=== PATIENT | male | born 1985 | race Two or more races ===

== ENCOUNTER 2021-06-12 21:56 | Emergency (ER) | payer OTHER, SELFPAY ==
[2021-06-12 22:04] VITALS: BP 118/66; PULSE 111; RESP 16; TEMP 37.1; O2SAT 96; BMI 21.9
[2021-06-12 22:40] VITALS: BP 127/80; PULSE 112; RESP 20; TEMP 37; O2SAT 94
--- NOTE | 2021-06-12 22:46 | PC.NURSE ---
pt changed over into hospital attire. pt clothing in the Pod. Will continue to monitor
--- NOTE | 2021-06-12 23:10 | ED_ITS ---
HPI - Psych General Chief Complaint: ETOH/Substance Use Stated Complaint: detox Time Seen by Provider: 06/12/21 23:07 Source: patient Mode of arrival: ambulatory Limitations: no limitations History of Present Illness HPI Narrative: Patient asking for detox been using heroin and cocaine use 2 bundles today and cocaine 3 g about patient feels restless patient has been to detox few years ago and was sober for a long time started using drugs again last 1 year. Denies any depression or suicidal ideation patient has not received any COVID vaccine Related Data Allergies Allergy/AdvReac Type Severity Reaction Status Date / Time No Known Allergies Allergy Verified 06/12/21 23:11 Review of Systems Verdana 4l Review of Systems: Yes all other systems are reviewed and Verdana 4d are negative [facility] Past Medical History Medical History (Updated 06/13/21 @ 01:12 by Aman Pop MD) Drug abuse Social History Social History Alcohol intake: current Patient Tobacco Use Status: Current everyday Tobacco user Use of substances other than those prescribed or required for medical reasons: Yes Substance Use Type: Crack/Cocaine and Heroin Physical Exam Verdana 4l Vital Signs: Verdana 4d Verdana 4d Vital Signs: Verdana 4d Verdana 4Bd Last Vital Signs Verdana 4d Operational Intelligence Officer New 4d Operational Intelligence Officer New 4d Temp 98.6 F 06/12/21 22:40 Operational Intelligence Officer New 4d Pulse 112 H 06/12/21 22:40 Operational Intelligence Officer New 4d Resp 20 06/12/21 22:40 BP 127/80 06/12/21 22:40 Pulse Ox 94 06/12/21 22:40 BMI result Body Mass Index 21.9 Appearance: Alert. Oriented X3. No acute distress. Anxious ENT: Pharynx normal. Oral Mucosa moist Neck: Normal inspection. Neck supple. CVS: Normal heart rate and rhythm. Pulses normal. Respiratory: No respiratory distress. Equal air entry bilateral, no wheezing/rales/rhonchi Abdomen: Soft and nontender. Bowel sounds are present, no mass palpable, no CVA tenderness Skin: Skin warm and dry. Normal skin color. Normal skin turgor. Extremities: No lower extremity edema. No calf tenderness IVDA track donaldson+ Neuro: Oriented X 3. MDM - Psych MDM Narrative Medical decision making narrative: Patient with opiate and cocaine abuse looking for detox with get consult for placement in the morning Lab Data Attestation: I reviewed the patient's lab results. Labs: Lab Results 06/13/21 06/13/21 Range/Units 00:21 00:21 Urine Opiates Screen POSITIVE H (Not Detect) Urine Fentanyl Screen POSITIVE H (Not Detect) Ur Barbiturates Screen Not Detected (Not Detect) Ur Phencyclidine Scrn Not Detected (Not Detect) Ur Amphetamines Screen Not Detected (Not Detect) U Benzodiazepines Scrn Not Detected (Not Detect) Urine Cocaine Screen POSITIVE H (Not Detect) U Marijuana (THC) Screen POSITIVE H (Not Detect) COVID-19 ([facility]) Negative (Negative) COVID-19 Clin Com See Note Discharge Plan Discharge Clinical Impression: Polysubstance abuse
--- NOTE | 2021-06-12 23:13 | PC.NURSE ---
provider in to assess pt. pt requesting food. [place] and Juice given. Pt tolerated well.
[2021-06-13 00:39] LABS: Amphetamine Screen Urine Not Detected (Not Detect); Barbiturates, Urine Not Detected (Not Detect); Benzodiazepines Screen Urine Not Detected (Not Detect); Cannabinoid Screen Urine POSITIVE (Not Detect); Cocaine Screen Urine POSITIVE (Not Detect); Fentanyl, urine POSITIVE (Not Detect); Opiate Screen Urine POSITIVE (Not Detect); Phencyclidine Screen Urine Not Detected (Not Detect)
[2021-06-13 00:40] LABS: COVID-19 Test Negative (Negative); IDNOW Serial# 9DD0AD1C
--- NOTE | 2021-06-13 03:05 | PC.NURSE ---
Pt is resting in bed, calm and cooperative. No sign of withdrawal at this time.
[2021-06-13 06:25] VITALS: BP 91/54; PULSE 58; RESP 16; O2SAT 95
[2021-06-13 10:00] VITALS: BP 102/66; PULSE 65; RESP 12; O2SAT 96
--- NOTE | 2021-06-13 12:18 | MHC.RECOVSUP ---
? Reason for consult:Recovery Support o Current location: BED 21 o Identified substance use concern:Heroin - Withdrawal - Seeking ATS (detox) - Support ? Intervention: o ATS bed search started/completed/in process o MAT started or to be started o Community resources provided o Harm reduction discussion ? Plan: o Referral to [facility] o Bed search in progress to o Patient to follow up with [facility] after discharge ? Additional information:Patient seeking detox. There is no bed availability. Patient to go to the [facility] tomorrow between 10-11am to get on MAT.
== END 2021-06-13 12:27 | disposition home or self-care (01) ==
PROVIDERS: Emergency Provider Internal Medicine
DX: F19.10 Other psychoactive substance abuse, uncomplicated (principal); F11.10 Opioid abuse, uncomplicated; F14.10 Cocaine abuse, uncomplicated; F17.200 Nicotine dependence, unspecified, uncomplicated; Z20.822 Contact with and (suspected) exposure to COVID-19
CPT/HCPCS: 80307; 87635; 99285

== ENCOUNTER 2021-06-14 10:14 | Outpatient (REF) | payer OTHER, SELFPAY ==
[2021-06-14 17:45] LABS: Fentanyl, urine POSITIVE (Not Detect)
== END 2021-06-14 10:15 | disposition home or self-care (01) ==
LOC: HO.LNP 10:14
PROVIDERS: Visit Provider Internal Medicine
DX: F11.90 Opioid use, unspecified, uncomplicated (principal); F17.210 Nicotine dependence, cigarettes, uncomplicated; Z51.81 Encounter for therapeutic drug level monitoring
CPT/HCPCS: 80305; 80307; 99202

== ENCOUNTER → 2021-06-18 09:58 | Outpatient (BNVA) | payer OTHER, SELFPAY | PROVIDERS: Visit Provider Internal Medicine | DX: Z51.81 Encounter for therapeutic drug level monitoring (principal); F11.20 Opioid dependence, uncomplicated | CPT/HCPCS: 80305 ==

== ENCOUNTER → 2021-06-25 10:39 | Outpatient (BNVA) | payer OTHER, SELFPAY | PROVIDERS: Visit Provider Internal Medicine | DX: F11.20 Opioid dependence, uncomplicated (principal) | CPT/HCPCS: 80305; 99211 ==

== ENCOUNTER → 2021-07-02 10:24 | Outpatient (BNVA) | payer OTHER, SELFPAY | PROVIDERS: Visit Provider Internal Medicine | DX: F11.20 Opioid dependence, uncomplicated (principal) | CPT/HCPCS: 80305; 99211 ==

== ENCOUNTER → 2021-07-12 15:13 | Outpatient (BNVA) | payer OTHER, SELFPAY | PROVIDERS: Visit Provider Internal Medicine ==

== ENCOUNTER 2021-07-18 02:10 | Emergency (ER) | payer OTHER, SELFPAY ==
[2021-07-18 02:15] VITALS: BP 135/85; PULSE 120; RESP 18; TEMP 37.2; O2SAT 98; BMI 21.9
--- NOTE | 2021-07-18 02:37 | ED.EXTPRO ---
HPI - Extremity Problem General Chief complaint: Extremity Injury, Lower Stated complaint: pain in both legs Time Seen by Provider: 07/18/21 02:36 Source: patient Mode of arrival: ambulatory Limitations: no limitations History of Present Illness HPI Narrative: Patient IV drug user does not use lower extremity for that noticed for 5 days of redness of lower extremity no fever no significant pain no history of MRSA in the past Related Data Previous Rx's Medication Instructions Recorded buprenorphine 8 mg-naloxone 2 mg 2 film SUBLINGUAL DAILY 4 Days #8 07/12/21 sublingual film (Suboxone) ea cephalexin 500 mg capsule 500 mg PO QID 10 Days #40 cap 07/18/21 doxycycline hyclate 100 mg tablet 100 mg PO BID #20 tab 07/18/21 Allergies Allergy/AdvReac Type Severity Reaction Status Date / Time No Known Allergies Allergy Verified 07/18/21 02:15 Review of Systems Review of Systems: Yes all other systems are reviewed and are negative PMFSH Past Medical History Medical History Drug abuse Opioid use disorder Social History Social History Alcohol intake: current Patient Tobacco Use Status: Current everyday Tobacco user Substance Use Type: Crack/Cocaine and Heroin Advance Directives: No Advance Directives Information Provided: Yes Physical Exam Vital Signs: Vital Signs: Last Vital Signs Temp 98.9 F 07/18/21 02:15 Pulse 120 H 07/18/21 02:15 Resp 18 07/18/21 02:15 BP 135/85 07/18/21 02:15 Pulse Ox 98 07/18/21 02:15 BMI result Body Mass Index 21.9 Appearance: Alert. Oriented X3. No acute distress. ENT: Pharynx normal. Oral Mucosa moist Neck: Normal inspection. Neck supple. CVS: Normal heart rate and rhythm. Pulses normal. Respiratory: No respiratory distress. Equal air entry bilateral, Abdomen: Soft and nontender. Bowel sounds are present, Skin: Skin warm and dry. Extremities: No lower extremity edema. No calf tenderness. Lower extremity bilateral erythema with warmth no open wound Neuro: Oriented X 3. No motor deficit. MDM - Extremity (Nontraumatic) MDM Narrative Medical decision making narrative: Patient with cellulitis bilateral lower extremity will discharge patient home on doxycycline and Keflex Discharge Plan Discharge Clinical Impression: Cellulitis Patient Disposition: Home, Self-Care Instructions: Cellulitis (ED) Additional Instructions: Take antibiotic as prescribed Report to the ER/PCP worsening of redness or swelling or pain Prescriptions: New cephalexin 500 mg capsule 500 mg PO QID 10 Days Qty: 40 0RF doxycycline hyclate 100 mg tablet 100 mg PO BID Qty: 20 0RF No Action buprenorphine-naloxone [Suboxone] 8-2 mg film 2 film sublingual DAILY 4 Days Qty: 8 0RF Rx Instructions: place 1 strip/tab under (each) side of tongue
[2021-07-18] MEDS: cephALEXin 500 MG CAPSULE PO (03:16)
== END 2021-07-18 03:17 | disposition home or self-care (01) ==
PROVIDERS: Emergency Provider Internal Medicine
DX: L03.116 Cellulitis of left lower limb (principal); L03.115 Cellulitis of right lower limb; F19.10 Other psychoactive substance abuse, uncomplicated; F11.20 Opioid dependence, uncomplicated; F17.200 Nicotine dependence, unspecified, uncomplicated
CPT/HCPCS: 99283

== ENCOUNTER 2021-07-20 22:17 | Emergency (ER) | payer OTHER, SELFPAY ==
[2021-07-20 22:24] VITALS: BP 113/59; BP 142/90; PULSE 107; PULSE 145; RESP 16; TEMP 37.1; O2SAT 95; O2SAT 98; BMI 19.5
--- NOTE | 2021-07-20 23:04 | ED.GENADULT ---
HPI - General Adult General Chief complaint: ETOH/Substance Use Stated complaint: etoh, substance use Time Seen by Provider: 07/20/21 22:57 Source: patient and EMS Mode of arrival: EMS History of Present Illness HPI narrative: 35-year-old male with known history of polysubstance use is brought in by EMS after he was found outside by police department under the influence. According to EMS and corroborated by the patient he states he has use heroin and speed tonight. He is however unsure of alcohol use. Patient states he is multiple itching areas on his back and upper torso and states that he is currently homeless and that he does not communicate with his local family. Related Data Previous Rx's Medication Instructions Recorded buprenorphine 8 mg-naloxone 2 mg 2 film SUBLINGUAL DAILY 4 Days #8 07/12/21 sublingual film (Suboxone) ea cephalexin 500 mg capsule 500 mg PO QID 10 Days #40 cap 07/18/21 doxycycline hyclate 100 mg tablet 100 mg PO BID #20 tab 07/18/21 Allergies Allergy/AdvReac Type Severity Reaction Status Date / Time No Known Allergies Allergy Verified 07/18/21 02:15 Review of Systems Review of Systems: Pertinent positives and negatives as stated in HPI 10 point review of systems is otherwise negative. PMFSH Past Medical History Source: nursing notes reviewed Medical History Drug abuse Opioid use disorder Social History Social History Alcohol intake: current Patient Tobacco Use Status: Current everyday Tobacco user Substance Use Type: Crack/Cocaine and Heroin Advance Directives: No Advance Directives Information Provided: No Physical Exam ED Vital Signs: Vital Signs - 24 hr 07/20/21 22:24 07/21/21 01:11 07/21/21 02:10 Temperature 98.7 F Pulse Rate 107 H 71 70 Respiratory Rate 16 11 L 13 Blood Pressure 113/59 L 115/61 130/85 Pulse Oximetry 98 98 99 07/21/21 04:21 07/21/21 06:08 Temperature Pulse Rate 82 Respiratory Rate 17 18 Blood Pressure 137/65 Pulse Oximetry 99 BMI result Body Mass Index 19.5 VITAL SIGNS: Reviewed. GENERAL: Well developed, well nourished, in no acute distress. HEAD: Normocephalic/atraumatic EYES: PERRLA, EOMI OROPHARYNX: no oral lesions noted, posterior pharynx clear LUNGS: Normal breath sounds. No adventitious sounds or accessory muscle use. SpO2<98> CARDIOVASCULAR: Regular rate and rhythm without noted murmurs, no JVD or lower extremity edema. ABDOMEN: Soft, non-tender, non-distended with bowel sounds. MUSCULOSKELETAL: No tenderness, deformities, or effusions noted on gross inspection. EXTREMITIES: No cyanosis, clubbing or edema; needle tracks present on bilateral upper extremities; anterior erythema and mild edema noted to bilateral shins, warm to touch, capillary refill less than 3 seconds SKIN: Inspection of the skin reveals red, raised areas along the anterior and posterior trunk with evidence scratching NEUROLOGIC: Alert and oriented x 3. Strength and sensation to light touch were grossly intact x 4. Course Course Course Narrative: 35-year-old male with history and clinical presentation consistent with being under the influence of poly substances. In addition, it appears patient may have been exposed to bedbugs and will evaluate patient with basic labs for possible lower extremity cellulitis. Review of all investigations significant for elevated CPK and polysubstance presence. CPK was noted to trend down words after patient received 2 L of IV fluids and this was followed with 1 additional. The mild leukocytosis noted is felt to be secondary to patient's recent alcohol use and likely mild rhabdo which is improving. He was noted to be pinpoint and becoming progressively drowsy and required 1 dose of Narcan. He otherwise is resting comfortably and is currently stating that he wants detox. Reevaluation(s) Reevaluation #1: Patient placed in physician observation because the patient needed more time for evaluation for detox. At the time observation was started the patient's vital signs were stable, patient is arousable and oriented, neuro: Nonfocal, CV RRR, lungs clear Time: 06:28 Medical Decision Making Lab Data Result diagrams: 07/20/21 23:20 07/20/21 23:20 Labs: Lab Results 07/20/21 07/20/21 07/20/21 Range/Units 23:20 23:20 23:20 WBC 12.5 H (4.8-10.8) X10*3/uL RBC 3.77 L (4.60-5.80) X10*6/uL Hgb 11.1 L (14.0-18.0) g/dl Hct 33.3 L (42.0-52.0) % MCV 88.3 (80.0-98.0) fL MCH 29.4 (27.0-33.0) pg MCHC 33.3 (31.0-36.0) g/dl RDW 12.8 (11.0-16.0) % Plt Count 326 (160-400) X10*3/uL MPV 8.4 L (9.4-12.4) fL Immature Gran % (Auto) 1.6 H (0.0-0.4) % Neut % (Auto) 76.6 H (45-73) % Lymph % (Auto) 9.8 L (20-40) % [place] % (Auto) 10.7 (2-11) % Eos % (Auto) 1.1 (0-4) % Baso % (Auto) 0.2 (0-2) % Lymph # (Auto) 1.2 (1.2-4.9) X10*3/uL [place] # (Auto) 1.3 H (0.1-1.2) X10*3/uL Eos # (Auto) 0.1 (0.0-0.4) X10*3/uL Baso # (Auto) 0.0 (0.0-0.2) X10*3/uL Abs Immat Gran (auto) 0.20 H (0.00-0.03) X10*3/uL Absolute Neuts (auto) 9.6 H (2.0-8.3) x10*3/uL Absolute Nucleated RBC 0.000 (0.0-0.012) X10*3/uL Nucleated RBC % (auto) 0.0 (0.0-0.2) /100WBC Sodium 139 (135-145) mmol/L Potassium 4.2 (3.3-5.1) mmol/L Chloride 105 (96-108) mmol/L Carbon Dioxide 29 (22-29) mmol/L Anion Gap 9 L (12-20) BUN 22 H (9-16) mg/dL Creatinine 1.21 (0.5-1.4) mg/dL Estim Creat Clear Calc 67.0 Estimated GFR > 60 Random Glucose 97 (60-115) mg/dL Calcium 8.8 (8.4-10.2) mg/dL Total Bilirubin 0.4 (0.0-1.0) mg/dL AST 57 H (5-37) U/L ALT 24 (0-40) U/L Alkaline Phosphatase 63 (39-117) U/L Total Creatine Kinase 1308 H (38-174) U/L Total Protein 6.9 (6.5-8.0) g/dL Albumin 3.4 L (3.5-5.0) g/dL Urine Color Urine Appearance Urine pH (5.0-8.0) Ur Specific [place] (1.005-1.025) Urine Protein (NEG-TRACE) MG/DL Urine Glucose (UA) (NEG) MG/DL Urine Ketones (NEG) MG/DL Urine Blood (NEG) Urine Nitrite (NEG) Ur Leukocyte Esterase (NEG) Urine Opiates Screen (Not Detect) Urine Fentanyl Screen (Not Detect) Ur Barbiturates Screen (Not Detect) Ur Phencyclidine Scrn (Not Detect) Ur Amphetamines Screen (Not Detect) U Benzodiazepines Scrn (Not Detect) Urine Cocaine Screen (Not Detect) U Marijuana (THC) Screen (Not Detect) Ethyl Alcohol < 10 mg/dL COVID-19 ([facility]) (Negative) COVID-19 Clin Com 07/20/21 07/21/21 07/21/21 Range/Units 23:35 03:17 03:17 WBC (4.8-10.8) X10*3/uL RBC (4.60-5.80) X10*6/uL Hgb (14.0-18.0) g/dl Hct (42.0-52.0) % MCV (80.0-98.0) fL MCH (27.0-33.0) pg MCHC (31.0-36.0) g/dl RDW (11.0-16.0) % Plt Count (160-400) X10*3/uL MPV (9.4-12.4) fL Immature Gran % (Auto) (0.0-0.4) % Neut % (Auto) (45-73) % Lymph % (Auto) (20-40) % [place] % (Auto) (2-11) % Eos % (Auto) (0-4) % Baso % (Auto) (0-2) % Lymph # (Auto) (1.2-4.9) X10*3/uL [place] # (Auto) (0.1-1.2) X10*3/uL Eos # (Auto) (0.0-0.4) X10*3/uL Baso # (Auto) (0.0-0.2) X10*3/uL Abs Immat Gran (auto) (0.00-0.03) X10*3/uL Absolute Neuts (auto) (2.0-8.3) x10*3/uL Absolute Nucleated RBC (0.0-0.012) X10*3/uL Nucleated RBC % (auto) (0.0-0.2) /100WBC Sodium (135-145) mmol/L Potassium (3.3-5.1) mmol/L Chloride (96-108) mmol/L Carbon Dioxide (22-29) mmol/L Anion Gap (12-20) BUN (9-16) mg/dL Creatinine (0.5-1.4) mg/dL Estim Creat Clear Calc Estimated GFR Random Glucose (60-115) mg/dL Calcium (8.4-10.2) mg/dL Total Bilirubin (0.0-1.0) mg/dL AST (5-37) U/L ALT (0-40) U/L Alkaline Phosphatase (39-117) U/L Total Creatine Kinase 1086 H (38-174) U/L Total Protein (6.5-8.0) g/dL Albumin (3.5-5.0) g/dL Urine Color Urine Appearance Urine pH (5.0-8.0) Ur Specific [place] (1.005-1.025) Urine Protein (NEG-TRACE) MG/DL Urine Glucose (UA) (NEG) MG/DL Urine Ketones (NEG) MG/DL Urine Blood (NEG) Urine Nitrite (NEG) Ur Leukocyte Esterase (NEG) Urine Opiates Screen POSITIVE H (Not Detect) Urine Fentanyl Screen POSITIVE H (Not Detect) Ur Barbiturates Screen Not Detected (Not Detect) Ur Phencyclidine Scrn Not Detected (Not Detect) Ur Amphetamines Screen Not Detected (Not Detect) U Benzodiazepines Scrn Not Detected (Not Detect) Urine Cocaine Screen POSITIVE H (Not Detect) U Marijuana (THC) Screen Not Detected (Not Detect) Ethyl Alcohol mg/dL COVID-19 ([facility]) Negative (Negative) COVID-19 Clin Com See Note 07/21/21 Range/Units 03:17 WBC (4.8-10.8) X10*3/uL RBC (4.60-5.80) X10*6/uL Hgb (14.0-18.0) g/dl Hct (42.0-52.0) % MCV (80.0-98.0) fL MCH (27.0-33.0) pg MCHC (31.0-36.0) g/dl RDW (11.0-16.0) % Plt Count (160-400) X10*3/uL MPV (9.4-12.4) fL Immature Gran % (Auto) (0.0-0.4) % Neut % (Auto) (45-73) % Lymph % (Auto) (20-40) % [place] % (Auto) (2-11) % Eos % (Auto) (0-4) % Baso % (Auto) (0-2) % Lymph # (Auto) (1.2-4.9) X10*3/uL [place] # (Auto) (0.1-1.2) X10*3/uL Eos # (Auto) (0.0-0.4) X10*3/uL Baso # (Auto) (0.0-0.2) X10*3/uL Abs Immat Gran (auto) (0.00-0.03) X10*3/uL Absolute Neuts (auto) (2.0-8.3) x10*3/uL Absolute Nucleated RBC (0.0-0.012) X10*3/uL Nucleated RBC % (auto) (0.0-0.2) /100WBC Sodium (135-145) mmol/L Potassium (3.3-5.1) mmol/L Chloride (96-108) mmol/L Carbon Dioxide (22-29) mmol/L Anion Gap (12-20) BUN (9-16) mg/dL Creatinine (0.5-1.4) mg/dL Estim Creat Clear Calc Estimated GFR Random Glucose (60-115) mg/dL Calcium (8.4-10.2) mg/dL Total Bilirubin (0.0-1.0) mg/dL AST (5-37) U/L ALT (0-40) U/L Alkaline Phosphatase (39-117) U/L Total Creatine Kinase (38-174) U/L Total Protein (6.5-8.0) g/dL Albumin (3.5-5.0) g/dL Urine Color YELLOW Urine Appearance CLEAR Urine pH 5.5 (5.0-8.0) Ur Specific [place] >= 1.030 H (1.005-1.025) Urine Protein NEG (NEG-TRACE) MG/DL Urine Glucose (UA) NEG (NEG) MG/DL Urine Ketones NEG (NEG) MG/DL Urine Blood NEG (NEG) Urine Nitrite NEG (NEG) Ur Leukocyte Esterase NEG (NEG) Urine Opiates Screen (Not Detect) Urine Fentanyl Screen (Not Detect) Ur Barbiturates Screen (Not Detect) Ur Phencyclidine Scrn (Not Detect) Ur Amphetamines Screen (Not Detect) U Benzodiazepines Scrn (Not Detect) Urine Cocaine Screen (Not Detect) U Marijuana (THC) Screen (Not Detect) Ethyl Alcohol mg/dL COVID-19 ([facility]) (Negative) COVID-19 Clin Com Discharge Plan Discharge Clinical Impression: Opioid use disorder Patient Disposition: Still a Patient Prescriptions: No Action cephalexin 500 mg capsule 500 mg PO QID 10 Days Qty: 40 0RF doxycycline hyclate 100 mg tablet 100 mg PO BID Qty: 20 0RF buprenorphine-naloxone [Suboxone] 8-2 mg film 2 film sublingual DAILY 4 Days Qty: 8 0RF Rx Instructions: place 1 strip/tab under (each) side of tongue
[2021-07-20] MEDS: diphenhydrAMINE HCL 25 MG TABLET 50 MG PO (23:16)
[2021-07-20 23:25] LABS: MANUAL DIFF FLAG NO
[2021-07-20 23:26] LABS: Basophils Percent Auto 0.2 % (0-2); Eosinophils Absolute Auto 0.1 X10*3/uL (0.0-0.4); Eosinophils Percent Auto 1.1 % (0-4); Hematocrit 33.3 % (42.0-52.0); Hemoglobin 11.1 g/dl (14.0-18.0); Imm Gran Pct Auto 1.6 % (0.0-0.4); Lymphocytes Absolute Auto 1.2 X10*3/uL (1.2-4.9); Lymphocytes Percent Auto 9.8 % (20-40); Mean Corpuscular HGB Conc 33.3 g/dl (31.0-36.0); Mean Corpuscular Hemoglobin 29.4 pg (27.0-33.0); Mean Corpuscular Volume 88.3 fL (80.0-98.0); Mean Platelet Volume 8.4 fL (9.4-12.4); Monocytes Absolute Auto 1.3 X10*3/uL (0.1-1.2); Monocytes Percent Auto 10.7 % (2-11); Neutrophils Absolute Auto 9.6 x10*3/uL (2.0-8.3); Neutrophils Percent Auto 76.6 % (45-73); Platelet Count 326 X10*3/uL (160-400); Red Blood Count 3.77 X10*6/uL (4.60-5.80); Red Cell Distribution Width 12.8 % (11.0-16.0); White Blood Count 12.5 X10*3/uL (4.8-10.8)
[2021-07-20 23:50] LABS: Ethanol < 10 mg/dL
[2021-07-20 23:56] LABS: COVID-19 Test Negative (Negative)
[2021-07-20 23:57] LABS: Alanine Aminotransferase 24 U/L (0-40); Albumin Level 3.4 g/dL (3.5-5.0); Alkaline Phosphatase 63 U/L (39-117); Anion Gap 9 (12-20); Aspartate Amino Transferase 57 U/L (5-37); Bilirubin Total 0.4 mg/dL (0.0-1.0); Blood Urea Nitrogen 22 mg/dL (9-16); Calcium 8.8 mg/dL (8.4-10.2); Carbon Dioxide 29 mmol/L (22-29); Chloride 105 mmol/L (96-108); Estimated Glomerular Filt Rate > 60; Glucose Random 97 mg/dL (60-115); Potassium 4.2 mmol/L (3.3-5.1); Sodium 139 mmol/L (135-145); Total Protein 6.9 g/dL (6.5-8.0)
[2021-07-21] MEDS: 0.9 % Sodium Chloride 2,000 ML 999 ML IV (00:27)
[2021-07-21] MEDS: LORazepam 1 MG TABLET PO (00:27)
[2021-07-21 01:11] VITALS: BP 115/61; PULSE 71; RESP 11; O2SAT 98
--- NOTE | 2021-07-21 01:50 | PC.NURSE ---
PT sleeping in bed with slow respirations (<12). Pupils appear to be approximately 2 mm in diameter. Nasal narcan administered with little response from the PT. PT continues to sleep in bed, pupils approximately 3 mm in diameter, respirations >10.
[2021-07-21] MEDS: Naloxone HCl Nasal 4 MG SPRAY NOSTRILALT (02:06)
[2021-07-21 02:10] VITALS: BP 130/85; PULSE 70; RESP 13; O2SAT 99
[2021-07-21 03:23] LABS: Appearance Urine CLEAR; Color Urine YELLOW; Glucose Urine UA NEG (NEG); Leukocyte Esterase Urine NEG (NEG); Nitrite Urine NEG (NEG); PH 5.5 (5.0-8.0); Specific Gravity - Urine >= 1.030 (1.005-1.025); Urine Blood NEG (NEG); Urine Ketones NEG (NEG); Urine Protein NEG (NEG-TRACE)
[2021-07-21 03:43] LABS: Amphetamine Screen Urine Not Detected (Not Detect); Barbiturates, Urine Not Detected (Not Detect); Benzodiazepines Screen Urine Not Detected (Not Detect); Cannabinoid Screen Urine Not Detected (Not Detect); Cocaine Screen Urine POSITIVE (Not Detect); Fentanyl, urine POSITIVE (Not Detect); Opiate Screen Urine POSITIVE (Not Detect); Phencyclidine Screen Urine Not Detected (Not Detect)
--- NOTE | 2021-07-21 03:56 | PC.NURSE ---
Per lab, CPK of 1086 Dr. Pruett and Brian, primary RN, made aware.
[2021-07-21 04:21] VITALS: BP 137/65; PULSE 82; RESP 17; O2SAT 99
[2021-07-21 06:08] VITALS: RESP 18
[2021-07-21] MEDS: 0.9 % Sodium Chloride 1,000 ML 999 ML IV (06:34)
--- NOTE | 2021-07-21 06:58 | PC.NURSE ---
Addendum entered by Yomaira Stafford RN 07/21/21 07:14: Lesions noted to back and torso. Pt not noted to be itching them as he is sleeping. Original Note: Pt received from overnight babysitter: Pt AOX3, received calmly sleeping. Heart sounds normal and lungs clear. Pt abd soft and non-tender. IV fluids runnings slowly but IV intact
[2021-07-21 08:10] VITALS: BP 124/81; PULSE 63; RESP 16; O2SAT 98
--- NOTE | 2021-07-21 09:04 | PC.NURSE ---
CARE team Milind at bedside for evaluation. Pt remains sleeping and does not want to talk at this time. As per Milind, will revaluate in 45mins. RN will continue to monitor.
--- NOTE | 2021-07-21 09:52 | PC.NURSE ---
CARE team Milind at bedside again for attempt for reevaluation. Pt continues to state he does not want to talk right now. ER MD Mays aware. RN will continue to monitor.
--- NOTE | 2021-07-21 09:57 | MHC.RECOVSUP ---
Recovery Support note: Patient is a 35 year old Slovak speaking male who presented to [facility] ED after relapsing on heroin. This program writer made two attempts to meet with patient to discuss relapse and recovery supports. Patient is declining consultation at this time, stating that he is tired and doesn't feel like talking. Chart review reveals patient presented to [facility] ED on 06/13/21 seeking detox. No beds were available however patient was connected with the [facility]. Patient has been going to the [facility] weekly since then. Discussed case with ED provider and RN. This program writer will revisit patient later on to see if he is open to discussing his substance use. This program writer is available as needed.
--- NOTE | 2021-07-21 11:59 | MHC.RECOVSUP ---
Recovery Support note: Patient is declining SUDE at this time. Patient reports he missed his Suboxone appointment and relapsed on heroin and has been using for about three days. Patient reports he has no Suboxone films left. Discussed walk in hours with patient and encouraged him to call tomorrow morning for an appointment or to present at 1000 to be seen as a walk in. Patient reports no questions at this time. Discussed harm reduction and relapse prevention. Discussed case with ED provider. This singer songwriter will arrange transportation for patient via [employer].
--- NOTE | 2021-07-21 12:09 | PC.NURSE ---
Pt ambulated to [facility] area to retrieve belongings, and then ride home, by CARE team
== END 2021-07-21 12:10 | disposition home or self-care (01) ==
PROVIDERS: Student in an Organized Health Care Education/Training Program; Emergency Provider Emergency Medicine
DX: F19.10 Other psychoactive substance abuse, uncomplicated (principal); F11.20 Opioid dependence, uncomplicated; F17.200 Nicotine dependence, unspecified, uncomplicated; R60.0 Localized edema; R21 Rash and other nonspecific skin eruption; Z20.822 Contact with and (suspected) exposure to COVID-19
CPT/HCPCS: 36415; 80053; 80307; 81003; 82077; 82550; 85025; 87635; 96360; 96361; 99284; Q0163

== ENCOUNTER 2022-06-13 18:37 | Emergency (ER) | payer OTHER, SELFPAY ==
[2022-06-13 18:47] VITALS: BP 116/76; BP 129/78; PULSE 112; PULSE 89; RESP 16; TEMP 36.6; O2SAT 97; O2SAT 98; BMI 22.8
[2022-06-13 18:50] VITALS: PULSE 112
== END 2022-06-13 18:54 | disposition left against medical advice (07) ==
PROVIDERS: Emergency Provider Emergency Medicine
DX: F11.10 Opioid abuse, uncomplicated (principal); F17.200 Nicotine dependence, unspecified, uncomplicated
CPT/HCPCS: 99282; 99284

== ENCOUNTER 2024-01-17 10:43 | Emergency (ER) | payer MEDICAID, SELFPAY ==
[2024-01-17 10:54] VITALS: BMI 19.4
--- NOTE | 2024-01-17 11:03 | ED_ITS ---
HPI - General Adult General Chief complaint: ETOH/Substance Use Stated complaint: IN PAIN DRUG USE Time Seen by Provider: 01/17/24 11:02 Source: patient, EMS and RN notes reviewed Mode of arrival: EMS Limitations: no limitations History of Present Illness ED Provider: yudelka CAAL narrative: Patient is a 38-year-old male with history of opioid use disorder, polysubstance use presenting to the emergency department via EMS after called 911. She reported that patient has been missing for the past 13 days and was supposed to be in a rehab facility. She is concerned that he has a PICC line to his right arm. Patient states that the line was removed. He admits to recent use of heroin, cocaine, and PCP. He denies any physical complaints. He states that he did have a fall but denies headache, vision changes, neck or back pain. He states that he is not interested in further evaluation and wishes to be discharged. MD complaint: concern for PICC line in place Associated symptoms: denies other symptoms Treatments prior to arrival: none Related Data Previous Rx's ?Medication ?Instructions ?Recorded buprenorphine 8 mg-naloxone 2 mg 2 film sublingual DAILY 4 days #8 07/12/21 sublingual film (Suboxone) ea cephalexin 500 mg capsule 500 mg PO QID 10 days #40 caps 07/18/21 doxycycline hyclate 100 mg tablet 100 mg PO BID #20 tabs 07/18/21 Allergies Allergy/AdvReac Type Severity Reaction Status Date / Time No Known Allergies Allergy Verified 01/17/24 11:01 Review of Systems 2 Review of Systems: As per HPI. Yes all other systems are reviewed and are negative PMFSH Past Medical History Medical History Drug abuse Opioid use disorder Social History Social History Alcohol intake: current Patient Tobacco Use Status: Current everyday Tobacco user Substance Use Type: Crack/Cocaine and Heroin Advance Directives: No Advance Directives Information Provided: No Physical Exam ED Vital Signs: Vital Signs - 24 hr 01/17/24 11:22 Temperature 100 F Pulse Rate 90 Respiratory Rate 16 Blood Pressure 107/51 L Pulse Oximetry 100 Oxygen Delivery Method Room Air BMI result Body Mass Index 19.4 Const General: no acute distress, alert, awake and poor hygiene Orientation/consciousness: patient oriented x3 Limitations: no limitations HENMT Head: Yes No palpable skull fracture present, Yes normocephalic, No White's sign, No raccoon eyes and No periorbital ecchymosis Head images: 2 1. contusion Ears: hearing grossly normal bilaterally and external ears normal General nose exam: Normal external nose present Mouth: Normal oral and palatal mucosa present Throat: Yes uvula midline Eyes Pupils: Equal, round and reactive pupils present Neck Neck: Yes no meningeal signs Resp Effort & Inspection: normal respiratory effort Auscultation: clear to auscultation bilaterally Cardio Rate: regular rate Rhythm: regular rhythm GI Inspection: Yes normal to inspection Palpation (GI): Soft to palpation and nontender Skin General skin exam: no rashes or lesions noted Neuro General: patient oriented x3, gait normal, tone normal, moves all extremities, Normal light touch and pain sensation, no meningeal signs, no focal motor deficits and deep tendon reflexes 2+ bilaterally Cranial nerves: Yes Equal, round and reactive pupils present Extrem General: Yes full ROM, Yes capillary refill normal and Yes normal exam except as noted Left upper extremity: hand (3 sutures to dorsal hand, wound appears fully healed) Medications Administered Discontinued Medications Generic Name Dose Route Start Last Admin Trade Name Freq PRN Reason Stop Dose Admin Bacitracin 2 appl 01/17/24 11:23 01/17/24 11:26 Bacitracin Oint 0.9 Gm Packet TOPICAL 01/17/24 11:24 2 appl ONCE ONE Administration Protocol Medical Decision Making Medical Decision Making [facility] Narrative: Patient is a 38-year-old male with history of opioid use disorder, polysubstance use presenting to the emergency department via EMS after called 911. On exam patient is awake, A+Ox3, VS WNL, afebrile, normal neurological exam without focal deficits, physical exam findings as above. Given reported symptoms and physical exam findings, initial differential includes retained PICC line, suture removal, drug intoxication. Patient examined and does not have PICC line in place at this time, no signs of infection to previous PICC line site. Patient noted to have 3 sutures to left dorsal hand with a fully healed wound. Sutures removed in the emergency department. Patient is alert, oriented x3, ambulating with steady gait and requesting discharge at this time. He was not brought to the Emergency Department on a [place] [address] police department. Feel patient has the capacity to make this decision to refuse further evaluation at this time. Advised patient he can return to the ED at any time for new or worsening symptoms. Differential Diagnosis Differential Diagnoses: The differential diagnosis associated with the presentation includes As per [facility] External Record Review External record reviewed: Inpatient record, Office record and Outpatient record Discharge Plan Discharge Clinical Impression: Encounter for removal of sutures Patient Disposition: Home, Self-Care Instructions: Stitches Removal (ED) Additional Instructions: You were brought to the emergency department today for a well being check after your called 911. You chose to leave without evaluation. You had 3 sutures removed from your left hand. Return to the emergency department with new or worsening symptoms. Prescriptions: No Action cephalexin 500 mg capsule 500 mg PO QID 10 Days Qty: 40 0RF doxycycline hyclate 100 mg tablet 100 mg PO BID Qty: 20 0RF buprenorphine-naloxone [Suboxone] 8-2 mg film 2 film sublingual DAILY 4 Days Qty: 8 0RF Rx Instructions: place 1 strip/tab under (each) side of tongue Print Language: Romansh
--- OUTSIDE RECORDS SUMMARY | 2024-01-17 11:09 | XMS_ITS | Continuity of Care Document ---
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 Name Role Phone Toño Metzger MD Primary Care Physician En[place] [facility] [id number] Date(s): 12/08/23 - 12/08/23 [facility] [address] [place] [id number] Discharge Disposition: A-D/C Home Attending Physician: Elaine Goodwin MD Admitting Physician: Elaine Goodwin MD Referring Physician: Elaine Goodwin MD Allergies, Adverse Reactions, Alerts No Known Allergies Immunizations Given and Recorded Vaccine Date Status Refusal Reason tetanus/diphtheria/pertussis, acel(Tdap) 11/29/22 Given Medications acetaminophen 325 mg oral tablet 975 mg, By Mouth, 3 times a day, Refills 0, Maintenance, 11/25/23 5:44:00 EDT, Partial fill upon patient request if the prescription is for a schedule II opioid drug. Start Date: 11/25/23 Status: Ordered folic acid 1 mg oral tablet 1 mg, By Mouth, Daily, # 90 tablet, Refills 0, Tot. Refills 0, Maintenance, 11/29/22 18:19:00 EDT, Print Requisition, Partial fill upon patient request if the prescription is for a schedule II opioiddrug. Start Date: 11/29/22 Status: Ordered lidocaine 5% topical film Topically, Daily, Right chest area., 0 Refills, Maintenance, 11/25/23 5:44:00 EDT, Patch, Partial fill upon patient request if the prescription is for a schedule II opioid drug. Start Date: 11/25/23 Status: Ordered methadone 10 mg oral tablet = 25 mg, By Mouth, 2 times a day, 0 Refills, Maintenance, 11/25/23 5:45:00 EDT, Tablet, Partial fill upon patient request if the prescription is for a schedule II opioid drug. Start Date: 11/25/23 Status: Ordered multivitamin Multiple Vitamins oral tablet 1 tablet, By Mouth, Daily, # 90 tablet, 0 Refills, Maintenance, 11/29/22 18:19:00 EDT, Tablet, Partial fill upon patient request if the prescription is for a schedule II opioid drug. Start Date: 11/29/22 Status: Ordered nalOXONE Inj 0.5 mL = 0.2 mg, IV Push, Every 5 minutes, PRN Other, Respiratory Rate less than 8 or for somnolence/excessive sedation. Repeat until Respiratory Rate is greater than 15 and patient is more alert., 0Refills, Maintenance, 11/25/23 5:45:00 EDT, Injecti... Start Date: 11/25/23 Status: Ordered Remove Patch Start Date: 11/25/23 Status: Ordered thiamine 100 mg oral tablet 100 mg, By Mouth, 2 times a day, # 90 tablet, Refills 0, Tot. Refills 0, Maintenance, 11/29/22 18:19:00 EDT, Print Requisition, Partial fill upon patient request if the prescription is for a scheduleII opioid drug. Start Date: 11/29/22 Status: Ordered traZODone 50 mg oral tablet 50 mg, By Mouth, Daily at bedtime, Refills 0, Maintenance, 11/25/23 5:45:00 EDT, Partial fill upon patient request if the prescription is for a schedule II opioid drug. Start Date: 11/25/23 Status: Ordered vancomycin 1.25 g intravenous injection = 1,250 mg, IVPB, Every 12 hours, End date 12/22 for a total of 6 weeks. infused over 60 minutes, 0 Refills, Maintenance, 11/25/23 5:45:00 EDT, Injection, Partial fill upon patient request if the prescription is for a schedule II opioid drug. Start Date: 11/25/23 Stop Date: 12/23/23 Status: Ordered Problem List Condition Confirmation Course Effective Dates Status Health atus Informant History of hepatitis C Confirmed Active Spinal epidural abscess Confirmed Active Results Radiology Reports * Exam Date Time Procedure Performing Provider Status 12/08/23 11:18 AM IR End of Case Report Mo dified IR End of Case Report * Exam Date Time Procedure Performing Provider Status 12/08/23 11:18 AM IR Drainage/Tube Change Auth (Verified) Notes: (IR Drainage/Tube Change) Reason For Exam: abscess drain check;Other: IR Drainage/Tube Change Patient: WILLIAM MTZ Study Date: 12/08/2023 Performing: Elaine Goodwin MD Referring: : 1985 Age: 38 Gender: MALE Pre-procedure diagnosis and Indication: 38-year-old male with past medical history of substance use disorder, HCV, chronic right foot osteomyelitis and homelessness who was admitted to the hospital in October 2023 due to weakness and met criteria for sepsis with multiple sources of infection. He underwent CT-guided drainage catheter placement into right iliacus muscle fluid collection on 11/11/2023. Follow-up CT abdomen pelvis from 11/21/2023 demonstrates near complete resolution of right iliopsoas intramuscular abscess. He presents to interventional radiology today for evaluation and removal of drainage catheter. He denies any fevers or chills and does not have any pain in his right pelvis or at the drainage catheter site. He has had minimal output via the catheter over the last few days. PROCEDURE: The procedure, risks, and alternatives, were discussed and all questions were answered. Written informed consent obtained. Accompanying paperwork was verified for accuracy. Directed history and physical exam performed prior to the procedure. Medication reconciliation performed by nursing personnel. Procedure was performed using a cap, sterile gown, sterile gloves, a large sterile sheet, hand hygiene and 2% chlorhexidine for cutaneous antisepsis. The patient was positioned supine on the table and prepped and draped in usual sterile fashion. A critical pause was performed with assisting personnel just prior to the procedure with the patient's identity confirmed using 2 identifiers, confirming site and side. Initial corporate director talent assessment radiograph demonstrates drain overlying the right pelvis in a similar position and orientation compared to prior exams. Contrast was gently injected through the catheter which extends along the tract of the catheter, however there is no residual abscess cavity. No evidence of fistula. Therefore, the decision was made to remove the drainage catheter. The catheter was cut. An Amplatz wire was advanced through the catheter and out the catheter endhole. The catheter and wire were removed together. The retention string was removed in its entirety. A sterile dressing was applied. Patient tolerated the procedure well without immediate post procedure complications. estimated blood loss was minimal Specimens/samples: no specimens or samples were sent for this procedure Impression: 1. Contrast injection via the right iliacus intramuscular abscess drainage catheter does not demonstrate any evidence of residual abscess or fistula. 2. Removal of drainage catheter. Fluoroscopy time and dose Total Fluoro Time: 0.5 mins Total dose 3 mGy Total DAP 54.2 - ?Gy/m2 Contrast used Contrast used: Omnipaque_300 5 ml's Signed By Elaine Goodwin MD On 12/08/2023 3:41:58 PM Elaine Goodwin MD Dictated By: Elaine Goodwin MD Dictated Date/Time: 12/08/23 11:18 a Reviewed By: Elaine Goodwin MD Signed By: Elaine Goodwin MD Signed Date/Time: 12/08/23 11:18 am Transcribed By: TORO Transcribed Date/Time: 12/08/23 11:18 am Vital Signs Most recent to oldest [Reference Range]: 1 Oxygen Saturation [94-100 %] 100 % (12/08/23 10:34 AM) Pulse Rate [55-90 bpm] 77 bpm (12/08/23 10:34 AM) Blood Pressure [90-138/55-84 mm Hg] 102/ 62mm Hg (12/08/23 10:34 AM) Respiratory Rate [16-30 br/min] 20 br/mi n (12/08/23 10:34 AM) Temperature [96.8-100.4 DegF] 97.9 DegF (12/08/23 10:34 AM) Mode of Delivery (Oxygen) Room air (12/08/23 10:34 AM) Blood pressure sites Arm, left (12/08/23 10:34 AM) Temperature Route Oral (12/08/23 10:34 AM) Social History Social History Type Response Smoking Status Smoker, current stat us unknown entered on: 11/29/22 Sex Hospital Progress note * Barbi Pacheco RN: PERFORM, SIGN, VERIFY, SIGN, MODIFY Event Display: Progress Note Hospital Authored Date: [id number] Patient: WILLIAM MTZ Age: 38 years Sex: Male : 1985 Associated Diagnoses: None Author: Barbi Pacheco RN Findings Narrative/Incidental patient arrived to unit for gabriela drain check/ removal A&Ox4, VSS. arrived via w/c from transport from facility. prepped with emla. returned fromprocedure and tube was removed- dreessing is CDI. PT 1 ride called for return to [facility]. will be ready for d/c after finishing eating something. call bland in reach and being monitored until d/c home. . * Barbi Pacheco RN: PERFORM Event Display: Progress Note Hospital Authored Date: d/c instructions reviewed with patient prior to leaving unit for d/c and patient was told to give the copy to the nurse at facility when he returns. left the unit for d/c with all belongings and in stable condition via w/c. Note * Barbi Pacheco RN: PERFORM Event Display: Discharge/Transfer Note Hospital Authored Date: [id number] Nursing Discharge Note Entered On: 12/08/2023 14:54 EDT Performed On: 12/08/2023 13:00 EDT by Barbi Pacheco RN Nursing Discharge Note 2 Discharge Time : 12/08/2023 13:00 EDT Discharge Level of Care at Discharge : Home/Fdc/Foster Care Patient Left Unit Via : Wheelchair Patient Accompanied Off Unit with : Responsible adult DC Instructions Provided & Signed by Pt : Yes Patient Understands D/C Instructions : Yes Patient Instructions Discharge Signed : Yes Did Pt have Specialty Bed or Wound Vac : No Barbi Pacheco RN - 12/08/2023 14:53 EDT Patient Care team information Care Team Personnel Name: Leslie Christy RN Position: S RN Member Role: Primary Care Nurse Name: Bri Almaraz RN Position: S RN Member Role: Primary Care Nurse Name: Mine Jaramillo RN Position: S RN Member Role: Primary Care Nurse Name: Olivier Leal RN Position: S RN Member Role: Primary Care Nurse Name: Lionel Boothe RN Position: S RN Member Role: Primary Care Nurse Name: Dion Alex RN Position: [facility] RN Member Role: Primary Care Nurse Name: Marie Rees RN Position: S RN Member Role: Primary Care Nurse Name: Toño Metzger MD Position: [facility] Medicine Member Role: PCP Address: Address: [address] [place] [id number] Name: Tiffanie Nazario RN Position: [facility] RN Member Role: Primary Care Nurse Name: Rupesh Mustafa RN Position: [facility] RN Member Role: Primary Care Nurse Care Team Related Persons Name: ELVIA VANESSA Name: MALAIKA CELESTIN Address: [place] [address] Name: OTF LANDEROS Address: [place] [address]
--- OUTSIDE RECORDS SUMMARY | 2024-01-17 11:09 | XMS_ITS | Continuity of Care Document ---
Author Organization [facility] ter Address [address] [place] [address]- Care Team Providers Care Urinalysis Technician Name Role Phone Not on Staff, PCP Primary Care Physician Unavail able [place] [facility] [place]): 11/08/23 - 11/25/[address] [id number] Discharge Disposition: A-Transfer SNF Attending Physician: Richard Milan MD Admitting Physician: Murtaza Pope MD Referring Physician: Not on Staff, Referring MD Allergies, Adverse Reactions, Alerts No Known Allergies Immunizations Given and Recorded Vaccine Date Status Refusal Reason tetanus/diphtheria/pertussis, acel(Tdap) 11/29/22 Given Medications acetaminophen 325 mg oral tablet 975 mg, By Mouth, 3 times a day, Refills 0, Maintenance, 11/25/23 5:44:00 EDT, Partial fill upon patient request if the prescription is for a schedule II opioid drug. Start Date: 11/25/23 Status: Ordered Acetaminophen Tablet 975 mg, Tablet, By Mouth, 11/25/23 9:00:00 EDT Start Date: 11/25/23 Stop Date: 11/25/23 Status: Completed folic acid 1 mg oral tablet 1 [...] opioid drug. Start Date: 11/25/23 Status: Ordered Methadone Tablet 25 mg, Tablet, By Mouth, 11/25/23 9:00:00 EDT Start Date: 11/25/23 Stop Date: 11/25/23 Status: Completed multivitamin Multiple Vitamins oral tablet 1 tablet, [...] List Condition Confirmation Course Effective Dates Status [facility] atus Informant History of hepatitis C Confirmed Active Spinal epidural abscess Confirmed Active Results Radiology Reports (Most Recent Ten) * Exam Date Time Procedure Performing Provider Status 11/21/23 5:[address] Abd/Pelvis W/ IV Contrast Only Eileen Lange; Jl (Verified) Notes: (CT Abd/Pelvis W/ IV Contrast Only) Reason For Exam: Mass RESULT: CT Abd/Pelvis W/ IV Contrast Only CT Abd/Pelvis W/ IV Contrast Only Reason: Mass; Follow-up abscess. TECHNIQUE: Spiral CT through the abdomen and pelvis with IV contrast formatted in 3 planes. 100 cc of Omnipaque 300 was administered intravenously. This study was performed without oral contrast. Weight-based protocol using automatic tube modulation was used to optimize exposure parameters. CTDIvolBody: 11.40 mGy, DLP Body: 738 mGy*cm. COMPARISON: 11/08/2023. FINDINGS: Visualized Chest: Increasing basilar atelectasis. Liver: Normal. Gallbladder: No CT evidence of gallbladder pathology. Bile ducts: No biliary ductal dilation. Spleen: Normal. Pancreas: Normal. Adrenal glands: Normal. Kidneys and ureters: No hydronephrosis, stones, or suspicious masses. Bladder: Normal. Reproductive organs: Unremarkable. Stomach, small bowel, and large bowel: No evidence of obstruction or inflammation. Probable small sliding hiatal hernia. Moderately stool-filled colon and rectosigmoid. Appendix: No evidence of appendicitis. Peritoneum and retroperitoneum: No ascites or pneumoperitoneum. No omental or mesenteric lesions. Lymph nodes: Prominent bilateral inguinal nodes are likely reactive. Blood vessels: Normal. No aneurysm. No evidence of venous thrombosis. Abdominal and pelvic wall: Near-complete resolution of the previously identified right iliopsoas fluid collection with a pigtail drain in place with a residual bilobed fluid collection medial to the catheter axial image 102 series 601 measuring 2.5 cm in AP dimension. There is a peripherally enhancing multiloculated fluid collection in the right gluteus and piriformis musculature better visualized on current examination. The largest focused of fluid measured on axial image 108 of series 601 measures 6.3 cm in transverse dimension by 1.6 cm in AP dimension by 5.5cm craniocaudal dimensions coronal image 71 (decreasing in size compared to most recent previous exam at which time the largest collection measured 7.3 x 2.5 cm on axial image 166 series 603 of the 11/08/2023 exam.). Incompletely included moderate soft tissue stranding is identified inferiorly along the included portion of the right gluteal cleft and proximal thigh without evidence of a definite fluid collection. Bones: Nondisplaced right sacral alar fracture paralleling the sacroiliac joint is again noted. IMPRESSION: 1. Near complete resolution of the previously identified right iliopsoas abscess. 2. More well-defined peripherally enhancing right gluteus abscess which appears slightly smaller. 3. Improving phlegmonous changes inferiorly along the right gluteal crease. 4. Right sacral fracture again noted. WSN: [id number] Ordering Physician: Chai Lua Dictated By: Cesar Rodriges MD Dictated Date/Time: 11/21/23 6:06 pm Reviewed By: Cesar Rodriges MD Signed By: Cesar Rodriges MD Signed Date/Time: 11/21/23 6:06 pm Transcribed By: MARCIO Transcribed Date/Time: 11/21/23 5:48 pm * Exam Date Time Procedure Performing Provider Status 11/20/23 11:07 AM US Soft Tissue Pelvis/ Buttocks Gaby Mai; Jl (Verified) Notes: (US Soft Tissue Pelvis/ Buttocks) Reason For Exam: R gluteal region, palpated around ischial tuberosity;Pain RESULT: US Soft Tissue Pelvis/ Buttocks US Soft Tissue Pelvis/ Buttocks Reason: Pain; Right gluteal region, palpated around ischial tuberosity; patient is status post CT-guided drain placement of right iliacus fluid collection. Clinical Question(s): Abscess. COMPARISON: CT scans 11/08/2023 and 11/11/2023 FINDINGS: High-resolution, linear array imaging of the superficial soft tissues of the inferior right buttockwas performed in the area marked by the ordering provider. Diffuse subcutaneous edema without sonographically apparent fluid collection. IMPRESSION: There is edema in the subcutaneous fat but no abscess. Note that the prior CT scans show a large abscess in the gluteus muscles that is not adequately assessed with this study. Consider repeat CT scan with IV contrast. The impression above was relayed to Perry Kat by Dr. Yuniel Paige via [employer] with acknowledgement received on 11/20/2023 at 1201. WSN: [id number] Ordering Physician: Perry Kat Dictated By: Yuniel Paige MD Dictated Date/Time: 11/20/23 2:00 pm Reviewed By: Yuniel Paige MD Signed By: Yuniel Paige MD Signed Date/Time: 11/20/23 2:00 pm Transcribed By: MARCIO Transcribed Date/Time: 11/20/23 11:37 am * Exam Date Time Procedure Performing Provider Status 11/12/23 11:11 AM US Doppler Ext Upper Venous Bilat NicGina torres; Auth (Verified) Notes: (US Doppler Ext Upper Venous Bilat) Reason For Exam: Pain/Tenderness Extremities RESULT: US Doppler Ext Upper Venous Bilat US Doppler Ext Upper Venous Bilat Reason: Pain Tenderness Extremities; Clinical Question(s): Thrombosis. COMPARISON: None. IMAGING TECHNIQUE: Ultrasound examination of the bilateral upper extremity deep venous systems was performed using grayscale, color, and spectral wave analysis including response to compression. FINDINGS: RIGHT UPPER EXTREMITY: Internal jugular vein: Patent. No thrombosis. Subclavian vein: Patent. No thrombosis. Axillary vein: Patent. No thrombosis. Brachial vein: Patent. No thrombosis. Basilic vein: Partially obscured by overlying bandage. Visualized portions appear patent without evidence of thrombus. Cephalic vein: Not visualized. A morphologically normal epitrochlear lymph node is visualized measuring up to 1.5 cm. LEFT UPPER EXTREMITY: Internal jugular vein: Patent. No thrombosis. Subclavian vein: Patent. No thrombosis. Axillary vein: Patent. No thrombosis. Brachial vein: Patent. No thrombosis. Basilic vein: Patent. No thrombosis. Cephalic vein: Not visualized. IMPRESSION: No evidence of venous thrombosis. Nonvisualization of the cephalic vein bilaterally. WSN: [id number] Ordering Physician: Noreen Grant Dictated By: Tian Quinones MD Dictated Date/Time: 11/12/23 12:25 p Reviewed By: Tian Quinones MD Signed By: Tian Quinones MD Signed Date/Time: 11/12/23 12:25 pm Transcribed By: MARCIO Transcribed Date/Time: 11/12/23 11:46 am * Exam Date Time Procedure Performing Provider Status 11/12/23 11:11 AM US Doppler Ext Lower Venous Left Gina Hilton; Auth (Verified) Notes: (US Doppler Ext Lower Venous Left) Reason For Exam: Pain/Tenderness Extremities RESULT: US Doppler Ext Lower Venous Left US Doppler Ext Lower Venous Left Reason: Pain Tenderness Extremities; Clinical Question(s): Thrombus. COMPARISON: None IMAGING TECHNIQUE: Ultrasound of the veins from the groin through the calf was performed using grayscale, color, and spectral Doppler ultrasound assessing for complete compressibility and normal flowcharacteristics. FINDINGS: Common femoral vein: Patent. No thrombosis. Femoral vein: Patent. No thrombosis. Popliteal vein: Patent. No thrombosis. Gastrocnemius veins: The visualized portions are patent without evidence of thrombosis. Peroneal veins: The visualized portions are patent without evidence of thrombosis. Posterior tibial veins: The visualized portions are patent without evidence of thrombosis. Contralateral common femoral vein: Patent. No thrombosis. OTHER FINDINGS: None. IMPRESSION: No evidence of deep venous thrombosis. WSN: [id number] Ordering Physician: Noreen Grant Dictated By: Tian Quinones MD Dictated Date/Time: 11/12/23 12:24 p Reviewed By: Tian Quinones MD Signed By: Tian Quinones MD Signed Date/Time: 11/12/23 12:24 pm Transcribed By: MARCIO Transcribed Date/Time: 11/12/23 11:34 am * Exam Date Time Procedure Performing Provider Status 11/11/23 4:56 PM IR End of Case Report Aut h (Verified) IR End of Case Report * Exam Date Time Procedure Performing Provider Status 11/11/23 4:[address] Rad Guide Per Drain W/ Place Tamica Quesada; Auth (Verified) Notes: (CT Rad Guide Per Drain W/ Place) Reason For Exam: right pelvic abscess CT Rad Guide Per Drain W/ Place Patient: MICHAEL MTZ Study Date: 11/11/2023 Performing: Elaine Goodwin MD Referring: : 1985 Age: 38 Gender: MALE PROCEDURE: CT guided drainage catheter placement. INDICATION: 38-year-old male with past medical history of substance use disorder, HCV, chronic right foot osteomyelitis and homelessness who presented with weakness and met criteria for sepsis with multiple sources of infection. CT chest abdomen pelvis from 11/08/2023 demonstrates heterogenous collection within the right iliacus muscle with internal gas highly suspicious for infection. Patient presents to interventional radiology for aspiration and drainage catheter placement into right iliacus muscle fluid collection. UTILITY HAND(S): Elaine Goodwin MD ANESTHESIA: 1% lidocaine was administered for local anesthesia. TECHNIQUE: The procedure, risks, and alternatives, were discussed with the patient's healthcare proxy and all questions were answered. Written informed consent obtained. Accompanying paperwork was verified for accuracy. Directed history and physical exam performed prior to the procedure. Medication reconciliation performed by nursing personnel. The patient was brought to the procedure suite and positioned supine on the table. A critical pause was performed with assisting personnel just prior to the procedure with the patient's identity confirmed using 2 identifiers and confirming procedure site and side. Preprocedure limited CT of the pelvis was performed which demonstrates heterogenous fluid collection within the right iliacus muscle, similar to prior exam. An appropriate site was selected and marked. The skin was draped and prepped in usual sterile fashion. Procedure was performed using a cap, sterile gown, sterile gloves, a large sterile sheet, handhygiene and 2% chlorhexidine for cutaneous antisepsis. 1% lidocaine was administered for local anesthesia. Under intermittent CT fluoroscopy guidance, a 19-gauge wing tip needle was advanced into the intramuscular fluid collection. A wire was advanced through the needle into the fluid collection. Next, the tract was dilated with an 8 Senegalese dilater and subsequently, a 10 Senegalese locking drainage catheter was advanced over the wire into the fluid collection. The pigtail loop was formed and secured. The catheter was secured to the skin with 0 Prolene sutures and a sterile dressing was applied. The catheter was attached to bulb suction drainage. Approximately 40 mL of sanguinous purulent fluid was aspirated and submitted to microbiology. Post-procedure limited CT images were obtained which demonstrate appropriate position of the catheter within the right iliacus intramuscular collection. The estimated blood loss was minimal. The patient tolerated the procedure well without immediate post procedure complications. PLAN: Routine post procedure monitoring. IMPRESSION: CT-guided placement of 10 Senegalese locking drainage catheter into right iliacus muscle fluid collection. Approximately 40 mL of purulent sanguinous fluid was aspirated and submitted to microbiology. Plan: ? Monitor output of drainage catheter. ? Flush catheter daily with 10 mL of saline. ? Management and removal of drainage catheter to be arranged by the clinical service. Signed By Elaine Goodwin MD On 11/11/2023 6:57:44 PM Signed By Elaine Goodwin MD On 11/11/2023 6:57:44 PM Elaine Goodwin MD Equipment : Ampulse CATHETER 10FR LOCK RESOLVE Ampulse MAHENDRA-SILVERMAN 100 W/ TUBE Dictated By: Elaine Goodwin MD Dictated Date/Time: 11/11/23 4:56 pm Reviewed By: Elaine Goodwin MD Signed By: Elaine Goodwin MD Signed Date/Time: 11/11/23 4:56 pm Transcribed By: TORO Transcribed Date/Time: 11/11/23 4:56 pm * Exam Date Time Procedure Performing Provider Status 11/10/23 9:34 AM MRI Thoracic Spine W+W/O Contrast Anna Brito (Verified) Notes: (MRI Thoracic Spine W+W/O Contrast) Reason For Exam: Epidural abscess;Other: RESULT: MRI Thoracic Spine W+W/O Contrast MRI Thoracic Spine W+W/O Contrast INDICATION: Reason: Other:; Epidural abscess; Clinical Question(s): Epidural Empyema; Order Comment: Please see Reference Text for complete list of contraindications Epidural Empyema TECHNIQUE: MRI of the thoracic spine was performed with and without intravenous contrast utilizing sagittal T1, sagittal T2, sagittal STIR, axial T1, and fat- saturated axial T2-weighted sequences, and post-contrast sagittal T1 and fat- saturated axial T1-weighted sequences. 12 mL of Clariscan was administered intravenously. COMPARISON: MRI cervical and lumbar spine 11/08/2023. FINDINGS: LOCALIZER: Localizer images including large [id number] sagittal T2 weighted sequence through theentire spine, demonstrating a normal complement of cervical, thoracic, and lumbar vertebral bodies.Findings in the cervical and lumbar spine were more fully evaluated on dedicated MRIs of 11/08/2023. ALIGNMENT, VERTEBRAE, MARROW, AND DISCS: There is focal kyphosis centered at T5. Alignment otherwise preserved. There is a severe anterior wedge compression deformity of the T5 vertebral body, with no associated edema. Mild endplate concavities of the T3, T4, T6, and T7 vertebral bodies are noted. No marrow edema or cortical irregularity is seen at these sites. Marrow signal is diffusely mildly T1 hypointense (similar to signal of the disc spaces), as described on MRI cervical/lumbar spine, suggestive of red marrow conversion. Intervertebral discs are maintained. No fluid signal or abnormal enhancement is seen within the disc spaces. No facet effusion or costovertebral joint effusion is seen. CORD: The thoracic cord is normal in signal and contour. There is no abnormal intradural or epidural enhancement. There are no epidural fluid collection. PARASPINAL TISSUES: Small bilateral pleural effusions are present. There is mild ill-defined fairlydiffuse edema in the soft tissues, including paraspinal edema in the lower thoracic spine contiguous with edema in the retroperitoneum, perirenal fat, and posterior paraspinal musculature, more fullyevaluated on dedicated to evaluation of the lumbar spine. No discrete paraspinal fluid collection or abnormal enhancement is seen. FINDINGS BY LEVEL: No significant central stenosis or neural foraminal narrowing is seen at any level in the thoracic spine. IMPRESSION: 1. No evidence of discitis/osteomyelitis, surface, epidural abscess/phlegmon, or other signs of spinal infection in the thoracic spine. 2. Small bilateral pleural effusions and diffuse edema as above, without focal fluid collection/abscess. WSN: [id number] Ordering Physician: Abhijeet Christian Dictated By: Lisa Suarez MD Dictated Date/Time: 11/10/23 2:28 pm Reviewed By: Lisa Suarez MD Signed By: Lisa Suarez MD Signed Date/Time: 11/10/23 2:28 pm Transcribed By: MARCIO Transcribed Date/Time: 11/10/23 1:26 pm * Exam Date Time Procedure Performing Provider Status 11/09/23 3:[address] Ext Upper W/ Contrast Left Renu Morgan; Jl (Verified) Notes: (CT Ext Upper W/ Contrast Left) Reason For Exam: pain, edema;Edema RESULT: CT Ext Upper W/ Contrast Left CT Ext Upper W/ Contrast Left Reason: Edema; pain, edema; Clinical Question(s): Forearm. TECHNIQUE: Helical CT of the left upper extremity performed from the elbow to the wrist was performed with contrast, with images formatted in 3 planes. 100 cc of Omnipaque 300 was administered intravenously. Weight-based protocol using automatic tube modulation was used to optimize exposure parameters. CTDIvol Body: 8.00 mGy, DLP Body: 247 mGy*cm. COMPARISONS: Left forearm and hand radiographs dated 11/08/2023. FINDINGS: Bones and joints: Healed deformity of the distal radius is seen. No acute fracture or dislocation. No focal cortical destruction or periosteal reaction. Soft Tissues: There is streak artifact related to arm positioning adjacent to the patient's body. There is confluent subcutaneous edema throughout the visualized portion of the hand and throughout the forearm. There are areas of skin thickening in the forearm. No subcutaneous gas or discrete rim-enhancing fluid collection. Muscular detail is somewhat limited by the streak artifact. IMPRESSION: Diffuse subcutaneous edema throughout the left forearm and visualized portion of the hand with no rim-enhancing fluid collection or subcutaneous gas. No CT evidence of osteomyelitis. WSN: [id number] Ordering Physician: Noreen Grant Dictated By: Gabby Romero MD Dictated Date/Time: 11/09/23 3:48 pm Reviewed By: Gabby Romero MD Signed By: Gabby Romero MD Signed Date/Time: 11/09/23 3:48 pm Transcribed By: MARCIO Transcribed Date/Time: 11/09/23 3:33 pm * Exam Date Time Procedure Performing Provider Status 11/08/23 4:48 PM MRI Lumbar Spine W+W/O Contrast Emelia Garcia; Jl (Verified) Notes: (MRI Lumbar Spine W+W/O Contrast) Reason For Exam: Epidural abscess;Other: RESULT: MRI Lumbar Spine W+W/O Contrast MRI Lumbar Spine W+W/O Contrast INDICATION: Reason: Other:; Epidural abscess; Clinical Question(s): Epidural Empyema; Special Instructions: obtain within two hours; Order Comment: Please see Reference Text for complete list of contraindications Epidural Empyema TECHNIQUE: MRI of the lumbar spine was performed with and without intravenous contrast utilizing sagittal T1, sagittal T2, sagittal STIR, axial T1, and fat- saturated axial T2-weighted sequences, and post-contrast sagittal T1 and fat- saturated axial T1-weighted sequences. 15 mL of Clariscan was administered intravenously. COMPARISON: CT abdomen pelvis 11/08/2023. FINDINGS: LOCALIZER: No additional findings on limited localizer images. NUMBERING: The study assumes 5 zuk-dvr-ezfusse lumbar type vertebral bodies. ALIGNMENT, VERTEBRAE, MARROW, AND DISCS: Alignment is normal. Vertebral body heights are preserved.Red marrow conversion. Intervertebral discs are maintained. CONUS: The conus is normal in signal and contour, with normal level of termination at inferior aspect of T12. PARASPINAL TISSUES: Multiple right iliacus intramuscular abscesses are partially visualized, betterseen on prior CT of the abdomen and pelvis. Diffuse enhancement of the right paraspinal musculature, lateral right sacrum and the right sacroiliac joint. Suspected small 0.6 cm abscess within the right paraspinal musculature (16:30). DETAILED FINDINGS BY LEVEL: L1-L2: No significant canal stenosis or neural foraminal narrowing. L2-L3: No significant canal stenosis or neural foraminal narrowing. L3-L4: No significant canal stenosis or neural foraminal narrowing. L4-L5: No significant canal stenosis or neural foraminal narrowing. L5-S1: No significant canal stenosis or neural foraminal narrowing. IMPRESSION: Right sacroiliitis and right paraspinal musculature myositis, extending throughout the field of view, with a suspected 0.6 cm right paraspinal muscle abscess. Partially visualized multiple abscesses within the right iliacus muscle, better visualized on recent CT. A similar preliminary report was provided by José Miguel. I have personally reviewed the images and I agree with this report. WSN: [id number] Ordering Physician: Abhijeet Christian Dictated By: Dixie Prado MD Dictated Date/Time: 11/09/23 10:29 a Reviewed By: Stewart Aparicio MD Signed By: Stewart Aparicio MD Signed Date/Time: 11/09/23 10:34 am Transcribed By: MARCIO Transcribed Date/Time: 11/09/23 10:17 am * Exam Date Time Procedure Performing Provider Status 11/08/23 4:48 PM MRI Cervical Spine W+W/O Contrast Emelia Acevedo i; Jl (Verified) Notes: (MRI Cervical Spine W+W/O Contrast) Reason For Exam: Epidural abscess;Other: RESULT: MRI Cervical Spine W+W/O Contrast MRI Cervical Spine W+W/O Contrast INDICATION: Epidural abscess; Clinical Question(s): Epidural Empyema; Special Instructions: obtain within two hours; Order Comment: Epidural Empyema TECHNIQUE: MRI of the cervical spine was performed with and without intravenous contrast utilizing sagittal T1, sagittal T2, sagittal STIR, axial T1, and fat- saturated axial T2-weighted sequences, and post-contrast sagittal T1 and fat- saturated axial T1-weighted sequences. 15 mL of Clariscan was administered intravenously. COMPARISON: None. FINDINGS: Suboptimal study due to motion artifact LOCALIZER: No additional findings on limited localizer images. ALIGNMENT, VERTEBRAE, MARROW, AND DISCS: Alignment is normal. Vertebral body heights are preserved.Diffuse pulmonary hypodensity likely representing marrow replacement. Intervertebral discs are maintained. POSTERIOR FOSSA AND CORD: Visualized posterior fossa is normal. Apart from mild hyperintensity posterior to C2-C4, likely representing artifact, the cervical cord is normal in signal and caliber. There is no abnormal enhancement. PARASPINAL TISSUES: Soft tissues of the neck are unremarkable. Major cervical flow voids are present. FINDINGS BY LEVEL: No significant central stenosis or neural foraminal narrowing is seen at any level in the cervical spine. IMPRESSION: No evidence of an epidural abscess within limits of a suboptimal study. Diffuse red marrow placement which may represent chronic anemia or other infiltrative bone marrow process. A similar preliminary report was provided by [facility]. I have personally reviewed the images and I agree with this report. WSN: [id number] Ordering Physician: Abhijeet Christian Dictated By: Dixie Prado MD Dictated Date/Time: 11/09/23 10:29 a Reviewed By: Stewart Aparicio MD Signed By: Stewart Aparicio MD Signed Date/Time: 11/09/23 10:34 am Transcribed By: MARCIO Transcribed Date/Time: 11/09/23 10:16 am Vital Signs Most recent to oldest [Reference Range]: 1 2 3 Height 171 cm (11/25/23 7:51 AM) 171 cm (11/25/23 5:46 AM) 171 cm (11/24/23 10:12 PM) Weight 60.6 kg (11/13/23 8:15 AM) 60.6 kg (11/10/23 1:14 PM) 60.6 kg (11/09/23 4:00 AM) Oxygen Saturation [94-100 %] 100 % (11/25/23 7:51 AM) 100 % (11/25/23 5:46 AM) 100 % (11/24/23 10:12 PM) Pulse Rate [55-90 bpm] 80 bpm (11/25/23 7:51 AM) 80 bpm (11/25/23 5:46 AM) 76 bpm (11/24/23 10:12 PM) Body Mass Index [18.5-24.99 kg/m2] 20.72 kg/m2 (11/13/23 8:15 AM) 20.72 kg/m2 (11/10/23 1:14 PM) 20.14 kg/m2 (11/08/23 5:06 PM) Blood Pressure [90-138/55-84 mm Hg] 145/92mm Hg *H* (11/25/23 7:51 AM) 109/60mm Hg (11/25/23 5:46 AM) 127/70mm Hg (11/24/23 10:12 PM) Respiratory Rate [16-30 br/min] 20 br/min (11/25/23 9:10 AM) 20 br/min (11/25/23 9:10 AM) 20 br/min (11/25/23 8:10 AM) Temperature [96.8-100.4 DegF] 98.0 DegF (11/25/23 7:51 AM) 97.8 DegF (11/25/23 5:46 AM) 98.3 DegF (11/24/23 10:12 PM) Liters per Minute 3 L/min (11/13/23 10:00 AM) 6 L/min (11/13/23 9:45 AM) 6 L/min (11/13/23 9:30 AM) Mode of Delivery (Oxygen) Room air (11/25/23 7:51 AM) Room air (11/25/23 5:46 AM) Room air (11/24/23 10:12 PM) Blood pressure sites Leg, left (11/25/23 7:51 AM) Leg, left (11/25/23 5:46 AM) Leg, left (11/24/23 10:12 PM) Temperature Route Oral (11/25/23 7:51 AM) Oral (11/25/23 5:46 AM) Oral (11/24/23 10:12 PM) Dry Weight 58.9 kg (11/08/23 5:06 PM) Weight Obtained Via Bed scale (11/09/23 4:00 AM) Bed scale (11/08/23 5:06 PM) Dry Weight Obtained Via Bed scale (11/08/23 5:06 PM) Social History Social History Type Response Smoking Status Smoker, current stat us unknown entered on: 11/29/22 Sex Note * Marie Rees RN: PERFORM Event Display: Discharge/Transfer Note Hospital Authored Date: [id number] Nursing Discharge Note Entered On: 11/25/2023 12:04 EDT Performed On: 11/25/2023 12:03 EDT by Marie Rees RN Nursing Discharge Note 2 Discharge Time : 11/25/2023 12:03 EDT Discharge Level of Care at Discharge : [facility] facility Discharge Nursing Homes/Rehab Facilities : [facility] Patient Left Unit Via : Chair Van Patient Accompanied Off Unit with : Other: w/c vaN transporter DC Instructions Provided & Signed by Pt : No Patient Understands D/C Instructions : No Patient Instructions Discharge Signed : Yes Did Pt have Specialty Bed or Wound Vac : Yes Marie Rees RN - 11/25/2023 12:03 EDT * Yovanny BLUE, Aubrie: MODIFY, PERFORM, MODIFY Event Display: Discharge/Transfer Note Hospital Authored Date: [id number] Patient: ??OTF WATSONRIOMICHAEL ? Age:??38 Years?Sex:??Male?:??1985?? 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 Methadone (methadone 10 mg oral tablet)?25?Milligram?By Mouth?2 times a day Multivitamin (multivitamin Multiple Vitamins oral tablet)?1?tab(s)?By Mouth?Daily nalOXONE (nalOXONE Inj)?0.5?Milliliter?0.2?Milligram?IV Push?Every 5 minutes?as needed?Other?Respiratory Rate less than 8 or for somnolence/excessive sedation. Repeat untilRespiratory Rate is greater than 15 and patient is more alert. Thiamine (thiamine 100 mg oral tablet)?100?Milligram?By Mouth?2 times a day Trazodone (traZODone 50 mg oral tablet)?50?Milligram?By Mouth?Daily at bedtime Vancomycin (vancomycin 1.25 g intravenous injection)?1,250?Milligram?IVPB?Every 12 hours?End date 12/22 for a total of 6 weeks. infused over 60 minutes ?? Medications Started Acetaminophen (acetaminophen 325 mg oral tablet)?975?Milligram?By Mouth?3 times a day Lidocaine Topical (lidocaine 5% topical film)?Topically?Daily?Right chest area. Methadone (methadone 10 mg oral tablet)?25?Milligram?By Mouth?2 times a day nalOXONE (nalOXONE Inj)?0.5?Milliliter?0.2?Milligram?IV Push?Every 5 minutes?as needed?Other?Respiratory Rate less than 8 or for somnolence/excessive sedation. Repeat untilRespiratory Rate is greater than 15 and patient is more alert. Trazodone (traZODone 50 mg oral tablet)?50?Milligram?By Mouth?Daily at bedtime Vancomycin (vancomycin 1.25 g intravenous injection)?1,250?Milligram?IVPB?Every 12 hours?End date 12/22 for a total of 6 weeks. infused over 60 minutes Medications Discontinued None Doses Changed None Allergies Allergies ?(Active and Proposed Allergies Only) NKA? (Severity: Unknown severity, Onset: Unknown) ?? PCP Follow-Up/Heads-Up - Will need to follow with ID, Vascular, and IR for drain management (has appointments scheduled) - Monitoring labs (test/frequency): Weekly CBC, CMP.?? - Repeat blood cultures 5 to 7 days after finishing antibiotic therapy.?? - All labs should be faxed to ID office at [phone] - Imaging needed before outpt f/u visit: Chest and abdominal pelvic CT scan with IV contrast on last week of therapy ?? Future Appointments Thursday 11:30 AM EDT ?? With: Abdi PIERCE, Lissa Garcia Where: [facility] [address] [place] [address]- Status: Pending Thursday 11:30 AM EDT ?? Where: Interventional Radiology Status: Pending Thursday 11:40 AM EDT ?? With: David BLUE, Cristofer Diaz Where: [facility] Infectious Disease [address] [place] [address]- Status: Pending Hospital Course 38 y/o with pmhx of cocaine use disorder, hepatitis C, chronic right foot osteomyelitis, and homelessness who presented with weakness admitted for management of Sepsis from MRSA and GAS bacteremia complicated by left wrist septic arthritis s/p I/D 11/09, right iliopsoas abscess s/p SIMA drain 11/10 found to have R2 osteomyelitis s/p amputation on 11/12, . Infective endocarditis ruled out on TTE. Demonstrating blood culture clearance since 11/11. Followed by ID. PAtient was managed with IV cefazolin and vancomycin through his PICC line. Repeat CT on 11/20 showing near resolution of Right iliopsoas abscess s/p pigtail drain, and improvement in Right gluteal abscess. He has been followed by ID, addiction medicine, orthopedics, general surgery, and vascular surgery. CM and SW assited with finding placement and patient will be [facility] on total 6 weeks course of IV vancomycin till 12/23/2023. ?? Objective Assessment and Plan MRSA bacteremia (R78.81), Group A strep bacteremia (B95.0) Abscess of right iliac fossa (K35.33) and right gluteus Septic arthritis of wrist, left (M00.9) s/p I&D Osteomyelitis (M86.9) of toe s/p R2 amputation presented with weakness Admitted for management of sepsis 2/2 MRSA and GAS bacteremia. 11/09 - Left wrist I&D with Ortho, +GAS. 11/10 - SIMA drain placed to Right iliopsoas abscess with IR. 11/12 - R2 toe amputation with vascular, +MRSA. Both MRSA and GAS in blood cultures. CT on 11/20 shows near resolution of iliopsoas abscess. Also a Right gluteal abscess which is decreased in size??per repeat CT. Overall clinically well - afebrile, HDS, no worsening pain. BCx clear since 11/11. ?? Antibiotic history: ceFAZolin??2 Gm, IV Push, Every 8 hours (11/08 - ) Vancomycin??1,250 mg, 166.67 mL/hr, IVPB, Every 12 hours (11/08 - ) ?? Microbiology history: Tissue culture (11/12): MSSA Blood culture (11/11) x 2: No growth.??Final Body fluid culture???abscess (11/10): MRSA Blood culture (11/09): No growth.??Final Wound culture (11/09): MSSA Wound culture???aspirate (11/09): Group A strep Blood culture x 2 (11/07): MRSA, GAS ?? Vascular access: PICC line ?? Recommendations: - Continue only vancomycin with end date: 12/23/2023 - Monitoring labs (test/frequency): Weekly CBC, CMP.?? - Repeat blood cultures 5 to 7 days after finishing antibiotic therapy.?? - All labs should be faxed to ID office at [phone] - Imaging needed before outpt f/u visit: Chest and abdominal pelvic CT scan with IV contrast on last week of therapy - FU with ID as OP in 5 to 6 weeks - Methadone 25mg twice a day for pain - Follow up??at [facility] for suture removal in 2 weeks - Follow up with [facility] Dr Mata OP (wrist) in 2 weeks - Maintain splint?? - NWB LUE - F/U with PCP ?? Opioid withdrawal (F11.93) Polysubstance use disorder (F19.90) Was started on methadone 11/09 Hx OUD, IVDU and cocaine use. Only cocaine detected on Utox (fentanyl??not checked). 11/11??increased methadone to 50mg daily, split into??25mg BID for better pain control. Addiction team consulted and following. Patient has discussed??that he would like to be on Sublocade as an outpatient. ??I discussed with addiction medicine??and??they said this is better be done??as an outpatient??as he needs to be weanedoff of methadone with a washout period before starting the Sublocade. Patient has been referred to [facility]??in the clinic he was referred to is able to provide both methadone or Suboxone. ?? Recommendations: - Continue methadone 25mg BID (fractionated for analgesia) - F/U with [facility] - Last dose letter Given to patient (In CIS) - Pt wishes to??start Sublocade outpatient, to be coordinated as outpatient at the??[facility] clinic he was referred to.?? - F/U with PCP ?? Chronic hyponatremia (E87.1), resolved Hypoosmolar (277)??hyponatremia, suspect hypovolemic 2/2 poor PO intake. Stable in low 130s now. ?? REcommendations: F/U with PCP ?? Prediabetes A1c 5.8. Recommendations: -Follow-up with PCP as an outpatient -Counseled on lifestyle??modifications ? Vital Signs?? Temperature: 97.8 DegF (11/25/23 05:46:00) Temperature Route: Oral (11/25/23 05:46:00) Pulse Rate: 80 bpm (11/25/23 05:46:00) Respiratory Rate: 17 br/min (11/25/23 05:46:00) Systolic Blood Pressure: 109 mm Hg (11/25/23 05:46:00) Diastolic Blood Pressure: 60 mm Hg (11/25/23 05:46:00) Blood pressure sites: Leg, left (11/25/23 05:46:00) Mean Arterial Pressure: 76 mm Hg (11/25/23 05:46:00) Pulse Pressure: 49 mm Hg (11/25/23 05:46:00) Oxygen Saturation: 100 % (11/25/23 05:46:00) Mode of Delivery (Oxygen): Room air (11/25/23 05:46:00) Early Warning Score: 3 (11/25/23 05:47:15) ? . Physical Exam General: Patient in no acute pain or distress?? HEENT: normocephalic, atraumatic Respiratory: bilateral equal air entry, clear to auscultation with no wheezes or crackles. CVS: regular rate and rhythm, S1 and S2 present, no murmurs. No JVD.?? Abdomen: soft, non tender, right abdominal??SIMA drain??with no surrounding skin concerns draining iminmal??serosanguineous??fluid ,??non distended, bowel sounds present. Extremities:??Right lower extremity amputation well-dressed,??left wrist??slightly swollen at the site of??I&D but appropriately dressed,??no??lower extremity edema noted bilaterally. Pulses intact. Neuro: alert and oriented x3. Moving all extremities spontaneously. Following simple commands. Surgical Procedures Incision and Drainage Abscess 11/10/2023 14:10 Amputation Toe 11/13/2023 09:18 Pending Results C Reactive Protein ordered on 11/25/2023 Sedimentation Rate ordered on 11/25/2023 Patient Education Titles [employer] Patient Education - Trazodone?? [employer] Patient Education - Discharge Instructions: Caring for Your Mahendra-Silverman Drainage Tube?? [employer] Patient Education - Discharge Instructions for Osteomyelitis?? [employer] Patient Education - Intra-Abdominal Abscess?? [employer] Patient Education - Methadone?? [employer] Patient Education - Vancomycin Injection?? Follow-Up Appointments Added Follow Up ?Time Frame ?Comments [facility] PCP Assignment Line [phone]?3-5 day: call to discuss follow up visit ??Please??call your PCP office to schedule a follow-up appointment. If you donot have a PCP please call [facility]??PCP assignment line to be established with a PCP . Patient Instructions Presented to our emergency department with??complaints of weakness You are found to have??a bacterial infection in your blood??due to several sources. During this hospitalization you are followed by??several teams including trauma??surgery??vascular surgery,, orthopedic surgery,??infectious disease??specialist team, addiction medicine and??interventional radiology. You underwent several procedures to remove and localized sources of infection??includin11/10/2023 - Left wrist incision and drainage with Orthopedic surgery 11/11/23- SIMA drain placed to Right iliopsoas abscess with interventional radiology. 11/13/23 Right second??toe amputation with vascular??surgery. You are followed by??our infectious disease team and??you are treated by IV antibiotics during thishospitalization. In order to treat your infection you will need a total of 6 weeks of antibiotics??and??a??PICC linewas placed??for outpatient administration of??the antibiotic. Your symptoms have significantly improved??and you are now stable and ready to be discharged. The following changes to your medication regimen: Medications started: -??IV vancomycin 1250 mg every 12 hours??10??December 23, 2023??to complete??a total of 6 weeks - Pain control:??Methadone 25 mg 2 times a day, Tylenol 975 mg 3 times a day, topical lidocaine patches every 12 hours - Trazodone??50 mg daily at bedtime to help with sleep - Naloxone injection 0.2 mg??every 5 minutes in this case of emergency/respiratory depression Medications discontinued: -None ?? To do: -Please call your PCP office within 3 to 5 days of your discharge to schedule follow-up appointment. ??If you do not have a PCP please call??the following numbers to establish with a PCP: * [facility] primary care line at [phone] * [facility]??located at??[address] [place] [address] or [place], [place] [phone] * [facility]??located at [address] [place] [address] - You need?? to follow-up with our infectious disease team you have an appointment scheduled on??01/06/2024 at 11:[address] Cristofer Hernandez MD.?? * Monitoring labs (test/frequency): Weekly CBC, CMP.?? * Repeat blood cultures 5 to 7 days after finishing antibiotic therapy.?? * All labs should be faxed to ID office at [phone] *?? Imaging needed before outpt f/u visit: Chest and abdominal pelvic CT scan with IV contrast on last week of therapy - You will need to follow-up with interventional radiology for??removal/management of your drain??you have an appointment scheduled on 12/08/2023 at 11:30 AM - You will need to follow-up with vascular surgery as an outpatient to follow-up after your right second toe amputation with??Lissa Patton NP??on 11/27/2023 at 11:30 AM -??You have been referred to the following programs by our addiction medicine team:?? * [facility] [address] [place] [phone]??[phone] *??Walk in intake hours are Mon-Fri from 8:000am-8:00pm. Please bring hospital discharge paperwork with you to the walk in. ?? If??you Experience severe chest pain or shortness of breath or worsening symptoms such as fevers and chills please call your PCP office or present to the nearest emergency department. ? Results Discharge Labs BACTERIOLOGY Blood Culture Results Final report ()?? 11/12/2023 13:16 Blood Culture Specimen Source BLOOD ()?? 11/12/2023 13:16 Blood Culture Isolate 1 Comment ()?? 11/12/2023 13:16 Blood Culture Isolate 2 Staphylococcus aureus (Abnormal)?? 11/08/2023 09:35 Blood Cult Antimicrobial Susceptibility Comment ()?? 11/08/2023 12:56 Gram Stain Isolate 1 Comment ()?? 11/13/2023 09:27 Gram Stain Isolate 2 No organisms seen ()?? 11/13/2023 09:27 Anaerobic Culture Source SWAB ()?? 11/10/2023 14:20 Anaerobic Cult Isolate 1 Comment ()?? 11/10/2023 14:20 Gram Stain Result Final report ()?? 11/13/2023 09:27 Aerobic Result 1 Comment (Abnormal)?? 11/10/2023 14:20 Anaerobic Result 1 Comment ()?? 11/10/2023 14:20 Gram Stain Result 1 Comment ()?? 11/10/2023 14:20 Gram Stain Result 2 No organisms seen ()?? 11/10/2023 14:[address] Results Final report ()?? 11/10/2023 14:20 Anaerobic Cult Final report ()?? 11/10/2023 14:20 Aerobic Culture Final report (Abnormal)?? 11/10/2023 14:20 Tissue/Biopsy Culture Results Final report (Abnormal)?? 11/13/2023 09:27 Anaerobic Cult, Extended Incub Preliminary report (Abnormal)?? 11/13/2023 09:27 Anaerobic Culture Results Final report ()?? 11/10/2023 14:20 Tissue Cult Specimen Source TISSUE ()?? 11/13/2023 09:27 Tissue Cult Isolate 1 Staphylococcus aureus (Abnormal)?? 11/13/2023 09:27 Reflex to Rapid ID, CHELSEA Comment ()?? 11/08/2023 09:35 Blood Cult 2 Results Final report ()?? 11/12/2023 13:16 Reflex to Rapid ID, CHELSEA, Culture 2 Comment ()?? 11/08/2023 09:55 Blood Culture 2 Specimen Source BLOOD ()?? 11/12/2023 13:16 Blood Culture 2 Isolate 1 Comment ()?? 11/12/2023 13:16 Blood Culture 2 Isolate 2 Comment (Abnormal)?? 11/08/2023 09:55 Blood Culture 2 Susceptibility Comment ()?? 11/08/2023 09:55 A calcoaceticus-baumannii comp,Culture 1 Not Detected ()?? 11/08/2023 09:35 Bacteroides fragilis, Culture 1 Not Detected ()?? 11/08/2023 09:35 Enterobacterales, Culture 1 Not Detected ()?? 11/08/2023 09:35 Enterobacter cloacae complex, Culture 1 Not Detected ()?? 11/08/2023 09:35 Escherichia coli, Culture 1 Not Detected ()?? 11/08/2023 09:35 Klebsiella aerogenes, Culture 1 Not Detected ()?? 11/08/2023 09:35 Klebsiella oxytoca, Culture 1 Not Detected ()?? 11/08/2023 09:35 Klebsiella pneumoniae group, Culture 1 Not Detected ()?? 11/08/2023 09:35 Proteus spp., Culture 1 Not Detected ()?? 11/08/2023 09:35 Salmonella spp., Culture 1 Not Detected ()?? 11/08/2023 09:35 Serratia marcescens, Culture 1 Not Detected ()?? 11/08/2023 09:35 Haemophilus influenzae, Culture 1 Not Detected ()?? 11/08/2023 09:35 Neisseria meningitidis, Culture 1 Not Detected ()?? 11/08/2023 09:35 Pseudomonas aeruginosa, Culture 1 Not Detected ()?? 11/08/2023 09:35 Stenotrophomonas maltophilia, Culture 1 Not Detected ()?? 11/08/2023 09:35 Enterococcus faecalis, Culture 1 Not Detected ()?? 11/08/2023 09:35 Enterococcus faecium, Culture 1 Not Detected ()?? 11/08/2023 09:35 Listeria monocytogenes, Culture 1 Not Detected ()?? 11/08/2023 09:35 Staphylococcus spp., Culture 1 DETECTED (Abnormal)?? 11/08/2023 09:35 Staphylococcus aureus, Culture 1 DETECTED (Abnormal)?? 11/08/2023 09:35 Staphylococcus epidermidis, Culture 1 Not Detected ()?? 11/08/2023 09:35 Staphylococcus lugdunensis, Culture 1 Not Detected ()?? 11/08/2023 09:35 Streptococcus spp., Culture 1 DETECTED (Abnormal)?? 11/08/2023 09:35 Streptococcus agalactiae, Culture 1 Not Detected ()?? 11/08/2023 09:35 Streptococcus pneumoniae, Culture 1 Not Detected ()?? 11/08/2023 09:35 Streptococcus pyogenes, Culture 1 DETECTED (Abnormal)?? 11/08/2023 09:35 Jenna albicans, Culture 1 Not Detected ()?? 11/08/2023 09:35 Jenna auris, Culture 1 Not Detected ()?? 11/08/2023 09:35 Jenna glabrata, Culture 1 Not Detected ()?? 11/08/2023 09:35 Jenna krusei, Culture 1 Not Detected ()?? 11/08/2023 09:35 Jenna parapsilosis, Culture 1 Not Detected ()?? 11/08/2023 09:35 Jenna tropicalis, Culture 1 Not Detected ()?? 11/08/2023 09:35 Cryptococcus neoformans/gattii,Culture 1 Not Detected ()?? 11/08/2023 09:35 IMP (Carbapenemases), Culture 1 Not applicable ()?? 11/08/2023 09:35 KPC (Carbapenemases), Culture 1 Not applicable ()?? 11/08/2023 09:35 OXA-48-like (Carbapenemases), Culture 1 Not applicable ()?? 11/08/2023 09:35 NDM (Carbapenemases), Culture 1 Not applicable ()?? 11/08/2023 09:35 VIM (Carbapenemases), Culture 1 Not applicable ()?? 11/08/2023 09:35 mcr-1 (Colistin Resistance), Culture 1 Not applicable ()?? 11/08/2023 09:35 CTX-M (ESBL), Culture 1 Not applicable ()?? 11/08/2023 09:35 mecA/C(Methicillin Resistance),Culture 1 Not applicable ()?? 11/08/2023 09:35 mecA/C and MREJ (MRSA), Culture 1 DETECTED (Abnormal)?? 11/08/2023 09:35 Taylor/B (Vancomycin Resistance),Culture 1 Not applicable ()?? 11/08/2023 09:35 A calcoaceticus-baumannii comp,Culture 2 Not Detected ()?? 11/08/2023 09:55 Bacteroides fragilis, Culture 2 Not Detected ()?? 11/08/2023 09:55 Enterobacterales, Culture 2 Not Detected ()?? 11/08/2023 09:55 Enterobacter cloacae complex, Culture 2 Not Detected ()?? 11/08/2023 09:55 Escherichia coli, Culture 2 Not Detected ()?? 11/08/2023 09:55 Klebsiella aerogenes, Culture 2 Not Detected ()?? 11/08/2023 09:55 Klebsiella oxytoca, Culture 2 Not Detected ()?? 11/08/2023 09:55 Klebsiella pneumoniae group, Culture 2 Not Detected ()?? 11/08/2023 09:55 Proteus spp., Culture 2 Not Detected ()?? 11/08/2023 09:55 Salmonella spp., Culture 2 Not Detected ()?? 11/08/2023 09:55 Serratia marcescens, Culture 2 Not Detected ()?? 11/08/2023 09:55 Haemophilus influenzae, Culture 2 Not Detected ()?? 11/08/2023 09:55 Neisseria meningitidis, Culture 2 Not Detected ()?? 11/08/2023 09:55 Pseudomonas aeruginosa, Culture 2 Not Detected ()?? 11/08/2023 09:55 Stenotrophomonas maltophilia, Culture 2 Not Detected ()?? 11/08/2023 09:55 Enterococcus faecalis, Culture 2 Not Detected ()?? 11/08/2023 09:55 Enterococcus faecium, Culture 2 Not Detected ()?? 11/08/2023 09:55 Listeria monocytogenes, Culture 2 Not Detected ()?? 11/08/2023 09:55 Staphylococcus spp., Culture 2 DETECTED (Abnormal)?? 11/08/2023 09:55 Staphylococcus aureus, Culture 2 DETECTED (Abnormal)?? 11/08/2023 09:55 Staphylococcus epidermidis, Culture 2 Not Detected ()?? 11/08/2023 09:55 Staphylococcus lugdunensis, Culture 2 Not Detected ()?? 11/08/2023 09:55 Streptococcus spp., Culture 2 DETECTED (Abnormal)?? 11/08/2023 09:55 Streptococcus agalactiae, Culture 2 Not Detected ()?? 11/08/2023 09:55 Streptococcus pneumoniae, Culture 2 Not Detected ()?? 11/08/2023 09:55 Streptococcus pyogenes, Culture 2 DETECTED (Abnormal)?? 11/08/2023 09:55 Jenna albicans, Culture 2 Not Detected ()?? 11/08/2023 09:55 Jenna auris, Culture 2 Not Detected ()?? 11/08/2023 09:55 Jenna glabrata, Culture 2 Not Detected ()?? 11/08/2023 09:55 Jenna krusei, Culture 2 Not Detected ()?? 11/08/2023 09:55 Jenna parapsilosis, Culture 2 Not Detected ()?? 11/08/2023 09:55 Jenna tropicalis, Culture 2 Not Detected ()?? 11/08/2023 09:55 Cryptococcus neoformans/gattii,Culture 2 Not Detected ()?? 11/08/2023 09:55 IMP (Carbapenemases), Culture 2 Not applicable ()?? 11/08/2023 09:55 KPC (Carbapenemases), Culture 2 Not applicable ()?? 11/08/2023 09:55 OXA-48-like (Carbapenemases), Culture 2 Not applicable ()?? 11/08/2023 09:55 NDM (Carbapenemases), Culture 2 Not applicable ()?? 11/08/2023 09:55 VIM (Carbapenemases), Culture 2 Not applicable ()?? 11/08/2023 09:55 mcr-1 (Colistin Resistance), Culture 2 Not applicable ()?? 11/08/2023 09:55 CTX-M (ESBL), Culture 2 Not applicable ()?? 11/08/2023 09:55 mecA/C(Methicillin Resistance),Culture 2 Not applicable ()?? 11/08/2023 09:55 mecA/C and MREJ (MRSA), Culture 2 DETECTED (Abnormal)?? 11/08/2023 09:55 Taylor/B (Vancomycin Resistance),Culture 2 Not applicable ()?? 11/08/2023 09:55 Anaerobic Culture Isolate 1 Comment ()?? 11/13/2023 09:27 Anaerobic Culture Isolate 2 Comment (Abnormal)?? 11/13/2023 09:27 Deep Culture Specimen Source SWAB ()?? 11/10/2023 14:20 Body Fluid Culture Results Final report (Abnormal)?? 11/11/2023 16:48 Body Fluid Specimen Source ABSCESS ()?? 11/11/2023 16:48 Body Fluid Culture Isolate 1 Staphylococcus aureus (Abnormal)?? 11/11/2023 16:48 Body Fluid Antimicrobial Susceptibility Comment ()?? 11/11/2023 16:48 ?? BLOOD COUNT & DIFF WBC 7.7 k/mm3 ()?? 11/24/2023 06:41 RBC 3.16 m/mm3 (Low)?? 11/24/2023 06:41 Hgb 8.6 Gm/dL (Low)?? 11/24/2023 06:41 Hct 28.0 % (Low)?? 11/24/2023 06:41 MCV 88.6 femtoliters ()?? 11/24/2023 06:41 MCH 27.2 pg ()?? 11/24/2023 06:41 MCHC 30.7 g/dL (Low)?? 11/24/2023 06:41 Platelet Count 306 k/mm3 ()?? 11/24/2023 06:41 RDW-SD 48.7 femtoliters (High)?? 11/24/2023 06:41 MPV 8.8 femtoliters (Low)?? 11/24/2023 06:41 Nucleated RBC (Automated) 0.0 #/100 WBC'S ()?? 11/24/2023 06:41 Abs. NRBC 0.0 k/mm3 ()?? 11/24/2023 06:41 Abs. Neut 4.7 k/mm3 ()?? 11/17/2023 04:20 Abs. Lymph 1.3 k/mm3 ()?? 11/17/2023 04:20 Abs. Stafford 0.7 k/mm3 ()?? 11/17/2023 04:20 Abs. Eo 0.0 k/mm3 ()?? 11/17/2023 04:20 Abs. Baso 0.1 k/mm3 ()?? 11/17/2023 04:20 Neut % 67.0 % ()?? 11/17/2023 04:20 Lymph % 15.7 % ()?? 11/17/2023 04:20 Stafford % 10.4 % ()?? 11/17/2023 04:20 Eos % 0.0 % ()?? 11/17/2023 04:20 Baso % 1.7 % ()?? 11/17/2023 04:20 Myelocytes % 0.9 % ()?? 11/17/2023 04:20 Metamyelocyte % 1.7 % ()?? 11/17/2023 04:20 Band % 5.2 % (High)?? 11/09/2023 10:11 Atypical Lymph % 2.6 % ()?? 11/17/2023 04:20 RBC Morphology FEW ()?? 11/17/2023 04:20 WBC Morphology FEW ()?? 11/17/2023 04:20 Platelet Estimate ADEQUATE ()?? 11/17/2023 04:20 ? CARDIAC High Sensitivity Troponin (HSTnT) 8 ng/L ()?? 11/08/2023 09:35 ? CHEM GENERAL Sodium 135 mmol/L ()?? 11/24/2023 06:41 Potassium 4.1 mmol/L ()?? 11/24/2023 06:41 Chloride 102 mmol/L ()?? 11/24/2023 06:41 Bicarbonate Level 27 mmol/L ()?? 11/24/2023 06:41 Anion Gap 6 ()?? 11/24/2023 06:41 Glucose Level 95 mg/dL ()?? 11/24/2023 06:41 Glucose, POC 92 mg/dL ()?? 11/24/2023 08:15 Hemoglobin A1C (Monitoring) 5.8 % (High)?? 11/22/2023 05:00 BUN 15 mg/dL ()?? 11/24/2023 06:41 Creatinine-Blood 0.54 mg/dL (Low)?? 11/24/2023 06:41 Estimated GFR Creatinine 129 ML/MIN/1.73 M2 ()?? 11/24/2023 06:41 Osmolality 277 mOs/kg (Low)?? 11/13/2023 00:46 Calcium 8.2 mg/dL (Low)?? 11/24/2023 06:41 Phosphorus 3.5 mg/dL ()?? 11/24/2023 06:41 Magnesium 1.8 mg/dL ()?? 11/24/2023 06:41 Protein, Total 7.4 Gm/dL ()?? 11/17/2023 04:20 Albumin 2.3 Gm/dL (Low)?? 11/17/2023 04:20 AG Ratio 0.5 ()?? 11/17/2023 04:20 Alkaline Phosphatase 93 units/L ()?? 11/17/2023 04:20 Lipase 16 units/L ()?? 11/08/2023 09:35 AST (SGOT) 37 units/L ()?? 11/17/2023 04:20 ALT (SGPT) 12 units/L ()?? 11/17/2023 04:20 Bilirubin, Total 0.2 mg/dL ()?? 11/17/2023 04:20 Lactate 1.2 mmol/L ()?? 11/09/2023 07:13 C-Reactive Protein 5.3 mg/dL (High)?? 11/25/2023 03:50 ? COAG INR 1.1 ()?? 11/13/2023 00:46 Protime (PT) 11.4 seconds ()?? 11/13/2023 00:46 ?? ENDOCRINE/TUMOR MARKER TSH 3.54 uIU/mL ()?? 11/08/2023 09:35 ? FLUID STUDIES Color, Fluid RED RIGHT ILIAC ABSCESS ()?? 11/11/2023 16:47 Appearance, Fluid TURBID RIGHT ILIAC ABSCESS ()?? 11/11/2023 16:47 WBC, Fluid 088149 per Cubic Millimeter ()?? 11/11/2023 16:47 RBC, Fluid 246415 per Cubic Millimeter ()?? 11/11/2023 16:47 Seg, Fluid 100 % ()?? 11/11/2023 16:47 Lymph, Fluid 0 % ()?? 11/11/2023 16:47 Crystals, Joint Fluid NONE SEEN (N)?? 11/10/2023 14:25 Synovial Fluid Color RED ()?? 11/10/2023 14:25 Synovial Fluid Appearance TURBID ()?? 11/10/2023 14:25 Synovial Fluid WBC 56613 per Cubic Millimeter (High)?? 11/10/2023 14:25 Synovial Fluid RBC 72655 per Cubic Millimeter ()?? 11/10/2023 14:25 Lymphocyte 20 % ()?? 11/10/2023 14:25 Segmented neutrophil 78 % (High)?? 11/10/2023 14:25 Monocyte 2 % ()?? 11/10/2023 14:25 ?? HEME OTHER Sed Rate 36 mm/hr (High)?? 11/25/2023 03:50 Hold Lavender Top SPECIMEN DISCARDED AFTER 24 HOURS. ()?? 11/15/2023 01:02 ?? MISC. CHEMISTRY Hold Gel Top SPECIMEN DISCARDED AFTER 1 WEEK ()?? 11/15/2023 01:02 ? SEROLOGY INF DISEASE Anti Hepatitis A IgM NON REACTIVE ()?? 11/11/2023 02:53 Hepatitis B Surface Antigen NON REACTIVE ()?? 11/11/2023 02:53 Hepatitis B Core Ab, Total NON REACTIVE ()?? 11/11/2023 02:53 HIV 4th Generation Ab-Ag Result Non Reactive ()?? 11/11/2023 02:53 Anti-HBS Quant 1749.00 mIU/mL ()?? 11/11/2023 02:53 Anti-HAV IgG NEGATIVE ()?? 11/15/2023 01:02 ?? TOXICOLOGY/TDM Ethanol, Serum or Plasma NONE DETECTED mg/dL ()?? 11/08/2023 09:35 Vancomycin Level, Peak 18.8 mg/L (Low)?? 11/11/2023 18:00 Vancomycin Level, Trough 12.1 mg/L ()?? 11/24/2023 08:20 Barbiturate Screen, Urine NONE DETECTED ()?? 11/08/2023 13:05 Cannabinoid Screen, Urine NONE DETECTED ()?? 11/08/2023 13:05 Cocaine Metabolite Screen, Urine POSITIVE (Abnormal)?? 11/08/2023 13:05 Benzodiazepine Screen, Urine NONE DETECTED ()?? 11/08/2023 13:05 Amphetamine Screen, Urine NONE DETECTED ()?? 11/08/2023 13:05 Opiate Screen, Urine NONE DETECTED ()?? 11/08/2023 13:05 ? UA/URINALYSIS Hold Urine Culture Testing available 48 hours from time of collection. ()?? 11/14/2023 02:13 Hold Urine Testing Available 24 hours from Time of Collection ()?? 11/14/2023 02:13 ?? URINE OTHER Sodium, Urine Random 111 mmol/L ()?? 11/14/2023 02:13 Osmolality, Urine Random 442 mOsm/kg ()?? 11/14/2023 02:13 Est Creatinine Clearance 151.49 mL/min ()?? 11/23/2023 04:38 ? VIROLOGY Hepatitis C Quantitation HCV Not Detected ()?? 11/11/2023 02:53 Test Information Comment ()?? 11/11/2023 02:53 COVID-19 by RT-PCR NEGATIVE ()?? 11/08/2023 10:08 ? Microbiology ?? Blood Culture?? Completed?? Source: Blood Body Site: ?? Collected Dt/Tm: 11/12/2023 13:16 Last Updated Dt/Tm: 11/13/2023 13:10 ?? Blood Culture #2?? Completed?? Source: Blood Body Site: ?? Collected Dt/Tm: 11/12/2023 13:16 Last Updated Dt/Tm: 11/13/2023 13:10 ?? Blood Culture 2 Results?? Completed?? Source: Blood Body Site: ?? Collected Dt/Tm: 11/12/2023 13:16 Last Updated Dt/Tm: 11/13/2023 13:10 ?? Blood Culture Result?? Completed?? Source: Blood Body Site: ?? Collected Dt/Tm: 11/12/2023 13:16 Last Updated Dt/Tm: 11/13/2023 13:10 ?? Body Fluid Cult Aer/Gram St/Extend Anaer?? Completed?? Source: OTHER Body Site: ?? Collected Dt/Tm: 11/11/2023 16:57 Last Updated Dt/Tm: 11/16/2023 14:08 ?? Blood Culture #2?? Completed?? Source: Blood Body Site: ?? Collected Dt/Tm: 11/10/2023 06:30 Last Updated Dt/Tm: 11/11/2023 09:07 ?? Blood Culture 2 Results?? Completed?? Source: Blood Body Site: ?? Collected Dt/Tm: 11/10/2023 06:30 Last Updated Dt/Tm: 11/11/2023 09:08 ? This case has been??reviewed and discussed with Dr.??Kayli Hairston MD Internal Medicine PGY-3 Pager: [phone] ?? Parts of this note were accomplished using [email or web address] software. Despite efforts at performing a carefuland accurate dictation, this program is prone to speech recognition errors which may result in inaccurate documentation. If clinical questions should arise, please do not hesitate to contact me. ? 65_ minutes spent on discharge * Event Display: Discharge/Transfer Note Hospital Authored Date: * Negrita WU, Marie: PERFORM, MODIFY, MODIFY Event Display: Patient Education/Instruction Authored Date: Inpatient Adult Discharge Instructions. [address] [address] Name: MICHAEL OTF HAN : 1985?? Visit: 11/08/2023 11:51?? Current Date: 11/25/2023 07:18 ?? Account: [id number]?? Inpatient Adult Discharge Instructions We would like to thank you for allowing us to assist you with your healthcare needs. The following includes patient education materials and information regarding your injury/illness. Our entire staffstrives to provide an excellent experience for our patients and their families. PLEASE ENSURE YOU FOLLOW-UP PER THE INSTRUCTIONS BELOW! ?? YOUR OPINION IS IMPORTANT TO US! Please complete the survey you may receive by mail or email. Your feedback will be used to make improvements to the healthcare experiences of our patients and their families. Surveys are administered by [employer] ?? If further treatment with your primary care physician or another doctor is recommended, it is important for you to keep the appointment. Call your primary care physician or return to the Emergency Department immediately if your condition worsens, fails to improve, or new symptoms develop. If you need to find a doctor, you can call [facility] [employer] for a referral at [phone] or toll free at [phone] or log in to [email or web address].. ?? [facility], in keeping with [facility] guidance, no longer requires face masks for staff, patientsor visitors in most situations. Similiar to time spent indoors at other locations, there is the chance that you were exposed to repiratory viruses during your time with us (such as flu or COVID-19). If you develop symptoms concerning for a viral respiratory infection, please seek testing (and treatment if indicated) from your medical provider or home test kit. ?? You can view and manage your care through the patient portal or by using a health care catrachita of your choosing. [employer] is a website that allows you to securely view your medical information including your hospital discharge summary, office visit summaries, medications and follow-up visits. You can also request appointments, renew medications, and request access to your medical information using a health care catrachita of your choosing, or just ask a question. You can enroll at [email or web address] or register during your next office visit. You have been discharged from [facility], Patient Care Unit: S2??. If you have any questions regarding these instructions, including results of studies pending, afteryou leave, please call us and we will be happy to assist you 08/12. [facility] Your Care Team Attending Physician Richard Milan MD?? Consulting Providers Richard Milan MD?? Reason for Your Visit homeless, 5 days of bilateral forarm/hand ankle and foot swelling. generalized body aches. friend called EMS for him as pt unable to care for self. lungs CTA. denies CP/SOB. 3 bags heroin and 1 bag cocain IVDA into his neck 0300 today.?? 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 You may have had other tests and procedures not included in this list. Please discuss all test results with your provider. 64520 Alcohol Level Amphetamine Urine Screen Anaerobic Culture Anaerobic Culture Result Anaerobic Result Barbiturate Urine Screen Basic Metabolic Panel Benzodiazepine Urine Screen Blood Culture Blood Culture #2 Blood Culture 2 Rapid ID, CHELSEA Blood Culture 2 Results Blood Culture Rapid ID, CHELSEA Blood Culture Result Body Fluid Cult Aer/Gram St/Extend Anaer Body Fluid Culture Reflex BUN Cannabinoid Urine Screen CBC CBC w/ Differential Cell Count and Differential Fluid Cocaine Urine Screen Comprehensive Metabolic Panel COVID-19 (Novel Coronavirus), Rapid PCR Creatinine CRP Deep Wound Culture w/ Gram Smear Electrolytes ESR GLUCOSE POC Gram Stain Result HEMOGLOBIN A1C Hepatitis A Ab IgM Hepatitis A IgG Hepatitis B Core Ab Hepatitis B Surface Antibody, Quant Hepatitis B Surface Antigen Hepatitis C RNA PCR Quant High??Sensitivity??Troponin T HIV Ab-Ag 4th Generation HOLD GEL TUBE HOLD LAVENDER TUBE HOLD URINE HOLD URINE CULTURE INR JOINT FLUID CELL COUNT AND DIFF JOINT FLUID CRYSTALS Lactate Level Lipase Magnesium Level Opiate Screen Urine OSMOLALITY, SERUM Phosphorus Level PT (INR) Sodium Urine Tissue Cult, Aerobic Results Tissue Cult, Anaerobic Results Tissue Cult, Gram Stain Results Tissue Culture Aer/Anaer/Gram Stain Tissue Culture Result TSH with T4 Reflex (Adults Only) Urine Osmolality VANC-PEAK Vancomycin Trough CT Abd/Pelvis W/ IV Contrast Only CT Chest W/ IV Contrast CT Ext Upper W/ Contrast Left CT Head/Brain W/O Contrast CT Rad Guide Per Drain W/ Place CXR W/ Frontal and Lat MRI Cervical Spine W+W/O Contrast MRI Lumbar Spine W+W/O Contrast MRI Thoracic Spine W+W/O Contrast US Doppler Ext Lower Venous Left US Doppler Ext Upper Venous Bilat US Soft Tissue Pelvis/ Buttocks XR Femur 2 Views Right XR Foot Min 3 Views Left XR Foot Min 3 Views Right XR Forearm 2 Views Left XR Hand Min 3 Views Left XR Hand Min 3 Views Right Add On Lab Order?? C Reactive Protein (CRP)?? Sedimentation Rate (ESR)?? Primary Care Provider Not on Staff, PCP?? Advance Directive Health Care Proxy on File Yes - Health Care Proxy Discharge Vitals Temperature: 97.8 DegF Height: 171 cm Pulse Rate: 80 bpm Weight: 60.6 kg Respiratory Rate: 17 br/min Body Mass Index: 20.72 kg/m2 Systolic Blood Pressure: 109 mm Hg Body surface area: 1.7 Diastolic Blood Pressure: 60 mm Hg ?? Oxygen Saturation: 100 % ?? Studies Pending All studies ordered during this hospital stay have been completed unless listed below. Please discuss all pending results with your provider listed above in these instructions. ?? Add On Lab Order?? C Reactive Protein (CRP)?? Sedimentation Rate (ESR)?? What to do next Instructions From Your Doctor Presented to our emergency department with??complaints of weakness You are found to have??a bacterial infection in your blood??due to several sources. During this hospitalization you are followed by??several teams including trauma??surgery??vascular surgery,, orthopedic surgery,??infectious disease??specialist team, addiction medicine and??interventional radiology. You underwent several procedures to remove and localized sources of infection??includin11/10/2023 - Left wrist incision and drainage with Orthopedic surgery 11/11/23- SIMA drain placed to Right iliopsoas abscess with interventional radiology. 11/13/23 Right second??toe amputation with vascular??surgery. You are followed by??our infectious disease team and??you are treated by IV antibiotics during thishospitalization. In order to treat your infection you will need a total of 6 weeks of antibiotics??and??a??PICC linewas placed??for outpatient administration of??the antibiotic. Your symptoms have significantly improved??and you are now stable and ready to be discharged. The following changes to your medication regimen: Medications started: -??IV vancomycin 1250 mg every 12 hours??10??December 23, 2023??to complete??a total of 6 weeks - Pain control:??Methadone 25 mg 2 times a day, Tylenol 975 mg 3 times a day, topical lidocaine patches every 12 hours - Trazodone??50 mg daily at bedtime to help with sleep - Naloxone injection 0.2 mg??every 5 minutes in this case of emergency/respiratory depression Medications discontinued: -None ?? To do: -Please call your PCP office within 3 to 5 days of your discharge to schedule follow-up appointment. ??If you do not have a PCP please call??the following numbers to establish with a PCP: * [facility] primary care line at [phone] * [facility]??located at??[address] [place] [address] or [place], [place] [phone] * [facility]??located at [address] [place] [address] - You need?? to follow-up with our infectious disease team you have an appointment scheduled on??01/06/2024 at 11:[address] Cristofer Hernandez MD.?? * Monitoring labs (test/frequency): Weekly CBC, CMP.?? * Repeat blood cultures 5 to 7 days after finishing antibiotic therapy.?? * All labs should be faxed to ID office at [phone] *?? Imaging needed before outpt f/u visit: Chest and abdominal pelvic CT scan with IV contrast on last week of therapy - You will need to follow-up with interventional radiology for??removal/management of your drain??you have an appointment scheduled on 12/08/2023 at 11:30 AM - You will need to follow-up with vascular surgery as an outpatient to follow-up after your right second toe amputation with??Lissa Patton NP??on 11/27/2023 at 11:30 AM -??You have been referred to the following programs by our addiction medicine team:?? * [facility] [address] [place] [address]??[phone] *??Walk in intake hours are Mon-Fri from 8:000am-8:00pm. Please bring hospital discharge paperwork with you to the walk in. ?? If??you Experience severe chest pain or shortness of breath or worsening symptoms such as fevers and chills please call your PCP office or present to the nearest emergency department. ? Orders?? Instructions from your Care Team Recommendations: - FU with ID as OP in 5 to 6 weeks - Methadone 25mg twice a day for pain - Follow up??at [facility] for suture removal in 2 weeks - Follow up with [facility] Dr Mata OP (wrist) in 2 weeks - Maintain splint?? - DANN ROMERO Scheduled Follow-Up Appointments Thursday 11:30 AM EDT ?? With: Abdi PIERCE, Lissa Garcia Where: [address] [place] [address]- Status: Pending Thursday 11:30 AM EDT ?? Where: Interventional Radiology Status: Pending Thursday 11:40 AM EDT ?? With: David BLUE, Cristofer Diaz Where: [facility] Infectious Disease [facility] [place] [address]- Status: Pending You Need to Schedule the Following Appointments Follow Up with??[facility] PCP Assignment Line [phone] When:??Within 3-5 day: call to discuss follow up visit Why: Please??call your PCP office to schedule a follow-up appointment. If you do not have a PCP please call [facility]??PCP assignment line to be established with a PCP . Discharge Medications MICHAEL MTZ :1985 Visit Date:11/08/2023 Medications: Please continue your medications until treatment is completed or stopped by your provider. Medications not listed below should be discontinued. Discuss any questions related to medications with your provider. What How Much When Instructions Next Dose New Acetaminophen (acetaminophen 325 mg oral tablet) 975 Milligram Oral 3 times a day TODAY 11/24 3PM New Lidocaine Topical (lidocaine 5% topical film) Topically Daily Right chest area. ?? TOMORROW 11/25 9AM New Methadone (methadone 10 mg oral tablet) 25 Milligram Oral Twice a day TONIGHT 11/24 9PM New nalOXONE (nalOXONE Inj) 0.2 Milligram Intravenous Push Every 5 minutes as needed for Other Respiratory Rate less than 8 or for somnolence/ excessive sedation. Repeat until Respiratory Rate is greater than 15 and patient is more alert. ?? NEEDED New Remove Patch Daily at bedtime. Lidocaine patch can stay on for 12 hours at a time with 12 hour patch free interval ?? TONIGHT 11/24 9PM New Trazodone (traZODone 50 mg oral tablet) 50 Milligram Oral Daily at Bedtime TONIGHT 11/24 9PM New Vancomycin (vancomycin 1.25 g intravenous injection) 1,250 Milligram IV Piggyback Every 12 hours End date 12/22 for a total of 6 weeks. infused over 60 minutes ?? TONIGHT 11/24 9PM Unchanged Folic Acid (folic acid 1 mg oral tablet) 1 Milligram Oral Daily TOMORROW 11/25 9AM Unchanged Multivitamin (multivitamin Multiple Vitamins oral tablet) 1 tab(s) Oral Daily TOMORROW 7/11 9AM Unchanged Thiamine (thiamine 100 mg oral tablet) 100 Milligram Oral Twice a day TONIGHT 11/24 9PM ?? What How Much When Comments Stop Taking Amoxicillin-Clavulanate (Augmentin 875 Tablet) 1 tab(s) Oral Twice a day Duration: 6 week(s) Stop Taking Buprenorphine-Naloxone (buprenorphine-naloxone 4 mg-1 mg sublingual film) Sublingual Twice a day Prescription Given During Visit No new medications prescribed at time of discharge.?? Laboratory Results Below is a partial list of the most recent Laboratory test results done prior to this discharge. You may have had other tests and procedures not included in this list. Please discuss all test resultswith your provider. Est Creatinine Clearance - 151.49 mL/min (11/23/2023) [address] (11/13/2023) ? ?Surgical Pathology - Patient Name: MICHAEL MTZ
Lab
Patient : 1985 (Age: 38)
Collection Date: 11/13/2023
Accession Date: 11/13/2023
Sign Out Date: 11/18/2023

Tissue Source:
1:RIGHT SECOND TOE

Final Diagnosis:
Right 2nd toe, amputation:
- Skin and subcutaneous tissue with inflammation and granulation tissue.
- Underlying bone shows acute osteomyelitis.

Primary Pathologist:RC RIVERA M.D.
electronically signed out by: RC RIVERA M.D. / [facility]

Gross Description:
Labeled "right second toe . Received in formalin is a 4.6 x 3.0 x 2.2 cm distal digit with up to 1.7 cm of exposed bone with a smooth, concave bony margin of disarticulation. The epidermal surface displays a 2.2 x 1.9 cm pink ulcerated area that is 0.9 cm from the skin and soft tissue margin. The remaining epidermal surface is saucedo-white, wrinkled. A nail is present.
Sectioning reveals saucedo-pink, slightly softened tissue subjacent to the ulcerated area. The subjacent bone is yellow, trabecular. A physician relations representative section is submitted including the lesion and subjacent bone following decalcification.
1-1 piece. (KM)*

As of 2023, the specimen processing and staining is performed at [facility], [address] [place] [address] (CLIA#[id number]). Its performance characteristics determined by [facility]. Alicia Rivera M.D. [employer] [facility], Duarte Sanders M.D. [employer] Cytopathology

Phone #: [phone], On-Call Pathologist: [id number] Alcohol Level (11/08/2023) ???Ethanol, Serum or Plasma - NONE DETECTED Amphetamine Urine Screen (11/08/2023) ???Amphetamine Screen, Urine - NONE DETECTED Anaerobic Culture (11/10/2023) ???Anaerobic Culture Source - SWAB???Anaerobic Culture Results - Final report Anaerobic Culture Result (11/10/2023) ???Anaerobic Cult Isolate 1 - Comment Anaerobic Result (11/13/2023) ???Anaerobic Culture Isolate 1 - Comment???Anaerobic Culture Isolate 2 - Comment Barbiturate Urine Screen (11/08/2023) ???Barbiturate Screen, Urine - NONE DETECTED Basic Metabolic Panel (11/24/2023) ???Sodium - 135 mmol/L???Potassium - 4.1 mmol/L???Chloride - 102 mmol/L???Bicarbonate Level - 27 mmol/L???Anion Gap - 6???Glucose Level - 95 mg/dL???BUN - 15 mg/dL???Creatinine-Blood - 0.54 mg/dL???Estimated GFR Creatinine - 129 ML/MIN/1.73 M2???Calcium - 8.2 mg/dL Benzodiazepine Urine Screen (11/08/2023) ???Benzodiazepine Screen, Urine - NONE DETECTED Blood Culture (11/12/2023) ???Blood Culture Results - Final report???Blood Culture Specimen Source - BLOOD Blood Culture #2 (11/12/2023) ???Blood Cult 2 Results - Final report???Blood Culture 2 Specimen Source - BLOOD Blood Culture 2 Rapid ID, CHELSEA (11/08/2023) ???A calcoaceticus-baumannii comp,Culture 2 - Not Detected???Bacteroides fragilis, Culture 2 - Not Detected???Enterobacterales, Culture 2 - Not Detected???Enterobacter cloacae complex, Culture 2 - Not Detected???Escherichia coli, Culture 2 - Not Detected???Klebsiella aerogenes, Culture 2 - Not Detec ly???Klebsiella oxytoca, Culture 2 - Not Detected???Klebsiella pneumoniae group, Culture 2 - Not Detected???Proteus spp., Culture 2 - Not Detected???Salmonella spp., Culture 2 - Not Detected???Serratia marcescens, Culture 2 - Not Detected???Haemophilus influenzae, Culture 2 - Not Detected???Neisseria meningitidis, Culture 2 - Not Detected???Pseudomonas aeruginosa, Culture 2 - Not Detected???Stenotrophomonas maltophilia, Culture 2 - Not Detected???Enterococcus faecalis, Culture 2 - Not Detected???Enterococcus faecium, Culture 2 - Not Detected???Listeria monocytogenes, Culture 2 - Not Detected???Staphylococcus spp., Culture 2 - DETECTED???Staphylococcus aureus, Culture 2 - DETECTED???Staphylococcus epidermidis, Culture 2 - Not Detected???Staphylococcus lugdunensis, Culture 2 - Not Detected???Streptococcus spp., Culture 2 - DETECTED???Streptococcus agalactiae, Culture 2 - Not Detected???Streptococcus pneumoniae, Culture 2 - Not Detected???Streptococcus pyogenes, Culture 2 - DETECTED???Jenna albicans, Culture 2 - Not Detected???Jenna auris, Culture 2 - Not Detected???Jenna glabrata, Culture 2 - Not Detected???Jenna krusei, Culture 2 - Not Detected???Jenna parapsilosis, Culture 2 - Not Detected???Jenna tropicalis, Culture 2 - Not Detected???Cryptococcus neoformans/gattii,Culture 2 - Not Detected???IMP (Carbapenemases), Culture 2 - Not applicable???KPC (Carbapenemases),Culture 2 - Not applicable???OXA-48-like (Carbapenemases), Culture 2 - Not applicable???NDM (Carbapenemases), Culture 2 - Not applicable???VIM (Carbapenemases), Culture 2 - Not applicable???mcr-1 (Colistin Resistance), Culture 2 - Not applicable???CTX-M (ESBL), Culture 2 - Not applicable???mecA/C(Methicillin Resistance),Culture 2 - Not applicable???mecA/C and MREJ (MRSA), Culture 2 - DETECTED???Taylor/B (Vancomycin Resistance),Culture 2 - Not applicable Blood Culture 2 Results (11/12/2023) ???Blood Culture 2 Isolate 1 - Comment Blood Culture Rapid ID, CHELSEA (11/08/2023) ???A calcoaceticus-baumannii comp,Culture 1 - Not Detected???Bacteroides fragilis, Culture 1 - Not Detected???Enterobacterales, Culture 1 - Not Detected???Enterobacter cloacae complex, Culture 1 - Not Detected???Escherichia coli, Culture 1 - Not Detected???Klebsiella aerogenes, Culture 1 - Not Detec ly???Klebsiella oxytoca, Culture 1 - Not Detected???Klebsiella pneumoniae group, Culture 1 - Not Detected???Proteus spp., Culture 1 - Not Detected???Salmonella spp., Culture 1 - Not Detected???Serratia marcescens, Culture 1 - Not Detected???Haemophilus influenzae, Culture 1 - Not Detected???Neisseria meningitidis, Culture 1 - Not Detected???Pseudomonas aeruginosa, Culture 1 - Not Detected???Stenotrophomonas maltophilia, Culture 1 - Not Detected???Enterococcus faecalis, Culture 1 - Not Detected???Enterococcus faecium, Culture 1 - Not Detected???Listeria monocytogenes, Culture 1 - Not Detected???Staphylococcus spp., Culture 1 - DETECTED???Staphylococcus aureus, Culture 1 - DETECTED???Staphylococcus epidermidis, Culture 1 - Not Detected???Staphylococcus lugdunensis, Culture 1 - Not Detected???Streptococcus spp., Culture 1 - DETECTED???Streptococcus agalactiae, Culture 1 - Not Detected???Streptococcus pneumoniae, Culture 1 - Not Detected???Streptococcus pyogenes, Culture 1 - DETECTED???Jenna albicans, Culture 1 - Not Detected???Jenna auris, Culture 1 - Not Detected???Jenna glabrata, Culture 1 - Not Detected???Jenna krusei, Culture 1 - Not Detected???Jenna parapsilosis, Culture 1 - Not Detected???Jenna tropicalis, Culture 1 - Not Detected???Cryptococcus neoformans/gattii,Culture 1 - Not Detected???IMP (Carbapenemases), Culture 1 - Not applicable???KPC (Carbapenemases),Culture 1 - Not applicable???OXA-48-like (Carbapenemases), Culture 1 - Not applicable???NDM (Carbapenemases), Culture 1 - Not applicable???VIM (Carbapenemases), Culture 1 - Not applicable???mcr-1 (Colistin Resistance), Culture 1 - Not applicable???CTX-M (ESBL), Culture 1 - Not applicable???mecA/C(Methicillin Resistance),Culture 1 - Not applicable???mecA/C and MREJ (MRSA), Culture 1 - DETECTED???Taylor/B (Vancomycin Resistance),Culture 1 - Not applicable Blood Culture Result (11/12/2023) ???Blood Culture Isolate 1 - Comment Body Fluid Cult Aer/Gram St/Extend Anaer (11/11/2023) ???Gram Stain Result - Final report???Anaerobic Cult, Extended Incub - Preliminary report???Body Fluid Culture Results - Final report???Body Fluid Specimen Source - ABSCESS Body Fluid Culture Reflex (11/11/2023) ???Body Fluid Culture Isolate 1 - Staphylococcus aureus???Body Fluid Antimicrobial Susceptibility -Comment BUN (11/21/2023) ???BUN - 17 mg/dL Cannabinoid Urine Screen (11/08/2023) ???Cannabinoid Screen, Urine - NONE DETECTED CBC (11/24/2023) ???WBC - 7.7 k/mm3???RBC - 3.16 m/mm3???Hgb - 8.6 Gm/dL???Hct - 28.0 %???MCV - 88.6 femtoliters???MCH - 27.2 pg???MCHC - 30.7 g/dL???Platelet Count - 306 k/mm3???RDW-SD - 48.7 femtoliters???MPV - 8.8femtoliters???Nucleated RBC (Automated) - 0.0 #/100 WBC'S???Abs. NRBC - 0.0 k/mm3 CBC w/ Differential (11/17/2023) ???WBC - 7.1 k/mm3???RBC - 3.31 m/mm3???Hgb - 9.2 Gm/dL???Hct - 29.6 %???MCV - 89.4 femtoliters???MCH - 27.8 pg???MCHC - 31.1 g/dL???Platelet Count - 451 k/mm3???RDW-SD - 50.8 femtoliters???MPV - 8.3femtoliters???Nucleated RBC (Automated) - 0.0 #/100 WBC'S???Abs. NRBC - 0.0 k/mm3???Abs. Neut - 4.7 k/mm3???Abs. Lymph - 1.3 k/mm3???Abs. Stafford - 0.7 k/mm3???Abs. Eo - 0.0 k/mm3???Abs. Baso - 0.1 k/mm3???Neut % - 67.0 %???Lymph % - 15.7 %???Stafford % - 10.4 %???Eos % - 0.0 %???Baso % - 1.7 %???Myelocytes % - 0.9 %???Metamyelocyte % - 1.7 %???Atypical Lymph % - 2.6 %???RBC Morphology - FEW???WBC Morphology - FEW???Platelet Estimate - ADEQUATE Cell Count and Differential Fluid (11/11/2023) ???Color, Fluid - RED RIGHT ILIAC ABSCESS???Appearance, Fluid - TURBID RIGHT ILIAC ABSCESS???WBC, Fluid - 553021 per Cubic Millimeter???RBC, Fluid - 976466 per Cubic Millimeter???Seg, Fluid - 100 %???Lymph, Fluid - 0 % Cocaine Urine Screen (11/08/2023) ???Cocaine Metabolite Screen, Urine - POSITIVE Comprehensive Metabolic Panel (11/17/2023) ???Sodium - 135 mmol/L???Potassium - 4.7 mmol/L???Chloride - 100 mmol/L???Bicarbonate Level - 29 mmol/L???Anion Gap - 6???Glucose Level - 113 mg/dL???BUN - 17 mg/dL???Creatinine-Blood - 0.67 mg/dL???Estimated GFR Creatinine - 121 ML/MIN/1.73 M2???Calcium - 8.1 mg/dL???Protein, Total - 7.4 Gm/dL???Albumin - 2.3 Gm/dL???AG Ratio - 0.5???Alkaline Phosphatase - 93 units/L???AST (SGOT) - 37 units/L???ALT (SGPT) - 12 units/L???Bilirubin, Total - 0.2 mg/dL COVID-19 (Novel Coronavirus), Rapid PCR (11/08/2023) ???COVID-19 by RT-PCR - NEGATIVE Creatinine (11/19/2023) ???Creatinine-Blood - 0.58 mg/dL???Estimated GFR Creatinine - 126 ML/MIN/1.73 M2 CRP (11/25/2023) ???C-Reactive Protein - 5.3 mg/dL Deep Wound Culture w/ Gram Smear (11/10/2023) ???Gram St Results - Final report???Anaerobic Cult - Final report???Aerobic Culture - Final report???Deep Culture Specimen Source - SWAB Electrolytes (11/21/2023) ???Sodium - 134 mmol/L???Potassium - 4.3 mmol/L???Chloride - 99 mmol/L???Bicarbonate Level - 29 mmol/L???Anion Gap - 6 ESR (11/25/2023) ???Sed Rate - 36 mm/hr GLUCOSE POC (11/24/2023) ???Glucose, POC - 92 mg/dL Gram Stain Result (11/13/2023) ???Gram Stain Isolate 1 - Comment???Gram Stain Isolate 2 - No organisms seen HEMOGLOBIN A1C (11/22/2023) ???Hemoglobin A1C (Monitoring) - 5.8 % Hepatitis A Ab IgM (11/11/2023) ???Anti Hepatitis A IgM - NON REACTIVE Hepatitis A IgG (11/15/2023) ???Anti-HAV IgG - NEGATIVE Hepatitis B Core Ab (11/11/2023) ???Hepatitis B Core Ab, Total - NON REACTIVE Hepatitis B Surface Antibody, Quant (11/11/2023) ???Anti-HBS Quant - 1749.00 mIU/mL Hepatitis B Surface Antigen (11/11/2023) ???Hepatitis B Surface Antigen - NON REACTIVE Hepatitis C RNA PCR Quant (11/11/2023) ???Hepatitis C Quantitation - HCV Not Detected???Test Information - Comment High??Sensitivity??Troponin T (11/08/2023) ???High Sensitivity Troponin (HSTnT) - 8 ng/L HIV Ab-Ag 4th Generation (11/11/2023) ???HIV 4th Generation Ab-Ag Result - Non Reactive HOLD GEL TUBE (11/15/2023) ???Hold Gel Top - SPECIMEN DISCARDED AFTER 1 WEEK HOLD LAVENDER TUBE (11/15/2023) ???Hold Lavender Top - SPECIMEN DISCARDED AFTER 24 HOURS. HOLD URINE (11/14/2023) ???Hold Urine - Testing Available 24 hours from Time of Collection HOLD URINE CULTURE (11/14/2023) ???Hold Urine Culture - Testing available 48 hours from time of collection. INR (11/11/2023) ???INR - 1.1???Protime (PT) - 11.9 seconds JOINT FLUID CELL COUNT AND DIFF (11/10/2023) ???Synovial Fluid Color - RED???Synovial Fluid Appearance - TURBID???Synovial Fluid WBC - 41528 perCubic Millimeter???Synovial Fluid RBC - 68632 per Cubic Millimeter???Lymphocyte - 20 %???Segmented neutrophil - 78 %???Monocyte - 2 % JOINT FLUID CRYSTALS (11/10/2023) ???Crystals, Joint Fluid - NONE SEEN Lactate Level (11/09/2023) ???Lactate - 1.2 mmol/L Lipase (11/08/2023) ???Lipase - 16 units/L Magnesium Level (11/24/2023) ???Magnesium - 1.8 mg/dL Opiate Screen Urine (11/08/2023) ???Opiate Screen, Urine - NONE DETECTED OSMOLALITY, SERUM (11/13/2023) ???Osmolality - 277 mOs/kg Phosphorus Level (11/24/2023) ???Phosphorus - 3.5 mg/dL PT (INR) (11/13/2023) ???INR - 1.1???Protime (PT) - 11.4 seconds Sodium Urine (11/14/2023) ???Sodium, Urine Random - 111 mmol/L Tissue Cult, Aerobic Results (11/10/2023) ???Aerobic Result 1 - Comment Tissue Cult, Anaerobic Results (11/10/2023) ???Anaerobic Result 1 - Comment Tissue Cult, Gram Stain Results (11/10/2023) ???Gram Stain Result 1 - Comment???Gram Stain Result 2 - No organisms seen Tissue Culture Aer/Anaer/Gram Stain (11/13/2023) ???Gram Stain Result - Final report???Tissue/Biopsy Culture Results - Final report???Anaerobic Cult, Extended Incub - Preliminary report???Tissue Cult Specimen Source - TISSUE Tissue Culture Result (11/13/2023) ???Tissue Cult Isolate 1 - Staphylococcus aureus TSH with T4 Reflex (Adults Only) (11/08/2023) ???TSH - 3.54 uIU/mL Urine Osmolality (11/14/2023) ???Osmolality, Urine Random - 442 mOsm/kg VANC-PEAK (11/11/2023) ???Vancomycin Level, Peak - 18.8 mg/L Vancomycin Trough (11/24/2023) ???Vancomycin Level, Trough - 12.1 mg/L Allergies (NKA means No Known Allergies) NKA Problems Active Problems??(2) History of hepatitis C?? Spinal epidural abscess?? Education Materials Below is the list of Educational Leaflet Providered with your Discharge Instructions. WebMD Ignite Patient Education - Trazodone?? WebMD Ignite Patient Education - Discharge Instructions: Caring for Your Mahendra-Silverman Drainage Tube?? WebMD Ignite Patient Education - Discharge Instructions for Osteomyelitis?? WebMD Ignite Patient Education - Intra-Abdominal Abscess?? WebMD Ignite Patient Education - Methadone?? WebMD Ignite Patient Education - Vancomycin Injection?? Valuables and Belongings I fully understand and agree that [facility] accepts no responsibility for all my personal property including clothing, toilet articles, radios, jewelry, dentures, hearing aids, rings, money, or any other property that is in my possession or is brought to me after admission. I understand certain valuables may be placed in a hospital safe for a short period of time. I understand that the hospital is not liable for loss or damage due to accident, fire, or other natural occurrence while said property is in the safe. I accept full responsibility for any personal property that I keep with me, and will not hold the hospital responsible in case of loss or disappearance. I acknowledge that i have been encouraged to send valuables and belongings home. ?? No Valuables/Belongings: No valuables/belongings present Possessions released to: no belongings Date for Pt to Sign Valuables/Belongings: 11/13/23 08:32:00 ?? Valuables & Belongings ?? Clothes Electronic devices Jewelry Monetary Items Personal devices Miscellaneous Medications (Valuables) Valuables at Bedside Pants, Shirt, Shoes ? Valuables Sent Home ? Valuables Sent to Security ? Other Discharge Information ? Case Management Discharge Plan?? Discharge Plan?? Discharge Agency Information?? Discharge Level of Care at Discharge: [facility] facility Agency [facility] [employer]: admissions Discharge Transportation Arranged: [facility] [phone] Service Categories #1: Occupational Therapy, Physical Therapy, Shelter Mode of Transportation Arranged: Chair Van ?? Discharge Arranged Transport Date/Time: 11/25/23 11:00:00 ?? Discharge Nursing Homes/Rehab Facilities: [facility] ? Pulmonary Rehab Status?? Pulmonary Rehab Discharge Status?? Respiratory Rate: 17 br/min ? Common Emergency Awareness Tips IS IT A STROKE? Act FAST and Check for these signs: FACE Does the face look uneven? ARM Does one arm drift down? SPEECH Does their speech sound strange? TIME Call at any sign of stroke ?? Heart Attack Signs Chest discomfort: Most heart attacks involve discomfort in the center of the chest and lasts more than a few minutes, or goes away and comes back. It can feel like uncomfortable pressure, squeezing, fullness or pain. Discomfort in upper body: Symptoms can include pain or discomfort in one or both arms, back, neck, jaw or stomach. Shortness of breath: With or without discomfort. Other signs: Breaking out in a cold sweat, nausea, or lightheaded. Remember, MINUTES DO MATTER. If you experience any of these heart attack warning signs, call to get immediate medical attention! ?? Smoking can increase your chances of developing chronic health problems and can cause harmful effects to other family members in your house. If you smoke, you are strongly encouraged to quit. Please call [facility] [employer] [facility] at [phone] or [phone] Software ([phone]) or log in to [email or web address] for referrals to smoking cessation programs. ?? 986 Suicide & Crisis Lifeline is available 08/12 if you or someone you know needs to find a reason to keep living. By calling 003 you'll be connected to a skilled, trained counselor at a crisis center in your area. INPATIENT DISCHARGE INSTRUCTIONS SIGNATURE PAGE VANESSA SABI MICHAEL Location:[facility] Registration Date and Time:11/08/2023 11:51 EDT Primary Care Physician: Not on Staff, PCP Attending Physician: Richard Milan MD, I MICHAEL MTZ, have received the above patient education materials/instructions and have verbalized understanding. If ambulance or transport services are being used I further acknowledge being given a choice of service. ?? If you need to contact me, please call me at this number: . Patient/Resident Caregiver Name: Patient/Resident Caregiver Signature: Relationship to Patient: Witness Name/Signature: Date: * Aubrie Hairston MD: PERFORM Event Display: Patient Education Leaflets Authored Date: [id number] Trazodone ?? [id number] Trazodone Brand Name(s): Desyrel??, Oleptro??, Trialodine??; also available generically IMPORTANT WARNING: A small number of children, teenagers, and young adults (up to 24 years of age) who took antidepressants ('mood elevators') such as trazodone during clinical studies became suicidal (thinking about harming or killing oneself or planning or trying to do so). Children, teenagers, and young adults whotake antidepressants to treat depression or other mental illnesses may be more likely to become suicidal than children, teenagers, and young adults who do not take antidepressants to treat these conditions. However, experts are not sure about how great this risk is and how much it should be considered in deciding whether a child or teenager should take an antidepressant. Children younger than 18 y ears of age should not normally take trazodone, but in some cases, a doctor may decide that trazodone is the best medication to treat a child's condition. You should know that your mental health may change in unexpected ways when you take trazodone or other antidepressants even if you are an adult over age 24. You may become suicidal, especially at thebeginning of your treatment and any time that your dose is increased or decreased. You, your family, or your caregiver should call your doctor right away if you experience any of the following symptoms: new or worsening depression; thinking about harming or killing yourself, or planning or trying to do so; extreme worry; agitation; panic attacks; difficulty falling asleep or staying asleep; aggressive behavior; irritability; acting without thinking; severe restlessness; and frenzied abnormal excitement. Be sure that your family or caregiver knows which symptoms may be serious so they can callthe doctor when you are unable to seek treatment on your own. Your healthcare provider will want to see you often while you are taking trazodone, especially at the beginning of your treatment. Be sure to keep all appointments for office visits with your doctor. The doctor or pharmacist will give you the 911 emergency dispatcher's patient information sheet (Medication Guide) when you begin treatment with trazodone. Read the information carefully and ask your doctor or pharmacist if you have any questions. You also can obtain the Medication Guide from the FDA website: h ttp://www.fda.gov/Drugs/DrugSafety/sua740896.htm. No matter your age, before you take an antidepressant, you, your parent, or your caregiver should talk to your doctor about the risks and benefits of treating your condition with an antidepressant orwith other treatments. You should also talk about the risks and benefits of not treating your condition. You should know that having depression or another mental illness greatly increases the risk that you will become suicidal. This risk is higher if you or anyone in your family has or has ever hadbipolar disorder (mood that changes from depressed to abnormally excited) or rhys (frenzied, abnormally excited mood) or has thought about or attempted suicide. Talk to your doctor about your condition, symptoms, and personal and family medical history. You and your doctor will decide what type oftreatment is right for you. WHY is this medicine prescribed? Trazodone is used to treat depression. Trazodone is in a class of medications called serotonin modulators. It works by increasing the amount of serotonin, a natural substance in the brain that helps maintain mental balance. HOW should this medicine be used? Trazodone comes as a tablet to take by mouth. The tablet is usually taken with a meal or light snack two or more times a day. To help you remember to take trazodone, take it around the same time(s) every day. Follow the directions on your prescription label carefully, and ask your doctor or pharmacist to explain any part you do not understand. Take trazodone exactly as directed. Do not take more or less of it, take it more often, or take it for a longer time than prescribed by your doctor. Swallow the tablets whole or broken in half on the score andra. Your doctor may start you on a low dose of trazodone and gradually increase your dose, not more than once every 3 to 4 days. Your doctor may decrease your dose once your condition is controlled. Trazodone controls depression, but does not cure it. It may take 2 weeks or longer before you feel the full benefit of trazodone. Continue to take trazodone even if you feel well. Do not stop taking trazodone without talking to your doctor. If you suddenly stop taking trazodone,you may experience withdrawal symptoms such as dizziness; nausea; headache; confusion; anxiety; agitation; difficulty falling asleep or staying asleep; extreme tiredness; seizures; pain, burning, or tingling in the hands or feet; frenzied or abnormally excited mood; ringing in the ears; or sweating. Your doctor will probably decrease your dose gradually. Are there OTHER USES for this medicine? Trazodone is also sometimes used to treat insomnia and schizophrenia (a mental illness that causes disturbed or unusual thinking, loss of interest in life, and strong or inappropriate emotions); anxiety (excessive worry). Trazodone is also sometimes used to control abnormal, uncontrollable movements that may be experienced as side effects of other medications and for the management of alcohol dependence. Talk to your doctor about the possible risks of using this medication for your condition. This medication may be prescribed for other uses. Ask your doctor or pharmacist for more information. What SPECIAL PRECAUTIONS should I follow? Before taking trazodone, ??? tell your doctor and pharmacist if you are allergic to trazodone or any other medications. ??? tell your doctor if you are taking a monoamine oxidase (MAO) inhibitor, such as isocarboxazid (Marplan), linezolid, methylene blue, phenelzine (Nardil), selegiline (Eldepryl, Emsam, Zelapar), and tranylcypromine (Parnate), or if you have stopped taking one of these medications within the past 14 days. Your doctor will probably tell you that you should not take trazodone. If you stop taking trazodone, your doctor will tell you that you should wait at least 14 days before you start to take an MAO inhibitor. ??? tell your doctor and pharmacist what other prescription and nonprescription medications, vitamins, and nutritional supplements you are taking or plan to take. Be sure to mention any of the following: amiodarone (Nexterone, Pacerone); anticoagulants ('blood thinners') such as warfarin (Coumadin, Jantoven); antifungals such as itraconazole (Sporanox, Tolsura), ketoconazole, or voricona zole (Vfend); aspirin and other NSAIDs such as ibuprofen (Advil, Motrin) and naproxen (Aleve, Naprosyn); buspirone; carbamazepine (Carbatrol, Equetro, Tegretol, others); chlorpromazine; clarithromycin (Biaxin); clopidogrel (Plavix); dabigatran (Pradaxa); digoxin (Lanoxin); disopyramide (Norpace); di uretics ('water pills'); fentanyl (Actiq, Duragesic, Fentora, Subsys); indinavir (Crixivan); lithium (Lithobid); medications for anxiety, irregular heartbeat, mental illness or pain; medications for migraine headaches such as almotriptan, eletriptan (Relpax), frovatriptan (Frova), naratriptan, rizatriptan (Maxalt), and sumatriptan (Imitrex); phenobarbital; phenytoin (Dilantin, Phenytek); procainamide; quinidine (in Nuedexta); rifampin (Rifadin, Rimactane); rivaroxaban (Xarelto);sedatives; selective serotonin reuptake inhibitors (SSRIs) such as citalopram (Celexa), escitalopram (Lexapro), fluoxetine (Prozac), fluvoxamine (Luvox), paroxetine (Paxil, Pexeva), and sertraline (Zoloft); tranquilizers; sotalol (Betapace, Sorine, Sotylize); thioridazine; tramadol (Conzip, Qdola, Ultram, in Ultracet); tricyclic antidepressants such as amitriptyline, amoxapine (Asendin), clomipramine (Anafranil),desipramine (Norpramin), doxepin (Sinequan), imipramine (Tofranil), nortriptyline (Pamelor), protriptyline, and trimipramine; or ziprasidone (Geodon). Your doctor may need to change the doses of yourmedications or monitor you carefully for side effects. Many other medications may also interact with trazodone, so be sure to tell your doctor about all the medications you are taking, even those that do not appear on this list. ??? tell your doctor what herbal products and nutritional supplements you are taking, especially [place]'s wort and tryptophan. ??? tell your doctor if you or anyone in your family has or has ever had long QT syndrome (a rare heart problem that may cause irregular heartbeat, fainting, or sudden ), if you have ever had a heart attack, or if you have a low level of sodium in your blood. Also tell your doctor if you drink or have ever drunk large amounts of alcohol, or if you have or have ever had high blood pressure; bleeding problems; sickle cell anemia (a disease of the red blood cells); multiple myeloma (cancer of the plasma cells); leukemia (cancer of the white blood cells); cavernosal fibrosis or Peyronie's disease (conditions that affects the shape of the penis such as angulation); or heart, liver, or kidney disease. ??? tell your doctor if you are, plan to become , or are breast-feeding. If you become while taking trazodone, call your doctor. ??? if you are having surgery, including dental surgery, tell the doctor or dentist that you are taking trazodone. ??? you should know that trazodone may make you drowsy and affect your judgment, thinking, and movements. Do not drive a car or operate machinery until you know how this medication affects you. ??? ask your doctor about the safe use of alcoholic beverages whileyou are taking trazodone. Alcohol can make the side effects from trazodone worse. ??? you should know that trazodone may cause dizziness, lightheadedness, and fainting when you get up too quickly from a lying position. To avoid this problem, get out of bed slowly, resting your feet on the floor fora few minutes before standing up. ??? you should know that trazodone may cause angle-closure glaucoma (a condition where the fluid is suddenly blocked and unable to flow out of the eye causing a quick, severe increase in eye pressure which may lead to a loss of vision). Talk to your doctor about having an eye examination before you start taking this medication. If you have nausea, eye pain, changes in vision, such as seeing colored rings around lights, and swelling or redness in or around the ey e, call your doctor or get emergency medical treatment right away. What SPECIAL DIETARY instructions should I follow? Talk to your doctor about eating grapefruit and drinking grapefruit juice while taking this medicine. What should I do IF I FORGET to take a dose? Take the missed dose as soon as you remember it. However, if it is almost time for the next dose, skip the missed dose and continue your regular dosing schedule. Do not take a double dose to make up for a missed one. What SIDE EFFECTS can this medicine cause? Trazodone may cause side effects. Tell your doctor if any of these symptoms are severe or do not goaway: ??? nausea ??? vomiting ??? diarrhea ??? constipation ??? changes in appetite or weight ??? weakness or tiredness ??? nervousness ??? dizziness or lightheadedness ??? nightmares ??? muscle pain ??? dry mouth ??? rash ??? sexual problems in males; decreased sex drive, inability to get or keep an erection, or delayed or absent ejaculation ??? sexual problems in females; decreased sex drive, or delayed orgasm or unable to have an orgasm ??? uncontrollable shaking of a part of the body ??? stuffy nose ??? tired, red, or itchy eyes ??? o chest pain o fast, pounding, or irregular heartbeat o loss of consciousness (coma) o fever, sweating, confusion, fast or irregular heartbeat, and severe muscle s tiffness or twitching, agitation, hallucinations, loss of coordination, nausea, vomiting, or diarrhea o fainting o seizures o shortness of breath o unusual bruising or bleeding o nosebleeds o small red or purple dots on the skin o erection lasting more than 6 hours o headache o problems with thinking, concentration, or memory o weakness o problems with coordination Trazodone can cause painful, long lasting erections in males. In some cases emergency and/or surgical treatment has been required and, in some of these cases, permanent damage has occurred. Talk to your doctor about the risk of taking trazodone. Trazodone may cause other side effects. Call your doctor if you have any unusual problems while taking this medication. If you experience a serious side effect, you or your doctor may send a report to the Food and Drug Administration's (FDA) MedWatch Adverse Event Reporting program online (http://www.fda.gov/Safety/MedWatch) or by phone ( ). What should I know about STORAGE and DISPOSAL of this medication? Keep this medication in the container it came in, tightly closed, and out of reach of children. Store it at room temperature and away from light, excess heat, and moisture (not in the bathroom). Unneeded medications should be disposed of in special ways to ensure that pets, children, and otherpeople cannot consume them. However, you should not flush this medication down the toilet. Instead,the best way to dispose of your medication is through a medicine take-back program. Talk to your pharmacist or contact your local garbage/recycling department to learn about take-back programs in your community. See the FDA's Safe Disposal of Medicines website (http://goo.gl/c4Rm4p) for more information if you do not have access to a take- back program. It is important to keep all medication out of sight and reach of children as many containers (such as weekly pill minders and those for eye drops, creams, patches, and inhalers) are not child-resistant and young children can open them easily. To protect young children from poisoning, always lock safety caps and immediately place the medication in a safe location ??? one that is up and away and out of their sight and reach. http://www.upandaway.org What should I do in case of OVERDOSE? In case of overdose, call the poison control helpline at . Information is also available online at https://www.poisonhelp.org/help. If the victim has collapsed, had a seizure, has trouble breathing, or can't be awakened, immediately call emergency services at 431. Symptoms of overdose may include: ??? vomiting ??? drowsiness ??? changes in heartbeat ??? seizures ??? difficulty breathing ??? painful erection that does not go away What OTHER INFORMATION should I know? Keep all appointments with your doctor. Do not let anyone else take your medication. Ask your pharmacist any questions you have about refilling your prescription. It is important for you to keep a written list of all of the prescription and nonprescription (aply-cud-sovhrmc) medicines you are taking, as well as any products such as vitamins, minerals, or otherdietary supplements. You should bring this list with you each time you visit a doctor or if you areadmitted to a hospital. It is also important information to carry with you in case of emergencies. This report on medications is for your information only, and is not considered individual patient advice. Because of the changing nature of drug information, please consult your physician or pharmacist about specific clinical use. The [employer] represents that the information provided hereunder was formulated with a reasonable standard of care, and in conformity with professional standards in the field. The [employer] makes no representations or warranties, express or implied, including, but not limited to, any implied warranty of merchantability and/or fitness for a particular purpose, with respect to such information and specifically disclaims all such warranties. Users are advised that decisions regarding drug therapy are complex medical decisions requiring the independent, informed decision of an appropriate health primary care provider, and the information is provided for informational purposes only. The entire monograph for a drug should be reviewed for a thorough understanding of the drug's actions, uses and side effects. The [employer] does not endorse or recommend the use of any drug.The information is not a substitute for medical care. AHFS?? Patient Medication Information???. ?? Copyright, 2023. The [employer]??, [address], [address], [place], [place]. All Rights Reserved. Duplication for commercial use must be authorized by [facility]. Selected Revisions: June 01, 2021. AHFS?? Patient Medication Information???. ?? Copyright, 2023 ?? * Aubrie Hairston MD: PERFORM Event Display: Patient Education Leaflets Authored Date: [id number] Discharge Instructions: Caring for Your Mahendra-Silverman Drainage Tube ?? 40082 Discharge Instructions: Caring for Your Mahednra-Silverman Drainage Tube Your healthcare provider discharged you with??a Mahendra-Silverman drainage tube. They commonly leave this drain within the abdomen and other cavities after surgery. It??helps drain and collect blood and body fluid after surgery. This can prevent swelling and reduces the risk for infection. The tube is held in place by a few stitches. It's covered with a bandage. Your healthcare provider will remove the drain when they determine you no longer need it. Home care ??? Don???t sleep on the same side as the tube. ??? Secure the tube and bag inside your clothing with a safety pin. This helps keep the tube from being pulled out. ??? Empty your drain at least twice a day. Empty it more often if the drain is full. Wash and dry your hands before emptying the drain. o Lift the opening on the drain. o Drain the fluid into a measuring cup. o Record the amount of fluid each time you empty the drain. Include the date and time it was emptied. Share this information with your healthcare provider on your next visit. o Squeeze the bulb with your hands until you hear air coming out of the bulb if your healthcare provider has instructed you to do so (sometimes the bulb is used as a reservoir without suction). Check with your healthcare provider about specific drain instructions. o Close the opening. ??? If you are to change the dressing around the tube, follow the directions your provider has given you. Some dressings may not need to be changed, but your provider will let you know. Here are some general steps to follow: o Wash your hands. o Remove the old bandage. o Wash your hands again. o Clean the skin around the incision and tube site as instructed. o Put a new bandage on the incision and tube site. Make the bandage large enough to cover the whole incision area. o Tape the bandage in place. ??? Talk with your healthcare provider about showering with the drain. You may need to keep the??bandage and tube site dry when you shower. Ask your [facility] team about the best way to do this. ?Stripping?? the tube helps keep blood clots from blocking the tube. Ask your healthcare team how often you should strip the tube. Stripping may not be needed, depending on where and why your healthcare provider placed the tube. It may even be dangerous in??some cases. o Hold the tubing where it leaves the skin, with one hand. This keeps it frompulling on the skin. o Pinch the tubing with the thumb and first finger of your other hand. o Slowly and firmly pull your thumb and first finger down the tubing. You may find it helpful to hold an alcohol swab between your fingers and the tube to lubricate the tubing. o If the pulling hurts or feels like the tube is coming out of the skin, stop. Begin again more gently. ?? Follow-up care Make a follow-up appointment as directed by our staff. ?? When to call your healthcare provider Call your healthcare provider right away if you have any of the following: ??? New or increased pain around the tube ??? Redness, swelling, or warmth around the incision or tube ??? Drainage that is foul-smelling ??? Vomiting ??? Fever of 100.4??F ( 38??C) or higher, or as directed by your provider??? Chills ??? Fluid leaking around the tube ??? Incision doesn't seem to be healing ??? Stitches become loose or the drain starts to come out ??? Tube falls out or breaks ??? Drainage that changes from light pink to dark red ??? Blood clots in the drainage bulb ??? A sudden increase or decrease in the amount of drainage (over 30 mL) ?? Last Reviewed Date: 2021 ?? 0048-0380 [employer]. All rights reserved. This information is not intended as a substitute for professional medical care. Always follow your healthcare professional's instructions. ?? * Aubrie Hairston MD: PERFORM Event Display: Patient Education Leaflets Authored Date: Discharge Instructions for Osteomyelitis ?? 86978 Discharge Instructions for Osteomyelitis You have a condition called osteomyelitis. This is a bone infection caused by bacteria or fungi. Itmay have spread through the blood from one area of your body to the bone. Osteomyelitis is called acute when the infection is new. It's called chronic when you've had it for a longer time. Home care ??? Take your medicine exactly as directed. If you were given antibiotics or antifungal medicine, make sure you finish the prescription???even if you feel better. If you don???t finish the medicine, the infection may return and may make future infections harder??to treat. ??? Be careful not to injure the area where you have the infection. ??? Carefully follow all instructions for takingcare of any wounds. ??? Use a splint, sling, or brace as directed by your healthcare provider. ?? Follow-up care Make a follow-up appointment, or as directed. ?? When to get medical care Call your healthcare provider??if you have any of the following: ??? Increasing pain, redness, swelling, or drainage in the infected area ??? Fever of 100.4?? F??( 38??C) or higher, or as advised by your provider ??? Chills ??? Increasing fatigue or feeling tired ?? Last Reviewed Date: 2021 ?? [id number] [employer]. All rights reserved. This information is not intended as a substitute for professional medical care. Always follow your healthcare professional's instructions. ?? * Lindsay Pratt RN: PERFORM, SIGN, VERIFY Event Display: Case Management Discharge Plan Authored Date: [id number] Patient: MICHAEL MTZ Age: 38 years Sex: Male : 1985 Associated Diagnoses: None Author: Lindsay Pratt RN Discharge Plan Case Management Discharge Plan : Case Management Discharge Plan Data 11/24/2023 14:12 EDT Discharge Level of Care at Discharge [facility] facility Discharge Nursing Homes/Rehab Facilities [facility] Discharge Transportation Arranged [facility] [address] [id number] Discharge Arranged Transport Date/Time 11/25/2023 11:00 Mode of Transportation Arranged Chair [employer] As[employer] #1 admissions Service Categories #1 Occupational Therapy, Physical Therapy, Shelter * Lindsay Pratt RN: VERIFY, PERFORM, SIGN Event Display: Case Management Discharge Plan Authored Date: [id number] Patient: MICHAEL MTZ Age: 38 years Sex: Male : 1985 Associated Diagnoses: None Author: Lindsay Pratt RN Discharge Plan Case Management Discharge Plan : Case Management Discharge Plan Data 11/24/2023 14:12 EDT Discharge Level of Care at Discharge [facility] facility Discharge Nursing Homes/Rehab Facilities [facility] Discharge Transportation Arranged [facility] [address] [facility] [id number] [phone] Discharge Arranged Transport Date/Time 11/25/2023 11:00 Mode of Transportation Arranged Chair [facility] [employer] As[employer] #1 admissions Service Categories #1 Occupational Therapy, Physical Therapy, Shelter * Yolanda Miller RN: PERFORM Event Display: Procedures Invasive Line Authored Date: [id number] Vascular Access Insertion Entered On: 11/15/2023 10:02 EDT Performed On: 11/15/2023 9:55 EDT by Yolanda Miller RN Vascular Access Insertion Time Out Performed : Yes Time Out Data : Patient identified, Site verified, Procedure verified, Consent signed, RN attendance Vascular Access Catheter Securement : Statlock Follow-up CXR : Not applicable CXR Comment : distal SVC confirmed with Sherlock 3CG technology Complications during Insertion : None Tolerated CLIP procedure well : Yes Insertion Attempts : 1 Yolanda Miller RN - 11/15/2023 10:37 EDT Date of Vascular Access Insertion : 11/15/2023 EDT Procedure Location Vascular Access : IV Room W4 Person recording insertion : Firer Portable Boiler Firer Portable Boiler of Vascular Access : Yolanda Miller RN Occupation of Vascular Access Firer Portable Boiler : Registered nurse Was linoleum mechanic a member of PICC/IV Team : Yes Yolanda Miller RN - 11/15/2023 9:55 EDT Yolanda Miller RN 11/15/2023 9:55 EDT Procedural Comments Anticoagulation Therapy : No Antiplatelet Therapy : No Yolanda Miller RN - 11/15/2023 9:55 EDT Risk Factors and Labs Reviewed : Yes Yolanda Miller RN - 11/15/2023 10:37 EDT Was vascular access order placed : Yes Vascular Access Type : Central line Reason for Vascular Access Insertion : Medication requires use of vascular access Suspected Vascular Access Infection : No, the access was not exchanged over a guide wire Vascular Access Procedure Check : Consent obtained Hand Hygiene prior to insertion : Yes Maximal sterile barriers used : Mask, Sterile gown, Large sterile full body drape, Sterile gloves, Ultrasound sterile cover, Cap Sterile Field Maintained : Yes Skin Preparation : Chlorhexidine (CHG) Skin Prep dry at first skin puncture : Yes Antimicrobial coated catheter used : No Successful central line placement : Yes Vascular Access Catheter Type : PICC line Vascular Access Insertion Site : Other: RUE basilic vein Vascular Access Insertion Side : Right Vascular Access Catheter Size : 4fr Vascular Access Catheter Length : 38cm Vessel Identified By : Ultrasound Vascular Access Insertion Circumstance : Non-emergent Vascular Access Dressing : Occlusive Yolanda Miller RN - 11/15/2023 9:55 EDT DCP GENERIC CODE Suture needles : 0 [place] : 3 Scalpels : 1 Clamps : 0 Guide Wires : 1 Yolanda Miller RN - 11/15/2023 9:55 EDT Vascular Access Device QA : BARD CTPICC SL 4fr @ 38cm Vascular Access Device Lot Number : [id number] Vascular Access Device Code : [id number] Vascular Access Device Expiration Date : 01/15/2025 EDT Vascular Access Insertion Comments : mid arm circumference 10cm above AC Fossa-25cm Yolanda Miller RN 11/15/2023 9:55 EDT Consult note * Katherin Otto: VERIFY, PERFORM, SIGN Event Display: Consultation Note Authored Date: Patient: MICHAEL MTZ Age: 38 years Sex: Male : 1985 Associated Diagnoses: None Author: Katherin Otto Patient has been referred to [facility] for methadone and TAT program. Upon discharge patient will need a last dose letter to begin dosing. Brenda, the case technician from [facility] will meet with patient this morning to enroll patient into the program. No additional recovery resources were needed at this time. Addiction Consultation Team [address] [place] [address] Patient: Michael Han (: 1985) Date: 11/17/2023 You have been referred to the following programs: [facility] Therapy [address] [address] Walk in intake hours are Mon-Fri from 8:000am-8:00pm. Please bring hospital discharge paperwork with you to the walk in. * Roldan [facility], Shanae: MODIFY, MODIFY, PERFORM, MODIFY, MODIFY, MODIFY, MODIFY, MODIFY, MODIFY Event Display: Consult Authored Date: [id number] Patient: ??MICHAEL MTZ ? Age:??38 Years?Sex:??Male?:??1985?? Chief Complaint Reason for consult: Management of IR drain for abscess Consulting provider: Dr. Sheriff Consulted provider: Dr. Talamantes History of Present Illness Michael Han is a 38yo male with history of hepatitic C, polysubstance abuse, IV drug use, and homelessness who presented to the ED on 11/07 due to generalized body aches. He was initially found to be hemodynamically stable and afebrile. WBC count was elevated to 32.6, lactate of 2.1. He wasfound to have multiple ailments including concern for??left septic wrist joint, osteomyelitis of the R2 toe, and a right iliac muscle abscess that extended through to the psoas and gluteus muscle measuring approximately 4x4cm in the iliac and 5x1cm in the gluteus. He was admitted to the medicine service and started on IV antibiotics with recommendations from Infectious Disease. He is currently on Ancef and Vancomycin. IR placed a drain in his right iliac muscle abscess on 11/10. EGS was consulted for management of this drain. On exam tonight, the patient reports pain in his right leg with movement. He is tolerating a diet and denies other concerns. Review of Systems Constitutional:??No weight loss, fever, chills, weakness or fatigue. Allergy/Immune: Denies any??Eczema or hives Eyes:??No visual loss, blurred vision, double vision or yellow sclera ENT:??No hearing loss, sneezing, congestion, runny nose or sore throat. Respiratory:??No shortness of breath, cough or sputum production. Cardiovascular:??No chest pain, chest pressure or chest discomfort. No palpitations or pedal edema. Gastrointestinal:??No anorexia, nausea, vomiting or diarrhea. No abdominal pain or blood in stool. Genitourinary:??No burning micturition. No urinary frequency or incontinence. Neurologic:??No headache, dizziness, syncope, unilateral weakness, ataxia, numbness or tingling in the extremities. Musculoskeletal:??+Pain with movement of the right leg. Hematologic/Lymphatics:??No bleeding or bruising. No painful lymph nodes. Skin:??No rash or itching. Endocrine:??No reports of sweating. No cold or heat intolerance. No polyuria or polydipsia. Psychiatric:??No depression or anxiety. Physical Exam Vitals & Measurements T:??98.5?F?? HR:??86??(Peripheral)?? RR:??18?? BP:??104/54?? SpO2:??98%?? HT:??171??cm?? WT:??60.6??kg?? BMI:??20.72?? General: Awake, alert, resting comfortably. HEENT:??Normocephalic, atraumatic. Cardio: Regular rate. Lungs: Non-labored breathing on room air. Abdomen: Soft,??nt/nd. Right-sided SIMA drain with seropurulent fluid (approximately 30cc). Extremities: Full ROM, moving all limbs spontaneously.??Left wrist with surgical splint is c/d/i. R2 toe appears dusky. Psych:??Appropriate mood and affect. Assessment/Plan 38yo male who presented to [facility] on 11/07 with generalized body aches. He was found to have multiple ailments including a left septic wrist (s/p I&D with Hand Surgery), osteomyelitis of the R2 toe (planned for OR with Vascular Surgery this week), and a right iliac and??gluteal muscle abscess. He was admitted to the Medicine service and started on IV Ancef and Vancomycin. Infectious Disease has been??following. IR placed a 10F drain in his right iliac/gluteal abscess today with 40cc of seropurulent fluid out that was sent for microbiology.??EGS was consulted for drain management. On exam, there is approximately 30cc of??seropurulent fluid that??is in the SIMA drain. The??patient's abdomen is soft and non-tender. He reports pain with movement of the right leg which is consistent with the location of his abscess in his??iliac, psoas, and gluteal??muscles.??Recommend monitoring output of drain and following up cultures??send from the drain today. Will continue to monitor. ?? Recommendations: -??Monitor and record SIMA drain output - F/u drain fluid cultures - IV??antibiotics per ID recommendations - Rest of care per primary team ? Discussed with Dr. Talamantes. EGS [id number]?? Problem List/Past Medical History Ongoing Spinal epidural abscess Procedure/Surgical History No qualifying data available. Home Medications Amoxicillin-Clavulanate: 1 tablet, By Mouth, 2 times a day Buprenorphine-Naloxone: Sublingual, 2 times a day Folic Acid: 1 mg, By Mouth, Daily Multivitamin: 1 tablet, By Mouth, Daily Thiamine: 100 mg, By Mouth, 2 times a day Allergies NKA Social History Alcohol Use: Past. Substance Abuse Use: Current. Type: Cocaine, Heroin. Tobacco Use: Smoker, current status unknown. Family History No family history recorded. Radiology RESULT: CT Abd/Pelvis W/ IV Contrast Only CT Chest W/ Contrast, CT Abd/Pelvis W/ IV Contrast Only? INDICATION: Hx of Present Illness: comes in with complaints of swelling to upper and lower extremities. pt admits to using IV cocaine and heroin. last used last night. appears uncomfortable; Reason: Other:; Pulmonary Lesion; Clinical Question(s): Interstitial Alveolar Infiltration ?? TECHNIQUE: Helical CT scan of the chest, abdomen, and pelvis with IV contrast, formatted in 3 planes. 100 cc of Omnipaque 300 was administered intravenously. This study was performed without oral contrast. Weight-based protocol was performed using automatic exposure control. ?? COMPARISON: No relevant ?? FINDINGS:? The heart is normal in size. There is no pericardial effusion. Prominent biaxillary lymph nodes areseen. There is no mediastinal adenopathy by size criteria. ?? No endobronchial lesions are seen. There are scattered pulmonary nodules, for example a fissural nodule within the minor fissure measuring 0.3 cm (image 59) and a left lower lobe nodule measuring 0.2cm (image 75). A pleural-based mass along the right middle lobe is seen secondary to a collection within the right anterior abdominal wall measuring 3.2 x 1.7 cm (image 74). ?? The liver is enlarged. No masses are seen. ?? The gallbladder, spleen, pancreas, and adrenal glands are unremarkable. ?? Symmetric renal contrast enhancement is demonstrated bilaterally. There are no cysts or masses. There is no hydronephrosis. The bladder is distended and unremarkable. ?? The stomach and small bowel are unremarkable. The appendix is not definitively identified, however,there are no secondary signs of appendicitis. A large stool burden is seen throughout the colon without evidence of obstruction. ?? There are multiple collections within the right hemipelvis with a air and fluid containing collection within the right iliacus easuring up to 4.8 x 4.3 cm (image 139). This continues into the right psoas muscle into the groin measuring up to 2.9 cm. There are are phlegmons within the right piriformis and gluteal muscles, for example within the right gluteus muscle measuring 5.7 x 1.6 cm (image 155). ?? There is a fracture through the right sacrum without displacement. Deformity of the inferior right scapula is consistent with prior trauma. A fracture of the right fifth anterior rib adjacent to the collection is noted. There is a right anterior sixth rib fracture also adjacent to the collection. ?? IMPRESSION: ?? Multiple collections within the right chest wall and right hemipelvis consistent with abscesses andphlegmon. ?? Right rib and right sacral fractures. Septic arthritis within the right SI joint cannot be excluded. Lab Results Labs Last 24 Hours BLOOD COUNT & DIFF ? Event Name?? Event Result?? Date/Time?? WBC 18.8 k/mm3??High 11/11/23 02:53:00 RBC 3.73 m/mm3??Low 11/11/23 02:53:00 Hgb 10.2 Gm/dL??Low 11/11/23 02:53:00 Hct 31.9 %??Low 11/11/23 02:53:00 MCV 85.5 femtoliters 11/11/23 02:53:00 MCH 27.3 pg 11/11/23 02:53:00 MCHC 32 g/dL??Low 11/11/23 02:53:00 Platelet Count 398 k/mm3 11/11/23 02:53:00 MPV 9.2 femtoliters??Low 11/11/23 02:53:00 Nucleated RBC (Automated) 0 #/100 WBC'S 11/11/23 02:53:00 ? COAG ? Event Name?? Event Result?? Date/Time?? INR 1.1 11/11/23 02:53:00 Protime (PT) 11.9 seconds??High 11/11/23 02:53:00 ? CHEM GENERAL ? Event Name?? Event Result?? Date/Time?? Sodium 133 mmol/L 11/11/23 02:53:00 Chloride 102 mmol/L 11/11/23 02:53:00 Bicarbonate Level 24 mmol/L 11/11/23 02:53:00 Anion Gap 7 11/11/23 02:53:00 Glucose Level 119 mg/dL??High 11/11/23 02:53:00 BUN 16 mg/dL 11/11/23 02:53:00 Creatinine-Blood 0.61 mg/dL??Low 11/11/23 02:53:00 Alkaline Phosphatase 63 units/L 11/11/23 02:53:00 AST (SGOT) 17 units/L 11/11/23 02:53:00 ALT (SGPT) 7 units/L 11/11/23 02:53:00 Bilirubin, Total 0.2 mg/dL 11/11/23 02:53:00 ? * Jose Enrique IPERCE, Gertrudis Merlos: PERFORM Event Display: Consult Authored Date: [id number] EGS signing off, defer drain management to orthopedic and/or IR. * Event Display: Consultation Note Authored Date: [id number] CONSULTATION DATE: 11/10/2023 INPATIENT ADDICTION CONSULTATION REASON FOR CONSULTATION: Advice regarding multiple substance use disorders. We were asked to see this patient by Dr. Noreen Grant's service for advice regarding the above. The patient's chart was reviewed in detail and the patient was seen and interviewed in his room on M5 today by me at 11:30 a.m. Present at all times and the interview was completely conducted through the use of an official hospital pierogi maker. CHIEF COMPLAINT: Forearm, hands, ankles, feet swelling and body aches. All swellings are bilateral. HISTORY OF PRESENT ILLNESS: The patient is a 38-year-old gentleman with multiple substance use disorders presenting with the above complaints that occurred over about a 5 day. He was admitted to the hospital 2 days ago and has been diagnosed with a number of active acute infectious issues. The addiction consultation service was asked to see him for advice regarding multiple substance usedisorders. PAST MEDICAL HISTORY: As follows: 1. Opioid use disorder, see below. 2. Cocaine use disorder, see below. 3. Hepatitis C partially treated. 4. History of right foot osteomyelitis, second toe 2022, treated completely and apparently may be resolved. 5. Possible old spinal epidural abscess. Details not available at the moment. During this admission thus far, he has already been diagnosed with the followin. Spinal epidural abscess at S1 with transverse nerve root involvement on the right side. 2. Right iliac fossa abscess. 3. Septic emboli. 4. Endocarditis? 5. Mitral valve vegetation? 6. Cellulitis. 7. Septic right SI joint. 8. Multiple collections in the right chest and right hemipelvis consistent with possible abscesses. 9. Chronic osteomyelitis. PAST SURGICAL HISTORY: See above. MEDICATIONS: The patient is currently taking in the hospital at this time include the followin. Melatonin 3 mg 1 p.o. at bedtime p.r.n. for sleep. 2. Tylenol p.r.n. for pain. 3. Bowel regimen p.r.n. 4. Vancomycin 1250 mg IV every 12 hours. 5. Cefazolin 2 g IV every 8 hours. 6. Oxycodone 5 mg every 6 hours p.r.n. for pain. 7. Hydromorphone 1 mg IV q.4 hours for pain. ALLERGIES TO MEDICATIONS: None. FAMILY HISTORY: Noncontributory at this time. SOCIAL HISTORY: The patient is homeless and not currently employed. Smoking history: The patient does smoke about a pack of cigarettes daily. He is not sure if he really wants to stop, but would probably welcome nicotine replacement while heis here. Opioid use disorder. I will point out that the patient was very sleepy for about two-thirds of the interview. He only woke up near the end and was then quite articulate and interactive. He is miserable though today with a lot of ongoing pain all over his body, especially in the areas,where he has these multiple infections. He did not want to get into a lot of detail of past treatments for opioid use disorder. However, suffice it to say that he has been in and out of programs overmany years, has been at some point on methadone and at some other point on Suboxone. He thinks thatmaybe he did better on Suboxone at one point, but he understands that he really cannot start that now because of his current and recent opioid use exposure to methadone and severe ongoing pain. He therefore would be very greatly like to get back on methadone. He notes that the dose of methadone that sort of work for him in the past was around 60 mg daily. He would love to get started on that ALYSE. Cocaine use. The patient definitely uses cocaine on a regular basis. He mixes it with the opioids and injects it. It is a regular occurrence for him. He, however, does think that if he can get the opioids under better control, the cocaine use will pretty much stop. It is not something that he tends to do separately. The patient notes that he does not drink alcohol and that has never been an issue. He does not use cannabinoids and has never been an issue. He uses no other drugs at all. REVIEW OF SYSTEMS: At this point, positive for severe pain and some active withdrawal symptoms as well. He feels crampy in his body and bones ache and he is feeling shaky and little cold. PHYSICAL EXAMINATION: GENERAL: The patient appeared significantly acute and chronically ill. Initially, was very hard to keep him awake but eventually he woke up and was more interactive. VITAL SIGNS: Today show temperature of 98.5, heart rate 79, respiratory 16, blood pressure 116/70, O2 sat 100% on room air. HEENT: He appeared to have a dry oral mucosa. NECK: Supple. He was able to be awake and alert at times. SKIN: No obvious diaphoresis. No obvious gooseflesh. No obvious tremor. NEUROLOGIC: Moving all 4 extremities. MUSCULOSKELETAL: Appears to be maybe somewhat malnourished. Low muscle bulk perhaps. PSYCHIATRIC: Flat affect. Mood was normal at first and a little agitated. DATA REVIEW: He has many imaging procedures, which I will not review here. These are being evaluated by neurology, neurosurgery, the primary hospitalist service and infectious disease already. LABORATORY STUDIES: Reviewed: White count today remains elevated at 25,500, H and H 10 and 33, which are acceptable, platelet count good. Sodium up a bit to 131 from 129. Renal numbers are good. Albumin quite low at 1.9. LFTs are normal. Toxicology was positive for cocaine. Toxicology was negative for alcohol, barbiturates, cannabinoids, benzodiazepines, amphetamines and opiates. It is likely he does have exposure to fentanyl, but that was not tested for. Blood cultures are already positive as mentioned. ASSESSMENT AND PLAN: This is a 38-year-old gentleman admitted to the hospital because of arm, hand,leg and feet swelling and found to have a number of infections likely related to ongoing intravenous injection of at least opioids and cocaine. The addiction consultation service was asked to see him for advice regarding his substance use disorders: 1. Opioid use disorder, it sounds like this is the main issue right now. It is intravenous use on aregular basis. He says about 10 bags per day. It is probably all fentanyl. He probably has a fairlysignificant high tolerance to opioids at this time. He certainly not a candidate for Suboxone at this point as it would quite likely put him into precipitated withdrawal and will not be adequate to the task of controlling what seems to be very significant pain from multiple sources and sites. Therefore, since he has done fairly well in the past with methadone and since he is very interestedin doing that we will start him on that at this time. The recommendation would be to check an EKG to make sure QTc is still okay. When last checked last November, it was okay. Assuming the QTc is less than 500, I would give him 30 mg of methadone ALYSE. If that seems adequate for the day, he may not need an increase in the dose and we can just give him the dose tomorrow. If, however, later in the day at least 8-10 hours later or more, he still feelsthe need for additional methadone because of craving or withdrawal symptoms and also may be even tohelp with pain, it would be quite reasonable to give an extra 10 mg later in the day. I would not exceed 40 mg total daily dose for today. Whatever dose he does receive in total today, he can be given all at once tomorrow morning. Tomorrow and beyond, we will continue to discuss dosing, possible further titration of the dosing, and possible split dosing to help with better analgesia. As far as setting up followup when he leaves the hospital, it is premature for us to do anything about that just yet. It is not really clear how long he will need to be in the hospital, what setting he will be going to when he leaves here, etc. It is possible he would need IV antibiotics for an extended period of time and need to go to a specific rehab center, which may have dealings with only one particular methadone clinic, etc. We will therefore defer a setting up any outpatient services at this time. 2. Cocaine use disorder, it sounds like this is a very regular and active issue as well. It is often mixed in with the opioids that he uses. That having been said, there is a good chance that when and if he can get the opioid use disorder under control, the cocaine will be something he can stay away from. At least that is the hope. Sadly, there is no good medication that is FDA approved to treat cocaine use disorder per se. Specialized counseling techniques including contingency management plans, cognitive behavioral therapy ormotivational interviewing may be of some benefit at some point in future. 3. Smoking of cigarettes. The patient does smoke cigarettes a pack per day. He knows he needs to stop. Nicotine replacement for now. He will have to take up other modalities later. The summary therefore is to check an EKG, start the methadone as mentioned above. No further outpatient services just yet. Nicotine replacement as needed as well. Thank you very much for this consultation. If you have any further questions, please do not hesitate to ask them. The addiction consultation service will continue to follow this patient with you. I did communicate my thoughts and recommendations today to Dr. Grant. Dictated by: Yuniel Jerry M.D. Signing Clinician: Yuniel Jerry M.D. Dictated: 11/10/2023 01:40:04 Transcribed: 09:06:35 AM Transcribed by: BLAZE DocID: [id number] PRELIMINARY REPORT UNLESS MANUALLY/ELECTRONICALLY SIGNED cc: Noreen Grant M.D. [address], [address] * Kolby PIRECE, Clarisa Farah: PERFORM, MODIFY Event Display: Consultation Note Authored Date: Patient: ??MICHAEL MTZ ? Age:??38 Years?Sex:??Male?:??1985?? Chief Complaint Atraumatic left wrist/hand pain/swelling Reason for Consultation Consult from: Mary Grant MD Consult to: Alicia Galloway MD Consult for: R2 osteomyelitis History of Present Illness Michael Han is a 38-year-old male with PMH of partially treated hep C, polysubstance use [opiates, cocaine], IVDA, history of right foot osteomyelitis, homelessness was brought to the ED dueto generalized body aches/pains, BUE, BLE swelling. Initially in the ED patient was afebrile, HR 90, RR 10, BP 113/53, saturation 100% on room air. Significant leukocytosis 32.6, lactate 2.1, troponin 8, ethanol negative, found to be cocaine positive. He was admitted to medicine for endocarditis workup.??Hand??following for LUE swelling. Vascular consulted for R2 osteomyelitis. It appears that November 2022, xray was notable for R2 osteomyelitis, orthopedics consulted at that time, treated with antibiotics. Xray this admission??(11/07) confirms chronic osteomyelitis. Patient has never seen outpatient vascular surgery for any issues. Did not follow up for osteomyelitis after discharge. States pain and swelling to R2 has been for a couple days. Denies injecting any IV drugs to feet. Is homeless so ambulates frequently. Review of Systems General: No fevers or chills, no weight loss HEENT: No vision changes, headache or sore throat Resp: No dyspnea, cough Cardiac: no chest discomfort or palpitations Abdomen: no nausea, vomiting or diarrhea; no pain, bloating or soreness : no dysuria, changes to urination, flank or back pain Skin: R2 swelling MSK: LUE, BLE edema Neuro: no new weakness, numbness Physical Exam Vitals & Measurements T:??98.8?F?? TMIN:??97.7?F?? TMAX:??98.8?F?? HR:??80??(Monitored)?? RR:??18?? BP:??121/67?? SpO2:??100%?? General appearance: No apparent distress, appears stated age, well developed. Head: Normocephalic, atraumatic. Cardiac: RRR, no murmurs Respiratory: Clear to auscultation bilaterally. Abdomen: Soft, nontender, nondistended. No guarding or rebound. No palpable mass. Extremities: Able to move all extremities without difficulty. Warm. Sensorimotor intact. Neurologic status: Alert and oriented x 3. No focal deficits. Psych: Mood and affect flat. Vascular:??R2: edematous, erythematous at base. No drainage.??Tender. Plantar aspects of R1-5 calloused. R2/3 kissing ulcer. Right: Palpable AT/DP/PT Assessment/Plan Michael Han is a 38-year-old male with PMH of partially treated hep C, polysubstance use [opiates, cocaine], IVDA, history of right foot osteomyelitis, homelessness was brought to the ED dueto generalized body aches/pains, BUE, BLE swelling.??Xray shows chronic osteomyelitis of R2 (11/08/23). Patient agreeable if amputation needed to toe. Will plan for R2 amp Thursday. ?? Recommendations: - OR Thursday - Continue Cefazolin, Vanco - Pain control - Remainder of care per primary team ? Please page Vascular Surgery [place] [phone]. ?? Resident/PA/MEDIATOR Attestation Case discussed with attending physician:??Dr. Galloway ?? Problem List/Past Medical History Ongoing Spinal epidural abscess Medications Inpatient Acetaminophen Tablet, 650 mg, By Mouth, Every 4 hours, PRN ceFAZolin Inj, 2 Gm, IV Push, Every 8 hours Dilaudid Inj, 1 mg= 1 mL, IV Push Slowly, Every 4 hours, PRN Docusate Sodium Capsule, 100 mg= 1 capsule, By Mouth, 2 times a day, PRN Melatonin Tablet, 3 mg, By Mouth, Daily at bedtime, PRN MiraLax Powder, 17 Gm= 1 pack/packet, By Mouth, Daily, PRN NaCL 0.9% Flush, 3 mL, IV Push, Every 8 hours NaCL 0.9% Flush, 3 mL, IV Push, Every 8 hours, PRN oxyCODONE 5 mg oral tablet, 5 mg, By Mouth, Every 6 hours, PRN Robitussin DM Liquid, 10 mL, By Mouth, Every 4 hours, PRN Senna Tablet, 8.6 mg= 1 tablet, By Mouth, 2 times a day, PRN Simethicone Tablet, 80 mg, Chew, 3 times a day, PRN Vancomycin IVPB, 1250 mg, IVPB, Every 12 hours Home Augmentin 875 Tablet, 1 tablet, By Mouth, 2 times a day buprenorphine-naloxone 4 mg-1 mg sublingual film, Sublingual, 2 times a day folic acid 1 mg oral tablet, 1 mg, By Mouth, Daily multivitamin Multiple Vitamins oral tablet, 1 tablet, By Mouth, Daily thiamine 100 mg oral tablet, 100 mg, By Mouth, 2 times a day Allergies NKA Social History Alcohol Use: Past. Substance Abuse Use: Current. Type: Cocaine, Heroin. Tobacco Use: Smoker, current status unknown. Family History Mother: History is unknown Father: History is unknown Immunizations Vaccine Date Status tetanus/diphtheria/pertussis, acel(Tdap) 11/29/2022 Given Diagnostic Results 11/08/2023 11:09 EDT Foot Min 3 Views Right IMPRESSION:? Chronic osteomyelitis second digit proximal interphalangeal joint, with abnormal bony changes whichappear much more well-defined when compared to 11/28/2022 at which time there was bony destruction and periosteal reaction.?? WSN: [id number] ? Ordering Physician: Abhijeet Christian ?? Signature Line Dictated By: ?TriDeepa borges MD Dictated Date/Time: ?11/08/23 11:22 a Reviewed By: ?Deepa Henson MD Signed By: ? Deepa Henson MD Signed Date/Time: ? 11/08/23 11:22 am Transcribed By: ? CSB Transcribed Date/Time: ?11/08/23 11:16 am ? Foot Min 3 Views Right This document has an image * Laverne BLUE, Cedric Hathaway: PERFORM Event Display: Consultation Note Authored Date: [id number] I personally saw and evaluated the patient. ??I personally reviewed and interpreted the relevant laboratory work and imaging. ??I reviewed the resident/PA/MEDIATOR's note and findings and discussed it withthem. ??I agree with the documented plan of care. ?? 38 yo M with R2 osteomyelitis.?? Perfusion seems reasonable.?? Will proceed with R2 amputation. * Cristofer Hernandez MD: PERFORM Cristofer Hernandez MD: PERFORM, MODIFY Cristofer Hernandez MD: MODIFY, MODIFY, MODIFY, MODIFY, MODIFY, MODIFY, MODIFY, MODIFY, MODIFY, MODIFY, MODIFY [place] , Daina: MODIFY, MODIFY [place] , Daina: MODIFY, MODIFY [place] , Daina: MODIFY, MODIFY [place] , Daina: MODIFY, MODIFY [place] , Daina: MODIFY, MODIFY [place] , Daina: MODIFY, MODIFY [place] , Daina: MODIFY, MODIFY [place] , Daina: MODIFY, MODIFY [place] , Daina: MODIFY, MODIFY [place] , Daina: MODIFY Event Display: Consult Authored Date: [id number] Patient: ??MICHAEL MTZ ? Age:??38 Years?Sex:??Male?:??1985?? Reason for Consultation infective endocarditis with septic emboli, gram positive cocci bacteremia Requested by Dr. Noreen Grant Source of Information [facility], Patient, with assistance of in-person pierogi maker History of Present Illness Michael Han is a 38-year-old male with PMH of IVDU (cocaine and opiates), partially treated hep C,??history of right foot osteomyelitis,??and housing instability who was brought to the ED bya friend due??to one week of body pain, malaise, and swelling up his upper extremities. As stated in admission note, in the ED he was afebrile and had??a leukocytosis 32.6. Drug testing was??positivefor cocaine. Imaging included a chest x-ray with no acute findings, and??CT head with no acute findings.??Xrays of extremities showed:??left foot with soft tissue swelling, right foot chronic osteomyelitis, left and right hand diffuse soft tissue swelling, left forearm with diffuse soft tissue swelling. CT chest/abd/pelvis??showed?? multiple collections within the right chest wall and right hemipelvis consistent with abscess and phlegmon, right rib and right sacral fractures and??possible??septic arthritis??of S1 joint.?? MRI of the lumbar spine showed: S1 spinal epidural abscess with right S1 transverse nerve root involvement as well as Right sacroiliitis and right paraspinal musculature myositis, extending throughout the field of view, with a suspected 0.6 cm right paraspinal muscleabscess, partially visualized multiple abscesses within the right iliacus muscle, better visualizedon recent CT. Neurosurgery was consulted with no acute neurosurgical intervention planned; they??recommended IR consult for??possible abscess drainage.??Blood cultures??were drawn, patient was admitted and??started on??IV vancomycin/ Zosyn.? He says that he has no previous history of heart or heart valve infections, endocarditis, or heart conditions.He has a PMH of Acute R 2nd toe osteomyelitis- DC'ed 11/29/22, was dc'ed on 6??weeks ofPO Augmentin and doxycycline. He has no??other micro history. ?? He says he has been living on the streets (mostly sidewalks and pavement, not grass) for about 3 weeks, since he relapsed and was removed from his home. He says the needles he uses are sometimes dirty, he sometimes cleans them with water and alcohol, does not share needles, and does lick them. He injects mainly into his R arm and hand, sometimes into his L arm and hand. He says he does not injectdrugs elsewhere. He initiated treatment for Hep C but has not completed treatment. He says he was last tested for HIV in 2022 and was negative. ?? Michael says that he has felt terrible for about a week with pain and swelling in his arms and legsover this time period. He has weakness and tingling in his legs for about a week.He says he has hadfevers, chills, achiness, chest pain, SOB, cough, abd pain, but no nausea, diarrhea, or dysuria. ?? later during the day today he was evaluated by hand surgery who requested CT scan and NPO pending possible surgery. Review of Systems As per HPI Physical Exam Vitals & Measurements Vital Signs?? Temperature: 98.6 DegF (11/09/23 04:00:00) Temperature Route: Oral (11/09/23 04:00:00) Pulse Rate:??96 bpm??High (11/09/23 00:00:00) Heart Rate Monitored: 84 bpm (11/09/23 06:00:00) Respiratory Rate: 18 br/min (11/09/23 08:00:00) Systolic Blood Pressure: 116 mm Hg (11/09/23 06:00:00) Diastolic Blood Pressure: 62 mm Hg (11/09/23 06:00:00) Blood pressure sites: Arm, left (11/09/23 06:00:00) Mean Arterial Pressure: 81 mm Hg (11/08/23 17:06:00) Pulse Pressure: 54 mm Hg (11/09/23 06:00:00) Oxygen Saturation: 100 % (11/09/23 06:00:00) Mode of Delivery (Oxygen): Room air (11/09/23 06:00:00) Early Warning Score: 5 (11/09/23 08:02:56) Constitutional: Alert, uncomfortable and in severe pain, thin Mental Status: Grossly oriented to person, place and time. Head: Normocephalic. with temoral wasting Eyes: Pupils are equal, round and reactive to light. Extraocular muscles intact. Ear, Nose and Throat: Oropharynx clear, mucous membranes moist. Ears and nose without masses, lesions or deformities. Trachea midline. Neck: Supple Respiratory: Clear to auscultation in anterior lung naylor. Unable to assess posterior lung naylor due to pain with movement. Cardiovascular: S1 S2 regular. Systolic murmur heard in tricuspid and??pulmonic areas Gastrointestinal: Abdomen soft, mildly tender to palpation in lower quadrants. Neurologic: Cranial nerves II-XII intact.??4/5 strength in R arm. Unable to assess L arm due to pain.??Moves all extremities spontaneously. Sensation intact bilaterally across extremities Skin: Multiple ulcers and wounds present across upper extremities due to needle insertion sites. Musculoskeletal: L arm diffusely swollen, erythematous, and tender to palpation. Unable to move L wrist or fingers. R arm also swollen, erythematous, and tender to palpation but ROM partially preserved Heme/Lymphatics/Immun: Palpation of neck reveals no swelling or tenderness of neck nodes. Psychiatric: In pain, hungry Assessment/Plan Michael Han is a 38-year-old male with PMH of IVDU (cocaine and opiates), partially treated hep C,??history of right foot osteomyelitis,??and housing instability who was brought to the ED due??to one week of body pain, malaise, and swelling up his upper extremities. Imaging revealed left foot with soft tissue swelling, right foot chronic osteomyelitis, left and right hand diffuse soft tissue swelling, left forearm with diffuse soft tissue swelling, CT chest abdomen pelvis with multiplecollections within the right chest wall and right hemipelvis consistent with abscess and phlegmon, possible septic arthritis with right S1 joint. MRI of the L-spine with S1 spinal epidural abscess with right S1 transverse nerve root involvement, multiloculated abscesses in the right iliac muscle and??right sacroiliitis. His blood cultures have grown MRSA and Strep pyogenes. His presentation is concerning for??MRSA bacteremia, Group A strep bacteremia and Group A strep cellulitis of the L arm, spinal epidural abscess, pelvic and chest abscesses, and??possible??infective??endocarditis. His bacteremia is likely secondary to hematogenous spread due to IVDU. He was started on vanco and zosyn on 11/07. ?? MRSA bacteremia Group A Strep bacteremia, Group A Strep cellulitis of the L arm Spinal epidural abscess, Pelvic and chest abscesses Concern for possible??infective??endocarditis. injection drug use HCV ?? Recommendations: -continue vanc, follow levels and renal function -Change Zosyn to Cefazolin 2gQ8 -f/u echo results -Addiction medicine consult -Ortho consult for L wrist/arm, where there is concern for group A strep infection. -f/u repeat BCS -U/S of R and L UE and L ankle -IR guided abscess fluid aspiration -HCV RNA PCR -Hep A IgG HBV surface antigen, core antibody and HBV total quant -HIV 4th gen ab testing ?? Note prepared by Daina Butcher, MS4, [facility] ?? Attending Attestation Attending attestation: This documentation was completed with the assistance of a medical student. Isaw the patient and performed all necessary elements of the visit including review of the clinical history, physical exam and medical decision making.I reviewed and updated the note as needed Problem List/Past Medical History Ongoing Spinal epidural abscess Medications Inpatient Acetaminophen Tablet, 650 mg, By Mouth, Every 4 hours, PRN Dilaudid Inj, 1 mg= 1 mL, IV Push Slowly, Every 4 hours, PRN Docusate Sodium Capsule, 100 mg= 1 capsule, By Mouth, 2 times a day, PRN Melatonin Tablet, 3 mg, By Mouth, Daily at bedtime, PRN MiraLax Powder, 17 Gm= 1 pack/packet, By Mouth, Daily, PRN NaCL 0.9% Flush, 3 mL, IV Push, Every 8 hours NaCL 0.9% Flush, 3 mL, IV Push, Every 8 hours, PRN oxyCODONE 5 mg oral tablet, 5 mg, By Mouth, Every 6 hours, PRN Robitussin DM Liquid, 10 mL, By Mouth, Every 4 hours, PRN Senna Tablet, 8.6 mg= 1 tablet, By Mouth, 2 times a day, PRN Simethicone Tablet, 80 mg, Chew, 3 times a day, PRN Vancomycin IVPB, 750 mg= 150 mL, 15 mg/kg, IVPB, Every 12 hours Zosyn Extended IVPB, 3.375 Gm, IVPB, Every 8 hours Home Augmentin 875 Tablet, 1 tablet, By Mouth, 2 times a day buprenorphine-naloxone 4 mg-1 mg sublingual film, Sublingual, 2 times a day folic acid 1 mg oral tablet, 1 mg, By Mouth, Daily multivitamin Multiple Vitamins oral tablet, 1 tablet, By Mouth, Daily thiamine 100 mg oral tablet, 100 mg, By Mouth, 2 times a day Antibiotic History Active Antibiotics Calendar Day Last Administered First Administered Piperacillin-Tazobactam??3.375 Gm, 25 mL/hr, IVPB, Every 8 hours ?2 11/09/2023 04:11 11/08/2023 20:35 Vancomycin??750 mg, 150 mL, 150 mL/hr, IVPB, Every 12 hours ?1 11/09/2023 00:28 11/09/2023 00:28 ? Stopped Antibiotics Stop Date/Time Last Administered First Administered Vancomycin??1 Gm, 200 mL, 200 mL/hr, IVPB, Once 11/08/2023 11:38 11/08/2023 11:38 11/08/2023 11:38 Piperacillin-Tazobactam??3.375 Gm, 25 mL/hr, IVPB, Once 11/08/2023 10:40 11/08/2023 10:25 11/08/2023 10:25 Allergies NKA Social History Alcohol Use: Past. Substance Abuse Use: Current. Type: Cocaine, Heroin. Tobacco Use: Smoker, current status unknown. Family History Mother: History is unknown Father: History is unknown Immunizations Vaccine Date Status tetanus/diphtheria/pertussis, acel(Tdap) 11/29/2022 Given Lab Results Test Name Test Result Date/Time WBC 28.3 k/mm3 11/09/2023 10:11 EDT Hgb 10.0 Gm/dL 11/09/2023 10:11 EDT Platelet Count 256 k/mm3 11/09/2023 10:11 EDT BUN 13 mg/dL 11/09/2023 07:13 EDT Creatinine-Blood 0.62 mg/dL 11/09/2023 07:13 EDT Cocaine Metabolite Screen, Urine POSITIVE 11/08/2023 13:05 EDT Diagnostic Results ?? (11/08/2023 11:[address] Chest W/ Contrast) ?? IMPRESSION: ?? Multiple collections within the right chest wall and right hemipelvis consistent with abscesses andphlegmon. ?? Right rib and right sacral fractures. Septic arthritis within the right SI joint cannot be excluded. ?? [1] (11/08/2023 11:[address] Chest W/ Contrast) ?? IMPRESSION: ?? Multiple collections within the right chest wall and right hemipelvis consistent with abscesses andphlegmon. ?? Right rib and right sacral fractures. Septic arthritis within the right SI joint cannot be excluded. ?? [2] ?? (11/08/2023 16:48 EDT MRI Lumbar Spine W+W/O Contrast) IMPRESSION: Right sacroiliitis and right paraspinal musculature myositis, extending throughout the field of view, with a suspected 0.6 cm right paraspinal muscle abscess. ?? Partially visualized multiple abscesses within the right iliacus muscle, better visualized on recent CT. ?? [3] (11/08/2023 16:48 EDT MRI Lumbar Spine W+W/O Contrast) IMPRESSION: Right sacroiliitis and right paraspinal musculature myositis, extending throughout the field of view, with a suspected 0.6 cm right paraspinal muscle abscess. ?? Partially visualized multiple abscesses within the right iliacus muscle, better visualized on recent CT. ?? [4] [1]??CT Chest W/ Contrast; Judy Valero MD 11/08/2023 11:17 EDT [2]??CT Chest W/ Contrast; Judy Valero MD 11/08/2023 11:17 EDT [3]??MRI Lumbar Spine W+W/O Contrast; Stewart Aparicio MD 11/08/2023 16:48 EDT [4]??MRI Lumbar Spine W+W/O Contrast; Stewart Aparicio MD 11/08/2023 16:48 EDT Surgical pathology study * Cedric Galloway MD: REVIEW Event Display: Surgical Pathology Authored Date: [id number] Patient Name: MICHAEL MTZ Lab Patient : 1985 (Age: 38) Collection Date: 11/13/2023 Accession Date: 11/13/2023 Sign Out Date: 11/18/2023 Tissue Source: 1:RIGHT SECOND TOE Final Diagnosis: Right 2nd toe, amputation: - Skin and subcutaneous tissue with inflammation and granulation tissue. - Underlying bone shows acute osteomyelitis. Primary Pathologist:RC RIVERA M.D. electronically signed out by: RC RIVERA M.D. / [facility] [place] Description: Labeled right second toe . Received in formalin is a 4.6 x 3.0 x 2.2 cm distal digit with up to 1.7 cm of exposed bone with a smooth, concave bony margin of disarticulation. The epidermal surface displays a 2.2 x 1.9 cm pink ulcerated area that is 0.9 cm from the skin and soft tissue margin. The remaining epidermal surface is saucedo-white, wrinkled. A nail is present. Sectioning reveals saucedo-pink, slightly softened tissue subjacent to the ulcerated area. The subjacent bone is yellow, trabecular. A physician relations representative section is submitted including the lesion and subjacent bone following decalcification. 1-1 piece. (KM)* As of 2023, the specimen processing and staining is performed at [facility], [address] [place] [address] (CLIA#[id number]). Its performance characteristics determined by [facility]. Alicia Rivera M.D. [employer] Surgical Pathology, Duarte Sanders M.D. [employer] Cytopathology Phone #: [phone], On-Call Pathologist: [id number] History and physical note * Event Display: History and Physical Hospital Authored Date: Admission evaluation note * Ki BLUE, Jennifer Fisher: PERFORM, MODIFY, MODIFY, MODIFY Event Display: Admission Note Authored Date: Patient: ??MICHAEL MTZ ? Age:??38 Years?Sex:??Male?:??1985?? Chief Complaint/Reason for Consultation homeless, 5 days of bilateral forarm/hand ankle and foot swelling. generalized body aches. friend called EMS for him as pt unable to care for self. lungs CTA. denies CP/SOB. 3 bags heroin and 1 bag cocain IVDA into his neck 0300 today. History of Present Illness 38-year-old male with PMH of partially treated hep C, polysubstance use [opiates, cocaine], historyof right foot osteomyelitis, homelessness was brought to the ED due to generalized body aches/pains. ?? Patient's medical chart reviewed, seen and examined at bedside.?? Patient poor historian.?? Historymostly obtained from patient, chart review and collaterals.?? Patient has been having bilateral mayur leg swelling/body aches going on for 5 days.?? Patient's friend called EMS as he is not able totake care of himself.?? He does endorses using 2-3 bags of heroin and 1 bag of cocaine into his neck yesterday.?? Not taking any medications and has not seen a doctor for a long time.?? Currently complains of diffuse bodyaches, chest pain with deep breathing.?? Significant pain and worsening swelling of the left forearm and hand.?? Denies any nausea, vomiting, fever, chills, cough, sore throat, ru nny nose, abdominal pain, constipation, diarrhea, dysuria. ?? Initially in the ED patient was afebrile, HR 90, RR 10, BP 113/53, saturation 100% on room air.?? Significant leukocytosis 32.6, Hgb 10.6, PLT 257, sodium 127, K4.2, bicarb 27, BUN/creatinine 44/0.8, blood glucose 99, INR 1.1, alk phos 96, AST/ALT 48/98, lactate 2.1, troponin 8, ethanol negative, found to be cocaine positive, C-19 negative, chest x-ray with no acute findings, left foot with soft tissue swelling, right foot chronic osteomyelitis, left and right hand diffuse soft tissue swelling, left forearm with diffuse soft tissue swelling x- ray femur right no fractures or dislocations, CT head with no acute findings, CT chest abdomen pelvis with multiple collections within the right chest wall and right hemipelvis consistent with abscess and phlegmon, right rib and right sacral fractures, septic arthritis with right S1 joint cannot be excluded.?? Neurology was consulted given history of infective endocarditis with septic emboli recommended MRI of the spine to evaluate for spinal epidural abscess.?? MRI of the L-spine with S1 spinal epidural abscess with right S1 transverse nerve root involvement.?? Multiloculated abscesses in the right iliac muscle, right sacroiliitis.?? Given MRI findings neurosurgery was consulted no acute neurosurgical intervention needed and recommendedIR consult for any possible drainage of the abscess.?? Blood cultures are drawn, patient was given IV vancomycin and Zosyn.?? Patient will be admitted to [facility] medicine service for further management Review of Systems All systems reviewed and are negative except as mentioned in HPI Objective Measurements?? Height: 171 cm (11/08/23) Weight: 60.6 kg (11/09/23) Dry Weight: 58.9 kg (11/08/23) Body Mass Index: 20.14 kg/m2 (11/08/23) ? Vital Signs?? Temperature: 98.6 DegF (11/09/23 04:00:00) Temperature Route: Oral (11/09/23 04:00:00) Pulse Rate:??96 bpm??High (11/09/23 00:00:00) Heart Rate Monitored: 86 bpm (11/09/23 04:00:00) Respiratory Rate: 19 br/min (11/09/23 04:00:00) Systolic Blood Pressure: 119 mm Hg (11/09/23 04:00:00) Diastolic Blood Pressure: 63 mm Hg (11/09/23 04:00:00) Blood pressure sites: Arm, left (11/09/23 04:00:00) Mean Arterial Pressure: 81 mm Hg (11/08/23 17:06:00) Pulse Pressure: 56 mm Hg (11/09/23 04:00:00) Oxygen Saturation: 100 % (11/09/23 04:00:00) Mode of Delivery (Oxygen): Room air (11/09/23 04:00:00) Early Warning Score: 5 (11/09/23 04:24:00) ? Pain Scores 1 - 10 Pain Scale Score: 10 (17:42) Pain relief acceptable: No (01:49) ?? Intake/Output? 11/07 11:51 11/08 07:00 11/07 07:00 11/06 07:00 06/21 07:00 ?? 11/09 03:44 11/08 04:44 11/08 06:59 11/07 06:59 11/06 06:59 Intake ?800 ?0 ?800 ?0 ?0 Output ?0 ?0 ?0 ?0 ?0 Net Total ?800 ?0 ?800 ?0 ?0 ? Precautions No Precautions documented.? Physical Exam Gen-cachectic male, multiple bruises??on the arms and legs HEENT- Normocephalic, atraumatic Neck-supple, no JVD Heart-S1S2(+),??regular, significant systolic??murmur??at aortic area lungs-clear, poor bilateral air entry Abdomen-soft, nontender,nondistended,??bowel sounds present, No guarding. Extremities-pulses palpable.?? Left upper extremity??swollen Neurological- AAO??3.?Motor??4/5??RUE and RLE,??LUE significantly swollen??and erythematous, sensation intact Psychiatric-patient???s mood is stable. ?? (11/08/2023 11:09 EDT Chest 2 Views Frontal and Lat) MPRESSION: No evidence of active cardiopulmonary process ?? Mild age-indeterminate deformities of the right posterior fifth and sixth ribs ? (11/08/2023 11:09 EDT Foot Min 3 Views Left) IMPRESSION:? Soft tissue swelling without evidence of acute bony or articular abnormality. ?? (11/08/2023 11:09 EDT Foot Min 3 Views Right) MPRESSION:? Chronic osteomyelitis second digit proximal interphalangeal joint, with abnormal bony changes whichappear much more well-defined when compared to 11/28/2022 at which time there was bony destruction and periosteal reaction ?? (11/08/2023 11:09 EDT Hand Min 3 Views Left) MPRESSION:? Suboptimal evaluation due to patient positioning ?? Diffuse soft tissue swelling without evidence of radiodense soft tissue foreign body ?? Chronic deformity of the distal radius and widening of the scapholunate interval suggesting underlying ligamentous injury. ? (11/08/2023 11:09 EDT Hand Min 3 Views Right) IMPRESSION:? Suboptimal evaluation due to patient positioning? Dorsal soft tissue swelling without evidence of radiodense soft tissue foreign body? (11/08/2023 11:09 EDT XR Femur 2 Views Right) INDINGS: ?? No fracture, dislocation or bone lesion. ?? Visualized portions of the joints are normal.? Normal soft tissues. ? (11/08/2023 11:09 EDT Forearm 2 Views Left) IMPRESSION:? Diffuse soft tissue swelling without evidence of radiodense soft tissue foreign body. No evidence of acute fracture or cortical erosion ? (11/08/2023 12:[address] Head/Brain W/O Contrast) Impression: ?? There is no acute intracranial abnormality. ?? (11/08/2023 11:[address] Chest, abdomen pelvis W/ Contrast) MPRESSION: ?? Multiple collections within the right chest wall and right hemipelvis consistent with abscesses andphlegmon. ?? Right rib and right sacral fractures. Septic arthritis within the right SI joint cannot be excluded. ?? Assessment/Plan 38-year-old male with PMH of partially treated hep C, polysubstance use [opiates, cocaine], historyof right foot osteomyelitis, homelessness was brought to the ED due to generalized body aches/pains. Initially in the ED patient was afebrile, HR 90, RR 10, BP 113/53, saturation 100% on room air.?? Significant leukocytosis 32.6, Hgb 10.6, PLT 257, sodium 127, K4.2, bicarb 27, BUN/creatinine 44/0.8,blood glucose 99, INR 1.1, alk phos 96, AST/ALT 48/98, lactate 2.1, troponin 8, ethanol negative, found to be cocaine positive, C-19 negative, chest x-ray with no acute findings, left foot with soft tissue swelling, right foot chronic osteomyelitis, left and right hand diffuse soft tissue swelling,left forearm with diffuse soft tissue swelling x- ray femur right no fractures or dislocations, CT head with no acute findings, CT chest abdomen pelvis with multiple collections within the right chestwall and right hemipelvis consistent with abscess and phlegmon, right rib and right sacral fractures, septic arthritis with right S1 joint cannot be excluded.?? Neurology was consulted given history of infective endocarditis with septic emboli recommended MRI of the spine to evaluate for spinal epidural abscess.?? MRI of the L-spine with S1 spinal epidural abscess with right S1 transverse nerve root involvement.?? Multiloculated abscesses in the right iliac muscle, right sacroiliitis.?? Given MRI findings neurosurgery was consulted no acute neurosurgical intervention needed and recommended IRconsult for any possible drainage of the abscess.?? Blood cultures are drawn, patient was given IV v ancomycin and Zosyn.?? [facility] for further management ? 1. ??Spinal epidural abscess ??(G06.1) 2. ??Abscess of right iliac fossa ??(K35.33) 3. ??Septic embolism ??(I76) 4. ??Endocarditis ??(I38) 5. 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 ??Cellulitis ??(L03.90)??left hand and left foot 7. ??Chronic osteomyelitis ??(M86.9) 8. ??Polysubstance use disorder ??(F19.90) Vitals as per unit standards Telemetry monitoring Echo??to evaluate for wall vegetations Neurosurgery on board, appreciate recommendations Regular diet, n.p.o. after midnight Pain control as needed IV fluids On vancomycin and Zosyn Follow with blood cultures and adjust antibiotics Daily trend fever and WBC curve Urology on board, appreciate recommendations IR consult order placed if possible for drainage of??epidural abscess/multiloculated??abscess in the right iliac muscle As needed bowel regimen ? VTE Prophylaxis:??none for now, vte guidelines done ?? Discharge Planning:??Spinal epidural abscess, on IV antibiotics ?? Code Status:??Full, confirmed with patient at bedside ?Order Code Status:??Code Status Ordered Diet???regular diet, n.p.o. after midnight ?? Patient seen and examined on 11/08/2023 ?? Histories Allergies Allergies ?(Active and Proposed Allergies Only) NKA? (Severity: Unknown severity, Onset: Unknown) ? Past Medical History/Problem List Active Problems(1) Spinal epidural abscess ? Past Surgical History No surgery history documented. ? Social History Alcohol Details:??Use: Past. Substance Abuse Details:??Use: Current. ??Type: Cocaine, Heroin. Tobacco Details:??Use: Smoker, current status unknown. ? Family History No Positive Family History documented. ? Medications Home Medications Amoxicillin-Clavulanate (Augmentin 875 Tablet)?1?tablet?By Mouth?2 times a day?for 6?week(s) Buprenorphine-Naloxone (buprenorphine-naloxone 4 mg-1 mg sublingual film)?Sublingual?2 times a day Folic Acid (folic acid 1 mg oral tablet)?1?Milligram?By Mouth?Daily Multivitamin (multivitamin Multiple Vitamins oral tablet)?1?tab(s)?By Mouth?Daily Thiamine (thiamine 100 mg oral tablet)?100?Milligram?By Mouth?2 times a day ? Inpatient Medications Medications (14) Active SCHEDULED: (3) NaCl 0.9% Flush 3ml (NaCL 0.9% Flush) ??3 mL, IV Push, Every 8 hours Piperacillin/Tazobactam 3.375 Gm Inj (Zosyn Extended IVPB) ??3.375 Gm, IVPB, Every 8 hours Vancomycin 750 mg/D5W 150 mL (Vancomycin IVPB) ??750 mg 150 mL, IVPB, Every 12 hours CONTINUOUS: (0) PRN: (11) Acetaminophen 325 mg Tablet (Acetaminophen Tablet) ??650 mg, By Mouth, Every 4 hours Dextromethorphan-Guaifenesin 20 mg-200 mg/10 mL Liqu UD (Robitussin DM Liquid) ??10 mL, By Mouth, Every 4 hours Docusate Sodium 100 mg Capsule (Docusate Sodium Capsule) ??100 mg 1 capsule, By Mouth, 2 times a day HYDROmorphone 1 mg/mL Inj Syringe (Dilaudid Inj) ??1 mg 1 mL, IV Push Slowly, Every 4 hours HYDROmorphone 1 mg/mL Inj Syringe (Dilaudid Inj) ??1 mg 1 mL, IV Push Slowly, Once Melatonin 3 mg Tablet (Melatonin Tablet) ??3 mg, By Mouth, Daily at bedtime NaCl 0.9% Flush 3ml (NaCL 0.9% Flush) ??3 mL, IV Push, Every 8 hours OxyCODONE 5 mg IR Tablet (oxyCODONE 5 mg oral tablet) ??5 mg, By Mouth, Every 6 hours Polyethylene Glycol 17 Gm Powder (MiraLax Powder) ??17 Gm 1 pack/packet, By Mouth, Daily Senna Tablet ??8.6 mg 1 tablet, By Mouth, 2 times a day Simethicone 80 mg Chewable Tablet (Simethicone Tablet) ??80 mg, Chew, 3 times a day ? Results Recent Labs BACTERIOLOGY Blood Culture Results Preliminary report (Abnormal)?? 11/08/2023 09:35 Blood Culture Isolate 1 Gram positive cocci (Abnormal)?? 11/08/2023 09:35 Reflex to Rapid ID, CHELSEA Comment ()?? 11/08/2023 09:35 ?? BLOOD COUNT & DIFF WBC 32.6 k/mm3 (High)?? 11/08/2023 09:35 RBC 3.83 m/mm3 (Low)?? 11/08/2023 09:35 Hgb 10.6 Gm/dL (Low)?? 11/08/2023 09:35 Hct 31.5 % (Low)?? 11/08/2023 09:35 MCV 82.2 femtoliters ()?? 11/08/2023 09:35 MCH 27.7 pg ()?? 11/08/2023 09:35 MCHC 33.7 g/dL ()?? 11/08/2023 09:35 Platelet Count 257 k/mm3 ()?? 11/08/2023 09:35 RDW-SD 43.8 femtoliters ()?? 11/08/2023 09:35 MPV 9.8 femtoliters ()?? 11/08/2023 09:35 Nucleated RBC (Automated) 0.0 #/100 WBC'S ()?? 11/08/2023 09:35 Abs. NRBC 0.0 k/mm3 ()?? 11/08/2023 09:35 Abs. Neut 28.1 k/mm3 (High)?? 11/08/2023 09:35 Abs. Lymph 0.6 k/mm3 (Low)?? 11/08/2023 09:35 Abs. Stafford 1.4 k/mm3 (High)?? 11/08/2023 09:35 Abs. Eo 0.0 k/mm3 ()?? 11/08/2023 09:35 Abs. Baso 0.0 k/mm3 ()?? 11/08/2023 09:35 Neut % 81.9 % (High)?? 11/08/2023 09:35 Lymph % 1.7 % (Low)?? 11/08/2023 09:35 Stafford % 4.3 % (Low)?? 11/08/2023 09:35 Eos % 0.0 % ()?? 11/08/2023 09:35 Baso % 0.0 % ()?? 11/08/2023 09:35 Myelocytes % 2.6 % ()?? 11/08/2023 09:35 Metamyelocyte % 5.2 % (High)?? 11/08/2023 09:35 Band % 4.3 % ()?? 11/08/2023 09:35 Platelet Estimate ADEQUATE ()?? 11/08/2023 09:35 ?? CARDIAC High Sensitivity Troponin (HSTnT) 8 ng/L ()?? 11/08/2023 09:35 ?? CHEM GENERAL Sodium 127 mmol/L (Low)?? 11/08/2023 09:35 Potassium 4.2 mmol/L ()?? 11/08/2023 09:35 Chloride 90 mmol/L (Low)?? 11/08/2023 09:35 Bicarbonate Level 27 mmol/L ()?? 11/08/2023 09:35 Anion Gap 10 ()?? 11/08/2023 09:35 Glucose Level 99 mg/dL ()?? 11/08/2023 09:35 BUN 24 mg/dL (High)?? 11/08/2023 09:35 Creatinine-Blood 0.80 mg/dL ()?? 11/08/2023 09:35 Estimated GFR Creatinine 115 ML/MIN/1.73 M2 ()?? 11/08/2023 09:35 Calcium 7.8 mg/dL (Low)?? 11/08/2023 09:35 Protein, Total 8.0 Gm/dL ()?? 11/08/2023 09:35 Albumin 2.3 Gm/dL (Low)?? 11/08/2023 09:35 AG Ratio 0.4 ()?? 11/08/2023 09:35 Alkaline Phosphatase 96 units/L ()?? 11/08/2023 09:35 Lipase 16 units/L ()?? 11/08/2023 09:35 AST (SGOT) 48 units/L (High)?? 11/08/2023 09:35 ALT (SGPT) 19 units/L ()?? 11/08/2023 09:35 Bilirubin, Total 0.7 mg/dL ()?? 11/08/2023 09:35 Lactate 2.1 mmol/L ()?? 11/08/2023 09:35 ?? COAG INR 1.1 ()?? 11/08/2023 09:35 Protime (PT) 11.9 seconds (High)?? 11/08/2023 09:35 ?? ENDOCRINE/TUMOR MARKER TSH 3.54 uIU/mL ()?? 11/08/2023 09:35 ?? TOXICOLOGY/TDM Ethanol, Serum or Plasma NONE DETECTED mg/dL ()?? 11/08/2023 09:35 Barbiturate Screen, Urine NONE DETECTED ()?? 11/08/2023 13:05 Cannabinoid Screen, Urine NONE DETECTED ()?? 11/08/2023 13:05 Cocaine Metabolite Screen, Urine POSITIVE (Abnormal)?? 11/08/2023 13:05 Benzodiazepine Screen, Urine NONE DETECTED ()?? 11/08/2023 13:05 Amphetamine Screen, Urine NONE DETECTED ()?? 11/08/2023 13:05 Opiate Screen, Urine NONE DETECTED ()?? 11/08/2023 13:05 ?? URINE OTHER Est Creatinine Clearance 102.26 mL/min ()?? 11/08/2023 17:12 ?? VIROLOGY COVID-19 by RT-PCR NEGATIVE ()?? 11/08/2023 10:08 ? Urinalysis Est Creatinine Clearance: 102.26 mL/min (17:12) ?? Microbiology ?? Blood Culture Result?? Completed?? Source: Blood Body Site: ?? Collected Dt/Tm: 11/08/2023 09:35 Last Updated Dt/Tm: 11/09/2023 01:06 ?? Blood Culture?? Completed?? Source: Blood Body Site: ?? Collected Dt/Tm: 11/08/2023 09:16 Last Updated Dt/Tm: 11/09/2023 01:05 ?? COVID-19 (Novel Coronavirus), Rapid PCR?? Completed?? Source: Nasal Body Site: Nose Collected Dt/Tm: 11/08/2023 09:16 Last Updated Dt/Tm: 11/08/2023 10:59 ? Cardiology Labs High Sensitivity Troponin (HSTnT): 8 ng/L (11/08/23 09:35:00) ? EKG study * Event Display: ECG 12-Lead Authored Date: Please click on pdf link to open report * Event Display: ECG 12-Lead Authored Date: Ventricular Rate: 71 BPM Atrial Rate: 71 BPM P-R Interval: 138 ms QRS Duration: 86 ms Q-T Interval: 370 ms QTC Calculation(Bazett): 402 ms P [place]: 11 degrees R [place]: 28 degrees T [place]: 16 degrees Normal sinus rhythm Normal ECG When compared with ECG of 29-NOV-2022 03:17, Nonspecific T wave abnormality now evident in Inferior leads Confirmed by JENNIFER DOUGLASS MD ([id number]) on 11/11/2023 4:53:47 PM [place]: JENNIFER DOUGLASS MD US Heart * Event Display: Echocardiogram - Complete Authored Date: Transthoracic Echocardiography Report (TTE) Patient Demographics Patient Name OTF HAN, Date of Study 11/09/2023 MICHAELTERRENCE [place] Gender Male Facility Race Ethnicity or Date of 1985 Height: 67.32 inches Age 38 year(s) Weight: 132.29 pounds Accession Number [id number] BSA: 1.7 m2 Room Number M510 BMI: 20.52 kg/m2 Referring Physician Ki Fisher MD Physician Experimental Assembler Jayce DEJESUS Daniela Indications Endocarditis. Clinical History IVDU Tobacco use. Study Data Type of Study TTE procedure:Echo Complete-Doppler, Colorflow, M-Mode. Study Date11/09/2023 Start Time: 06:37 AM Study Location: [facility] [place] Study Status: Bedside Patient Status: Routine Technical Quality: Fair due to rib artifact. Blood Pressure:116/62 mmHg EKG: Sinus with ectopy HR: 87 bpm 2D Measurements LV Diastolic Dimension: 4.3 cm LV Systolic Dimension: 3 cm LV Septum Diastolic: 0.8 cm LV PW Diastolic: 0.8 cm AO Root Dimension: 2.7 cm LA Dimension: 3.3 cm LA ESV (BP):56.5 ml LVOT Stroke Volume: 71.66 ml LA ESV Index: 33 ml/m2 Stroke Volume Index42.15 ml/m2 LVOT: 2.1 cm Cardiac Index:3.66 l/min/m2 Ascending Aorta:2.5 cm Doppler Measurements AV Peak Velocity: 171 cm/s MV Peak E-Wave: 95.7 cm/s AV Peak Gradient: 11.7 mmHg MV Peak A-Wave: 70.2 cm/s MV E/A Ratio: 1.36 LVOT Peak Velocity: 123 cm/s MV P1/2t: 50 msec LVOT VTI20.7 cm MV Deceleration Time: 171 msec MV Area (PHT): 4.4 cm2 E' Septal Velocity: 11.9 cm/s PV Peak Velocity: 127 cm/s E' Lateral Velocity: 17.2 cm/s PV Peak Gradient: 6.45 mmHg E/Med E':[id number] E/Lat E':[id number] Cardiac Anatomy Left Ventricle/Interventricular Septum The left ventricle is normal in size. Systolic function is preserved. Ejection fraction is 60-65%. No definite regional wall motion abnormalities detected. Normal diastolic function. Left Atrium/Interatrial Septum The left atrium is normal in size. Aortic Valve No significant regurgitation or stenosis. Mitral Valve No significant regurgitation or stenosis. Aorta The ascending aorta and aortic root are normal in size when indexed. Right Ventricle The right ventricle is upper limit of normal in size. Function is preserved overall. Right Atrium The right atrium is dilated. Pulmonic Valve No significant regurgitation. Tricuspid Valve Trace regurgitation. Pumonary Artery An accurate pulmonary artery pressure could not be obtained. Venous Structures IVC is normal in size. Inspiratory collapse was difficult to accurately evaluate. Pericardium/Extracardiac No definite pericardial effusion detected. Summary The left ventricle is normal in size. Systolic function is preserved. Ejection fraction is 60-65%. No definite regional wall motion abnormalities detected. Normal diastolic function. The left atrium is normal in size. The right ventricle is upper limit of normal in size. Function is preserved overall. The right atrium is dilated. No obvious evidence of endocarditis, however, sensitivity of this study is inherently limited due to transthoracic technique. If clinical suspicion remains for endocarditis, consider LEEROY. Comparison No prior study available for comparison. Signature * Event Display: Echocardiogram - Complete Authored Date: Cardiology * Event Display: Cardiac Rhythm Strips Authored Date: * Event Display: Cardiac Rhythm Strips Authored Date: * Event Display: Cardiac Rhythm Strips Authored Date: * Event Display: Cardiac Rhythm Strips Authored Date: Hospital Progress note * Richard Milan MD: PERFORM Event Display: Progress Note Hospital Authored Date: Patient: ??OTF WATSONRIOMICHAEL ? Age:??38 Years?Sex:??Male?:??1985?? Subjective Overnight events: No significant events overnight. Review of Systems General:??Feels well and slept overnight. Cardiovascular:??Denies any chest pain or palpitations. Pulmonary:??Denies any shortness of breath or cough. GI:??Denies any abdominal pain, nausea, vomiting, diarrhea or constipation. :??Denies any urinary retention. Objective Intake/Output? 11/07 11:51 11/23 07:00 11/22 07:00 11/21 07:00 11/20 07:00 ?? 11/23 19:08 11/23 19:08 11/23 06:59 11/22 06:59 11/21 06:59 Intake ?61744 ?708 ?720 ?604 ? 1438 Output ?75501 ?150 ? 1230 ? 1735 ? 3100 Net Total ? -04036 ?558 ? -510 ?-1131 ?-1662 ? Urine Count ?2 ?0 ?0 ?0 ?1 ? Physical Exam Vital Signs (24 hrs) Last Charted?? Minimum?? Maximum?? Resp Rate?? 16?? 11/24/2023 15:42?? L??15?? 11/24/2023 10:56 ?? 18?? 11/23/2023 22:16?? SBP?? H??145?? 11/24/2023 15:42?? 101?? 11/23/2023 22:16 ?? H??145?? 11/24/2023 15:42?? DBP?? H??93?? 11/24/2023 15:42?? L??53?? 11/23/2023 22:16 ?? H??93?? 11/24/2023 15:42? *Interviewed with in-person pierogi maker* General Appearance: The patient is?? in NAD. Cardiovascular: RRR S1 and S2 heard with no M/R/G. Respiratory: ??Breath sounds clear to auscultation bilaterally. No wheezing. Good air movement throughout both lungs. GI: Soft. Nontender and nondistended. Normal bowel sounds present throughout abdomen.?? MS: ??No edema or erythema in the lower extremities.??Left??arm??bandaged c/d/i.?Right foot??bandaged??with??R2 removed??bandages??c/d/i.?? Neuro: ??No slurred speech. ??Patient seen moving their upper and lower extremities independently. Psych:?? Appropriate and pleasant.?? Lines: Peripheral IV in place.?? Results Test Name Test Result Date/Time Hgb 8.6 Gm/dL 11/24/2023 06:41 EDT Creatinine-Blood 0.54 mg/dL 11/24/2023 06:41 EDT Calcium 8.2 mg/dL 11/24/2023 06:41 EDT ?? Remainder of CBC, electrolytes unremarkable. Assessment/Plan Assessment:??38-year-old man with polysubstance use including severe opioid use disorder with IV drug use, hepatitis C who presented with weakness found have sepsis due to MRSA bacteremia with left wrist septic arthritis, R2 osteomyelitis, pelvic abscess, right iliac muscle abscess??s/p R2 amputation.? Acute Issues (active management): MRSA bacteremia (R78.81) ?Associated with??Bacterial infection due to streptococcus, group A (B95.0) ?? Antibiotic history: ceFAZolin??2 Gm, IV Push, Every 8 hours (11/08 - ) Vancomycin??1,250 mg, 166.67 mL/hr, IVPB, Every 12 hours (11/08 - ) ?? Microbiology history: Tissue culture (11/12): MSSA Blood culture (11/11) x 2: No growth.??Final Body fluid culture???abscess (11/10): MRSA Blood culture (11/09): No growth.??Final Wound culture (11/09): MSSA Wound culture???aspirate (11/09): Group A strep Blood culture x 2 (11/07): MRSA, GAS ?? Vascular access: PICC line ?? Recommendations: ??- ESR/CRP prior to DC 11/24 - Continue only vancomycin with end date: 12/23/2023 - Monitoring labs (test/frequency): Weekly CBC, CMP.?? - Repeat blood cultures 5 to 7 days after finishing antibiotic therapy.?? - All labs should be faxed to ID office at [phone] - Imaging needed before outpt f/u visit: Chest and abdominal pelvic CT scan with IV contrast on last week of therapy - FU with ID as OP in 5 to 6 weeks ?? Stable Issues (stable former acute issues): SIADH (syndrome of inappropriate ADH production) (E22.2):??Sodium normal without fluid restriction.??Repeat BMP as outpatient Septic arthritis of wrist, left (M00.9):??s/p I/D (11/10/23) -??NWB LUE. Maintain splint. Follow up with Dr Mata OP ??Normocytic anemia (D64.9):??Baseline 13 to 15 g/dL.??Stable around 8 to 9 g/dL???transfuse less than 7 g/dL Acute insomnia (G47.00):??Trazodone 50 mg nightly ?? Pelvic abscess in male (K65.1):?? Right iliacus muscle abscess: s/p SIMA drain (11/11/23) ?? Recommendations: ??? Flush drainage catheter daily with 10 mL of saline. ??? Dressing changes as needed. ??? On discharge, VNA should be set up to ensure drain is flushed regularly to prevent clogging. ??- Patient has been scheduled for 12/08/23 10 am arrival for 11:30 am procedure with IR ?? Opioid use disorder, severe, dependence (F11.20) ?Associated with??IV drug abuse (F19.10),??Cocaine use disorder (F14.10) ? Tylenol 3 times daily, methadone 25 mg twice daily, oxycodone 10 mg every 4 hours as needed. OP FU for cocaine use.? 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 s/p amputation (11/13/23) - OP Vascular follow-up? Chronic Issues: Prediabetes (R73.03):??Hemoglobin A1c 5.8% (11/22/23). - PCP to FU ?? DVT Prophylaxis:??Enoxaparin 40mg?? Diet:??Regular Diet Code Status:??Full Resuscitation?? PT ordered?:??PT Re-evaluation (every 10 days) - Every 10 days, 11/26/23 8:00:00 EDT PT Treatment - Every Thursday, Thursday and , 11/16/23 8:09:00 EDT??_.??Recommendation:??Rehab Dispo:??Rehab?? * Yovanny BLUE, Aubrie: PERFORM, MODIFY, MODIFY, MODIFY Event Display: Progress Note Hospital Authored Date: Patient: ??MICHAEL MTZ ? Age:??38 Years?Sex:??Male?:??1985?? Subjective Overnight: No acute events This AM:??Patient ANO x 3??reports??2-3 bowel movements??after??taking p.o.??bowel regimen??a couple days ago. ??He denies any abdominal pain??or other complaints.?? He reports right lower extremity pain at the site of the amputation??only when??touched??or when he moves but??in general he describes his pain is well-controlled. ??He denies any complaint such as chest pain or shortness of breath. Review of Systems Full ROS has been performed and is otherwise negative asides form what has been mentioned in HPI Objective Vital Signs?? Temperature: 98.5 DegF (11/23/23 16:00:00) Temperature Route: Oral (11/23/23 16:00:00) Pulse Rate: 82 bpm (11/23/23 16:00:00) Respiratory Rate: 18 br/min (11/23/23 16:00:00) Systolic Blood Pressure: 119 mm Hg (11/23/23 16:00:00) Diastolic Blood Pressure: 60 mm Hg (11/23/23 16:00:00) Blood pressure sites: Leg, left (11/23/23 16:00:00) Mean Arterial Pressure: 89 mm Hg (11/23/23 04:58:00) Pulse Pressure: 69 mm Hg (11/23/23 04:58:00) Oxygen Saturation: 99 % (11/23/23 16:00:00) Mode of Delivery (Oxygen): Room air (11/23/23 16:00:00) Early Warning Score: 0 (11/23/23 16:04:17) ? Intake/Output? 11/07 11:51 11/22 07:00 11/21 07:00 11/20 07:00 07/05 07:00 ?? 11/22 18:01 11/22 18:01 11/22 06:59 11/21 06:59 11/20 06:59 Intake ?79881 ?240 ?604 ? 1438 ? 1096 Output ?45581 ?530 ? 1735 ? 3100 ? 2921 Net Total ? -61065 ? -290 ?-1131 ?-1662 ?-1825 ? Urine Count ?2 ?0 ?0 ?0 ?1 ? Physical Exam General: Patient in no acute pain or distress?? HEENT: normocephalic, atraumatic Respiratory: bilateral equal air entry, clear to auscultation with no wheezes or crackles. CVS: regular rate and rhythm, S1 and S2 present, no murmurs. No JVD.?? Abdomen: soft, non tender, right abdominal??SIMA drain??with no surrounding skin concerns draining serosanguineous??fluid around 50 cc,??non distended, bowel sounds present. Extremities:??Right lower extremity amputation well-dressed,??left wrist??slightly swollen at the site of??I&D but appropriately dressed,??no??lower extremity edema noted bilaterally. Pulses intact. Neuro: alert and oriented x3. Moving all extremities spontaneously. Following simple commands. Assessment/Plan 38 y/o with pmhx of cocaine use disorder, hepatitis C, chronic right foot osteomyelitis, and??homelessness who presented with weakness found to be in septic from MRSA and GAS bacteremia complicated by left wrist septic arthritis s/p I/D , found to have??R2 osteomyelitis s/p amputation??on 11/12, righ t??iliopsoas abscess s/p?? SIMA drain??11/10. Infective endocarditis ruled out on TTE. Demonstrating blood culture clearance since 11/11. Followed by ID. Pt remains on antibiotics (IV cefazolin and vancomycin) through his PICC. Repeat CT on 11/20 showing near resolution of Right iliopsoas abscess s/p pigtail drain, and improvement in Right gluteal abscess. He has been followed by ID, addiction medicine, orthopedics, general surgery, and vascular surgery. Pending transfer to [facility] for completion of IV antibiotics given difficulty with rehab placement on total 6 weeks course of IV vancomycin. ?? MRSA bacteremia (R78.81), Group A strep bacteremia (B95.0) Abscess of right iliac fossa (K35.33) and right gluteus Septic arthritis of wrist, left (M00.9) s/p I&D Osteomyelitis (M86.9) of toe s/p R2 amputation presented with weakness Admitted for management of sepsis 2/2 MRSA and GAS bacteremia. 11/09 - Left wrist I&D with Ortho, +GAS. 11/10 - SIMA drain placed to Right iliopsoas abscess with IR. 11/12 - R2 toe amputation with vascular, +MRSA. Both MRSA and GAS in blood cultures. CT on 11/20 shows near resolution of iliopsoas abscess. Also a Right gluteal abscess which is decreased in size??per repeat CT. Overall clinically well - afebrile, HDS, no worsening pain. BCx clear since 11/11. ?? Plan: -Continue IV vancomycin and cefazolin while inpatient, IV vancomycin on discharge for 6 weeks total -PICC line in place -Appreciate EGS managing??iliopsoas drain, monitor and record output Q4. -Appreciate ID recommendations and OPAT -PT Rec rehab -Methadone 25mg twice a day for pain -Oxycodone 5 mg every??4 as needed for severe pain -Follow up??at [facility] for suture removal in 2 weeks -Follow up with [facility] Dr Mata OP (wrist) in 2 weeks - Maintain splint?? - NWB LUE ?? Opioid withdrawal (F11.93) Polysubstance use disorder (F19.90) Was started on methadone 11/09 Hx OUD, IVDU and cocaine use. Only cocaine detected on Utox (fentanyl??not checked). 11/11??increased methadone to 50mg daily, split into??25mg BID for better pain control. Addiction team consulted and following. Patient has discussed??that he would like to be on Sublocade as an outpatient. ??I discussed with addiction medicine today??and??they said this is better be done??as an outpatient??as he needs to be weaned off of methadone with a washout period before starting the Sublocade. Patient has been referred to [facility]??in the clinic he was referred to is able to provide both methadone or Suboxone. ?? Plan: - Continue methadone 25mg BID (fractionated for analgesia) - Discharge on methadone BID per addiction medicine recs - Will need last dose letter - Pt wishes to??start Sublocade outpatient, to be coordinated as outpatient at the??[facility] clinci he was referred to.? Chronic hyponatremia (E87.1), resolved Hypoosmolar (277)??hyponatremia, suspect hypovolemic 2/2 poor PO intake. Stable in low 130s now. ?? Plan: -Monitor daily?? -Encourage??PO intake ?? Prediabetes A1c 5.8. Plan: -Follow-up with PCP as an outpatient -Counseled on lifestyle??modifications ?? Quality Measures Code:??Full DVT prophylaxis: Lovenox Diet: Regular ?? This case has been??reviewed and discussed with Dr.??Kayli Hairston MD Internal Medicine PGY-3 Pager: [phone] ?? Parts of this note were accomplished using [email or web address]. Despite efforts at performing a carefuland accurate dictation, this program is prone to speech recognition errors which may result in inaccurate documentation. If clinical questions should arise, please do not hesitate to contact me. ? * Richard Milan MD: PERFORM Event Display: Progress Note Hospital Authored Date: [id number] Attending Attestation (Richard Milan M.D.) 38-year-old man with polysubstance use including severe opioid use disorder with IV drug use, hepatitis C who presented with weakness found have sepsis due to MRSA bacteremia with left wrist septic arthritis, R2 osteomyelitis, pelvic abscess, right iliac??muscle abscess s/p R2 amputation.? Diagnoses: Opiate use disorder, severe?IV drug use?Chronic hepatitis C?MRSA bacteremia?Acquired absence of R2 toe?Osteomyelitis of right second toe?Right wrist septic arthritis?SIADH? Vitals reviewed and??unremarkable. Labwork reviewed and significant for Normocytic anemia with CBC and BMP otherwise unremarkable. ?? Plan: ??- Continue IV ABX till 12/23/23 ??- Methadone for pain ?- FU Surgery reccs re gluteal abscess ?? Ongoing Medical Necessity:?? IV antibiotics ?? Quality Measures: CODE STATUS: FULL CODE DVT Prophylaxis: Enoxaparin 40mg QD Disposition: Rehab ?? I evaluated the patient on date of service 11/23/2023. I saw and evaluated this patient with ??Yovanny and agree with the resident???s findings and plan of care as documented by the resident or edited by me. I spent 40 minutes on the following: preparing to see the patient (eg, review of??tests), obtainingand/or reviewing separately obtained history, performing a medically appropriate examination and/orevaluation and counseling and educating the patient/family/caregiver ?? * Lissa Mccallum RN: VERIFY, PERFORM, SIGN Event Display: Progress Note Hospital Authored Date: [id number] Patient: MICHAEL MTZ Age: 38 years Sex: Male : 1985 Associated Diagnoses: None Author: Lissa Mccallum RN Findings Problem Related to Alteration in Tissue Perfusion : Alteration in Tissue Perfusion 11/21/2023 3:00 EDT Alteration Tissue Perfusion related to Infection, Other: septic emboli Goals & Outcomes: Tissue perfusion Pt will maintain optimal perfusion to vital organs, Pt will resume/maintain adequate peripheral circulation, Pt will experience improved tissue perfusion, Pt will achieve progressive healing of injured area, Pt will be hemodynamically stable, Pt will be discharged without infection, Pt/ S.O. will state understanding of plan of care Interventions: Tissue Perfusion Assess for s/s of infection of lines, drains, incisions, Assess/Monitor vital signs per unit standard & prn, Monitor Intake & Output, Monitor labs & reportvariances to provider Goals/Interventions, Tissue Perfusion Yes Tissue Perfusion, Problem Start 11/21/2023 3:27 Reviewed Plan with, Tissue Perfusion Patient Patient Progression, Tissue Perfusion Pt progressing according to plan . Evaluation A&Ox4, generalized weakness.Up to commode this evening. Non-tele, VSS. On RA, LSC. SIMA to right sided abscess. IV abx per JUL. Continent, last BM overnight. Voiding to urinal without issue. Amp site to right foot with dsg CDI. Cast to left arm. Pending placement. All needs met at this time. Radiology * Event Display: PICC Line IV Insertion Image Authored Date: [id number] * Event Display: PICC Line IV Insertion Image Authored Date: [id number] Patient Care team information Care Team Personnel Name: Leslie Christy RN Position: S RN Member Role: Primary Care Nurse Name: Bri Almaraz RN Position: S RN Member Role: Primary Care Nurse Name: Mine Jaramillo RN Position: S RN Member Role: Primary Care Nurse Name: Olivier Leal RN Position: [facility] RN Member Role: Primary Care Nurse Name: Lionel Boothe RN Position: [facility] RN Member Role: Primary Care Nurse Name: Dion Alex RN Position: [facility] RN Member Role: Primary Care Nurse Name: Marie Rees RN Position: [facility] RN Member Role: Primary Care Nurse Name: Not on Staff, PCP Position: [facility] Physician (General Medicine) Member Role: PCP Name: Tiffanie Nazario RN Position: [facility] RN Member Role: Primary Care Nurse Name: Rupesh Mustafa RN Position: [facility] RN Member Role: Primary Care Nurse
--- OUTSIDE RECORDS SUMMARY | 2024-01-17 11:09 | XMS_ITS | Continuity of Care Document ---
Author Organization [facility] Address [address] [place] [address]- Care Team Providers Care Food And Beverage Intern Name Role Phone Yassine BLUE, Toño Umana Primary Care Physician Encounter [facility] [place] Date(s): 11/16/23 - 12/16/23 [facility] [address] [place] [id number]- Allergies, Adverse Reactions, Alerts No Known Allergies Immunizations Given and Recorded Vaccine Date Status Refusal Reason Hepatitis A Adult Vaccine 12/16/23 Given tetanus/diphtheria/pertussis, acel(Tdap) 11/29/22 Given SARS-CoV-2 (COVID-19) mRNA-1273 vaccine 10/07/21 R ecorded SARS-CoV-2 (COVID-19) mRNA-1273 vaccine 09/05/20 R ecorded SARS-CoV-2 (COVID-19) mRNA-1273 vaccine 08/07/20 R ecorded Medications acetaminophen 325 mg oral tablet 975 [...] Condition Confirmation Course Effective Dates Status Health [facility] Informant History of hepatitis C Confirmed Active Spinal epidural abscess Confirmed Active Social History Social History Type Response Smoking Status Smoker, current stat us unknown entered on: 11/29/22 Sex Patient Care team information Care Team Personnel Name: Jaelyn RN, Leslie Marmolejo Position: [facility] RN Member Role: Primary Care Nurse Name: Bri Almaraz RN Position: S RN Member Role: Primary Care Nurse Name: Mine Jaramillo RN Position: S RN Member Role: Primary Care Nurse Name: Olivier Leal RN Position: [facility] RN Member Role: Primary Care Nurse Name: Lionel Boothe RN Position: [facility] RN Member Role: Primary Care Nurse Name: Dion Alex RN Position: [facility] RN Member Role: Primary Care Nurse Name: Marie Rees RN Position: [facility] RN Member Role: Primary Care Nurse Name: Toño Metzger MD Position: [facility] Medicine Member Role: PCP Address: Address: [address] [place] [id number]- Name: Tiffanie Nazario RN Position: [facility] RN Member Role: Primary Care Nurse Name: Rupesh Mustafa RN Position: [facility] RN Member Role: Primary Care Nurse Care Team Related Persons Name: ELVIA VANESSA Name: MALAIKA CELESTIN Address: [place] [address] Name: OTF LANDEROS Address: [place] [address]
--- OUTSIDE RECORDS SUMMARY | 2024-01-17 11:09 | XMS_ITS | Continuity of Care Document ---
Author Organization [facility] ter Address [address] [place] [id number]- Care Team Providers Care Apprentice Painter Neckties Name Role Phone Not on Staff, PCP Primary Care Physician Unavail able [place] [facility] [place]/30/21 - 07/30/[address] [address]- Encounter Diagnosis Substance abuse(Final) - 07/30/21 Discharge Disposition: A-D/C Home Attending Physician: Lissa Weeks MD Admitting Physician: Lissa Weeks MD Referring Physician: Not on Staff, Referring MD Allergies, Adverse Reactions, Alerts No Known Allergies Medications methadone 10 mg oral tablet 30 mg, Tablet, By Mouth, Once, STAT, 07/30/21 10:12:00 EDT, Stop date 07/30/21 10:12:00 EDT Start Date: 07/30/21 Stop Date: 07/30/21 Status: Completed Suboxone 4 mg-1 mg sublingual film Sublingual, Daily, 0 Refills, Maintenance, 12/18/18 19:08:52 EDT Start Date: 12/18/18 Status: Ordered Vital Signs Most recent to oldest [Reference Range]: 1 2 3 Oxygen Saturation [94-100 %] 97 % (07/30/21 8:28 AM) 97 % (07/30/21 6:38 AM) Pulse Rate [55-90 bpm] 88 bpm (07/30/21 9:36 AM) 99 bpm *H* (07/30/21 8:28 AM) 117 bpm *H* (07/30/21 6:38 AM) Blood Pressure [90-138/55-84 mm Hg] 124/77mm Hg (07/30/21 8:28 AM) 148/91mm Hg *H* (07/30/21 6:38 AM) Respiratory Rate [16-30 br/min] 19 br/min (07/30/21 10:23 AM) 18 br/min (07/30/21 9:00 AM) 20 br/min (07/30/21 8:28 AM) Temperature [96.8-100.4 DegF] 98.7 DegF (07/30/21 8:28 AM) 98.9 DegF (07/30/21 6:38 AM) Mode of Delivery (Oxygen) Room air (07/30/21 8:28 AM) Room air (07/30/21 6:38 AM) Blood pressure sites Arm, right (07/30/21 8:28 AM) Arm, right (07/30/21 6:38 AM) Temperature Route Oral (07/30/21 8:28 AM) Oral (07/30/21 6:38 AM)
--- OUTSIDE RECORDS SUMMARY | 2024-01-17 11:09 | XMS_ITS | Continuity of Care Document ---
Author Organization [facility] Address [address] [place] [id number]- Care Team Providers Care Tar Chaser Name Role Phone Toño Metzger MD Primary Care Phys[id number] Date(s): 12/04/23 - 12/11/23 [facility] [address] [place] [address]- Encounter Diagnosis Osteomyelitis of foot(Discharge Diagnosis) - 11/25/23 Amputated toe of right foot(Discharge Diagnosis) - 11/25/23 Attending Physician: Abdi PIERCE, Lissa Garcia Admitting Physician: Abdi PIERCE, Lissa Garcia Referring Physician: Not on Staff, Referring MD [...] Confirmed Active Spinal epidural abscess Confirmed Active Diagnosis Diagnosis Type Effective Dates Health Status Clinical Service Informant Amputated toe of right foot Discharge Diagnosis 11/25/23 Osteomyelitis of foot Discharge Diagnosis 11/25/23 Vital Signs Most recent to oldest [Reference Range]: 1 Height 171 cm (12/04/23 2:32 PM) Weight 59.9 kg (12/04/23 2:32 PM) Oxygen Saturation [94-100 %] 97 % (12/04/23 2:32 PM) Pulse Rate [55-90 bpm] 84 bpm (12/04/23 2:32 PM) Body Mass Index [18.5-24.99 kg/m2] 20.48 kg/m2 (12/04/23 2:32 PM) Mode of Delivery (Oxygen) Room air (12/04/23 2:32 PM) Social History Social History Type Response Smoking Status Smoker, current stat us unknown entered on: 11/29/22 Sex Note * Cristofer Gonsalves: PERFORM Event Display: Patient Education/Instruction Authored Date: [id number] Ambulatory Adult Visit Summary [facility] [address] [facility] [address] [place] [id number] Name: WILLIAM VANESSA SABI : 1985?? Visit: 12/04/2023 14:17?? Ambulatory Visit Instructions ?? Your Care Team Primary Care Provider Toño Metzger MD?? This Visit Provider Lissa Patton NP Your Diagnosis Amputated toe of right foot Osteomyelitis of foot Vitals Signs Pulse Rate: 84 bpm Height: 171 cm Oxygen Saturation: 97 % Weight: 59.9 kg ?? Body Mass Index: 20.48 kg/m2 ?? Body surface area: 1.69 What to do next Scheduled Follow-Up Appointments Thursday 11:30 AM EDT ?? Where: Interventional Radiology Status: Pending Thursday 11:30 AM EDT ?? Where: [facility] [address] [place] [address]- Status: Pending Thursday 10:40 AM EDT ?? With: Cristofer Hernandez MD Where: [facility] [address] [place] [address]- Status: Pending Thursday 2:30 PM EDT ?? With: Abdi PIERCE, Lissa Garcia Where: [facility] [address] [address]- Status: Pending Medications The list below reflects the information in our records and provided by you today along with any changes made during this visit. Please continue your medications until treatment is completed or stopped by your provider. If this is different from the information you have or there are other questions,please contact the prescribing provider. What How Much When Instructions Unchanged Acetaminophen (acetaminophen 325 mg oral tablet) 975 Milligram Oral 3 times a day Unchanged Folic Acid (folic acid 1 mg oral tablet) 1 Milligram Oral Daily Unchanged Lidocaine Topical (lidocaine 5% topical film) Topically Daily Right chest area. ?? Unchanged Methadone (methadone 10 mg oral tablet) 25 Milligram Oral Twice a day Unchanged Multivitamin (multivitamin Multiple Vitamins oral tablet) 1 tab(s) Oral Daily Unchanged nalOXONE (nalOXONE Inj) 0.2 Milligram Intravenous Push Every 5 minutes as needed for Other Respiratory Rate less than 8 or for somnolence/ excessive sedation. Repeat until Respiratory Rate is greater than 15 and patient is more alert. ?? Unchanged Remove Patch Unchanged Thiamine (thiamine 100 mg oral tablet) 100 Milligram Oral Twice a day Unchanged Trazodone (traZODone 50 mg oral tablet) 50 Milligram Oral Daily at Bedtime Unchanged Vancomycin (vancomycin 1.25 g intravenous injection) 1,250 Milligram IV Piggyback Every 12 hours End date 12/22 for a total of 6 weeks. infused over 60 minutes ?? Medications and Immunizations Administered Medications Given During Visit No medications given during this visit.?? Allergies (NKA means No Known Allergies) NKA Common Emergency Awareness Tips IS IT A [...] of these heart attack warning signs, call 9-1-1 to get immediate medical attention! ?? Smoking can increase your chances of developing chronic health problems and can cause harmful effects to other family members in your house. If you smoke, you are strongly encouraged to quit. Please call [employer] at [phone] or [phone] ([phone]) or log in to [email or web address] for referrals to smoking cessation programs. ?? The National Suicide Prevention Hotline is available 08/12 if you or someone you know needs to find a reason to keep living. By calling 2-552-335-[employer] (8929) you'll be connected to a skilled, trained counselor at a crisis center in your area. [employer] Portal You can view and manage your care through the patient portal or by using a health care catrachita of your choosing. [employer] is a website that allows you to securely view your medical information including your hospital discharge summary, office visit summaries, medications and follow-up visits. You can also request appointments, renew medications, and request access to your medical information using a health care catrachita of your choosing, or just ask a question. You can enroll at [email or web address] or register during your next office visit. [facility], in keeping with [facility] guidance, no longer requires face masks for [...] medical provider or home test kit. ?? Disclaimer: The information provided is of a general nature and is intended to be used in conjunction with the recommendations and advice of your health care practitioner. Every effort has been made to ensure that the information provided is accurate and complete at the time it is provided to you however, as your needs change, or, as new information becomes available, different or additional instructions may be required. ?? If you have questions, please consult with your primary care provider or pharmacist, as appropriate. This information is not intended to serve as substitution for assessment and evaluation by a qualified health care provider. If you do not have a primary care provider, you may find a [employer] provider by calling [employer] at [phone]. Patient Care team information Care Team Personnel Name: Jaelyn RNLeslie Position: [facility] RN Member Role: Primary Care Nurse Name: Bri Almaraz RN Position: [facility] RN Member Role: Primary Care Nurse Name: Mine Jaramillo RN Position: S RN Member Role: Primary Care Nurse Name: Olivier Leal RN Position: [facility] RN Member Role: Primary Care Nurse Name: Lionel Boothe RN Position: [facility] RN Member Role: Primary Care Nurse Name: Dion Alex RN Position: [facility] RN Member Role: Primary Care Nurse Name: Marie Rees RN Position: [facility] RN Member Role: Primary Care Nurse Name: Toño Metzger MD Position: [facility] Medicine Member Role: PCP Address: Address: [address] [place] [id number] Name: Tiffanie Nazario RN Position: [facility] RN Member Role: Primary Care Nurse Name: Rupesh Mustafa RN Position: [facility] RN Member Role: Primary Care Nurse Care Team Related Persons Name: ELVIA VANESSA Name: MALAIKA CELESTIN Address: [place] [address] Name: OTF LANDEROS Address: [place] [address]
--- OUTSIDE RECORDS SUMMARY | 2024-01-17 11:09 | XMS_ITS | Continuity of Care Document ---
Author Organization [facility] Address [address] [place] [id number]- Care Team Providers Care Director Stars Name Role Phone Not on Staff, PCP Primary Care Physician Unavail able Encounter [facility] Date(s): 11/28/22 - 11/29/[address] [address]- Encounter Diagnosis Osteomyelitis(Final) - 11/28/22 Toe pain(Final) - 11/28/22 Discharge Disposition: A-D/C Mcc, Half-Way, or [facility] Fac Attending Physician: Alexei Bernal MD Admitting Physician: Diogo Andrews MD Referring Physician: Not on Staff, Referring MD Allergies, Adverse Reactions, Alerts No Known Allergies Immunizations Given and Recorded Vaccine Date Status Refusal Reason tetanus/diphtheria/pertussis, acel(Tdap) 11/29/22 Given Medications amoxicillin-clavulanate 875 mg-125 mg oral tablet = 875 mg, By Mouth, 2 times a day, # 84 tablet, 0 Refills, Acute 01/09/23 21:00:00 EDT, 11/29/22 18:17:00 EDT, Tablet, Partial fill upon patient request if the prescription is for a schedule II opioid drug. Start Date: 11/29/22 Stop Date: 01/09/23 Status: Ordered Augmentin 875 Tablet 1, tablet, By Mouth, 2 times a day, Maintenance, 11/29/22 15:55:00 EDT Start Date: 11/29/22 Stop Date: 01/10/23 Status: Ordered buprenorphine-naloxone 4 mg-1 mg sublingual film Sublingual, 2 times a day, 0 Refills, Maintenance, 11/29/22 15:55:00 EDT, Film, Partial fill upon patient request if the prescription is for a schedule II opioid drug. Start Date: 11/29/22 Status: Ordered doxycycline monohydrate 100 mg oral tablet = 100 mg, By Mouth, Every 12 hours, may take with food to minimize abdominal discomfort, apply sunscreen to minimize skin irritation, # 84 tablet, 0 Refills, Acute 01/09/23 21:00:00 EDT, 11/29/22 18:18:00 EDT, Tablet, Partial fill upon patient request... Start Date: 11/29/22 Stop Date: 01/09/23 Status: Ordered folic acid 1 mg oral tablet 1 mg, By Mouth, Daily, # 90 tablet, Refills 0, Tot. Refills 0, Maintenance, 11/29/22 18:19:00 EDT, Print Requisition, Partial fill upon patient request if the prescription is for a schedule II opioiddrug. Start Date: 11/29/22 Status: Ordered multivitamin Multiple Vitamins oral tablet 1 tablet, By Mouth, Daily, # 90 tablet, 0 Refills, Maintenance, 11/29/22 18:19:00 EDT, Tablet, Partial fill upon patient request if the prescription is for a schedule II opioid drug. Start Date: 11/29/22 Status: Ordered thiamine 100 mg oral tablet 100 mg, By Mouth, 2 times a day, # 90 tablet, Refills 0, Tot. Refills 0, Maintenance, 11/29/22 18:19:00 EDT, Print Requisition, Partial fill upon patient request if the prescription is for a scheduleII opioid drug. Start Date: 11/29/22 Status: Ordered Vital Signs Most recent to oldest [Reference Range]: 1 2 3 Height 170 cm (11/29/22 12:54 PM) 170 cm (11/29/22 9:56 AM) 170 cm (11/28/22 9:13 PM) Weight 55 kg (11/29/22 12:54 PM) 55 kg (11/29/22 9:56 AM) 55 kg (11/28/22 9:13 PM) Oxygen Saturation [94-100 %] 100 % (11/29/22 6:05 PM) 98 % (11/29/22 3:14 PM) 100 % (11/29/22 12:54 PM) Pulse Rate [55-90 bpm] 78 bpm (11/29/22 6:05 PM) 96 bpm *H* (11/29/22 3:14 PM) 87 bpm (11/29/22 12:54 PM) Body Mass Index [18.5-24.99 kg/m2] 19.03 kg/m2 (11/29/22 12:54 PM) 19.03 kg/m2 (11/29/22 9:56 AM) 19.03 kg/m2 (11/28/22 6:28 PM) Blood Pressure [90-138/55-84 mm Hg] 106/67mm Hg (11/29/22 6:05 PM) 112/79mm Hg (11/29/22 3:14 PM) 108/78mm Hg (11/29/22 12:54 PM) Respiratory Rate [16-30 br/min] 20 br/min (11/29/22 6:05 PM) 23 br/min (11/29/22 3:14 PM) 20 br/min (11/29/22 12:54 PM) Temperature [96.8-100.4 DegF] 97.7 DegF (11/29/22 12:06 PM) 98 DegF (11/29/22 6:30 AM) 98 DegF (11/29/22 6:30 AM) Mode of Delivery (Oxygen) Room air (11/29/22 6:05 PM) Room air (11/29/22 3:14 PM) Room air (11/29/22 12:54 PM) Blood pressure sites Arm, left (11/29/22 6:05 PM) Arm, left (11/29/22 3:14 PM) Arm, left (11/29/22 12:54 PM) Temperature Route Oral (11/29/22 12:06 PM) Oral (11/29/22 6:30 AM) Oral (11/29/22 6:30 AM) Dry Weight 55 kg (11/29/22 12:54 PM) 55 kg (11/29/22 9:56 AM) 55 kg (11/28/22 9:13 PM) Weight Obtained Via Patient/family state d (11/28/22 5:19 PM) Dry Weight Obtained Via Patient/family s tated (11/28/22 5:19 PM) Social History Social History Type Response Smoking Status Smoker, current stat us unknown entered on: 11/29/22 Sex Admission evaluation note * Kamryn BLUE, Murtaza H: PERFORM Event Display: Admission Note Authored Date: [id number] Patient: ??VANESSAWILLIAM LOPEZ ? Age:??37 Years?Sex:??Male?:??1985?? History of Present Illness 37-year-old??recently incarcerated gentleman??5 days ago??with a past medical history of positive hepatitis C,??prior substance use disorder??last used??heroin and cocaine??5 days ago??and homelessness??presenting for evaluation of a toe ulcer.?? He was found to have??radiographical??findings of possible??osteomyelitis??versus septic joint. ?? Patient first noticed onset??2 weeks ago. ??He reports walking??shoe less??as he is homeless. ??He also reports??picking at the wound.?? Denies injecting into his??lower extremities.?? He also said he has been having??fevers, chills, rigors??but cannot differentiate whether those are??from an active infection or from his withdrawal symptoms.?? Additionally,??he tells me he last used??cocaine and heroin??on Thursday.?? 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 He was incarcerated??5 days ago and was started on Subutex??therapy??with??4 mg??on and 2 mg on the . ?? Course in the emergency department Patient was initially tachycardic with a heart rate of 93 that later trended down.?? Blood pressurewas 120/77.?? No episodes of hypotension.?? Afebrile at 98.5.?? Saturating 100% on room air.?? EKG was not obtained.?? Laboratory work- up revealed H&H of 14 and 43.?? White count of 9.9 with no bandemia.?? Platelet count was 330.?? H&H revealed a sodium of 135 with a hemolyzed potassium.?? C reatinine 0.7.?? AST hemolyzed but ALT 13.?? Lactate 2.7 with an ESR of 54.?? CRP less than 0.3.?? Foot x-ray revealed destructive changes in the second PIP joint suggestive of osteomyelitis of perhaps septic joint.?? Blood cultures were ordered and are in process.?? The patient received ceftriaxone and vancomycin, Tylenol, ibuprofen and 1500 cc of LR as a bolus. Review of Systems CONSTITUTIONAL:??Endorses fevers, chills, fatigue EYES:??Denies any changes to vision, or diplopia. HEENT: Endorses headache CV:??Denies any CP, orthopnea, PND, edema, palpitations. PULM: Denies any SOB, wheezing, cough or production of phlegm. GI: Endorses abdominal pain, nausea??and heartburn : Denies any changes to frequency and denies dysuria, hematuria. ?? MSK: Endorses foot pain and difficulty ambulation NEURO: Denies any weakness, numbness, changes to speech confusion. SKIN: Toe??ulcer. ??Multiple??needle track donaldson Objective Vital Signs?? Temperature: 97.9 DegF (11/29/22 02:45:00) Temperature Route: Oral (11/29/22 02:45:00) Pulse Rate: 84 bpm (11/29/22 02:45:00) Respiratory Rate: 16 br/min (11/29/22 02:45:00) Systolic Blood Pressure: 114 mm Hg (11/29/22 02:45:00) Diastolic Blood Pressure: 69 mm Hg (11/29/22 02:45:00) Blood pressure sites: Arm, right (11/29/22 02:45:00) Mean Arterial Pressure: 94 mm Hg (11/28/22 18:28:00) Pulse Pressure: 45 mm Hg (11/29/22 02:45:00) Oxygen Saturation: 98 % (11/29/22 02:45:00) Mode of Delivery (Oxygen): Room air (11/29/22 02:45:00) Early Warning Score: 3 (11/29/22 02:46:38) ? Intake/Output? 11/28 23:52 11/29 07:00 11/28 07:00 11/27 07:00 11/26 07:00 ?? 11/29 03:20 11/29 03:20 11/29 06:59 11/28 06:59 11/27 06:59 Intake ?200 ?0 ?200 ?0 ?0 Output ?0 ?0 ?0 ?0 ?0 Net Total ?200 ?0 ?200 ?0 ?0 ? Physical Exam General: Patient appears uncomfortable.?? Appears diaphoretic??and restless. HEENT: normocephalic, atraumatic, PERRLA, EOMI, moist mucous membranes with no oral lesions. No lymphadenopathy or thyromegaly appreciated.?? Respiratory: bilateral equal air entry, clear to auscultation with no wheezes or crackles. Adequaterespiratory rate and effort on room air.?? CVS: regular rate and rhythm, S1 and S2 present, no murmurs, rubs or gallops. No JVD.?? Abdomen: soft, non tender, non distended, bowel sounds present, no organomegaly.?? Extremities: no cyanosis, pulses present and equal bilaterally. No edema noted bilaterally. Neuro: alert and oriented x3. Cranial nerves II-XII grossly intact. Moving all extremities spontaneously. Normal tones, following simple commands.?? Derm:?? 0.5 inch circular??wound??at the lateral aspect of the??third toe.?? No bony structures visible. Assessment/Plan 37-year-old??recently incarcerated gentleman??5 days ago??with a past medical history of positive hepatitis C,??prior substance use disorder??last used??heroin and cocaine??5 days ago??and homelessness??presenting for evaluation of a toe ulcer.?? He was found to have??radiographical??findings of possible??osteomyelitis??versus septic joint. ?? Concern for osteomyelitis Concern for septic joint Presented with??toe wound??for??2 weeks. Concern for??osteomyelitis versus septic joint given??tissue destruction on x-ray. Continues to be afebrile??and hemodynamically stable.?No leukocytosis??but elevated ESR,??blood cultures pending. Will cover broadly with ceftriaxone 2 gm??and vancomycin pending??MRI??and culture results and willde-escalate??as??necessary. Not a diabetic, less likely to have pseudomonas. Will not obtain echocardiogram??awaiting??culture??results. ?? Plan Continue ceftriaxone 2 gm Continue vancomycin Obtain MRI with and without contrast Follow ESR Follow Cultures Infectious disease consult, appreciate recommendations ?? Substance use disorder Last used??heroin and??cocaine??5 days ago. Appears to be in active withdrawal, appears diaphoretic??restless??and in pain. Was started on Subutex??as at his correctional facility.?? He is actively withdrawing now, thus it is safe to restart Suboxone. His paper chart also??mentioned??alcohol use disorder. ?? Plan [facility] protocol for alcohol withdrawal Suboxone??4 mg now, consider increasing dose Supportive therapy with??clonidine, hydroxyzine,??loperamide. ?? Quality Metrics: Diet: Regular DVT/VTE Prophylaxis: Lovenox CODE STATUS: Full ?? Patient's case and plan discussed with attending physician ??Madie Harry MD Internal Medicine PGY-2 ?? Histories Allergies Allergies ?(Active and Proposed Allergies Only) NKA? (Severity: Unknown severity, Onset: Unknown) ? Social History Alcohol Details:??Use: Past. Substance Abuse Details:??Use: Current. ??Type: Cocaine, Heroin. Tobacco Details:??Use: Smoker, current status unknown. ? Family History No family history recorded. ? Medications Home Medications No medications documented.? Inpatient Medications Medications (10) Active SCHEDULED: (2) Ceftriaxone 1 Gm Inj (Ceftriaxone Inj) ??1 Gm, IVPB, Every 24 hours NaCl 0.9% Flush 3ml (NaCL 0.9% Flush) ??3 mL, IV Push, Every 8 hours CONTINUOUS: (0) PRN: (8) Acetaminophen 325 mg Tablet (Acetaminophen Tablet) ??650 mg, By Mouth, Every 4 hours Dextromethorphan-Guaifenesin 20 mg-200 mg/10 mL Liqu UD (Robitussin DM Liquid) ??10 mL, By Mouth, Every 4 hours Ibuprofen 600 mg Tablet (Ibuprofen Tablet) ??600 mg, By Mouth, 3 times a day Melatonin 3 mg Tablet (Melatonin Tablet) ??3 mg, By Mouth, Daily at bedtime NaCl 0.9% Flush 3ml (NaCL 0.9% Flush) ??3 mL, IV Push, Every 8 hours Polyethylene Glycol 17 Gm Powder (MiraLax Powder) ??17 Gm 1 pack/packet, By Mouth, Daily Senna 8.6 mg / Docusate 50 mg tablet (Docusate/Senna Tablet) ??1 tablet, By Mouth, 2 times a day Simethicone 80 mg Chewable Tablet (Simethicone Tablet) ??80 mg, Chew, 3 times a day ? Results Recent Labs BLOOD COUNT & DIFF WBC 9.9 k/mm3 ()?? 11/28/2022 22:19 RBC 5.26 m/mm3 ()?? 11/28/2022 22:19 Hgb 14.4 Gm/dL ()?? 11/28/2022 22:19 Hct 43.0 % ()?? 11/28/2022 22:19 MCV 81.7 femtoliters ()?? 11/28/2022 22:19 MCH 27.4 pg ()?? 11/28/2022 22:19 MCHC 33.5 g/dL ()?? 11/28/2022 22:19 Platelet Count 337 k/mm3 ()?? 11/28/2022 22:19 RDW-SD 39.7 femtoliters ()?? 11/28/2022 22:19 MPV 9.2 femtoliters (Low)?? 11/28/2022 22:19 Nucleated RBC (Automated) 0.0 #/100 WBC'S ()?? 11/28/2022 22:19 Abs. NRBC 0.0 k/mm3 ()?? 11/28/2022 22:19 Abs. Neut 6.8 k/mm3 ()?? 11/28/2022 22:19 Abs. Lymph 2.0 k/mm3 ()?? 11/28/2022 22:19 Abs. [place] 1.1 k/mm3 ()?? 11/28/2022 22:19 Abs. Eo 0.0 k/mm3 ()?? 11/28/2022 22:19 Abs. Baso 0.0 k/mm3 ()?? 11/28/2022 22:19 Neut % 68.0 % ()?? 11/28/2022 22:19 Lymph % 19.9 % ()?? 11/28/2022 22:19 [place] % 10.9 % (High)?? 11/28/2022 22:19 Eos % 0.1 % ()?? 11/28/2022 22:19 Baso % 0.4 % ()?? 11/28/2022 22:19 Imm Gran 0.7 % ()?? 11/28/2022 22:19 Abs. Imm Gran 0.1 k/mm3 ()?? 11/28/2022 22:19 ?? CHEM GENERAL Sodium 135 mmol/L ()?? 11/28/2022 22:19 Potassium HEMOLYZED mmol/L ()?? 11/29/2022 00:44 Chloride 99 mmol/L ()?? 11/28/2022 22:19 Bicarbonate Level 23 mmol/L ()?? 11/28/2022 22:19 Anion Gap 13 ()?? 11/28/2022 22:19 Glucose Level 112 mg/dL (High)?? 11/28/2022 22:19 BUN 12 mg/dL ()?? 11/28/2022 22:19 Creatinine-Blood 0.7 mg/dL ()?? 11/28/2022 22:19 Estimated GFR Creatinine 120 ML/MIN/1.73 M2 ()?? 11/28/2022 22:19 Calcium 9.2 mg/dL ()?? 11/28/2022 22:19 Protein, Total 7.7 Gm/dL ()?? 11/28/2022 22:19 Albumin 3.7 Gm/dL ()?? 11/28/2022 22:19 AG Ratio 0.9 ()?? 11/28/2022 22:19 Alkaline Phosphatase 77 units/L ()?? 11/28/2022 22:19 AST (SGOT) HEMOLYZED units/L ()?? 11/28/2022 22:19 ALT (SGPT) 13 units/L ()?? 11/28/2022 22:19 Bilirubin, Total 0.3 mg/dL ()?? 11/28/2022 22:19 Lactate 2.1 mmol/L ()?? 11/29/2022 00:44 C-Reactive Protein <0.3 mg/dL ()?? 11/28/2022 22:19 ?? HEME OTHER Sed Rate 54 mm/hr (High)?? 11/28/2022 22:19 Hold Blue Top SPECIMEN DISCARDED AFTER 4 HOURS. ()?? 11/28/2022 22:19 ?? MISC. CHEMISTRY Hold Green Top SPECIMEN DISCARDED AFTER 1 WEEK ()?? 11/28/2022 22:19 ?? URINE OTHER Est Creatinine Clearance 110.22 mL/min ()?? 11/28/2022 23:28 ?? VIROLOGY COVID-19 by RT-PCR NEGATIVE ()?? 11/29/2022 00:47 ? * Rick Ramachandran DO: PERFORM Event Display: Admission Note Authored Date: CC foot pain Attending Attestation:??Patient seen and examined with the medical team. Confirmed physical exam findings. I have discussed the case and its management with the medical team. Agree with assessment and plan as outlined. EKG study * Event Display: ECG 12-Lead Authored Date: Please click on pdf link to open report * Event Display: ECG 12-Lead Authored Date: Ventricular Rate: 85 BPM Atrial Rate: 85 BPM P-R Interval: 128 ms QRS Duration: 90 ms Q-T Interval: 354 ms QTC Calculation(Bazett): 421 ms P [place]: 31 degrees R [place]: 80 degrees T [place]: 71 degrees Normal sinus rhythm Normal ECG When compared with ECG of 30-JUL-2021 10:03, No significant change was found Confirmed by JENNIFER DOUGLASS MD ([id number]) on 11/29/2022 7:51:38 AM [place]: JENNIFER DOUGLASS MD Consult note * Shyann Junior MD: PERFORM Event Display: Consultation Note Authored Date: [id number] Patient: ??WILLIAM MTZ ? Age:??37 Years?Sex:??Male?:??1985?? Provider Clinical Summary Infectious disease consult was requested by Kamryn for assistance??in the management of acute right second toe osteomyelitis History of Present Illness The patient is a 37-year-old male with a past medical history of partially treated hepatitis C and polysubstance drug abuse who is currently incarcerated and presents to [facility] with a wound to the medial aspect of the right second toe for the last few weeks.?? He claims hehas been homeless and developed a blister on the inner aspect of his right second toe which popped and started to drain some purulent fluid.?? He had subjective fevers and tells me that he has been using metal objects to try to get the infection out of the toe.?? X-ray of the foot revealed destructive changes about the second PIP joint suggestive of septic joint/osteomyelitis.?? ESR was 54 and CRP was less than 0.3 and he was seen by orthopedics and an MRI is ordered for further evaluation of the foot.?? He is currently on ceftriaxone and vancomycin and an infectious disease consult was requested for antimicrobial management.?? In terms of his hepatitis C did begin treatment with mavyret on11/12??but says he has been??using??drugs still??and treatment was aborted. ? Active Antibiotics Calendar Day Last Administered First Administered Vancomycin??750 mg, 150 mL, 150 mL/hr, IVPB, Every 12 hours ?1 11/29/2022 11:48 11/29/2022 11:48 Ceftriaxone??2 Gm, 100 mL/hr, IVPB, Every 24 hours ?1 11/29/2022 04:47 11/29/2022 04:47 ? Stopped Antibiotics Stop Date/Time Last Administered First Administered Vancomycin??1 Gm, 200 mL, 200 mL/hr, IVPB, Once 11/28/2022 23:39 11/28/2022 23:38 11/28/2022 23:38 Ceftriaxone??1 Gm, 100 mL/hr, IVPB, Every 24 hours 11/29/2022 04:06 11/28/2022 23:38 11/28/2022 23:38 ?? Review of Systems All other review of systems fully reviewed and negative aside from what is listed above in the HPI.No fatigue, weight loss, blurred vision, hallucinations, chest pain, nausea, vomiting, diarrhea, headache, blurred vision. Physical Exam Vitals & Measurements T:??97.7?F?? TMIN:??97.7?F?? TMAX:??98.5?F?? HR:??87??(Peripheral)?? RR:??20?? BP:??108/78?? SpO2:??100%?? WT:??55??kg?? GENERAL: In no acute distress HEENT: Anicteric, no subconjunctival petechiae, moist oral mucosa without lesions or thrush NECK: Neck supple, without cervical lymphadenopathy CARDIOVASCULAR: Regular rate and rhythm. ??Not able to appreciate any murmurs, rubs, or gallops. ??No peripheral edema.?? RESPIRATORY: Lungs clear to auscultation GASTROINTESTINAL: Non-distended, normoactive bowel sounds, non-tender GENITOURINARY: No CVAT MUSCULOSKELETAL: There is a??dime sized wound on the medial aspect of the??second toe??with??swelling and??deformity of the toe. ??No??obvious drainage at this time SKIN: ??No diffuse rash present, no stigmata of infective endocarditis PSYCHIATRIC: No signs of hallucinations or delusions NEUROLOGICAL: A&Ox3, grossly intact LINES: Peripheral IV line Assessment/Plan Assessment:??Impression: This is a??37-year-old gentleman with a history of opioid use disorder andchronic untreated hepatitis C??who??was admitted from long-term with acute osteomyelitis of the right second toe as confirmed on??x- ray??for which an infectious disease consult was requested. ?? Recommendations: 1.?Stop vancomycin and ceftriaxone 2.?Start on Augmentin 875/125 1 tablet twice per day??and doxycycline 100 mg twice per day??to cover for??polymicrobial??organisms??including MRSA and strep.??Would??treat for 6 weeks for??acute osteomyelitis 3.?Would cancel MRI as it would not change??management.??This would also facilitate patient discharge 4.?Given that the patient says he has been using metal objects to??explore his wound, would alsogive a tetanus booster? Infectious diseases signing off.??Recommendations conveyed to the hospitalist ?? Problem List/Past Medical History Ongoing No qualifying data Medications Inpatient Acetaminophen Tablet, 650 mg, By Mouth, Every 4 hours, PRN Ativan Inj, 1 mg, IV Push Slowly, Every 2 hours, PRN Ativan Inj, 2 mg, IV Push Slowly, Every 2 hours, PRN Ativan Inj, 2 mg, IV Push Slowly, Every hour, PRN Ceftriaxone Inj, 2 Gm, IVPB, Every 24 hours cloNIDine 0.1 mg oral tablet, 0.1 mg, By Mouth, 4 times a day Docusate/Senna Tablet, 1 tablet, By Mouth, 2 times a day, PRN Enoxaparin Inj, 40 mg= 0.4 mL, Subcutaneous Injection, Daily Folic Acid Tablet, 1 mg, By Mouth, Daily HydrOXYzine HCL Tablet, 10 mg, By Mouth, 4 times a day, PRN Ibuprofen Tablet, 600 mg, By Mouth, 3 times a day, PRN loperamide 2 mg oral capsule, 2 mg, By Mouth, Every 3 hours, PRN Melatonin Tablet, 3 mg, By Mouth, Daily at bedtime, PRN MiraLax Powder, 17 Gm= 1 pack/packet, By Mouth, Daily, PRN Multivitamin Tablet, 1 tablet, By Mouth, Daily NaCL 0.9% Flush, 3 mL, IV Push, Every 8 hours NaCL 0.9% Flush, 3 mL, IV Push, Every 8 hours, PRN Pyridoxine Tablet, 50 mg, By Mouth, Daily Robitussin DM Liquid, 10 mL, By Mouth, Every 4 hours, PRN Simethicone Tablet, 80 mg, Chew, 3 times a day, PRN Suboxone 4 mg-1 mg Sublingual Film, 1 film, Sublingual, 2 times a day Thiamine Tablet, 100 mg, By Mouth, 2 times a day Vancomycin IVPB, 750 mg= 150 mL, 15 mg/kg, IVPB, Every 12 hours Home No active home medications Allergies NKA Social History Alcohol Use: Past. Substance Abuse Use: Current. Type: Cocaine, Heroin. Tobacco Use: Smoker, current status unknown. Family History Mother: History is unknown Father: History is unknown Lab Results Test Name Test Result Date/Time WBC 9.0 k/mm3 11/29/2022 06:35 EDT Hgb 14.1 Gm/dL 11/29/2022 06:35 EDT Platelet Count 328 k/mm3 11/29/2022 06:35 EDT Sodium 134 mmol/L 11/29/2022 06:35 EDT Potassium 4.1 mmol/L 11/29/2022 06:35 EDT Glucose Level 100 mg/dL 11/29/2022 06:35 EDT BUN 9 mg/dL 11/29/2022 06:35 EDT Creatinine-Blood 0.8 mg/dL 11/29/2022 06:35 EDT Estimated GFR Creatinine 118 ML/MIN/1.73 M2 11/29/2022 06:35 EDT Alkaline Phosphatase 72 units/L 11/29/2022 06:35 EDT AST (SGOT) 15 units/L 11/29/2022 06:35 EDT ALT (SGPT) 11 units/L 11/29/2022 06:35 EDT * Getachew Levi: PERFORM, MODIFY Event Display: Consultation Note Authored Date: [id number] Patient: ??WILLIAM MTZ ? Age:??37 Years?Sex:??Male?:??1985?? Chief Complaint Toe pain Reason for Consultation X-rays concerning for osteomyelitis History of Present Illness William is a 37-year-old??recently incarcerated gentleman??5 days ago??with a past medical history of positive hepatitis C,??prior substance use disorder??last used??heroin and cocaine??5 days ago??and homelessness??presenting to the ED from long-term for evaluation of a toe ulcer.?? He was found to have??r adiographical??findings of possible??osteomyelitis??versus septic joint for which orthopedics was consulted. ?? Patient first noticed onset??2 weeks ago. ??He reports walking??shoe less??as he is homeless. ??He also reports??picking at the wound.?? Denies injecting into his??lower extremities.?? He also said he has been having??fevers, chills, rigors??but cannot differentiate whether those are??from an active infection or from his withdrawal symptoms.?? Additionally,??he tells me he last used??cocaine and heroin??on Thursday.?? 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 He was incarcerated??5 days ago and was started on Subutex??therapy??with??4 mg??on and 2 mg on the . Review of Systems As stated in the HPI. ??Otherwise negative. Physical Exam Vitals & Measurements T:??97.9?F?? TMIN:??97.9?F?? TMAX:??98.5?F?? HR:??84??(Peripheral)?? RR:??16?? BP:??114/69?? SpO2:??98%?? WT:??55??kg?? Patient is well-developed and in no acute distress. ??Alert and cooperative with examination. ??Mood and affect appropriate. ??Examined on a stretcher in the emergency department.? HEENT: Within normal limits Cardiac: Per ED provider Pulmonary: Per ED provider Abdomen: Soft, nontender, nondistended. ?? Right upper extremity:??Full, supple, nonpainful range of motion of shoulder, elbow, wrist and digits. ??No tenderness to palpation. ??Grossly neurovascularly intact radial, median, ulnar nerve distributions. ?? Left upper extremity:??Full, supple, nonpainful range of motion of shoulder, elbow, wrist and digits. ??No tenderness to palpation. Grossly neurovascularly intact radial, median, ulnar nerve distributions. ?? Right lower extremity:??Grade 2 ulceration of the second??toe noted along the??medial aspect. ??Mild amount of edema about the digit as compared to the??other toes is noted. ??Patient is nontender topalpation surrounding the toe and there is??only a scant amount of erythema around the border of the ulceration itself. ??No signs of any streaking lymphangitis. ??No signs of any active drainage. ??The digit itself is mildly warm to the touch as compared to??all the toes in the ipsilateral foot and contralateral foot. ??Patient is otherwise able to??perform??full, supple, non-painful range of motion of the hip, knee, foot and ankle. ??No tenderness to palpation??of the remainder the extremity.Calf supple and nontender. ??Active dorsiflexion and plantar flexion strength. ??Grossly neurovascularly intact. ?? Left lower extremity:??Full, supple, non-painful range of motion of the hip, knee, foot and ankle. ??No tenderness to palpation. ??Calf supple and nontender. Active dorsiflexion and plantar flexion strength. ??Grossly neurovascularly intact. Assessment/Plan 1. Toe Ulceration (Grade 2) ?? Plan: William is a 37-year-old male??who presents to [facility]??from long-term??for evaluation of a toe ulcer??and concerns for potential osteomyelitis??versus septic joint found on??diagnostic imaging.?? Currently the patient is afebrile and has no signs of??leukocytosis. ??The patient??has no signs of left shift. ??CRP is normal at??less than 0.3.?? Patient does have a mildly elevated ESR of 54.?? No active purulent drainage noted.?? Diagnostic imaging does reveal some destruction ofthe??PIPJ of the??second toe on his right foot. ??This could be secondary to??rheumatological disease states,??chronic osteomyelitis,??or even in severe cases of metabolic syndrome such as gout.?? Patient does not show any active signs of infection at this time.?? However,??MRI will be ordered??by the medical team to??further evaluate and delineate??the pathology identified on x-ray.?? The orthopedics team will continue to monitor the patient peripherally. ??No??plans for any surgical intervention at this time. ??The patient is currently being??treated with antibiotics??IV.?? We will continueto monitor the patient??and adjust recommendations as necessary.?? Questions were asked and answered. Problem List/Past Medical History Ongoing No qualifying data Polysubstance Use Hepatitis C Medications Inpatient Acetaminophen Tablet, 650 mg, By Mouth, Every 4 hours, PRN Ativan Inj, 1 mg, IV Push Slowly, Every 2 hours, PRN Ativan Inj, 2 mg, IV Push Slowly, Every 2 hours, PRN Ativan Inj, 2 mg, IV Push Slowly, Every hour, PRN Ceftriaxone Inj, 2 Gm, IVPB, Every 24 hours cloNIDine 0.1 mg oral tablet, 0.1 mg, By Mouth, 4 times a day Docusate/Senna Tablet, 1 tablet, By Mouth, 2 times a day, PRN Enoxaparin Inj, 40 mg= 0.4 mL, Subcutaneous Injection, Daily Folic Acid Tablet, 1 mg, By Mouth, Daily HydrOXYzine HCL Tablet, 10 mg, By Mouth, 4 times a day, PRN Ibuprofen Tablet, 600 mg, By Mouth, 3 times a day, PRN loperamide 2 mg oral capsule, 2 mg, By Mouth, Every 3 hours, PRN Melatonin Tablet, 3 mg, By Mouth, Daily at bedtime, PRN MiraLax Powder, 17 Gm= 1 pack/packet, By Mouth, Daily, PRN Multivitamin Tablet, 1 tablet, By Mouth, Daily NaCL 0.9% Flush, 3 mL, IV Push, Every 8 hours NaCL 0.9% Flush, 3 mL, IV Push, Every 8 hours, PRN Pyridoxine Tablet, 50 mg, By Mouth, Daily Robitussin DM Liquid, 10 mL, By Mouth, Every 4 hours, PRN Simethicone Tablet, 80 mg, Chew, 3 times a day, PRN Suboxone 4 mg-1 mg Sublingual Film, 1 film, Sublingual, Daily Thiamine Tablet, 100 mg, By Mouth, 2 times a day Vancomycin IVPB, 750 mg= 150 mL, 15 mg/kg, IVPB, Every 12 hours Home No active home medications Allergies NKA Social History Alcohol Use: Past. Substance Abuse Use: Current. Type: Cocaine, Heroin. Tobacco Use: Smoker, current status unknown. Family History Mother: History is unknown Father: History is unknown Lab Results Test Name Test Result Date/Time WBC 9.9 k/mm3 11/28/2022 22:19 EDT Hgb 14.4 Gm/dL 11/28/2022 22:19 EDT Hct 43.0 % 11/28/2022 22:19 EDT Platelet Count 337 k/mm3 11/28/2022 22:19 EDT Abs. Neut 6.8 k/mm3 11/28/2022 22:19 EDT Neut % 68.0 % 11/28/2022 22:19 EDT Sed Rate 54 mm/hr 11/28/2022 22:19 EDT Sodium 135 mmol/L 11/28/2022 22:19 EDT Potassium HEMOLYZED 11/28/2022 22:19 EDT Glucose Level 112 mg/dL 11/28/2022 22:19 EDT BUN 12 mg/dL 11/28/2022 22:19 EDT Creatinine-Blood 0.7 mg/dL 11/28/2022 22:19 EDT Lactate 2.7 mmol/L 11/28/2022 22:19 EDT C-Reactive Protein <0.3 mg/dL 11/28/2022 22:19 EDT Diagnostic Results 3 views of the right foot were reviewed??and findings show some destructive??and degenerative changes about the second PIPJ??with lucencies involving??the periarticular aspect of the proximal phalanxmiddle phalanx.?? Periosteal reactions are noted??along the shaft??of the proximal phalanx. ??Erosions are noted as well.?? There is some mild soft tissue swelling.?? The remaining bones of the foot??including the other toes appear to be normal. ? Note * Alexei Bernal MD: PERFORM Event Display: Discharge/Transfer Note Hospital Authored Date: [id number] Patient: ??WILLIAM MTZ ? Age:??37 Years?Sex:??Male?:??1985?? Patient Information Discharge Location: [facility] Primary Care Physician: Not on Staff, PCP Admit Date/Time: 11/28/22 23:52 Discharge Disposition Discharge Disposition: back to??correctional facility Discharge Diagnosis Toe pain (M79.676) Alcohol use disorder, mild, abuse (F10.10) Cocaine use disorder Opioid use disorder (F11.90) Osteomyelitis (M86.9) ?? _ Discharge Medications Amoxicillin-Clavulanate (Augmentin 875 Tablet)?1?tablet?By Mouth?2 times a day?for 6?week(s) Buprenorphine-Naloxone (buprenorphine-naloxone 4 mg-1 mg sublingual film)?Sublingual?2 times a day Doxycycline (Doxycycline Tablet)?100?Milligram?By Mouth?Every 12 hours?for 6 Folic Acid (folic acid 1 mg oral tablet)?1?Milligram?By Mouth?Daily Multivitamin (Multivitamin Tablet)?1?tab(s)?By Mouth?Daily Thiamine (thiamine 100 mg oral tablet)?100?Milligram?By Mouth?Daily ? Quality Measures Tobacco Use Treatment:? Vaccinations and Immunoprophylaxis tetanus/diphtheria/pertussis, acel(Tdap): 0.5 mL (11/29/22 14:53:00) ? Durable Medical Equipment Ambulatory devices needed: None (11/28/22) ? Medications Started Augmentin 875-125 mg bid for 6 weeks (from 11/29/2022) Doxycycline 100 mg bid for 6 weeks (from 11/29/2022) Thiamine Folic acid MW Medications Discontinued N/A Doses Changed Suboxone to 4mg bid Allergies Allergies ?(Active and Proposed Allergies Only) NKA? (Severity: Unknown severity, Onset: Unknown) ? PCP Follow-Up/Heads-Up Wound care Hospital Course Patient was brought in from correctional facility for 2 weeks of R 2nd toe wound, DX showed bone changes consistent with osteomyelitis, he is afebrile, hemodynamically stable without evidence of sepsis, blood culture negative to date, original plan was to obtain MRI, following evaluation by ID given clinically apparent osteo will treat with 6 weeks of PO abx, Tdap was updated. He was in custody for 5 days and started on Suboxone in long-term still with moderate opioid withdrawal symptoms will increase from 4mg daily to bid as he has better response in ER. Patient will be discharged back to long-term today. Objective Assessment and Plan ?? Acute R 2nd toe osteomyelitis -DX showed bone erosions and reactive changes, clinically not septic and inflammation marker marginally elevated (ESR elevated at 41 and CRP negative), blood culture negative to date -ID and ortho consult appreciated transition to 6 weeks of PO Augmentin and doxycycline (EOT 01/09/2023), patient may establish care with primary care provider following discharge or be re-evaluated by provider at correctional facility to ensure proper response to abx -Tdap updated ?? Opioid use disorder, severe with mild withdrawal Cocaine use disorder -mild withdrawal symptoms from opioid with COWS around 10, already started on Suboxone 4 mg daily increased to 4 mg bid for symptoms optimization ?? Alcohol use disorder, not in withdrawal -continue thiamine/folic acid/MW ?? Discussed with CM/ID. Measurements?? Height: 170 cm (11/29/22) Weight: 55 kg (11/29/22) Dry Weight: 55 kg (11/29/22) Body Mass Index: 19.03 kg/m2 (11/29/22) ? Vital Signs?? Temperature: 97.7 DegF (11/29/22 12:06:00) Temperature Route: Oral (11/29/22 12:06:00) Pulse Rate:??96 bpm??High (11/29/22 15:14:00) Respiratory Rate: 23 br/min (11/29/22 15:14:00) Systolic Blood Pressure: 112 mm Hg (11/29/22 15:14:00) Diastolic Blood Pressure: 79 mm Hg (11/29/22 15:14:00) Blood pressure sites: Arm, left (11/29/22 15:14:00) Mean Arterial Pressure: 88 mm Hg (11/29/22 12:54:00) Pulse Pressure: 33 mm Hg (11/29/22 15:14:00) Oxygen Saturation: 98 % (11/29/22 15:14:00) Mode of Delivery (Oxygen): Room air (11/29/22 15:14:00) Early Warning Score: 5 (11/29/22 15:14:40) ? Perfusion Assessment Capillary Refill: < 3 seconds (11/28/22 22:15:00) Cardiac Rhythm: Normal sinus rhythm (11/29/22 06:30:00) Cardiovascular: WNL (11/29/22 09:56:00) Cardiovascular Assessment Status: Unchanged from recorder's assessment (11/29/22 15:14:00) Cardiovascular Comment: pt denies chest pain (11/28/22 22:15:00) Cardiovascular Symptoms: None (11/29/22 09:56:00) Nail Bed Color, Fingers: [place] (11/28/22 22:15:00) Skin Temperature Lower Extremities: Warm (11/28/22 22:15:00) Skin Temperature Upper Extremities: Warm (11/28/22 22:15:00) ? Pain Scores 1 - 10 Pain Scale Score: 0 (21:13) ? Ventilator Settings?? No qualifying data available. ? Intake/Output? 11/28 23:52 11/29 07:00 11/28 07:00 11/27 07:00 11/26 07:00 ?? 11/29 16:59 11/29 16:59 11/29 06:59 11/28 06:59 11/27 06:59 Intake ?350 ?150 ?200 ?0 ?0 Output ?0 ?0 ?0 ?0 ?0 Net Total ?350 ?150 ?200 ?0 ?0 ? Precautions Seizure Precautions ? Francy Coma Scale Francy Coma Score: 15 (11/28/22 21:13:00) Motor Response-Adult: Obeys commands (11/28/22 21:13:00) Response Eye Opening: Spontaneously (11/28/22 21:13:00) Verbal Response-Adult: Oriented and converses (11/28/22 21:13:00) ?? Basic ADLs Ambulatory devices needed: None (11/28/22) ? Mobility & Ambulation Level Mobility & Ambulation Level Ambulatory devices needed: None (11/28/22) ?? Therapeutic Activity Therapeutic Activities/Mobility/Balance?? No qualifying data available. ?? . Physical Exam Constitutional: Alert, in no acute distress. Head EENT: Extraocular muscle movement intact.??Moist mucous membranes.?? Respiratory: Clear to auscultation. No wheezing or crackles. No use of accessory muscles. Cardiovascular: S1S2 regular. No murmurs, rubs or gallops. Gastrointestinal: Abdomen soft, non-tender, non-distended. Normal bowel sounds. Extremities: No lower extremity pitting??edema. No cyanosis or clubbing. R2nd toe medial wound without purulent discharge, minimal surrounding erythema. DP/PT palpable bilaterally Neurologic: AAOx3, Speech normal. No focal neurological deficits. Skin: No rash. Psychiatric: Normal mood and affect [facility] Pending Results Blood Culture ordered on 11/28/2022 Blood Culture #2 ordered on 11/28/2022 C Reactive Protein ordered on 11/28/2022 Urinalysis w/hold for Urine Culture ordered on 11/28/2022 Patient Education Titles Opiate Use Disorder?? Discharge Instructions for Osteomyelitis?? Doxycycline Oral Tablet?? Amoxicillin/Clavulanate Oral Tablet?? Patient Instructions You are admitted for right 2nd toe bone infection, you will be prescribed with 6 weeks of oral antibiotics; ?? Consider increase Suboxone to 4 mg 2 times a day from daily to better help with opioid withdrawal symptoms; ?? Return to emergency room or call 911 if you experience fever T>100.4F, chill, worsening redness,pain, or purulent discharge from the wound, extreme fatigue or dizziness, or other severe and/or persistent symptoms. Post Discharge Care Diet: Regular Diet Activity: Ambulate with assistance ??3 times a day ??unless otherwise specified Code Status: ?? Full Resuscitation Condition: Stable Prognosis: Fair Results Discharge Labs BLOOD COUNT & DIFF WBC 9.0 k/mm3 ()?? 11/29/2022 06:35 RBC 5.20 m/mm3 ()?? 11/29/2022 06:35 Hgb 14.1 Gm/dL ()?? 11/29/2022 06:35 Hct 42.8 % ()?? 11/29/2022 06:35 MCV 82.3 femtoliters ()?? 11/29/2022 06:35 MCH 27.1 pg ()?? 11/29/2022 06:35 MCHC 32.9 g/dL (Low)?? 11/29/2022 06:35 Platelet Count 328 k/mm3 ()?? 11/29/2022 06:35 RDW-SD 40.4 femtoliters ()?? 11/29/2022 06:35 MPV 9.4 femtoliters ()?? 11/29/2022 06:35 Nucleated RBC (Automated) 0.0 #/100 WBC'S ()?? 11/29/2022 06:35 Abs. NRBC 0.0 k/mm3 ()?? 11/29/2022 06:35 Abs. Neut 5.9 k/mm3 ()?? 11/29/2022 06:35 Abs. Lymph 1.9 k/mm3 ()?? 11/29/2022 06:35 Abs. [place] 1.0 k/mm3 ()?? 11/29/2022 06:35 Abs. Eo 0.0 k/mm3 ()?? 11/29/2022 06:35 Abs. Baso 0.0 k/mm3 ()?? 11/29/2022 06:35 Neut % 66.3 % ()?? 11/29/2022 06:35 Lymph % 21.1 % ()?? 11/29/2022 06:35 [place] % 11.3 % (High)?? 11/29/2022 06:35 Eos % 0.2 % ()?? 11/29/2022 06:35 Baso % 0.3 % ()?? 11/29/2022 06:35 Imm Gran 0.8 % ()?? 11/29/2022 06:35 Abs. Imm Gran 0.1 k/mm3 ()?? 11/29/2022 06:35 ?? CHEM GENERAL Sodium 134 mmol/L ()?? 11/29/2022 06:35 Potassium 4.1 mmol/L ()?? 11/29/2022 06:35 Chloride 102 mmol/L ()?? 11/29/2022 06:35 Bicarbonate Level 22 mmol/L ()?? 11/29/2022 06:35 Anion Gap 10 ()?? 11/29/2022 06:35 Glucose Level 100 mg/dL (High)?? 11/29/2022 06:35 BUN 9 mg/dL ()?? 11/29/2022 06:35 Creatinine-Blood 0.8 mg/dL ()?? 11/29/2022 06:35 Estimated GFR Creatinine 118 ML/MIN/1.73 M2 ()?? 11/29/2022 06:35 Calcium 9.0 mg/dL ()?? 11/29/2022 06:35 Protein, Total 7.0 Gm/dL ()?? 11/29/2022 06:35 Albumin 3.7 Gm/dL ()?? 11/29/2022 06:35 AG Ratio 1.1 ()?? 11/29/2022 06:35 Alkaline Phosphatase 72 units/L ()?? 11/29/2022 06:35 AST (SGOT) 15 units/L ()?? 11/29/2022 06:35 ALT (SGPT) 11 units/L ()?? 11/29/2022 06:35 Bilirubin, Total 0.2 mg/dL ()?? 11/29/2022 06:35 Lactate 2.1 mmol/L ()?? 11/29/2022 00:44 C-Reactive Protein <0.3 mg/dL ()?? 11/29/2022 06:35 ? HEME OTHER Sed Rate 41 mm/hr (High)?? 11/29/2022 06:35 Hold Blue Top SPECIMEN DISCARDED AFTER 4 HOURS. ()?? 11/28/2022 22:19 ?? MISC. CHEMISTRY Hold Green Top SPECIMEN DISCARDED AFTER 1 WEEK ()?? 11/28/2022 22:19 ? URINE OTHER Est Creatinine Clearance 96.44 mL/min ()?? 11/29/2022 08:43 ? VIROLOGY COVID-19 by RT-PCR NEGATIVE ()?? 11/29/2022 00:47 ? 35??minutes spent on discharge * Alexei Bernal MD: PERFORM Event Display: Patient Education Leaflets Authored Date: [id number] Opiate Use Disorder ?? [id number] Opiate Use Disorder Use or abuse of heroin or prescription pain medicines may lead to addition or dependence. Examples of pain medicines are oxycodone, codeine, hydrocodone, morphine, methadone, and fentanyl. Once this occurs, you are at greater risk for any of these: ??? Craving for the drug. Being unable to stop using the drug even though you think you want to stop. This is psychological addiction. ??? Drug withdrawal symptoms if you stop taking the drug (physical dependence) ??? Loss of your job or your family ??? Arrest, conviction, and long-term sentence for possession of an illegal substance. Or for driving under the influence of such a substance. ??? Accidental injuries to yourself or others while you are under the influence of the drug in a car or at home??? or serious injury from overdose Xylazine is a sedative and pain reliever approved only for animals. It's not approved or safe for people. It's known by the street name tranq. Xylazine has been found in street drugs, especially heroin and fentanyl. It has been linked to overdoses and . Severe side effects from xylazine include slow heart beat and breathing, low blood pressure, skin sores, and coma. Health problems The list of potential health problems is a long one. It can be different with different medicines. They can cause problems even if you have no history of health problems. It's also affected by other medicines you may be taking. And it's affected by chronic illnesses you may have. Besides the problems listed above,??abuse also has other effects. Some are tied directly to the drugs. Others are fromor related to addiction or dependency. ??? Anxiety ??? Seizures ??? Constipation ??? Liver infection (hepatitis) ??? Liver failure ??? Blood pressure problems ??? Depression ??? Suicidal thoughts or attempts ??? Insomnia ??? Nausea, vomiting, and stomach problems ??? Drowsiness ??? Slurred speech ??? Trouble breathing ??? Dizziness ??? Skin infections ??? Muscle pain and spasms ??? Stroke ??? Heart attack ??? Kidney failure ??? HIV infection ??? Skin infections ??? Other sexually transmitted infections ??? Severe and fatal infection of the heart valves ??? Coma and ?? Home care ??? Admit you have a drug problem. Ask for help from your family, close friends. and yourhealthcare provider. ??? Seek professional help. This could be one-on-one psychotherapy, counseling, or a drug treatment program. The drug treatment program could be outpatient or residential. ??? Join a self-help group for people who abuse drugs. ??? Stay away from friends, family, and acquaintances who abuse drugs themselves or tempt you to continue your habit. ??? Eat a balanced diet. Begin a regular exercise program. ?? Follow-up care Follow up with your healthcare provider, or??as advised. Contact one of the resources below for help: ??? National [place] on Alcoholism and Drug Dependence at ncaddms.org/ ??? Substance Abuse and Mental Health Services Administration at www.samhsa.gov/find-treatment or 870-684-ZEBI (972-864-6588) ?? Call 911 Call 911 if any of these occur:? Seizure ??? Trouble breathing or slow, irregular breathing ??? Chest pain ??? Sudden weakness on one side of your body or sudden trouble speaking ??? Very drowsyor trouble awakening ??? Fainting or loss of consciousness ??? Rapid heart rate ??? Very slow heartrate ?? When to seek medical advice Call your healthcare provider right away if any of these occur: ??? Symptoms of withdrawal. These include agitation, anxiety, trembling, sweats, diarrhea, unable to sleep. ??? Fever of 100.4??F (38.0??C) or higher, or as directed by your healthcare provider ??? Too much drowsiness or you can't be awakened ??? Redness, swelling, or tenderness at an injection site ?? Last Reviewed Date: 2021 ?? [employer]. All rights reserved. This information is not intended as a substitute for professional medical care. Always follow your healthcare professional's instructions. ?? * Alexei Bernal MD: PERFORM Event Display: Patient Education Leaflets Authored Date: [id number] Discharge Instructions for Osteomyelitis ?? 83408 Discharge Instructions for Osteomyelitis You have a [...] tired ?? Last Reviewed Date: 2021 ?? [employer]. All rights reserved. This information is not intended as a substitute for professional medical care. Always follow your healthcare professional's instructions. ?? * Alexei Bernal MD: PERFORM Event Display: Patient Education Leaflets Authored Date: [id number] Doxycycline Oral Tablet ?? [address] Doxycycline Oral Tablet Brands: Acticlate, Adoxa, Avidoxy, Targadox Uses For treating bacterial infection. ?? Instructions Take the medicine with 250 mL (1 cup) of water. Take on empty stomach - 1 hour before or 2 hours after eating. Sit or stand upright for 30 minutes after taking the medicine. Do not lie down. Keep the medicine at room temperature. Avoid heat and direct light. Do not take any antacid or vitamins with magnesium, calcium, aluminum, or iron for 2 hours before and 2 hours after taking this medicine. This medicine can make you sensitive to the sun. Use sunscreen or protective clothing when in sun. If you forget to take a dose on time, take it as soon as you remember. If it is almost time for thenext dose, do not take the missed dose. Return to your normal schedule. Do not take 2 doses at one time. Drug interactions can change how medicines work or increase risk for side effects. Tell your healthcare providers about all medicines taken. Include prescription and [id number] medicines, vitamins, and herbal medicines. Speak with your doctor or pharmacist before starting or stopping any medicine. Keep using this medicine for the full number of days that it is prescribed. Do not stop the medicine even if you start to feel better. This medicine can cause permanent change in teeth color in children. ?? Cautions Tell your doctor and pharmacist if you ever had an allergic reaction to a medicine. Do not use the medication any more than instructed. Contact your doctor if you notice a change in the amount or darkening of your urine. Please tell your doctor if you have moderate to severe diarrhea while on this medicine. Do not treat the diarrhea with [id number] diarrhea medicine. This medicine passes into breast milk. Ask your doctor before . This medicine can hurt a new baby in the womb. If you become while on this medicine, tell your doctor immediately. Your doctor may switch you to a different medicine. Do not share this medicine with anyone who has not been prescribed this medicine. ?? Side Effects The following is a list of some common side effects from this medicine. Please speak with your doctor about what you should do if you experience these or other side effects. ??? diarrhea ??? nausea and vomiting ??? stomach upset or abdominal pain ??? yeast infection of mouth ??? vaginal itching or yeast infection Call your doctor or get medical help right away if you notice any of these more serious side effects: ??? swelling in the neck or throat ??? difficulty swallowing ??? blurring or changes of vision A few people may have an allergic reaction to this medicine. Symptoms can include difficulty breathing, skin rash, itching, swelling, or severe dizziness. If you notice any of these symptoms, seek medical help quickly. ?? Extra Please speak with your doctor, nurse, or pharmacist if you have any questions about this medicine. ?? [email or web address] IMPORTANT NOTE: This document tells you briefly how to take your medicine, but it does not tell youall there is to know about it. Your doctor or pharmacist may give you other documents about your medicine. Please talk to them if you have any questions. Always follow their advice. There is a more complete description of this medicine available in [place]ian. Scan this code on your smartphone or tablet or use the web address below. You can also ask your pharmacist for a printout. If you have any questions, please ask your pharmacist. The display and use of this drug information is subject to Terms of Use. Copyright(c) 2022 [employer]. ?? The [employer]. All rights reserved. This information is not intended as a substitute for professional medical care. Always follow your healthcare professional's instructions. ?? Patient Care team information Care Team Personnel Name: Not on Staff, PCP Position: [facility] Physician (General Medicine) Member Role: PCP Name: *Giles SAMPSON Attending Position: [facility] ED Medicine Name: Shirley Foster RN Position: [facility] ED RN W/OE and Tasks Member Role: Patient Care Provider Name: Marlee Villalba Position: [facility]
[2024-01-17 11:22] VITALS: BP 107/51; PULSE 90; RESP 16; TEMP 37.7; O2SAT 100
[2024-01-17] MEDS: Bacitracin Oint 0.9 GM PACKET 2 APPL TOPICAL (11:26)
--- NOTE | 2024-01-17 11:28 | PC.NURSE ---
patient refusing treatment from this RN and provider, no picc line in place at this time, patient noted to have 3 sutures to left hand, and +deformity, patient states its old and he was seen at [facility] for it and never made appointment to fix it. patient agreeable to allowing this RN to take out sutures and clean and bandage other hand which has deep cuts note to ring finger and middle finger. patient allows this RN to obtain VS however refusing any other treatment. patient is alert and oriented x4 able to tell us where he is and what happened today, pt has bump on forehead and states he fell a week ago but is refusing CT scans or exams at this time. provider spoke with patient OK for discharge at this time.
[2024-01-17 11:32] VITALS: BP 107/51; PULSE 90; RESP 16; TEMP 37.7; O2SAT 100
== END 2024-01-17 11:39 | disposition home or self-care (01) ==
PROVIDERS: Emergency Provider Emergency Medicine
DX: F11.10 Opioid abuse, uncomplicated (principal); F14.10 Cocaine abuse, uncomplicated; F17.210 Nicotine dependence, cigarettes, uncomplicated; Z48.02 Encounter for removal of sutures
CPT/HCPCS: 99282

== ENCOUNTER 2024-01-18 06:58 | Inpatient (IN) | payer MEDICAID, SELFPAY ==
[2024-01-18] VITALS (8 sets, daily range): BP systolic 99–118; BP diastolic 56–76; PULSE 61–88; RESP 13–18; TEMP 36.3–36.9; O2SAT 90–100; BMI 22.6
--- NOTE | ~2024-01-18 | US_ITS ---
EXAMINATION: US RIGHT GROIN, LIMITED/FOLLOW UP CLINICAL INFORMATION: Abscess evaluation. COMPARISON: CT abdomen/pelvis 01/18/2024. TECHNIQUE: Targeted sonographic evaluation of the area of clinical concern in the right groin. FINDINGS: Complex 6.6 x 2.8 x 3.7 cm heterogeneous collection with thickened benavidez and internal septations. Vascularity on color Doppler is noted along the benavidez and septations of this otherwise avascular collection. Surrounding fat stranding and soft tissue hyperemia is seen. US/US pelvic limited IMPRESSION: Complex 6.6 cm collection suggestive of an abscess in the appropriate clinical context. Recommend continued follow-up to ensure complete resolution. Electronically signed by: Colleen Nicole MD 01/28/2024 04:36 PM EDT
--- NOTE | ~2024-01-18 | XR_ITS ---
EXAMINATION: XR CHEST CLINICAL INFORMATION: Chest pain. Low O2 sat COMPARISON: Similar chest 01/22/2021 TECHNIQUE: Frontal view of the chest was obtained. FINDINGS: Lungs are well-expanded and clear. The heart size and pulmonary vascularity is normal. There is deformity of the right posterior fifth, sixth ribs from old healed fractures. XR/XR chest 1V IMPRESSION: 1. No acute cardiopulmonary process seen. 2. Old healed right posterior fifth and sixth rib fractures. Electronically signed by: Mike Lora MD 01/18/2024 08:18 AM EDT
--- NOTE | ~2024-01-18 | CT_ITS ---
EXAMINATION: CT ABDOMEN AND PELVIS WITH CONTRAST CLINICAL INFORMATION: right groin pain can not ambulate, BACK PAIN R/O EPIDURAL ABSCESS COMPARISON: 01/19/2021 TECHNIQUE: Multidetector volumetric imaging was performed from the superior aspect of the liver through the pubic symphysis following administration of 85 mL Omnipaque 300 intravenous contrast. Sagittal and coronal reformatted images were obtained on the technologist workstation.. This CT examination was performed using dose optimization techniques as appropriate, variously including the following: *Automated exposure control *Adjustment of mA and/or kV according to patient size (this includes techniques or standardized protocols for targeted exams where dose is matched to indication/reason for exam; i.e. extremities or head) *Use of iterative reconstruction technique DLP: 717 mGy-cm FINDINGS: Unfortunately the patient was moving on the table with resulting motion artifacts LUNG BASES: Dependent airspace changes more likely due to atelectasis. LIVER, GALLBLADDER, AND BILIARY TREE: The liver is normal in size, shape, and attenuation. No focal hepatic lesion or biliary ductal dilatation is present. The gallbladder is unremarkable with no evidence of radiopaque gallstones, gallbladder wall thickening, or obvious pericholecystic inflammatory changes. PANCREAS: Unremarkable. SPLEEN: Unremarkable. ADRENAL GLANDS: Unremarkable. KIDNEYS AND URETERS: The kidneys are normal in size, shape, and attenuation. No hydronephrosis, hydroureter, or perinephric stranding. No calculi. BLADDER: Mild right lateral bladder wall thickening with mass effect on the bladder from the right pelvic sidewall collection GASTROINTESTINAL TRACT: Stool seen throughout the colon to the rectum. I do not appreciate any obvious obstructive change to the small bowel. ABDOMINAL WALL: Diffuse anasarca. LYMPHOVASCULAR STRUCTURES: Symmetrically prominent bilateral inguinal lymph nodes PELVIC VISCERA: Unremarkable. OSSEOUS STRUCTURES: Bony destructive lesion within the right pubic symphysis extending to the medial aspect of both the right superior and right inferior pubic rami. Air bubbles are seen within a low-attenuation collection extending from the anterior aspect of this bony destructive lesion into the right hip adductor muscles concerning for associated myositis. Additional abnormal collections within the right obturator muscle and extending through the right sacroiliac joint space into the posterior right hip musculature. Additional bony destructive changes are seen within the right sacroiliac joint. There is associated abnormal fluid standing from the region of the right sacroiliac joint along the right iliacus muscle. The constellation of findings is consistent with septic arthritis and associated bony destructive osteomyelitis with likely pathologic fracture through the right pubic symphysis and surrounding multiple soft tissue abscesses around the right pelvis and hip. CT/CT abdomen pelvis w IV con IMPRESSION: The constellation of findings is consistent with septic arthritis and associated bony destructive osteomyelitis with likely pathologic fracture through the right pubic symphysis and multiple surrounding soft tissue abscesses as described above. Unfortunately due to the irregular shape of the abscesses within the adjacent muscles is difficult to measure. The right iliac is abscess measures approximately 3.8 cm in size, the right obturator abscess measures approximately 6.3 cm in size, the right hip adductor intramuscular abscess measures at least 4.3 cm in size with ill-defined collection to the posterior right gluteal muscles. Electronically signed by: Archie Rodriguez MD 01/18/2024 07:57 PM EDT
--- NOTE | ~2024-01-18 | CT_ITS ---
EXAMINATION: CT HEAD WITHOUT CONTRAST CLINICAL INFORMATION: Altered mental status. COMPARISON: None available. TECHNIQUE: Contiguous axial imaging was performed from the skull base to vertex without intravenous administration of contrast. This CT examination was performed using dose optimization techniques as appropriate, variously including the following: *Automated exposure control *Adjustment of mA and/or kV according to patient size (this includes techniques or standardized protocols for targeted exams where dose is matched to indication/reason for exam; i.e. extremities or head) *Use of iterative reconstruction technique DLP: 700 mGy-cm FINDINGS: No intracranial hemorrhage, large infarction, or mass lesion is seen. No extra-axial collection is appreciated. The ventricles are normal in size and configuration without evidence of hydrocephalus. Approximately 1 cm left maxillary sinus retention cyst versus mucosal polyp. The mastoid air cells are clear. Deviation of the nasal septum toward the left. CT/CT head/brain wo IV con IMPRESSION: No acute intracranial finding. Electronically signed by: Donn Stafford MD 01/18/2024 07:23 PM EDT
--- NOTE | ~2024-01-18 | XR_ITS ---
Examination: XR pre mri screening Indication: PRE-MRI SKULL R/O FOREIGN BODY, POOR HISTORIAN Comparison: No pertinent prior studies are currently available for comparison. Technique: 2 views of the skull and a single view the abdomen obtained. Findings: I do not appreciate any radiopaque foreign bodies. No acute bony abnormality. Unremarkable bowel gas pattern. XR/XR pre mri screening Impression: I do not appreciate any radiopaque foreign bodies. Electronically signed by: Archie Rodriguez MD 01/18/2024 05:33 PM EDT
--- NOTE | ~2024-01-18 | CT_ITS ---
CLINICAL HISTORY: Staph bacteremia. Multiple pelvic and right lower extremity abscesses due to intravenous substance abuse. PROCEDURES: 1. Limited preprocedure CT of the pelvis. Permanent images saved in PACS. 2. CT-guided drainage of right obturator muscle abscess. 3. CT-guided aspiration of right superficial groin abscess. 4. CT guided aspiration of right deep thigh abscess. 5. Limited post procedure CT of the pelvis. Permanent images saved in PACS. CLINICIANS: Tian Parra PA-C Preprocedural imaging reviewed with Dr. Calvillo MEDICATIONS: -lidocaine 1% 20 mL SQ -Antibiotics: None -For additional details, please see nursing and anesthesia flowsheet. COMPLICATIONS: None ESTIMATED BLOOD LOSS: < 5 ml CONTRAST: None SPECIMENS: Specimens were sent for culture. PROCEDURE NOTE: The procedure, risks, benefits, and alternatives were carefully explained to the patient and written informed consent was obtained. The patient was placed supine on the CT table. A timeout was performed. A limited CT of the pelvis was performed to localize the multiple pelvic and right lower extremity fluid collection and choose appropriate needle entry and trajectory. Once the patient was under the care of anesthesia, the patient was prepped and draped in usual sterile fashion. The skin and subcutaneous tissues were anesthetized with lidocaine. Under CT guidance, a trocar was advanced anteriorly to the right obturator muscle abscess. Purulent fluid was immediately aspirated. A 0.0035 J wire was inserted through the the trocar needle and coiled in the fluid collection. The trocar needle was then removed over the wire. The tract was then serially dilated. Over the wire, a 10 fr all-purpose drainage catheter was advanced and coiled into the abscess under CT guidance. The wire was then removed. A total of 20 ml of purulent fluid was removed and sent for culture. The catheter was secured to the skin with a 2-0 nylon suture. A SIMA bulb was then attached to the drainage catheter. Next, a trocar was advanced into the right groin fluid collection that communicated with the right pubic symphysis bone. 10 mL of purulent fluid was aspirated. Subsequent imaging demonstrated near resolution of the right groin fluid collection, therefore, a drain was not placed. Next, a 20-gauge needle was advanced medially into the deep right thigh fluid collection. 10 mL of purulent fluid was aspirated. The needle was removed, and a dry dressing was applied. The patient was stable after the procedure and was transferred to the post anesthesia care unit. The procedure was done under anesthesia. CT/CT guided aspiration Impression: 1. CT-guided drainage of right obturator muscle abscess, yielding purulent fluid. 2. CT-guided aspiration of right groin abscess that communicates with right pubic symphysis. 3. CT guided aspiration of right deep thigh abscess, yielding purulent fluid. This procedure was performed by Tian Parra PA-C and supervised by Dr. Calvillo. Electronically signed by: Archie Calvillo MD 02/02/2024 02:48 PM EDT
--- NOTE | 2024-01-18 07:39 | ED_ITS ---
HPI - General Adult General Chief complaint: General Medical Stated complaint: BODY ACHE/UNABLE TO WALK/FOUND IN ALLEY Time Seen by Provider: 01/18/24 07:12 Source: patient, EMS and plumber assistant Mode of arrival: EMS Limitations: no limitations History of Present Illness ED Provider: DR. Francisco HPI narrative: 38-year-old male history of IV drug abuse who is currently homeless living street for the past 2 weeks came in by ambulance for evaluation of generalized body ache patient admit that he just use IV heroin cocaine, complain of generalized body ache no flu-like symptoms, patient overall is a poor historian keep saying my record at [facility], stated that he can not walk if asked to raise his right leg point is right groin for severe pain in the groin. difficult IV access patient is refusing to place IV by MD using ultrasound machine and refusing labs, initial vital sign patient was hypoxic with poor pulse oximetry wave, continuous monitoring his pulse oximetry was 100%, chest x-ray revealed no acute pathology smokes cigarettes 1 pack a day no difficulty breathing. Patient admit that he is tired has not had a good sleep for few days. Related Data Previous Rx's ?Medication ?Instructions ?Recorded buprenorphine 8 mg-naloxone 2 mg 2 film sublingual DAILY 4 days #8 07/12/21 sublingual film (Suboxone) ea cephalexin 500 mg capsule 500 mg PO QID 10 days #40 caps 07/18/21 doxycycline hyclate 100 mg tablet 100 mg PO BID #20 tabs 07/18/21 Allergies Allergy/AdvReac Type Severity Reaction Status Date / Time No Known Allergies Allergy Verified 01/18/24 07:16 Review of Systems 2 Review of Systems: all other systems are reviewed and are negative Constitutional: Reports as per HPI and Reports no additional constitutional complaints Eyes: Reports as per HPI and Reports no additional eye complaints Reports system reviewed and no additional complaints, except as documented Cardiovascular: Reports as per HPI and Reports no additional cardiovascular complaints Respiratory: Reports as per HPI and Reports no additional respiratory complaints Gastrointestinal: Reports as per HPI and Reports no additional gastrointestinal complaints Genitourinary: Reports no additional female genitourinary complaints Musculoskeletal: Reports no additional musculoskeletal complaints Skin/Breast: Reports system reviewed and no additional complaints, except as docu Psychiatric: Reports no additional psychiatric complaints Endocrine: Reports no additional endocrine complaints Hematologic/Lymphatic: Reports no additional hematologic/lymphatic complaints Allergic/Immunologic: Reports no additional allergic/immunologic complaints Reports system reviewed and no additional complaints, except as documented and Reports Abnormal speech present [facility] Past Medical History Medical History Opioid use disorder Drug abuse Social History Social History Alcohol intake: current Patient Tobacco Use Status: Current everyday Tobacco user Smoked in Last 30 Days: No Use of substances other than those prescribed or required for medical reasons: Yes Substance Use Type: Crack/Cocaine and Heroin Advance Directives: No Do you have a plan to hurt others: No Plan Physical Exam ED Vital Signs: Vital Signs - 24 hr 01/18/24 07:10 01/18/24 08:02 01/18/24 09:49 Temperature 97.7 F 97.9 F Pulse Rate 64 61 Respiratory Rate 16 14 Blood Pressure 113/76 113/70 Pulse Oximetry 90 L 100 Oxygen Delivery Method Room Air Room Air 01/18/24 12:55 01/18/24 14:36 Temperature 97.4 F Pulse Rate 69 71 Respiratory Rate 16 18 Blood Pressure 107/62 109/67 Pulse Oximetry 100 100 Oxygen Delivery Method Room Air Room Air BMI result Body Mass Index 22.6 Vital signs have been reviewed and appear to be correct. Blood pressure elevated. Heart rate normal. Respiratory rate normal. Temperature normal. Oxygen saturation normal. Appearance: sleepy, easily arousable, asking for food, disheveled,Oriented X3. No acute distress. Head: Normal external exam. Normocephalic. Atraumatic. No White signs noted. No raccoon eyes noted Eyes: PERRLA. EOMI. Conjunctiva and sclera normal. Eyelids normal. ENT: TM's Normal. Pharynx normal. Uvula midline. Moist mucous membranes. No trismus noted. No drooling noted. No muffled voice noted. Neck: Normal inspection. Neck supple. FROM. No adenopathy. Thyroid Normal. No meningeal signs. No neck mass noted. CVS: Normal heart rate and rhythm. Heart sound normal. No murmurs noted. Pulses normal throughout. Respiratory: No respiratory distress. Painless inspiration. Breath sounds normal. No wheezes/rales/rhonchi noted. Chest nontender. No accessory muscle usage noted or decreased air movement noted. Abdomen: Soft and nontender. Bowel sounds normal in all 4 quadrants. No distention noted. No organomegaly noted. No visible injury noted. Back: No CVA tenderness. Full range of motion noted. Skin: Skin warm and dry. Normal skin color. Normal skin turgor. No rashes/lesions/lacerations noted. Extremities: No lower extremity edema. Extremities exhibit normal range of motion. Extremities nontender. Neuro: Cranial nerve exam: II-XII are grossly intact No motor deficit. No sensory deficit. Reflexes normal. Course Reevaluation(s) Reevaluation #1: [facility] record was obtained seen patient presented with bizarre behavior and remained under observation in [facility] ER on 12/31 and was discharged on 01/01 with a diagnosis of agitation and polysubstance abuse, patient is more coherent now keep complaining of unable to ambulate when he tries to move his right leg point to his right groin for severe pain, right groin exam shows no mass, no bulging, mild tenderness, no deformity, no step-off given patient is a poor historian will consider CT abdomen and pelvis and MRI of the lumbar spine rule out epidural abscess. patient now agreed for me to place an IV And send blood for more testing. Signed out to Dr. Tsang for further evaluation. Hypokalemia will replete potassium. Time: 15:46 Medications Administered Discontinued Medications Generic Name Dose Route Start Last Admin Trade Name Freq PRN Reason Stop Dose Admin Sodium Chloride 1,000 mls @ 999 mls/hr 01/18/24 14:24 01/18/24 14:45 Ns IV 01/18/24 15:24 999 mls/hr .Q1H1M ONE Administration Medical Decision Making Differential Diagnosis Differential Diagnoses: The differential diagnosis associated with the presentation includes ( Epidural abscess, incarcerated right inguinal hernia, pulled muscle, electrolyte derangement, right inguinal abscess , severe anemia.) Admission/Observation Consideration of admission/observation: Escalation of care including admission/observation considered Lab Data MDM Lab Attestation statement: I reviewed the patient's lab results. 01/18/24 15:12 01/18/24 15:12 Labs: Lab Results 01/18/24 01/18/24 01/18/24 Range/Units 08:18 15:11 15:12 WBC 21.7 H (4.8-10.8) X10*3/uL RBC 4.05 L (4.60-5.80) X10*6/uL Hgb 10.0 L (14.0-18.0) g/dl Hct 31.2 L (42.0-52.0) % MCV 77.0 L (80.0-98.0) fL MCH 24.7 L (27.0-33.0) pg MCHC 32.1 (31.0-36.0) g/dl RDW 16.2 H (11.0-16.0) % Plt Count 585 H D (160-400) X10*3/uL MPV 8.7 L (9.4-12.4) fL Immature Gran % (Auto) 1.5 H (0.0-0.4) % Neut % (Auto) 88.4 H (45-73) % Lymph % (Auto) 6.3 L (20-40) % [place] % (Auto) 3.5 (2-11) % Eos % (Auto) 0.1 (0-4) % Baso % (Auto) 0.2 (0-2) % Lymph # (Auto) 1.4 (1.2-4.9) X10*3/uL [place] # (Auto) 0.8 (0.1-1.2) X10*3/uL Eos # (Auto) 0.0 (0.0-0.4) X10*3/uL Baso # (Auto) 0.0 (0.0-0.2) X10*3/uL Abs Immat Gran (auto) 0.33 H (0.00-0.03) X10*3/uL Absolute Neuts (auto) 19.2 H (2.0-8.3) x10*3/uL Absolute Nucleated RBC 0.000 (0.0-0.012) X10*3/uL Nucleated RBC % (auto) 0.0 (0.0-0.2) /100WBC Sodium 137 (135-145) mmol/L Potassium 3.1 L (3.3-5.1) mmol/L Chloride 99 (96-108) mmol/L Carbon Dioxide 31 H (22-29) mmol/L Anion Gap 10 L (12-20) BUN 9 (9-16) mg/dL Creatinine 0.55 (0.5-1.4) mg/dL Estim Creat Clear Calc 160.3 Estimated GFR > 60 POC Glucose 80 (60-115) mg/dL Random Glucose 113 (60-115) mg/dL Lactic Acid 1.0 (0.5-2.0) mmol/L Calcium 8.3 L (8.4-10.2) mg/dL Total Bilirubin 0.2 (0.0-1.0) mg/dL Direct Bilirubin 0.2 (0.0-0.5) mg/dL AST 41 H (5-37) U/L ALT 17 (0-40) U/L Alkaline Phosphatase 85 (39-117) U/L Troponin I High Sens < 2.7 (<3.5-35.0) ng/L Total Protein 7.4 (6.5-8.0) g/dL Albumin 2.0 L (3.5-5.0) g/dL Lipase 11 (8-78) U/L Chronic Conditions Patient?s care impacted by: Other ( Homeless/IV drug abuse.) Discharge Plan Discharge Clinical Impression: Homeless, Substance abuse, Acute hypokalemia Patient Disposition: Still a Patient Prescriptions: No Action cephalexin 500 mg capsule 500 mg PO QID 10 Days Qty: 40 0RF doxycycline hyclate 100 mg tablet 100 mg PO BID Qty: 20 0RF buprenorphine-naloxone [Suboxone] 8-2 mg film 2 film sublingual DAILY 4 Days Qty: 8 0RF Rx Instructions: place 1 strip/tab under (each) side of tongue Print Language: Bol[place]ian
--- NOTE | 2024-01-18 08:11 | PC.NURSE ---
pt is a difficult stick and refusing repeated attempts for IV access. skin pwd. pupils 3mm. was not responding to sticks initially then became frustrated and refused all future attempts
--- NOTE | 2024-01-18 08:25 | PC.NURSE ---
Pt arrived at the ED with liquid methadone on his person. Medication was taken from pt, secured in envelope and transferred to the pharmacy. Signed paperwork in chart. Belongs secured in decon by Security personnel. IV access attempted X 2 in right AC without success. Pt is refusing additional attempts.
--- NOTE | 2024-01-18 08:46 | PC.NURSE ---
Pt falls asleep when no interventions are in place. wakes to loud verbal stimuli. still refusing iv access and labs. Dr Francisco stated that CXR was read as no pneumonia and sepsis protocol is cancelled.
[2024-01-18 14:26] LABS: Glucose, Whole Blood 80 mg/dL (60-115)
--- NOTE | 2024-01-18 14:37 | PC.NURSE ---
moved back to treatment area. more coherent but remains sleepy mostly. states he has BLE pain but not sure for how long. has been eating snacks. NSR On monitor. is agreeable to attemptin IV again.
[2024-01-18] MEDS: 0.9 % Sodium Chloride 1,000 ML 999 ML IV (14:45)
--- NOTE | 2024-01-18 14:58 | PC.NURSE ---
doc elmogy in to attempt EJ.
[2024-01-18 15:19] LABS: MANUAL DIFF FLAG NO
[2024-01-18 15:28] LABS: Basophils Percent Auto 0.2 % (0-2); Eosinophils Percent Auto 0.1 % (0-4); Hematocrit 31.2 % (42.0-52.0); Imm Gran Abs Auto 0.33 X10*3/uL (0.00-0.03); Imm Gran Pct Auto 1.5 % (0.0-0.4); Lymphocytes Absolute Auto 1.4 X10*3/uL (1.2-4.9); Lymphocytes Percent Auto 6.3 % (20-40); Mean Corpuscular HGB Conc 32.1 g/dl (31.0-36.0); Mean Corpuscular Hemoglobin 24.7 pg (27.0-33.0); Mean Platelet Volume 8.7 fL (9.4-12.4); Monocytes Absolute Auto 0.8 X10*3/uL (0.1-1.2); Monocytes Percent Auto 3.5 % (2-11); Neutrophils Absolute Auto 19.2 x10*3/uL (2.0-8.3); Neutrophils Percent Auto 88.4 % (45-73); Platelet Count 585 X10*3/uL (160-400); Red Blood Count 4.05 X10*6/uL (4.60-5.80); Red Cell Distribution Width 16.2 % (11.0-16.0); White Blood Count 21.7 X10*3/uL (4.8-10.8)
[2024-01-18 15:42] LABS: Alanine Aminotransferase 17 U/L (0-40); Alkaline Phosphatase 85 U/L (39-117); Anion Gap 10 (12-20); Aspartate Amino Transferase 41 U/L (5-37); Bilirubin Direct 0.2 mg/dL (0.0-0.5); Bilirubin Total 0.2 mg/dL (0.0-1.0); Blood Urea Nitrogen 9 mg/dL (9-16); Calcium 8.3 mg/dL (8.4-10.2); Carbon Dioxide 31 mmol/L (22-29); Chloride 99 mmol/L (96-108); Creatinine Clr Calc Pharmacy 160.3; Estimated Glomerular Filt Rate > 60; Glucose Random 113 mg/dL (60-115); Lipase 11 U/L (8-78); Potassium 3.1 mmol/L (3.3-5.1); Sodium 137 mmol/L (135-145); Total Protein 7.4 g/dL (6.5-8.0)
[2024-01-18 15:51] LABS: Troponin-I High Sensitivity < 2.7 ng/L (<3.5-35.0)
[2024-01-18] MEDS: Potassium Chloride Packet 20 MEQ PACKET 40 MEQ PO (16:58)
[2024-01-18] MEDS: Potassium Chloride/H20 10 MEQ/100 ML PIGGYBACK 100 MEQ IV (17:00)
--- NOTE | 2024-01-18 17:27 | PC.NURSE ---
Asked by cardiac technician to pause IV infusion before patient goes to MRI, patient refused MRI, Dr. Tsang made aware by cardiac technician, primary RN Tess made aware.
[2024-01-18 18:05] LABS: Appearance Urine Clear; Color Urine Dark Yellow; Glucose Urine UA Negative (Negative); Leukocyte Esterase Urine Negative (Negative); Nitrite Urine Negative (Negative); Specific Gravity - Urine 1.025 (1.005-1.025); UMIC TRIGGER UACC YES; Urine Blood Negative (Negative); Urine Ketones Negative (Negative); Urine Protein 30 (1+) mg/dL (Neg-Trace)
[2024-01-18 18:51] LABS: Bacteria Urine None Seen (None Seen); Hyaline Casts Urine 0-2 /LPF (0-2); RBC Urine 0-2 /HPF (0-2); Squamous Epithelial Cell Urine 0-2 /HPF (0-2); WBC Urine 0-5 /HPF (0-5)
[2024-01-18] MEDS: iohexoL 350 MG/ML 100 ML INFUS..BTL IV (18:52)
--- NOTE | 2024-01-18 19:00 | PC.NURSE ---
received report from Caremncita WU, assume care of pt at this time
--- NOTE | 2024-01-18 20:17 | P.HPHOSP_ITS ---
History of Present Illness Date of Service: 01/18/24 Chief Complaint: Chills and weakness This is a 38-year-old male with pertinent history of IV drug use disorder, history of MRSA who presents to the emergency department for evaluation of weakness and not feeling well. Patient states his symptoms have been ongoing for the last 3-4 days. Does endorse using IV drugs and history of MRSA skin infection in the past. States he has gotten weak and had difficulty walking on the day of presentation. Also has been having chills. No documented temperature. Does endorse low back pain. No chest discomfort, palpitations, shortness of breath, abdominal pain, changes in urinary or bowel habits. In the emergency department, patient was found to be septic and imaging concerning for septic arthritis/osteomyelitis of right pubic symphysis with multiple soft tissue abscesses. Review of Systems 2 Constitutional: Constitutional: Reports chills and Reports fatigue Cardiovascular: Cardiovascular: Reports no additional cardiovascular complaints Respiratory: Respiratory: Reports no additional respiratory complaints Gastrointestinal: Gastrointestinal: Reports no additional gastrointestinal complaints Genitourinary: Genitourinary: Reports no additional male genitourinary complaints Endocrine: Endocrine: Reports fatigue [facility] Medical History Opioid use disorder Drug abuse Pertinent family history: No family history of early CAD Social History Alcohol intake: current Patient Tobacco Use Status: Current everyday Tobacco user Smoked in Last 30 Days: No Use of substances other than those prescribed or required for medical reasons: Yes Substance Use Type: Crack/Cocaine and Heroin Advance Directives: No Do you have a plan to hurt others: No Plan Meds Allergies Allergy/AdvReac Type Severity Reaction Status Date / Time No Known Allergies Allergy Verified 01/18/24 07:16 Active Medications: Current Medications Acetaminophen (Acetaminophen 325 Mg Tablet) 650 mg PO Q6H PRN PRN Reason: Pain, Mild (Pain Scale 1-3), fever or headache Calcium Carbonate (Calcium Carbonate 750 Mg Tab.Chew) 750 mg PO Q4H PRN PRN Reason: Heartburn Vancomycin HCl 1,500 mg/ (Sodium Chloride) 500 mls @ 333.333 mls/hr IV ONCE ONE Stop: 01/18/24 21:40 Melatonin (Melatonin 3 Mg Tablet) 6 mg PO BEDTIME PRN PRN Reason: Insomnia Sodium Chloride (0.9 % Sodium Chloride Flush 3 Ml Syringe) 3 ml IVFLUSH QSHIFT EILEEN Physical Exam 2 Vital Signs and Narrative: Vital Signs: Last Vital Signs Temp 98.5 F 01/18/24 17:03 Pulse 76 01/18/24 17:54 Resp 13 01/18/24 17:54 BP 101/60 01/18/24 17:54 Pulse Ox 99 01/18/24 17:54 O2 Del Method Room Air 01/18/24 17:54 BMI result Body Mass Index 22.6 Middle-aged male lying in bed in no distress Neck supple, no JVD Regular rate and rhythm, S1-S2 heard Regular breath sounds bilaterally, no wheezing or crackles appreciated Abdomen soft nontender, no guarding, no rigidity Patient is awake, alert and oriented to self, place, time and person ; no upper extremity weakness, does not move lower extremities Psych: Normal mood Multiple track donaldson seen Results Labs 01/18/24 15:12 01/18/24 15:12 Labs: Laboratory Results - last 24 hr 01/18/24 01/18/24 01/18/24 08:18 15:11 15:12 MCV 77.0 L MCH 24.7 L MCHC 32.1 RDW 16.2 H Plt Count 585 H D MPV 8.7 L Immature Gran % (Auto) 1.5 H Neut % (Auto) 88.4 H Lymph % (Auto) 6.3 L [place] % (Auto) 3.5 Eos % (Auto) 0.1 Baso % (Auto) 0.2 Lymph # (Auto) 1.4 [place] # (Auto) 0.8 Eos # (Auto) 0.0 Baso # (Auto) 0.0 Abs Immat Gran (auto) 0.33 H Absolute Neuts (auto) 19.2 H Absolute Nucleated RBC 0.000 Nucleated RBC % (auto) 0.0 Anion Gap 10 L Estim Creat Clear Calc 160.3 Estimated GFR > 60 POC Glucose 80 Random Glucose 113 Lactic Acid 1.0 Calcium 8.3 L Total Bilirubin 0.2 Direct Bilirubin 0.2 AST 41 H ALT 17 Alkaline Phosphatase 85 Total Creatine Kinase 25 L Troponin I High Sens < 2.7 Total Protein 7.4 Albumin 2.0 L Lipase 11 Urine Color Urine Appearance Urine pH Ur Specific [place] Urine Protein Urine Glucose (UA) Urine Ketones Urine Blood Urine Nitrite Ur Leukocyte Esterase Urine RBC Urine WBC Ur Squamous Epith Cells Urine Bacteria Hyaline Casts 01/18/24 17:53 MCV MCH MCHC RDW Plt Count MPV Immature Gran % (Auto) Neut % (Auto) Lymph % (Auto) [place] % (Auto) Eos % (Auto) Baso % (Auto) Lymph # (Auto) [place] # (Auto) Eos # (Auto) Baso # (Auto) Abs Immat Gran (auto) Absolute Neuts (auto) Absolute Nucleated RBC Nucleated RBC % (auto) Anion Gap Estim Creat Clear Calc Estimated GFR POC Glucose Random Glucose Lactic Acid Calcium Total Bilirubin Direct Bilirubin AST ALT Alkaline Phosphatase Total Creatine Kinase Troponin I High Sens Total Protein Albumin Lipase Urine Color Dark Yellow Urine Appearance Clear Urine pH 6.0 Ur Specific [place] 1.025 Urine Protein 30 (1+) H Urine Glucose (UA) Negative Urine Ketones Negative Urine Blood Negative Urine Nitrite Negative Ur Leukocyte Esterase Negative Urine RBC 0-2 Urine WBC 0-5 Ur Squamous Epith Cells 0-2 Urine Bacteria None Seen Hyaline Casts 0-2 Imaging Radiologist's Impressions: Impressions Chest X-Ray 01/18/24 07:40 IMPRESSION: 1. No acute cardiopulmonary process seen. 2. Old healed right posterior fifth and sixth rib fractures. Electronically signed by: Mike Lora MD 01/18/2024 08:18 AM EDT RP Orbit X-Ray 01/18/24 16:50 Impression: I do not appreciate any radiopaque foreign bodies. Electronically signed by: Archie Rodriguez MD 01/18/2024 05:33 PM EDT RP Head CT 01/18/24 18:34 IMPRESSION: No acute intracranial finding. 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 Unfortunately due to the irregular shape of the abscesses within the adjacent muscles is difficult to measure. The right iliac is abscess measures approximately 3.8 cm in size, the right obturator abscess measures approximately 6.3 cm in size, the right hip adductor intramuscular abscess measures at least 4.3 cm in size with ill-defined collection to the posterior right gluteal muscles. Electronically signed by: Archie Rodriguez MD 01/18/2024 07:57 PM EDT Assessment and Plan (1) Osteomyelitis: Status: Acute (2) Soft tissue abscess: Status: Acute (3) Septic arthritis: Status: Acute (4) Substance abuse: Status: Acute (5) Homeless: Status: Acute Plan This is a 38-year-old male with pertinent history of IV drug use disorder, history of MRSA who presents to the emergency department for evaluation of weakness and not feeling well. #. Sepsis due to septic arthritis/osteomyelitis of right pubic symphysis with multiple soft tissue abscesses: Resuscitated with IV crystalloids. Lactic acid and blood culture obtained. Initiating vancomycin and Zosyn. Consulted General surgery and Infectious Disease, appreciate assistance. #. Generalized weakness in the setting of above: Patient also has low back pain and difficulty walking. Will benefit from MRI of the lower spine which he refused on admission. States if he feels better he is willing to try MRI during hospital course. #. Polysubstance use disorder: Monitor for withdrawal. Consulted Addiction Team #. Microcytic anemia: Obtaining iron panel #. Hypokalemia: Repleted DVT prophylaxis mechanical Full code Admit as inpatient and will require two night minimum hospital stay for IV antibiotics (as above), which is not possible in a lesser acute setting. Specialist consult pending Quality Stroke Does the patient have a stroke diagnosis?: No VTE Prior VTE?: No VTE Risk Level:: Medical - moderate - high VTE Device Contraindication: N/A - Device Ordered VTE Drug Contraindication: Treatment Not Indicated
[2024-01-18 20:22] LABS: Influenza A PCR NEGATIVE (Negative); Influenza B PCR NEGATIVE (Negative); Resp Syncy Virus RNA Qual PCR NEGATIVE (Negative); SARS COV2 PCR INHOUSE NEGATIVE (Negative)
[2024-01-18] MEDS: vancomycin HCL 1,500 MG in 0.9 % Sodium Chloride 500 ML 333.33 MG IV (20:26)
--- NOTE | 2024-01-18 21:32 | PHA.PROG ---
Admission Date/Time: January 18, 2024 20:13 Indication: Sepsis Weight in k.503 kg Adjusted body weight in Kg: [place] body weight in Kg: Obesity Dosing Indication % IBW: BMI22.6 Serum Creatinine - Last 168 Hours 01/18/24 15:12 Creatinine 0.55 Estimated CrCl and GFR - Last 168 Hours 01/18/24 15:12 Estim Creat Clear Calc 160.3 Estimated GFR > 60 Vancomycin Loading Dose: 1500 mg X1 Current Vancomycin Dosing Regimen: 1000mg Q8H Vancomycin Monitoring using AUC goal of 400 - 600 range with trough as surrogate marker: 555 Date and Time for next Vancomycin Level to be drawn: 01/18 @1900 Pharmacist Comments on Vancomycin Plan: Treating aggressively per indication. Pt's renal function is not horrible, trying to get him into therapeutic range sooner rather than later, predicted trough 16.8. Vancomycin dosing will take advantage of [employer] as a clinical decision support tool that uses Bayesian modeling to calculate individual patient's pharmacokinetic parameters and forecast the patient's drug concentration time course with the target goal AUC 24 range of 400 - 600 mg/L/hr.
[2024-01-18] MEDS: Piperacillin Sodium/Tazobactam 4.5 GM in 0.9 % Sodium Chloride 100 ML IV (21:35)
[2024-01-18 21:53] LABS: Amphetamine Screen Urine Not Detected (Not Detect); Barbiturates, Urine Not Detected (Not Detect); Benzodiazepines Screen Urine Not Detected (Not Detect); Buprenorphine Scr Positive (Not Detect); Cannabinoid Screen Urine Not Detected (Not Detect); Cocaine Screen Urine POSITIVE (Not Detect); Fentanyl, urine POSITIVE (Not Detect); Methadone Screen, Urine Positive (Not Detect); Opiate Screen Urine POSITIVE (Not Detect); Oxycodone Screen Urine Not Detected (Not Detect); Phencyclidine Screen Urine Not Detected (Not Detect)
[2024-01-19] MEDS: Piperacillin Sodium/Tazobactam 4.5 GM in 0.9 % Sodium Chloride 100 ML IV ×4 (02:31→20:57)
[2024-01-19] MEDS: 0.9 % Sodium Chloride Flush 3 ML SYRINGE IVFLUSH ×4 (02:31→22:49)
[2024-01-19 02:36] VITALS: BP 117/65; PULSE 90; RESP 20; TEMP 36.7; O2SAT 99
[2024-01-19 03:41] VITALS: BP 113/63; PULSE 92; RESP 18; TEMP 36.1; O2SAT 96
[2024-01-19] MEDS: vancomycin HCL 1,000 MG in 0.9 % Sodium Chloride 250 ML 270 MG IV ×3 (05:27→21:36)
[2024-01-19 07:51] VITALS: BP 131/70; PULSE 90; RESP 14; TEMP 36.1; O2SAT 95
--- NOTE | 2024-01-19 07:55 | P.CONGS_ITS ---
History of Present Illness Consult details Consult date: 01/19/24 Narrative: 38-year-old male patient with history of IVDA, homelessness, presenting with generalized weakness and body pain. He reports being evaluated at [facility] and was having difficulty walking. He was evaluated in the emergency department on 01/17/2024. Current evaluation with CT abdomen and pelvis reveals a pelvic fluid collection and around the right pubic rami which was thought to be suggestive of septic arthritis with pathologic fracture. Patient has no recall of fall but unfortunately is a poor historian. Review of Systems 2 Review of Systems: Yes Unobtainable due to mental condition Neurologic: Reports confusion Psychiatric: Psychiatric: Reports confusion [facility] Past Medical History Medical History Opioid use disorder Drug abuse Social History Social History Household Members: None Housing: Homeless Do you presently have visiting nurse or other home services: No Alcohol intake: current Patient Tobacco Use Status: Current someday Tobacco user e-Cigarette/Vaping Use: Never Used Second Hand Smoke Exposure: No Substance Use Type: Crack/Cocaine and Heroin Meds Allergies Allergy/AdvReac Type Severity Reaction Status Date / Time No Known Allergies Allergy Verified 01/18/24 07:16 Active Medications: Current Medications Acetaminophen (Acetaminophen 325 Mg Tablet) 650 mg PO Q6H PRN PRN Reason: Pain, Mild (Pain Scale 1-3), fever or headache Calcium Carbonate (Calcium Carbonate 750 Mg Tab.Chew) 750 mg PO Q4H PRN PRN Reason: Heartburn Piperacillin Sod/Tazobactam (Sod 4.5 gm/ Sodium Chloride) 100 mls @ 200 mls/hr IV Q6H [facility] Last Infusion: 01/19/24 03:03 Dose: Infused Vancomycin HCl 1,000 mg/ (Sodium Chloride) 270 mls @ 270 mls/hr IV Q8H [facility] Last Infusion: 01/19/24 06:27 Dose: Infused Magnesium Hydroxide (Milk Of Magnesia 30 Ml Oral.Susp) 30 ml PO DAILY PRN PRN Reason: Constipation Melatonin (Melatonin 3 Mg Tablet) 6 mg PO BEDTIME PRN PRN Reason: Insomnia Ondansetron HCl (Ondansetron Hcl 4 Mg/2 Ml Vial) 4 mg IVPUSH Q8H PRN PRN Reason: Nausea and Vomiting Pharmacy Consult (Consult Rx Vancomycin Dosing) 1 each MISCELLANE DAILY PRN PRN Reason: Consult order Sodium Chloride (0.9 % Sodium Chloride Flush 3 Ml Syringe) 3 ml IVFLUSH QSHIFT [facility] Last Admin: 01/19/24 02:31 Dose: 3 ml Physical Exam 2 Vital Signs: Vital Signs: Last Vital Signs Temp 97.0 F 01/19/24 07:51 Pulse 90 01/19/24 07:51 Resp 14 01/19/24 07:51 BP 131/70 01/19/24 07:51 Pulse Ox 95 01/19/24 07:51 O2 Del Method Room Air 01/19/24 07:51 BMI result Body Mass Index 22.6 Const: General: no acute distress and confusion Nutritional Appearance: t hin Orientation/consciousness: confusion Limitations: altered mental status HEENT: Head: Yes normocephalic Ears: hearing grossly normal bilaterally General nose exam: Normal external nose present Resp: Effort & Inspection: normal respiratory effort, no audible wheezes, no cough and no respiratory distress GI: Other: Tender over the pubic symphysis with no apparent erythema to indicate underlying abscess. No evidence of ecchymosis as well. Inspection: Yes normal to inspection Palpation (GI): Soft to palpation, Tenderness to palpation present (GI) suprapubicly, no guarding and not rigid Skin: Other: Warm and dry Neuro: General: confusion Extrem: Other: No erythema Results Labs 01/18/24 15:12 01/18/24 15:12 Labs: Abnormal lab results 01/18/24 01/18/24 Range/Units 15:12 17:53 WBC 21.7 H (4.8-10.8) X10*3/uL RBC 4.05 L (4.60-5.80) X10*6/uL Hgb 10.0 L (14.0-18.0) g/dl Hct 31.2 L (42.0-52.0) % MCV 77.0 L (80.0-98.0) fL MCH 24.7 L (27.0-33.0) pg RDW 16.2 H (11.0-16.0) % Plt Count 585 H D (160-400) X10*3/uL MPV 8.7 L (9.4-12.4) fL Immature Gran % (Auto) 1.5 H (0.0-0.4) % Neut % (Auto) 88.4 H (45-73) % Lymph % (Auto) 6.3 L (20-40) % Abs Immat Gran (auto) 0.33 H (0.00-0.03) X10*3/uL Absolute Neuts (auto) 19.2 H (2.0-8.3) x10*3/uL Potassium 3.1 L (3.3-5.1) mmol/L Carbon Dioxide 31 H (22-29) mmol/L Anion Gap 10 L (12-20) Calcium 8.3 L (8.4-10.2) mg/dL AST 41 H (5-37) U/L Total Creatine Kinase 25 L (38-174) U/L Albumin 2.0 L (3.5-5.0) g/dL Urine Protein 30 (1+) H (Neg-Trace) mg/dL Urine Opiates Screen POSITIVE H (Not Detect) Ur Buprenorphine Scrn Positive H (Not Detect) ng/mL Urine Methadone Screen Positive H (Not Detect) ng/mL Urine Fentanyl Screen POSITIVE H (Not Detect) Urine Cocaine Screen POSITIVE H (Not Detect) Short CBC 01/18/24 Range/Units 15:12 WBC 21.7 H (4.8-10.8) X10*3/uL Hgb 10.0 L (14.0-18.0) g/dl Hct 31.2 L (42.0-52.0) % Plt Count 585 H D (160-400) X10*3/uL BMP 01/18/24 15:12 Sodium 137 Potassium 3.1 L Chloride 99 Carbon Dioxide 31 H BUN 9 Creatinine 0.55 Calcium 8.3 L Cardiac Enzymes 01/18/24 Range/Units 15:12 Total Creatine Kinase 25 L (38-174) U/L Liver Function 01/18/24 Range/Units 15:12 Total Bilirubin 0.2 (0.0-1.0) mg/dL Direct Bilirubin 0.2 (0.0-0.5) mg/dL AST 41 H (5-37) U/L ALT 17 (0-40) U/L Alkaline Phosphatase 85 (39-117) U/L Albumin 2.0 L (3.5-5.0) g/dL Urine 01/18/24 Range/Units 17:53 Urine Color Dark Yellow Urine Appearance Clear Urine pH 6.0 (5.0-9.0) Ur Specific [place] 1.025 (1.005-1.025) Urine Protein 30 (1+) H (Neg-Trace) mg/dL Urine Glucose (UA) Negative (Negative) mg/dL All other labs normal. Assessment and Plan (1) Osteomyelitis: Status: Acute (2) Soft tissue abscess: Status: Acute (3) Septic arthritis: Status: Acute (4) Substance abuse: Status: Acute (5) Homeless: Status: Acute Plan 38-year-old male patient with history of IVDA, homelessness with a pelvic fracture with surrounding fluid collection suggestive of a abscess. Examination does reveal exquisite tenderness in the pubic symphysis consistent with a pelvic fracture however no evidence of ecchymosis or erythema to indicate underlying abscess or hematoma. Findings may be suggestive of a prior fall with pelvic fracture either secondarily infected or with a resulting organized hematoma. We will review images with orthopedics for another opinion. There is no outward evidence of abscess however at this time. Procedures Date of Service Date of Service: 01/19/24
--- NOTE | 2024-01-19 07:59 | HO.PM.IMPN ---
Subjective Subjective Date of Service: 01/19/24 Review of Systems Follow up pelvic pain and difficulty ambulating Physical Exam Vital Signs: Vital Signs: Last Vital Signs Temp 97.0 F 01/19/24 07:51 Pulse 90 01/19/24 07:51 Resp 14 01/19/24 07:51 BP 131/70 01/19/24 07:51 Pulse Ox 95 01/19/24 07:51 O2 Del Method Room Air 01/19/24 07:51 BMI result Body Mass Index 22.6 Objective Data Active Medications Acetaminophen (Acetaminophen 325 Mg Tablet) 650 mg PO Q6H PRN PRN Reason: Pain, Mild (Pain Scale 1-3), fever or headache Calcium Carbonate (Calcium Carbonate 750 Mg Tab.Chew) 750 mg PO Q4H PRN PRN Reason: Heartburn Piperacillin Sod/Tazobactam (Sod 4.5 gm/ Sodium Chloride) 100 mls @ 200 mls/hr IV Q6H [facility] Last Infusion: 01/19/24 03:03 Dose: Infused Documented By: JOSÉ MIGUEL Vancomycin HCl 1,000 mg/ (Sodium Chloride) 270 mls @ 270 mls/hr IV Q8H [facility] Last Infusion: 01/19/24 06:27 Dose: Infused Documented By: EDGAR Magnesium Hydroxide (Milk Of Magnesia 30 Ml Oral.Susp) 30 ml PO DAILY PRN PRN Reason: Constipation Melatonin (Melatonin 3 Mg Tablet) 6 mg PO BEDTIME PRN PRN Reason: Insomnia Ondansetron HCl (Ondansetron Hcl 4 Mg/2 Ml Vial) 4 mg IVPUSH Q8H PRN PRN Reason: Nausea and Vomiting Pharmacy Consult (Consult Rx Vancomycin Dosing) 1 each MISCELLANE DAILY PRN PRN Reason: Consult order Sodium Chloride (0.9 % Sodium Chloride Flush 3 Ml Syringe) 3 ml IVFLUSH QSHIFT [facility] Last Admin: 01/19/24 02:31 Dose: 3 ml Documented By: JOSÉ MIGUEL Labs 01/18/24 15:12 01/18/24 15:12 Labs: Laboratory Results - last 24 hr 01/18/24 01/18/24 01/18/24 08:18 15:11 15:12 MCV 77.0 L MCH 24.7 L MCHC 32.1 RDW 16.2 H Plt Count 585 H D MPV 8.7 L Immature Gran % (Auto) 1.5 H Neut % (Auto) 88.4 H Lymph % (Auto) 6.3 L [place] % (Auto) 3.5 Eos % (Auto) 0.1 Baso % (Auto) 0.2 Lymph # (Auto) 1.4 [place] # (Auto) 0.8 Eos # (Auto) 0.0 Baso # (Auto) 0.0 Abs Immat Gran (auto) 0.33 H Absolute Neuts (auto) 19.2 H Absolute Nucleated RBC 0.000 Nucleated RBC % (auto) 0.0 Anion Gap 10 L Estim Creat Clear Calc 160.3 Estimated GFR > 60 POC Glucose 80 Random Glucose 113 Lactic Acid 1.0 Calcium 8.3 L Total Bilirubin 0.2 Direct Bilirubin 0.2 AST 41 H ALT 17 Alkaline Phosphatase 85 Total Creatine Kinase 25 L Troponin I High Sens < 2.7 Total Protein 7.4 Albumin 2.0 L Lipase 11 Urine Color Urine Appearance Urine pH Ur Specific [place] Urine Protein Urine Glucose (UA) Urine Ketones Urine Blood Urine Nitrite Ur Leukocyte Esterase Urine RBC Urine WBC Ur Squamous Epith Cells Urine Bacteria Hyaline Casts Urine Opiates Screen Ur Buprenorphine Scrn Ur Oxycodone Screen Urine Methadone Screen Urine Fentanyl Screen Ur Barbiturates Screen Ur Phencyclidine Scrn Ur Amphetamines Screen U Benzodiazepines Scrn Urine Cocaine Screen U Marijuana (THC) Screen Influenza Type A (PCR) Influenza Type B (PCR) RSV RNA Qual (PCR) SARS-CoV-2 RNA (RT-PCR) 01/18/24 01/18/24 17:53 19:24 MCV MCH MCHC RDW Plt Count MPV Immature Gran % (Auto) Neut % (Auto) Lymph % (Auto) [place] % (Auto) Eos % (Auto) Baso % (Auto) Lymph # (Auto) [place] # (Auto) Eos # (Auto) Baso # (Auto) Abs Immat Gran (auto) Absolute Neuts (auto) Absolute Nucleated RBC Nucleated RBC % (auto) Anion Gap Estim Creat Clear Calc Estimated GFR POC Glucose Random Glucose Lactic Acid Calcium Total Bilirubin Direct Bilirubin AST ALT Alkaline Phosphatase Total Creatine Kinase Troponin I High Sens Total Protein Albumin Lipase Urine Color Dark Yellow Urine Appearance Clear Urine pH 6.0 Ur Specific [place] 1.025 Urine Protein 30 (1+) H Urine Glucose (UA) Negative Urine Ketones Negative Urine Blood Negative Urine Nitrite Negative Ur Leukocyte Esterase Negative Urine RBC 0-2 Urine WBC 0-5 Ur Squamous Epith Cells 0-2 Urine Bacteria None Seen Hyaline Casts 0-2 Urine Opiates Screen POSITIVE H Ur Buprenorphine Scrn Positive H Ur Oxycodone Screen Not Detected Urine Methadone Screen Positive H Urine Fentanyl Screen POSITIVE H Ur Barbiturates Screen Not Detected Ur Phencyclidine Scrn Not Detected Ur Amphetamines Screen Not Detected U Benzodiazepines Scrn Not Detected Urine Cocaine Screen POSITIVE H U Marijuana (THC) Screen Not Detected Influenza Type A (PCR) NEGATIVE Influenza Type B (PCR) NEGATIVE RSV RNA Qual (PCR) NEGATIVE SARS-CoV-2 RNA (RT-PCR) NEGATIVE Assessment and Plan (1) Soft tissue abscess: Status: Acute Plan This is a 38-year-old male with pertinent history of IV drug use disorder, history of MRSA who presents to the emergency department for evaluation of weakness and not feeling well. GPC bacteremia continue vancomycin follow final cx Sepsis due to ?septic arthritis/osteomyelitis of right pubic symphysis with multiple soft tissue abscesses vs fracture Resuscitated with IV crystalloids. vancomycin and Zosyn. Consulted General surgery> believes that area in the symphysis may be fx rather than infection Infectious Disease consult pending Generalized weakness in the setting of above Patient also has low back pain and difficulty walking. refused MRI of the lower spine Polysubstance use disorder Monitor for withdrawal. Consulted Addiction Team Methadone 50 mg daily Microcytic anemia Obtaining iron panel Hypokalemia Repleted with oral potassium DVT prophylaxis mechanical Attending Dr. Nation Full code Quality Stroke Does the patient have a stroke diagnosis?: No VTE Prior VTE?: No VTE Risk Level:: Medical - moderate - high VTE Device Contraindication: N/A - Device Ordered VTE Drug Contraindication: Treatment Not Indicated
[2024-01-19] MEDS: methADONE HCl 20 MG/2 ML ORAL.CONC 30 MG PO (09:05)
--- NOTE | 2024-01-19 09:05 | MHC.CM.PN ---
Addendum entered by Sharron Abdi RN 01/19/24 09:11: THRIVE ASSESSMENT +, PT PROVIDED W/[employer] GUIDE. 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 CM DISCUSSED DISPO W/PT AND PT IS AGREEABLE TO STR IN [facility] IS NOT CURRENTLY ACCEPTING PT'S D/T RENOVATIONS. PT DENIES HAVING A PCP AND PT REPORTS HIS HCP IS S.O. OBED LANDEROS [phone], COPY REQUESTED.
--- NOTE | 2024-01-19 11:14 | PHA.MEDREC ---
Pharmacy Consult ? Medication Reconciliation Pharmacy has completed the medication reconciliation. Spoke to patient at bedside, he stated that he doesn't take any medications outpatient, this is consistent with claim history. RPh Verified.
--- NOTE | 2024-01-19 11:36 | HO.ADDICTPRO ---
Subjective Subjective Date of Service: 01/19/24 Reason For Visit: Chills, weakness Interim History: Patient medically admitted with soft tissue abcess. History of OUD, requesting methadone during evaluation with attending this morning. Methadone 30mg X1 administered prior to t/w evaluation. Patient seen in room 351, sitting up in bed, eyes closed, wakes to voice, but drowsy. Reports methadone dose earlier in AM was helpful. Reports he was previously engaged in treatment for OUD via [facility]--acknowledges that it has been several months since he has been there and his dose was at 55mg. Reports using 3-4 bundles of heroin/fentanyl daily Denies alcohol use Reporting mild withdrawal sx, chills and body aches No other sx noted and patient very drowsy during interview. Review of Systems Constitutional: Reports as per HPI Mental Status Exam Mental Status Exam Patient Appearance: Unkempt Level of Consciousness: Drowsy Patient Behavior: Appropriate Mood Description: Calm Diagnostics Vital Signs (24Hr): Vital Signs - 24 hr 01/18/24 12:55 01/18/24 14:36 01/18/24 17:03 Temperature 97.4 F 98.5 F Pulse Rate 69 71 80 Respiratory Rate 16 18 18 Blood Pressure 107/62 109/67 99/66 Pulse Oximetry 100 100 96 Oxygen Delivery Method Room Air Room Air Room Air 01/18/24 17:54 01/18/24 22:46 01/19/24 02:36 Temperature 98.3 F 98.0 F Pulse Rate 76 88 90 Respiratory Rate 13 18 20 Blood Pressure 101/60 115/56 L 117/65 Pulse Oximetry 99 99 99 Oxygen Delivery Method Room Air Room Air Room Air 01/19/24 03:41 01/19/24 07:51 Temperature 97.0 F 97.0 F Pulse Rate 92 90 Respiratory Rate 18 14 Blood Pressure 113/63 131/70 Pulse Oximetry 96 95 Oxygen Delivery Method Room Air Room Air BMI result Body Mass Index 22.6 Labs 01/18/24 15:12 01/18/24 15:12 Labs: Laboratory Results - last 48 hr 01/18/24 01/18/24 01/18/24 08:18 15:11 15:12 WBC 21.7 H RBC 4.05 L Hgb 10.0 L Hct 31.2 L MCV 77.0 L MCH 24.7 L MCHC 32.1 RDW 16.2 H Plt Count 585 H D MPV 8.7 L Immature Gran % (Auto) 1.5 H Neut % (Auto) 88.4 H Lymph % (Auto) 6.3 L [place] % (Auto) 3.5 Eos % (Auto) 0.1 Baso % (Auto) 0.2 Lymph # (Auto) 1.4 [place] # (Auto) 0.8 Eos # (Auto) 0.0 Baso # (Auto) 0.0 Abs Immat Gran (auto) 0.33 H Absolute Neuts (auto) 19.2 H Absolute Nucleated RBC 0.000 Nucleated RBC % (auto) 0.0 Sodium 137 Potassium 3.1 L Chloride 99 Carbon Dioxide 31 H Anion Gap 10 L BUN 9 Creatinine 0.55 Estim Creat Clear Calc 160.3 Estimated GFR > 60 POC Glucose 80 Random Glucose 113 Lactic Acid 1.0 Calcium 8.3 L Total Bilirubin 0.2 Direct Bilirubin 0.2 AST 41 H ALT 17 Alkaline Phosphatase 85 Total Creatine Kinase 25 L Troponin I High Sens < 2.7 Total Protein 7.4 Albumin 2.0 L Lipase 11 Urine Color Urine Appearance Urine pH Ur Specific [place] Urine Protein Urine Glucose (UA) Urine Ketones Urine Blood Urine Nitrite Ur Leukocyte Esterase Urine RBC Urine WBC Ur Squamous Epith Cells Urine Bacteria Hyaline Casts Urine Opiates Screen Ur Buprenorphine Scrn Ur Oxycodone Screen Urine Methadone Screen Urine Fentanyl Screen Ur Barbiturates Screen Ur Phencyclidine Scrn Ur Amphetamines Screen U Benzodiazepines Scrn Urine Cocaine Screen U Marijuana (THC) Screen Influenza Type A (PCR) Influenza Type B (PCR) RSV RNA Qual (PCR) SARS-CoV-2 RNA (RT-PCR) 01/18/24 01/18/24 17:53 19:24 WBC RBC Hgb Hct MCV MCH MCHC RDW Plt Count MPV Immature Gran % (Auto) Neut % (Auto) Lymph % (Auto) [place] % (Auto) Eos % (Auto) Baso % (Auto) Lymph # (Auto) [place] # (Auto) Eos # (Auto) Baso # (Auto) Abs Immat Gran (auto) Absolute Neuts (auto) Absolute Nucleated RBC Nucleated RBC % (auto) Sodium Potassium Chloride Carbon Dioxide Anion Gap BUN Creatinine Estim Creat Clear Calc Estimated GFR POC Glucose Random Glucose Lactic Acid Calcium Total Bilirubin Direct Bilirubin AST ALT Alkaline Phosphatase Total Creatine Kinase Troponin I High Sens Total Protein Albumin Lipase Urine Color Dark Yellow Urine Appearance Clear Urine pH 6.0 Ur Specific [place] 1.025 Urine Protein 30 (1+) H Urine Glucose (UA) Negative Urine Ketones Negative Urine Blood Negative Urine Nitrite Negative Ur Leukocyte Esterase Negative Urine RBC 0-2 Urine WBC 0-5 Ur Squamous Epith Cells 0-2 Urine Bacteria None Seen Hyaline Casts 0-2 Urine Opiates Screen POSITIVE H Ur Buprenorphine Scrn Positive H Ur Oxycodone Screen Not Detected Urine Methadone Screen Positive H Urine Fentanyl Screen POSITIVE H Ur Barbiturates Screen Not Detected Ur Phencyclidine Scrn Not Detected Ur Amphetamines Screen Not Detected U Benzodiazepines Scrn Not Detected Urine Cocaine Screen POSITIVE H U Marijuana (THC) Screen Not Detected Influenza Type A (PCR) NEGATIVE Influenza Type B (PCR) NEGATIVE RSV RNA Qual (PCR) NEGATIVE SARS-CoV-2 RNA (RT-PCR) NEGATIVE Imaging Radiology Impressions: ITS Impressions Chest X-Ray 01/18/24 07:40 IMPRESSION: 1. No acute cardiopulmonary process seen. 2. Old healed right posterior fifth and sixth rib fractures. Electronically signed by: Mike Lora MD 01/18/2024 08:18 AM EDT RP Orbit X-Ray 01/18/24 16:50 Impression: I do not appreciate any radiopaque foreign bodies. Electronically signed by: Archie Rodriguez MD 01/18/2024 05:33 PM EDT RP Head CT 01/18/24 18:34 IMPRESSION: No acute intracranial finding. 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 Unfortunately due to the irregular shape of the abscesses within the adjacent muscles is difficult to measure. The right iliac is abscess measures approximately 3.8 cm in size, the right obturator abscess measures approximately 6.3 cm in size, the right hip adductor intramuscular abscess measures at least 4.3 cm in size with ill-defined collection to the posterior right gluteal muscles. Electronically signed by: Archie Rodriguez MD 01/18/2024 07:57 PM EDT Medications Medications Current Medications Acetaminophen (Acetaminophen 325 Mg Tablet) 650 mg PO Q6H PRN PRN Reason: Pain, Mild (Pain Scale 1-3), fever or headache Calcium Carbonate (Calcium Carbonate 750 Mg Tab.Chew) 750 mg PO Q4H PRN PRN Reason: Heartburn Piperacillin Sod/Tazobactam (Sod 4.5 gm/ Sodium Chloride) 100 mls @ 200 mls/hr IV Q6H [facility] Last Infusion: 01/19/24 08:36 Dose: Infused Vancomycin HCl 1,000 mg/ (Sodium Chloride) 270 mls @ 270 mls/hr IV Q8H [facility] Last Infusion: 01/19/24 06:27 Dose: Infused Magnesium Hydroxide (Milk Of Magnesia 30 Ml Oral.Susp) 30 ml PO DAILY PRN PRN Reason: Constipation Melatonin (Melatonin 3 Mg Tablet) 6 mg PO BEDTIME PRN PRN Reason: Insomnia Ondansetron HCl (Ondansetron Hcl 4 Mg/2 Ml Vial) 4 mg IVPUSH Q8H PRN PRN Reason: Nausea and Vomiting Pharmacy Consult (Consult Rx Vancomycin Dosing) 1 each MISCELLANE DAILY PRN PRN Reason: Consult order Sodium Chloride (0.9 % Sodium Chloride Flush 3 Ml Syringe) [facility] Admin: 01/19/24 08:07 Dose: 3 ml Allergies Allergies Allergy/AdvReac Type Severity Reaction Status Date / Time No Known Allergies Allergy Verified 01/18/24 07:16 Assessment & Plan Assessment & Plan (1) Opioid use disorder: Status: Acute Code(s): F11.90 - Opioid use, unspecified, uncomplicated Assessment and Plan: methadone 10mg PRN QD AM dose 50mg continue to titrate dose as appropriate will need to be referred to [facility] prior to discharge Total time managing care of this patient today _30___ minutes.
[2024-01-19] MEDS: methADONE HCl 20 MG/2 ML ORAL.CONC 10 MG PO (14:50)
[2024-01-19] MEDS: Heparin Sodium,Porcine 5,000 UNIT/ML VIAL 5000 UNIT SUBCUT (14:51)
[2024-01-19 15:28] VITALS: BP 119/70; PULSE 82; RESP 18; TEMP 37.4; O2SAT 96
[2024-01-19] MEDS: cloNIDine HCL 0.1 MG TABLET PO ×2 (16:44→21:38)
[2024-01-19 19:13] VITALS: BP 114/68; PULSE 86; RESP 18; TEMP 37.4; O2SAT 96
[2024-01-19 19:26] LABS: MANUAL DIFF FLAG NO
[2024-01-19 19:29] LABS: Basophils Absolute Auto 0.1 X10*3/uL (0.0-0.2); Basophils Percent Auto 0.3 % (0-2); Eosinophils Absolute Auto 0.1 X10*3/uL (0.0-0.4); Eosinophils Percent Auto 0.4 % (0-4); Hematocrit 30.9 % (42.0-52.0); Hemoglobin 9.7 g/dl (14.0-18.0); Imm Gran Abs Auto 0.79 X10*3/uL (0.00-0.03); Imm Gran Pct Auto 4.2 % (0.0-0.4); Lymphocytes Absolute Auto 1.8 X10*3/uL (1.2-4.9); Lymphocytes Percent Auto 9.6 % (20-40); Mean Corpuscular HGB Conc 31.4 g/dl (31.0-36.0); Mean Corpuscular Hemoglobin 24.6 pg (27.0-33.0); Mean Corpuscular Volume 78.2 fL (80.0-98.0); Mean Platelet Volume 9.9 fL (9.4-12.4); Monocytes Absolute Auto 0.9 X10*3/uL (0.1-1.2); Monocytes Percent Auto 4.8 % (2-11); Neutrophils Absolute Auto 15.1 x10*3/uL (2.0-8.3); Neutrophils Percent Auto 80.7 % (45-73); PLT CLUMP 1; Red Blood Count 3.95 X10*6/uL (4.60-5.80); Red Cell Distribution Width 16.6 % (11.0-16.0); SCAN SMEAR FLAG 1
[2024-01-19 19:50] LABS: Anion Gap 9 (12-20); Blood Urea Nitrogen 9 mg/dL (9-16); Calcium 7.9 mg/dL (8.4-10.2); Carbon Dioxide 27 mmol/L (22-29); Chloride 102 mmol/L (96-108); Creatinine Clr Calc Pharmacy 146.9; Estimated Glomerular Filt Rate > 60; Glucose Random 127 mg/dL (60-115); Iron 13 mcg/dL (45-160); Percent Iron Saturation 14 % (15-50); Potassium 4.4 mmol/L (3.3-5.1); Sodium 134 mmol/L (135-145); Total Iron Binding Capacity 93 mcg/dL (228-428); Unsaturated Iron Binding 80 ug/dL
--- NOTE | 2024-01-19 19:55 | HE.PHANOTE ---
Re: Doc Renal function has declined slightly. Trough returned at 14.0. Continue current dose of 1,000 mg q8h, with predicted AUC 501, and predicted trough of 14.5. Next trough 01/19 @ 1900.
[2024-01-19 20:09] LABS: Platelet Count 431 X10*3/uL (160-400); White Blood Count 18.7 X10*3/uL (4.8-10.8)
[2024-01-19 21:38] VITALS: BP 114/68
[2024-01-20] MEDS: Piperacillin Sodium/Tazobactam 4.5 GM in 0.9 % Sodium Chloride 100 ML IV ×2 (01:30→08:43)
[2024-01-20 03:59] VITALS: BP 118/73; PULSE 72; RESP 16; TEMP 36.9; O2SAT 97
[2024-01-20] MEDS: vancomycin HCL 1,000 MG in 0.9 % Sodium Chloride 250 ML 270 MG IV ×2 (04:21→13:35)
[2024-01-20 07:15] VITALS: BP 128/82; PULSE 69; RESP 14; TEMP 36.5; O2SAT 98
[2024-01-20 07:45] LABS: Creatinine Clr Calc Pharmacy 154.7; Estimated Glomerular Filt Rate > 60
[2024-01-20] MEDS: methADONE HCl 20 MG/2 ML ORAL.CONC 50 MG PO (08:39)
[2024-01-20] MEDS: cloNIDine HCL 0.1 MG TABLET PO ×2 (08:41→20:09)
[2024-01-20] MEDS: 0.9 % Sodium Chloride Flush 3 ML SYRINGE IVFLUSH ×3 (08:41→20:24)
--- NOTE | 2024-01-20 10:19 | PC.NURSE ---
left hand swelling,estefanía wrap on ,patient refuses to unwrap the estefanía wrap to assess the area,Dr. Portillo made aware
--- NOTE | 2024-01-20 12:17 | P.PNIM_ITS ---
Subjective Subjective Date of Service: 01/20/24 Interval History: Complaining of pelvic pain, denies fever, chills, refusing examination . Review of Systems All other system reviewed and are negative Physical Exam 2 Vital Signs: Vital Signs: Last Vital Signs Temp 97.7 F 01/20/24 07:15 Pulse 69 01/20/24 07:15 Resp 14 01/20/24 07:15 BP 128/82 01/20/24 07:15 Pulse Ox 98 01/20/24 07:15 O2 Del Method Room Air 01/20/24 07:15 BMI result Body Mass Index 22.6 Const: Other: Limited examination since patient non cooperative and refusing to unwrap left forearm dressing. General resting comfortably in no acute distress. Neck no JVD. CVS regular rate rhythm, Respiratory lungs clear to auscultation, no respiratory distress. Gastrointestinal abdomen soft, non tender, bowel sounds audible Tenderness rt. groin , no ecchymosis Extremities no LE edema. Both hands multiple cracks, left forearm dressing in place patient refusing to unwrap the dressing. Neuro non focal , speech clear Objective Data Active Medications Acetaminophen (Acetaminophen 325 Mg Tablet) 650 mg PO Q6H PRN PRN Reason: Pain, Mild (Pain Scale 1-3), fever or headache Calcium Carbonate (Calcium Carbonate 750 Mg Tab.Chew) 750 mg PO Q4H PRN PRN Reason: Heartburn Clonidine HCl (Clonidine Hcl 0.1 Mg Tablet) 0.1 mg PO BID [facility]; Protocol Last Admin: 01/20/24 08:41 Dose: 0.1 mg Documented By: BERNICE Heparin Sodium (Porcine) (Heparin Sodium,Porcine 5,000 Unit/Ml Vial) 5,000 unit SUBCUT Q12H [facility] Last Admin: 01/20/24 01:24 Dose: Not Given Documented By: XAVI Non-Admin Reason: Patient Refused Piperacillin Sod/Tazobactam (Sod 4.5 gm/ Sodium Chloride) 100 mls @ 200 mls/hr IV Q6H [facility] Last Infusion: 01/20/24 10:37 Dose: Infused Documented By: BERNICE Vancomycin HCl 1,000 mg/ (Sodium Chloride) 270 mls @ 270 mls/hr IV Q8H [facility] Last Infusion: 01/20/24 05:21 Dose: Infused Documented By: HO.OR[place]V Magnesium Hydroxide (Milk Of Magnesia 30 Ml Oral.Susp) 30 ml PO DAILY PRN PRN Reason: Constipation Melatonin (Melatonin 3 Mg Tablet) 6 mg PO BEDTIME PRN PRN Reason: Insomnia Methadone HCl (Methadone Hcl 20 Mg/2 Ml Oral.Conc) 50 mg PO DAILY [facility] Last Admin: 01/20/24 08:39 Dose: 50 mg Documented By: BERNICE Co-signed By: ABDI Methadone HCl (Methadone Hcl 20 Mg/2 Ml Oral.Conc) 10 mg PO DAILY PRN PRN Reason: Opiate Withdrawal Ondansetron HCl (Ondansetron Hcl 4 Mg/2 Ml Vial) 4 mg IVPUSH Q8H PRN PRN Reason: Nausea and Vomiting Pharmacy Consult (Consult Rx Vancomycin Dosing) 1 each MISCELLANE DAILY PRN PRN Reason: Consult order Sodium Chloride (0.9 % Sodium Chloride Flush 3 Ml Syringe) 3 ml IVFLUSH QSHIFT [facility] Last Admin: 01/20/24 08:41 Dose: 3 ml Documented By: BERNICE Labs 01/19/24 19:17 01/20/24 07:05 Labs: Laboratory Results - last 24 hr 01/19/24 01/20/24 19:17 07:05 MCV 78.2 L MCH 24.6 L MCHC 31.4 RDW 16.6 H Plt Count 431 H D MPV 9.9 Immature Gran % (Auto) 4.2 H Neut % (Auto) 80.7 H Lymph % (Auto) 9.6 L [place] % (Auto) 4.8 Eos % (Auto) 0.4 Baso % (Auto) 0.3 Lymph # (Auto) 1.8 [place] # (Auto) 0.9 Eos # (Auto) 0.1 Baso # (Auto) 0.1 Abs Immat Gran (auto) 0.79 H Absolute Neuts (auto) 15.1 H Absolute Nucleated RBC 0.000 Nucleated RBC % (auto) 0.0 Anion Gap 9 L Estim Creat Clear Calc 146.9 154.7 Estimated GFR > 60 > 60 Random Glucose 127 H Calcium 7.9 L Iron 13 L TIBC 93 L % Saturation 14 L Unsat Iron Binding 80 Random Vancomycin 14.0 L Microbiology Microbiology Results: Microbiology 01/18/24 19:55 Blood Culture - Preliminary Blood - Venous Staphylococcus aureus 01/18/24 15:12 Blood Culture - Preliminary Blood - Venous Staphylococcus aureus Assessment and Plan (1) Staphylococcus aureus bacteremia: Status: Acute (2) Soft tissue abscess: Status: Acute (3) Osteomyelitis: Status: Acute (4) Acute hypokalemia: Status: Acute (5) Substance abuse: Status: Acute Plan 38-year-old male with pertinent history of IV drug use , homelessness, history of MRSA who presents to the emergency department for evaluation of weakness and not feeling well. Staphylococcus aureus bacteremia continue vancomycin , follow sensitivities Sepsis due to ?septic arthritis/osteomyelitis of right pubic symphysis with multiple soft tissue abscesses vs fracture Blood cultures x2 positive for Staph aureus bacteremia, persistent leukocytosis on iv vancomycin and Zosyn. Being followed by Dr. Maciel will discuss further management question IR drainage Will check ESR/CRP, follow CBC Obtain echocardiogram ID recommends 6-8 weeks of IV vanco, added cefazolin 2 g q.8 hours, follow final sensitivities, check HIV and hepatitis-C Generalized weakness in the setting of above refused MRI of the lower spine Polysubstance use disorder Reports using 3-4 bundles of heroin/fentanyl daily , continue Methadone 50 mg daily , dose titration as per Addiction Team, continue clonidine Microcytic anemia iron panel c/w anemia of inflammatory disease Hypokalemia repleted and normalized DVT prophylaxis mechanical Full code In my clinical judgment patient requires continued inpatient hospitalization for management of bacteremia requiring IV antibiotics and expert consultation. Quality Stroke Does the patient have a stroke diagnosis?: No VTE Prior VTE?: No VTE Risk Level:: Medical - moderate - high VTE Device Contraindication: N/A - Device Ordered VTE Drug Contraindication: Treatment Not Indicated
--- NOTE | 2024-01-20 12:43 | P.CNID_ITS ---
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 He says he had been seen at [facility] in past. He has pathologic sacral fracture with some abscesses around that. He is homeless and uses injection drugs. Review of Systems 2 Constitutional: Constitutional: Reports fever(s) Genitourinary: Comments: muscle pain right ,cant walk PMFSH Past Medical History Medical History (Updated 01/20/24 @ 12:47 by Lulu Lora MD) Staphylococcus aureus bacteremia Opioid use disorder Drug abuse Social History Social History Household Members: None Housing: Homeless Do you presently have visiting nurse or other home services: No Alcohol intake: current Patient Tobacco Use Status: Current someday Tobacco user e-Cigarette/Vaping Use: Never Used Second Hand Smoke Exposure: No Substance Use Type: Crack/Cocaine and Heroin service: No Meds Allergies Allergy/AdvReac Type Severity Reaction Status Date / Time No Known Allergies Allergy Verified 01/18/24 07:16 Active Medications: Current Medications Acetaminophen (Acetaminophen 325 Mg Tablet) 650 mg PO Q6H PRN PRN Reason: Pain, Mild (Pain Scale 1-3), fever or headache Calcium Carbonate (Calcium Carbonate 750 Mg Tab.Chew) 750 mg PO Q4H PRN PRN Reason: Heartburn Clonidine HCl (Clonidine Hcl 0.1 Mg Tablet) 0.1 mg PO BID [facility]; Protocol Last Admin: 01/20/24 08:41 Dose: 0.1 mg Heparin Sodium (Porcine) (Heparin Sodium,Porcine 5,000 Unit/Ml Vial) 5,000 unit SUBCUT Q12H [facility] Last Admin: 01/20/24 01:24 Dose: Not Given Piperacillin Sod/Tazobactam (Sod 4.5 gm/ Sodium Chloride) 100 mls @ 200 mls/hr IV Q6H [facility] Last Infusion: 01/20/24 10:37 Dose: Infused Vancomycin HCl 1,000 mg/ (Sodium Chloride) 270 mls @ 270 mls/hr IV Q8H [facility] Last Infusion: 01/20/24 05:21 Dose: Infused Magnesium Hydroxide (Milk Of Magnesia 30 Ml Oral.Susp) 30 ml PO DAILY PRN PRN Reason: Constipation Melatonin (Melatonin 3 Mg Tablet) 6 mg PO BEDTIME PRN PRN Reason: Insomnia Methadone HCl (Methadone Hcl 20 Mg/2 Ml Oral.Conc) 50 mg PO DAILY [facility] Last Admin: 01/20/24 08:39 Dose: 50 mg Methadone HCl (Methadone Hcl 20 Mg/2 Ml Oral.Conc) 10 mg PO DAILY PRN PRN Reason: Opiate Withdrawal Ondansetron HCl (Ondansetron Hcl 4 Mg/2 Ml Vial) 4 mg IVPUSH Q8H PRN PRN Reason: Nausea and Vomiting Pharmacy Consult (Consult Rx Vancomycin Dosing) 1 each MISCELLANE DAILY PRN PRN Reason: Consult order Sodium Chloride (0.9 % Sodium Chloride Flush 3 Ml Syringe) 3 ml IVFLUSH QSHIFT [facility] Last Admin: 01/20/24 08:41 Dose: 3 ml Physical Exam 2 Vital Signs: Vital Signs: Last Vital Signs Temp 97.7 F 01/20/24 07:15 Pulse 69 01/20/24 07:15 Resp 14 01/20/24 07:15 BP 128/82 01/20/24 07:15 Pulse Ox 98 01/20/24 07:15 O2 Del Method Room Air 01/20/24 07:15 BMI result Body Mass Index 22.6 Const: General: cooperative HEENT: Head: Yes normal to inspection Face and sinus: Yes normal facial exam Mouth: Normal oral and palatal mucosa present Teeth and gingiva: d entition normal Eyes: General: appearance normal, both eyes and all related structures P upils: Equal, round and reactive pupils present Resp: Effort & Inspection: normal respiratory effort Cardio: Rate: regular rate Rhythm: regular rhythm GI: Palpation (GI): Soft to palpation and nontender : General: Yes no CVA tenderness Back/Spine/Pelvis: Other: pain pelvis Back: no CVA tenderness Skin: General skin exam: no rashes or lesions noted Neuro: General: moves all extremities Cranial nerves: Yes Equal, round and reactive pupils present Extrem: General: Yes normal to inspection Psych: Appearance: grossly normal Results Labs 01/19/24 19:17 01/20/24 07:05 Labs: Short CBC 01/19/24 Range/Units 19:17 WBC 18.7 H (4.8-10.8) X10*3/uL Hgb 9.7 L (14.0-18.0) g/dl Hct 30.9 L (42.0-52.0) % Plt Count 431 H D (160-400) X10*3/uL BMP 01/19/24 01/20/24 19:17 07:05 Sodium 134 L Potassium 4.4 D Chloride 102 Carbon Dioxide 27 BUN 9 Creatinine 0.60 0.57 Calcium 7.9 L Microbiology Microbiology Results: Microbiology 01/18/24 19:55 Blood - Venous Blood Culture - Preliminary Staphylococcus aureus 01/18/24 15:12 Blood - Venous Blood Culture - Preliminary Staphylococcus aureus Assessment and Plan (1) Osteomyelitis: Status: Acute (2) Septic arthritis: Status: Acute (3) Staphylococcus aureus bacteremia: Status: Acute Plan He needs six to eight weeks IV antibiotics. Continue Vancomycin for now pending ID of staph. Would get echo if not done. Surgery follow,abscess drain ?IR if worsens HIV test Hepatitis C again check.
--- NOTE | 2024-01-20 13:44 | PM.EVENT ---
Event Note Date of Service: 01/20/24 Event Note: Dr Leung reviewed case with Dr Maciel, patient will be NWB RLE no orthopedic intervention warranted Time Spent With Patient Time: Total time managing care of this patient today ____ minutes.
[2024-01-20] MEDS: ceFAZolin Sodium/Dextrose,Iso 2 GM/50 ML PIGGYBACK IV ×2 (14:57→21:26)
--- NOTE | 2024-01-20 15:30 | MHC.CM.PN ---
EMR REVIEWED AND PT WILL NEED TO GO TO STR. WILL NEED TO HAVE GUEST DOSING SET UP BY [facility] THE METHADONE WAS STARTED HERE, TEAM AWARE. [facility] FOLLOWING.
--- NOTE | 2024-01-20 15:38 | PC.NURSE ---
Patient refuses Heparin,risks explained, encouraged activity,Dr. Portillo made aware
[2024-01-20 15:54] VITALS: BP 102/61; PULSE 66; RESP 18; TEMP 36.4; O2SAT 99
--- NOTE | 2024-01-20 17:28 | HO.ADDICTPRO ---
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 No withdrawal sx reported and none visible Review of Systems Constitutional: Reports as per HPI Mental Status Exam Mental Status Exam Level of Consciousness: Drowsy Patient Behavior: Appropriate (sleepy ) Diagnostics Vital Signs (24Hr): Vital Signs - 24 hr 01/19/24 19:13 01/19/24 21:38 01/20/24 03:59 Temperature 99.3 F 98.4 F Pulse Rate 86 72 Respiratory Rate 18 16 Blood Pressure 114/68 114/68 118/73 Pulse Oximetry 96 97 Oxygen Delivery Method Room Air Room Air 01/20/24 07:15 01/20/24 15:54 Temperature 97.7 F 97.5 F Pulse Rate 69 66 Respiratory Rate 14 18 Blood Pressure 128/82 102/61 Pulse Oximetry 98 99 Oxygen Delivery Method Room Air Room Air BMI result Body Mass Index 22.6 Labs 01/19/24 19:17 01/20/24 07:05 Labs: Laboratory Results - last 48 hr 01/18/24 01/18/24 01/19/24 17:53 19:24 19:17 WBC 18.7 H RBC 3.95 L Hgb 9.7 L Hct 30.9 L MCV 78.2 L MCH 24.6 L MCHC 31.4 RDW 16.6 H Plt Count 431 H D MPV 9.9 Immature Gran % (Auto) 4.2 H Neut % (Auto) 80.7 H Lymph % (Auto) 9.6 L Long % (Auto) 4.8 Eos % (Auto) 0.4 Baso % (Auto) 0.3 Lymph # (Auto) 1.8 Long # (Auto) 0.9 Eos # (Auto) 0.1 Baso # (Auto) 0.1 Abs Immat Gran (auto) 0.79 H Absolute Neuts (auto) 15.1 H Absolute Nucleated RBC 0.000 Nucleated RBC % (auto) 0.0 Sodium 134 L Potassium 4.4 D Chloride 102 Carbon Dioxide 27 Anion Gap 9 L BUN 9 Creatinine 0.60 Estim Creat Clear Calc 146.9 Estimated GFR > 60 Random Glucose 127 H Calcium 7.9 L Iron 13 L TIBC 93 L % Saturation 14 L Unsat Iron Binding 80 Urine Color Dark Yellow Urine Appearance Clear Urine pH 6.0 Ur Specific [place] 1.025 Urine Protein 30 (1+) H Urine Glucose (UA) Negative Urine Ketones Negative Urine Blood Negative Urine Nitrite Negative Ur Leukocyte Esterase Negative Urine RBC 0-2 Urine WBC 0-5 Ur Squamous Epith Cells 0-2 Urine Bacteria None Seen Hyaline Casts 0-2 Random Vancomycin 14.0 L Urine Opiates Screen POSITIVE H Ur Buprenorphine Scrn Positive H Ur Oxycodone Screen Not Detected Urine Methadone Screen Positive H Urine Fentanyl Screen POSITIVE H Ur Barbiturates Screen Not Detected Ur Phencyclidine Scrn Not Detected Ur Amphetamines Screen Not Detected U Benzodiazepines Scrn Not Detected Urine Cocaine Screen POSITIVE H U Marijuana (THC) Screen Not Detected Influenza Type A (PCR) NEGATIVE Influenza Type B (PCR) NEGATIVE RSV RNA Qual (PCR) NEGATIVE SARS-CoV-2 RNA (RT-PCR) NEGATIVE 01/20/24 07:05 WBC RBC Hgb Hct MCV MCH MCHC RDW Plt Count MPV Immature Gran % (Auto) Neut % (Auto) Lymph % (Auto) Long % (Auto) Eos % (Auto) Baso % (Auto) Lymph # (Auto) Long # (Auto) Eos # (Auto) Baso # (Auto) Abs Immat Gran (auto) Absolute Neuts (auto) Absolute Nucleated RBC Nucleated RBC % (auto) Sodium Potassium Chloride Carbon Dioxide Anion Gap BUN Creatinine 0.57 Estim Creat Clear Calc 154.7 Estimated GFR > 60 Random Glucose Calcium Iron TIBC % Saturation Unsat Iron Binding Urine Color Urine Appearance Urine pH Ur Specific [place] Urine Protein Urine Glucose (UA) Urine Ketones Urine Blood Urine Nitrite Ur Leukocyte Esterase Urine RBC Urine WBC Ur Squamous Epith Cells Urine Bacteria Hyaline Casts Random Vancomycin Urine Opiates Screen Ur Buprenorphine Scrn Ur Oxycodone Screen Urine Methadone Screen Urine Fentanyl Screen Ur Barbiturates Screen Ur Phencyclidine Scrn Ur Amphetamines Screen U Benzodiazepines Scrn Urine Cocaine Screen U Marijuana (THC) Screen Influenza Type A (PCR) Influenza Type B (PCR) RSV RNA Qual (PCR) SARS-CoV-2 RNA (RT-PCR) Imaging Radiology Impressions: ITS Impressions Chest X-Ray 01/18/24 07:40 IMPRESSION: 1. No acute cardiopulmonary process seen. 2. Old healed right posterior fifth and sixth rib fractures. Electronically signed by: Mike Lora MD 01/18/2024 08:18 AM EDT RP Orbit X-Ray 01/18/24 16:50 Impression: I do not appreciate any radiopaque foreign bodies. Electronically signed by: Archie Rodriguez MD 01/18/2024 05:33 PM EDT RP Head CT 01/18/24 18:34 IMPRESSION: No acute intracranial finding. 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 Unfortunately due to the irregular shape of the abscesses within the adjacent muscles is difficult to measure. The right iliac is abscess measures approximately 3.8 cm in size, the right obturator abscess measures approximately 6.3 cm in size, the right hip adductor intramuscular abscess measures at least 4.3 cm in size with ill-defined collection to the posterior right gluteal muscles. Electronically signed by: Archie Rodriguez MD 01/18/2024 07:57 PM EDT RP Medications Medications Current Medications Acetaminophen (Acetaminophen 325 Mg Tablet) 650 mg PO Q6H PRN PRN Reason: Pain, Mild (Pain Scale 1-3), fever or headache Calcium Carbonate (Calcium Carbonate 750 Mg Tab.Chew) 750 mg PO Q4H PRN PRN Reason: Heartburn Clonidine HCl (Clonidine Hcl 0.1 Mg Tablet) 0.1 mg PO BID [facility]; Protocol Last Admin: 01/20/24 08:41 Dose: 0.1 mg Heparin Sodium (Porcine) (Heparin Sodium,Porcine 5,000 Unit/Ml Vial) 5,000 unit SUBCUT Q12H [facility] Last Admin: 01/20/24 15:00 Dose: Not Given Vancomycin HCl 1,000 mg/ (Sodium Chloride) 270 mls @ 270 mls/hr IV Q8H [facility] Last Infusion: 01/20/24 14:55 Dose: Infused Cefazolin Sodium/Dextrose (Ancef) 2 gm in 50 mls @ 100 mls/hr IV Q8H [facility] Last Infusion: 01/20/24 15:31 Dose: Infused Magnesium Hydroxide (Milk Of Magnesia 30 Ml Oral.Susp) 30 ml PO DAILY PRN PRN Reason: Constipation Melatonin (Melatonin 3 Mg Tablet) 6 mg PO BEDTIME PRN PRN Reason: Insomnia Methadone HCl (Methadone Hcl 20 Mg/2 Ml Oral.Conc) 50 mg PO DAILY [facility] Last Admin: 01/20/24 08:39 Dose: 50 mg Methadone HCl (Methadone Hcl 20 Mg/2 Ml Oral.Conc) 10 mg PO DAILY PRN PRN Reason: Opiate Withdrawal Ondansetron HCl (Ondansetron Hcl 4 Mg/2 Ml Vial) 4 mg IVPUSH Q8H PRN PRN Reason: Nausea and Vomiting Pharmacy Consult (Consult Rx Vancomycin Dosing) 1 each MISCELLANE DAILY PRN PRN Reason: Consult order Sodium Chloride (0.9 % Sodium Chloride Flush 3 Ml Syringe) 3 ml IVFLUSH QSHIFT [facility] Last Admin: 01/20/24 14:55 Dose: 3 ml Allergies Allergies Allergy/AdvReac Type Severity Reaction Status Date / Time No Known Allergies Allergy Verified 01/18/24 07:16 Assessment & Plan Assessment & Plan (1) Opioid use disorder: Status: Acute Code(s): F11.90 - Opioid use, unspecified, uncomplicated Assessment and Plan: continue methadone at current dose referral to establish home clinic to be completed in AM prior to discharge Total time managing care of this patient today _15___ minutes.
[2024-01-20 19:33] LABS: Hematocrit 32.4 % (42.0-52.0); Hemoglobin 10.1 g/dl (14.0-18.0); Mean Corpuscular HGB Conc 31.2 g/dl (31.0-36.0); Mean Corpuscular Hemoglobin 24.8 pg (27.0-33.0); Mean Corpuscular Volume 79.4 fL (80.0-98.0); Mean Platelet Volume 8.4 fL (9.4-12.4); Platelet Count 485 X10*3/uL (160-400); Red Blood Count 4.08 X10*6/uL (4.60-5.80); Red Cell Distribution Width 16.7 % (11.0-16.0); White Blood Count 16.4 X10*3/uL (4.8-10.8)
[2024-01-20 19:42] LABS: Vancomycin Random 18.4 mcg/mL (15-20)
[2024-01-20 20:00] VITALS: BP 111/64; PULSE 80; RESP 16; TEMP 36.7; O2SAT 97
[2024-01-20 20:09] VITALS: BP 111/64
[2024-01-20 20:18] LABS: Erythrocyte Sedimentation Rate 94 MM/HR (0-15)
--- NOTE | 2024-01-20 20:19 | HE.PHANOTE ---
VANCO DOSE ADJUSTMENT BASED ON SCR AND TROUGH OF 18.4 DOSE CHANGED TO 750 Q 8H. NEXT LEVEL 01/20 @ 1900
[2024-01-20] MEDS: vancomycin HCL 750 MG in 0.9 % Sodium Chloride 250 ML 265 MG IV (20:24)
[2024-01-21 04:00] VITALS: BP 113/63; PULSE 82; RESP 18; TEMP 36.9; O2SAT 97
[2024-01-21] MEDS: vancomycin HCL 750 MG in 0.9 % Sodium Chloride 250 ML 265 MG IV ×3 (04:50→20:20)
[2024-01-21] MEDS: ceFAZolin Sodium/Dextrose,Iso 2 GM/50 ML PIGGYBACK IV ×3 (06:04→21:39)
--- NOTE | 2024-01-21 07:00 | CA_ITS ---
Transthoracic Echocardiogram Patient (Last, First, Middle): Michael Baldwin, Gender: Male Date of : 1985 Age: 38 Procedure Date: 01/21/2024 Procedure Type: Transthoracic Echocardiogram Location: S3E Height: 167.64 cm Weight: 63.5 kg BSA: 1.72 m2 Heart Rate: 74 bpm BP: 113 / 63 mmHg Global Marketing Intern: SB Referring MD: Miroslava Portillo MD Symptoms: bacteremia Study Quality: Adequate ECG Rhythm: Sinus Conclusions: - The left ventricular systolic function is normal. The calculated ejection fraction is 64% by biplane method. - No obvious valvular pathology seen on this study. Findings Left Ventricle Normal left ventricular cavity size. There is normal left ventricular wall thickness. The left ventricular systolic function is normal. The calculated ejection fraction is 64% by biplane method. There is no evidence of regional wall motion abnormalities. Diastolic function is normal for age. Right Ventricle Normal right ventricular cavity size and systolic function. Atria Both atria are normal in size. Aortic Valve There is a normal trileaflet aortic valve. There is no aortic valve stenosis. There is no aortic valve regurgitation. Mitral Valve The mitral valve appears normal. There is no mitral valve regurgitation. There is no mitral valve stenosis. Pulmonic Valve The pulmonic valve is likely normal. Tricuspid Valve There is trace tricuspid valve regurgitation. Tricuspid regurgitation envelope is inadequate for calculation of right ventricular systolic pressure. Great Vessels The asc aorta is normal in size. Venous The inferior vena cava is normal in size and collapses greater than 50% with inspiration. Pericardium/Pleural There is no evidence of pericardial effusion. Prior Study Comparison No prior study available for comparison. Recommendations, Care & Conclusions No obvious valvular pathology seen on this study. Measurements 2D Linear Measurements IVSd: 0.74 0.6-0.9/0.6-1.0 cm LVIDd: 4.50 3.9-5.3/4.2-5.9 cm LVIDd Index: 2.62 2.4-3.2/2.2-3.1 cm/m2 LVIDs: 2.67 2.0-3.6 cm LVPWd: 0.81 0.7-1.1 cm LA Diam: 3.30 2.7-3.8/3.0-4.0 cm LAIDs Index: 1.92 1.5-2.3 cm/m2 LV Mass: 135.53 67-162/88-224 g LV Mass Index: 78.80 43-95/49-115 g/m2 LVOT Diam: 2.20 3.0+(-)1.3 cm 2D Systolic Function EF 4C: 61.40 >55% EF 2C: 65.40 >55% EF BiP: 64.00 >55% Mitral Valve MV Pk E: 0.89 MV PK A: 0.64 MV Decel Time: 196.00 E/A: 1.40 E'Lateral: 17.60 E'Medial: 10.40 E/E' Med: 8.50 E/E' Lat: 5.00 PHT: 57.00 MVA PHT: 3.86 Decel [place]: 4.54 Aortic Valve AoV Pk Ky: 1.49 AoV Pk Grad: 9.00 CARINE: 3.52 LVOT LVOT Pk Ky: 1.38 LVOT Mn Ky: 0.91 LVOT VTI: 0.22 LVOT Pk Grad: 8.00 LVOT Mn Grad: 4.00 LVOT Diam: 2.20 LVOT Area: 3.80 Diastolic Function MV Pk E: 0.89 MV Pk A: 0.64 E/A: 1.40 E'Medial: 10.40 E/E' Med: 8.50 E' Laterial: 17.60 E/E' Lat: 5.00 Right Ventricle TVS' Ky: 18.20 Tricuspid Valve RA Press: 3.00 Great Vessels Aorta Sinus of Valsalva: 3.10 2.0-3.5 cm Ao Asc: 2.80 2.1-3.4 cm Ao Arch: 2.80 Pulmonary Veins Pulm Vein S/D 0.90 Pulmonary Valve PV Pk Ky: 0.95 Peak PV Grad: 4.00 Updated in Other Vendor System with Status of Final Nishant Adams MD electronically signed on 01/21/2024 11:05:49 AM with status of Final
[2024-01-21 07:47] VITALS: BP 119/68; PULSE 75; RESP 14; TEMP 36.8; O2SAT 100
[2024-01-21] MEDS: cloNIDine HCL 0.1 MG TABLET PO ×2 (08:30→20:20)
[2024-01-21] MEDS: 0.9 % Sodium Chloride Flush 3 ML SYRINGE IVFLUSH ×4 (08:31→21:40)
[2024-01-21] MEDS: methADONE HCl 20 MG/2 ML ORAL.CONC 50 MG PO (08:31)
[2024-01-21] MEDS: oxyCODONE HCl Immed Release 5 MG TABLET PO ×2 (10:52→20:31)
[2024-01-21 15:30] LABS: Hematocrit 31.8 % (42.0-52.0); Hemoglobin 9.9 g/dl (14.0-18.0); Mean Corpuscular HGB Conc 31.1 g/dl (31.0-36.0); Mean Corpuscular Hemoglobin 24.6 pg (27.0-33.0); Mean Corpuscular Volume 78.9 fL (80.0-98.0); Mean Platelet Volume 8.4 fL (9.4-12.4); Platelet Count 448 X10*3/uL (160-400); Red Blood Count 4.03 X10*6/uL (4.60-5.80); Red Cell Distribution Width 16.7 % (11.0-16.0); White Blood Count 18.2 X10*3/uL (4.8-10.8)
--- NOTE | 2024-01-21 15:30 | MHC.CM.PN ---
PT IS EXPECTED TO NEED LT IV ABX AT [place] AND HAS ACCEPTED A BED OFFER FROM [facility] PT WAS PREVIOUSLY ACTIVE WITH [facility] FOR MMT, A REFERRAL WAS MADE TO THEM FOR POST STR CARE ONCE A RESPONSE IS RECEIVED, CM WILL REFER PT TO [facility] [place] FOR DOSING WHILE IN REHAB
--- NOTE | 2024-01-21 15:43 | PM.PNGS ---
Subjective Subjective Date of Service: 01/21/24 Interval history: Patient continues to report pain in the pelvis, asking for more pain medication Physical Exam Vital Signs: Vital Signs: Last Vital Signs Temp 98.2 F 01/21/24 07:47 Pulse 75 01/21/24 07:47 Resp 14 01/21/24 07:47 BP 119/68 01/21/24 07:47 Pulse Ox 100 01/21/24 07:47 O2 Del Method Room Air 01/21/24 07:47 BMI result Body Mass Index 22.6 Const: General: lethargic Nutritional Appearance: thin Orientation/consciousness: lethargic Resp: Effort & Inspection: normal respiratory effort, no audible wheezes, no cough and no respiratory distress GI: Other: Soft and nondistended, tenderness in the pelvis unchanged. Overlying skin normal appearing without erythema or ecchymosis Skin: Other: Warm, dry, no rash Objective Data Active Medications Acetaminophen (Acetaminophen 325 Mg Tablet) 650 mg PO Q6H PRN PRN Reason: Pain, Mild (Pain Scale 1-3), fever or headache Calcium Carbonate (Calcium Carbonate 750 Mg Tab.Chew) 750 mg PO Q4H PRN PRN Reason: Heartburn Clonidine HCl (Clonidine Hcl 0.1 Mg Tablet) 0.1 mg PO BID [facility]; Protocol Last Admin: 01/21/24 08:30 Dose: 0.1 mg Documented By: ELICIA Heparin Sodium (Porcine) (Heparin Sodium,Porcine 5,000 Unit/Ml Vial) 5,000 unit SUBCUT Q12H [facility] Last Admin: 01/21/24 13:24 Dose: Not Given Documented By: ELICIA Non-Admin Reason: Patient Refused Cefazolin Sodium/Dextrose (Ancef) 2 gm in 50 mls @ 100 mls/hr IV Q8H [facility] Last Infusion: 01/21/24 15:35 Dose: Infused Documented By: RADHA Vancomycin HCl 750 mg/ Sodium (Chloride) 265 mls @ 265 mls/hr IV Q8H [facility] Last Infusion: 01/21/24 14:56 Dose: Infused Documented By: RADHA Magnesium Hydroxide (Milk Of Magnesia 30 Ml Oral.Susp) 30 ml PO DAILY PRN PRN Reason: Constipation Melatonin (Melatonin 3 Mg Tablet) 6 mg PO BEDTIME PRN PRN Reason: Insomnia Methadone HCl (Methadone Hcl 20 Mg/2 Ml Oral.Conc) 50 mg PO DAILY [facility] Last Admin: 01/21/24 08:31 Dose: 50 mg Documented By: ELICIA Co-signed By: ALESHA Methadone HCl (Methadone Hcl 20 Mg/2 Ml Oral.Conc) 10 mg PO DAILY PRN PRN Reason: Opiate Withdrawal Ondansetron HCl (Ondansetron Hcl 4 Mg/2 Ml Vial) 4 mg IVPUSH Q8H PRN PRN Reason: Nausea and Vomiting Oxycodone HCl (Oxycodone Hcl Immed Release 5 Mg Tablet) 5 mg PO Q4H PRN PRN Reason: Pain, Severe (Pain Scale 7-10) Last Admin: 01/21/24 10:52 Dose: 5 mg Documented By: ELICIA Pharmacy Consult (Consult Rx Vancomycin Dosing) 1 each MISCELLANE DAILY PRN PRN Reason: Consult order Sodium Chloride (0.9 % Sodium Chloride Flush 3 Ml Syringe) 3 ml IVFLUSH QSHIFT [facility] Last Admin: 01/21/24 15:11 Dose: 3 ml Documented By: RADHA Labs 01/21/24 14:47 01/20/24 07:05 Labs: Laboratory Results - last 24 hr 01/20/24 01/21/24 18:52 14:47 MCV 79.4 L 78.9 L MCH 24.8 L 24.6 L MCHC 31.2 31.1 RDW 16.7 H 16.7 H Plt Count 485 H 448 H MPV 8.4 L 8.4 L Absolute Nucleated RBC 0.000 0.000 Nucleated RBC % (auto) 0.0 0.0 ESR 94 H Random Vancomycin 18.4 Microbiology Microbiology Results: Microbiology 01/18/24 19:55 Blood Culture - Final Blood - Venous Methicillin Res Staph Aureus 01/18/24 15:12 Blood Culture - Final Blood - Venous Methicillin Res Staph Aureus Procedures Date of Service Date of Service: 01/21/24 Progress Note: A&P Assessment and plan (1) Staphylococcus aureus bacteremia: Status: Acute (2) Pelvic fracture: Status: Acute Plan 38-year-old male patient with history of IV drug use presenting with MRSA, pelvic fracture. Patient with no external evidence of abscess. WBC is improving with current antibiotic. Recommend continuing antibiotics as per ID, and would hold off on IR drainage. Nonweightbearing right lower extremity as per orthopedics. Time Spent With Patient Time: Total time managing care of this patient today ____ minutes. Quality Stroke Does the patient have a stroke diagnosis?: No VTE Prior VTE?: No VTE Risk Level:: Medical - moderate - high VTE Device Contraindication: N/A - Device Ordered VTE Drug Contraindication: Treatment Not Indicated
--- NOTE | 2024-01-21 15:48 | P.PNIM_ITS ---
Subjective Subjective Date of Service: 01/22/24 Interval History: Being followed for MRSA bacteremia, right pelvic pain. at bedside, inform the patient was admitted to [facility] in November for 1 month for similar symptoms and was subsequently discharged to rehab facility on a PICC line for IV antibiotics but however patient left rehab on January [address] doing drugs, called the ambulance and patient brought to [facility] emergency room. At present patient complaining of persistent right pelvic pain, left wrist discomfort, denies fever, no chills, no acute events overnight, denies withdrawal symptoms. Tolerating diet no nausea, no vomiting, no diarrhea. Review of Systems All other system reviewed and are negative. Physical Exam 2 Vital Signs: Vital Signs: Last Vital Signs Temp 98.2 F 01/21/24 07:47 Pulse 75 01/21/24 07:47 Resp 14 01/21/24 07:47 BP 119/68 01/21/24 07:47 Pulse Ox 100 01/21/24 07:47 O2 Del Method Room Air 01/21/24 07:47 BMI result Body Mass Index 22.6 Const: Other: General awake alert x3, cooperative, in no acute distress. Neck no JVD. CVS regular rate rhythm, Respiratory lungs clear to auscultation, no respiratory distress. Gastrointestinal abdomen soft, non tender, bowel sounds audible Tenderness rt. groin , no ecchymosis Extremities no LE edema. Both hands multiple cracks, dorsum of wrist small pustule with purulent drainage, no surrounding induration or fluctuation , swelling dorsum of hand Neuro non focal , speech clear Objective Data Active Medications Acetaminophen (Acetaminophen 325 Mg Tablet) 650 mg PO Q6H PRN PRN Reason: Pain, Mild (Pain Scale 1-3), fever or headache Calcium Carbonate (Calcium Carbonate 750 Mg Tab.Chew) 750 mg PO Q4H PRN PRN Reason: Heartburn Clonidine HCl (Clonidine Hcl 0.1 Mg Tablet) 0.1 mg PO BID [facility]; Protocol Last Admin: 01/21/24 08:30 Dose: 0.1 mg Documented By: ELICIA Heparin Sodium (Porcine) (Heparin Sodium,Porcine 5,000 Unit/Ml Vial) 5,000 unit SUBCUT Q12H [facility] Last Admin: 01/21/24 13:24 Dose: Not Given Documented By: ELICIA Non-Admin Reason: Patient Refused Cefazolin Sodium/Dextrose (Ancef) 2 gm in 50 mls @ 100 mls/hr IV Q8H [facility] Last Infusion: 01/21/24 15:35 Dose: Infused Documented By: RADHA Vancomycin HCl 750 mg/ Sodium (Chloride) 265 mls @ 265 mls/hr IV Q8H [facility] Last Infusion: 01/21/24 14:56 Dose: Infused Documented By: RADHA Magnesium Hydroxide (Milk Of Magnesia 30 Ml Oral.Susp) 30 ml PO DAILY PRN PRN Reason: Constipation Melatonin (Melatonin 3 Mg Tablet) 6 mg PO BEDTIME PRN PRN Reason: Insomnia Methadone HCl (Methadone Hcl 20 Mg/2 Ml Oral.Conc) 50 mg PO DAILY [facility] Last Admin: 01/21/24 08:31 Dose: 50 mg Documented By: ELICIA Co-signed By: ALESHA Methadone HCl (Methadone Hcl 20 Mg/2 Ml Oral.Conc) 10 mg PO DAILY PRN PRN Reason: Opiate Withdrawal Ondansetron HCl (Ondansetron Hcl 4 Mg/2 Ml Vial) 4 mg IVPUSH Q8H PRN PRN Reason: Nausea and Vomiting Oxycodone HCl (Oxycodone Hcl Immed Release 5 Mg Tablet) 5 mg PO Q4H PRN PRN Reason: Pain, Severe (Pain Scale 7-10) Last Admin: 01/21/24 10:52 Dose: 5 mg Documented By: ELICIA Pharmacy Consult (Consult Rx Vancomycin Dosing) 1 each MISCELLANE DAILY PRN PRN Reason: Consult order Sodium Chloride (0.9 % Sodium Chloride Flush 3 Ml Syringe) 3 ml IVFLUSH QSHIFT [facility] Last Admin: 01/21/24 15:11 Dose: 3 ml Documented By: RADHA Labs 01/21/24 14:47 01/22/24 05:36 Labs: Laboratory Results - last 24 hr 01/20/24 01/21/24 18:52 14:47 MCV 79.4 L 78.9 L MCH 24.8 L 24.6 L MCHC 31.2 31.1 RDW 16.7 H 16.7 H Plt Count 485 H 448 H MPV 8.4 L 8.4 L Absolute Nucleated RBC 0.000 0.000 Nucleated RBC % (auto) 0.0 0.0 ESR 94 H Random Vancomycin 18.4 Microbiology Microbiology Results: Microbiology 01/18/24 19:55 Blood Culture - Final Blood - Venous Methicillin Res Staph Aureus 01/18/24 15:12 Blood Culture - Final Blood - Venous Methicillin Res Staph Aureus Assessment and Plan (1) Staphylococcus aureus bacteremia: Status: Acute Plan 38-year-old male with pertinent history of IV drug use , homelessness, history of MRSA ,hep C,who presents to the emergency department for evaluation of weakness and not feeling well. Sepsis due to ?septic arthritis/osteomyelitis of right pubic symphysis with multiple soft tissue abscesses Blood cultures x2 positive for MRSA, persistent leukocytosis on iv vancomycin and cefazolin. 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 on 11/12, blood cultures were cleared on November 11 patient was treated with IV cefazolin and vancomycin repeat CT showed near resolution of right iliopsoas abscess and improvement in right gluteal abscess, patient was subsequently discharged to [facility] for total 6 weeks of IV vancomycin ending 12/23/2023 Generalized weakness in the setting of above PT eval Polysubstance use disorder U tox positive for methadone, fentanyl, opiates, cocaine and bupropion Reports using 3-4 bundles of heroin/fentanyl/cocaine daily , continue Methadone 50 mg daily , dose titration as per Addiction Team, continue clonidine. Microcytic anemia iron panel c/w anemia of inflammatory disease, H&H above transfusion threshold Hypokalemia repleted and normalized DVT prophylaxis mechanical Full code In my clinical judgment patient requires continued inpatient hospitalization for management of bacteremia requiring IV antibiotics and expert consultations Quality Stroke Does the patient have a stroke diagnosis?: No VTE Prior VTE?: No VTE Risk Level:: Medical - moderate - high VTE Device Contraindication: N/A - Device Ordered VTE Drug Contraindication: Treatment Not Indicated
[2024-01-21 15:49] LABS: Creatinine Clr Calc Pharmacy 120.8; Estimated Glomerular Filt Rate > 60
[2024-01-21 16:00] VITALS: BP 100/60; PULSE 73; RESP 14; TEMP 36.8; O2SAT 97
[2024-01-21 19:44] LABS: Vancomycin Random 13.5 mcg/mL (15-20)
[2024-01-21 19:48] VITALS: BP 111/60; PULSE 83; RESP 16; TEMP 36.9; O2SAT 97
--- NOTE | 2024-01-21 19:58 | HE.PHANOTE ---
Vancomycin addendum: Level came back at 13.5, with a predicted AUC of 430 will keeo same regimen and recheck level karon to make sure it does not decrease.
[2024-01-22] MEDS: oxyCODONE HCl Immed Release 5 MG TABLET PO ×2 (02:18→07:10)
[2024-01-22 03:53] VITALS: BP 106/59; PULSE 83; RESP 18; TEMP 36.2; O2SAT 98
[2024-01-22] MEDS: vancomycin HCL 750 MG in 0.9 % Sodium Chloride 250 ML 265 MG IV ×3 (04:31→20:07)
[2024-01-22] MEDS: ceFAZolin Sodium/Dextrose,Iso 2 GM/50 ML PIGGYBACK IV ×3 (05:52→22:27)
[2024-01-22 06:38] LABS: Creatinine Clr Calc Pharmacy 144.5; Estimated Glomerular Filt Rate > 60
[2024-01-22] MEDS: methADONE HCl 20 MG/2 ML ORAL.CONC 50 MG PO (07:09)
[2024-01-22] MEDS: cloNIDine HCL 0.1 MG TABLET PO ×2 (07:11→20:07)
[2024-01-22] MEDS: 0.9 % Sodium Chloride Flush 3 ML SYRINGE IVFLUSH ×3 (07:13→20:07)
[2024-01-22 07:34] LABS: CRP High Sensitivity >20.0 mg/L
[2024-01-22 07:53] VITALS: BP 111/66; PULSE 78; RESP 12; TEMP 36.6; O2SAT 98
[2024-01-22] MEDS: oxyCODONE HCl Immed Release 5 MG TABLET 10 MG PO ×3 (09:46→20:18)
[2024-01-22 11:16] LABS: HIV AB/AG Nonreactive (Nonreactive); HIV Num 1 0.06 S/CO (0.00-0.99); ~HepC Num1 9.86 S/CO (0.00-0.79); ~Hepatitis C Antibody Reactive (Nonreactive)
--- NOTE | 2024-01-22 11:31 | MHC.RECOVRN ---
Met with pt in 351 to follow up and provide support. Pt sitting in bed, eyes closed, wakes to voice, appears comfortable. Pt requesting methadone increase due to inability to sleep. States I'm up all night and all day and all morning. Pt denies other withdrawal symptoms. Mare Lopez APRN, aware.
--- NOTE | 2024-01-22 14:37 | HO.PM.IMPN ---
Subjective Subjective Date of Service: 01/22/24 Interval History: Complaining of right pelvic pain requesting for higher dosages of narcotics, refused MRI study, complaining of constipation, tolerating diet, no nausea, no vomiting, no abdominal pain, no shortness of breath no other acute events overnight. Review of Systems All other system reviewed and are negative Physical Exam Vital Signs: Vital Signs: Last Vital Signs Temp 98 F 01/22/24 07:53 Pulse 78 01/22/24 07:53 Resp 12 01/22/24 07:53 BP 111/66 01/22/24 07:53 Pulse Ox 98 01/22/24 07:53 O2 Del Method Room Air 01/22/24 07:53 BMI result Body Mass Index 22.6 Const: Other: General awake alert x3, in no acute distress. Neck no JVD. CVS regular rate rhythm, Respiratory lungs clear to auscultation, no respiratory distress. Gastrointestinal abdomen soft, bowel sounds audible Tenderness rt. groin , no ecchymosis Extremities no LE edema. Both hands multiple cracks, Neuro non focal , speech clear Objective Data Active Medications Acetaminophen (Acetaminophen 325 Mg Tablet) 650 mg PO Q6H PRN PRN Reason: Pain, Mild (Pain Scale 1-3), fever or headache Calcium Carbonate (Calcium Carbonate 750 Mg Tab.Chew) 750 mg PO Q4H PRN PRN Reason: Heartburn Clonidine HCl (Clonidine Hcl 0.1 Mg Tablet) 0.1 mg PO BID [facility]; Protocol Last Admin: 01/22/24 07:11 Dose: 0.1 mg Documented By: JEAN Heparin Sodium (Porcine) (Heparin Sodium,Porcine 5,000 Unit/Ml Vial) 5,000 unit SUBCUT Q12H [facility] Last Admin: 01/22/24 11:57 Dose: Not Given Documented By: JEAN Non-Admin Reason: Patient Refused Cefazolin Sodium/Dextrose (Ancef) 2 gm in 50 mls @ 100 mls/hr IV Q8H [facility] Last Infusion: 01/22/24 06:27 Dose: Infused Documented By: VIC Vancomycin HCl 750 mg/ Sodium (Chloride) 265 mls @ 265 mls/hr IV Q8H [facility] Last Admin: 01/22/24 13:49 Dose: 265 mls/hr Documented By: JEAN Magnesium Hydroxide (Milk Of Magnesia 30 Ml Oral.Susp) 30 ml PO DAILY PRN PRN Reason: Constipation Melatonin (Melatonin 3 Mg Tablet) 6 mg PO BEDTIME PRN PRN Reason: Insomnia Methadone HCl (Methadone Hcl 20 Mg/2 Ml Oral.Conc) 50 mg PO DAILY [facility] Last Admin: 01/22/24 07:09 Dose: 50 mg Documented By: JEAN Co-signed By: CHANI Methadone HCl (Methadone Hcl 20 Mg/2 Ml Oral.Conc) 10 mg PO DAILY PRN PRN Reason: Opiate Withdrawal Ondansetron HCl (Ondansetron Hcl 4 Mg/2 Ml Vial) 4 mg IVPUSH Q8H PRN PRN Reason: Nausea and Vomiting Oxycodone HCl (Oxycodone Hcl Immed Release 5 Mg Tablet) 10 mg PO Q4H PRN PRN Reason: Pain, Severe (Pain Scale 7-10) Last Admin: 01/22/24 14:18 Dose: 10 mg Documented By: JEAN Pharmacy Consult (Consult Rx Vancomycin Dosing) 1 each MISCELLANE DAILY PRN PRN Reason: Consult order Sodium Chloride (0.9 % Sodium Chloride Flush 3 Ml Syringe) 3 ml IVFLUSH QSVTFT [facility] Last Admin: 01/22/24 07:13 Dose: 3 ml Documented By: JEAN Labs 01/21/24 14:47 01/22/24 05:36 Labs: Laboratory Results - last 24 hr 01/20/24 01/21/24 01/21/24 18:52 14:47 19:11 MCV 78.9 L MCH 24.6 L MCHC 31.1 RDW 16.7 H Plt Count 448 H MPV 8.4 L Absolute Nucleated RBC 0.000 Nucleated RBC % (auto) 0.0 Hold Purple Top Estim Creat Clear Calc 120.8 Estimated GFR > 60 C-React Prot High Sens >20.0 H Random Vancomycin 13.5 L Hepatitis C Ab (EIA) Reactive H HIV 1&2 Ab/P24 Ag 4thGn Nonreactive 01/22/24 05:36 MCV MCH MCHC RDW Plt Count MPV Absolute Nucleated RBC Nucleated RBC % (auto) Hold Purple Top SEE NOTE Estim Creat Clear Calc 144.5 Estimated GFR > 60 C-React Prot High Sens Random Vancomycin Hepatitis C Ab (EIA) HIV 1&2 Ab/P24 Ag 4thGn Assessment and Plan (1) Pelvic fracture: Status: Acute (2) Staphylococcus aureus bacteremia: Status: Acute (3) Soft tissue abscess: Status: Acute Plan 38-year-old male with pertinent history of IV drug use , homelessness, history of MRSA ,hep C,who presents to the emergency department for evaluation of weakness and not feeling well. Sepsis due to ?septic arthritis/osteomyelitis of right pubic symphysis with multiple soft tissue abscesses Blood cultures x2 positive for MRSA, persistent leukocytosis on iv vancomycin is started on 01/17 and cefazolin started on 01/19. 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 Generalized weakness in the setting of above PT eval Polysubstance use disorder U tox positive for methadone, fentanyl, opiates, cocaine and bupropion Reports using 3-4 bundles of heroin/fentanyl/cocaine daily , continue Methadone 50 mg daily , dose uptitrated by Addiction Team,continue clonidine. Microcytic anemia iron panel c/w anemia of inflammatory disease, H&H above transfusion threshold. Hypokalemia repleted and normalized DVT prophylaxis mechanical /heparin subq Full code In my clinical judgment patient requires continued inpatient hospitalization for management of bacteremia requiring IV antibiotics and expert consultations Quality Stroke Does the patient have a stroke diagnosis?: No VTE Prior VTE?: No VTE Risk Level:: Medical - moderate - high VTE Device Contraindication: N/A - Device Ordered VTE Drug Contraindication: Treatment Not Indicated
--- NOTE | 2024-01-22 14:38 | MHC.CM.PN ---
EMR REVIEWED AND PER MD ROUNDS, PT IS NOT MEDICALLY CLEARED FOR DC TO [facility] FOR IV RX (AWAITING CULTURES, IR FOR DRAINAGE PELVIC ABSCESSES) CM WILL NEED ELDER CARE APPROVAL BEFORE DC TO REHAB WELL GUEST DOSING SET UP PRIOR TO DC. CM CONTINUES TO FOLLOW
--- NOTE | 2024-01-22 15:54 | PM.EVENT ---
Event Note Date of Service: 01/22/24 Event Note: Addiction note Patient seen in follow up by telemarketing fundraiser Appearing comfortable, reporting difficulty sleeping. No other withdrawal sx reported or observed PRN oxycodone for pain has not utilized methadone 10mg PRN since admission Plan: -increase methadone to 55mg QD -will continue to follow Time Spent With Patient Time: Total time managing care of this patient today ____ minutes.
[2024-01-22 16:00] VITALS: BP 106/60; PULSE 84; RESP 14; TEMP 37; O2SAT 100
[2024-01-22 19:28] VITALS: BP 112/61; PULSE 96; RESP 14; TEMP 36.9; O2SAT 99
[2024-01-22 19:51] LABS: Vancomycin Trough 13.8 mcg/mL (10.0-20.0)
--- NOTE | 2024-01-22 20:00 | HE.PHANOTE ---
VANCO DOSE ADJUSTMENT BASED ON SCR AND TROUGH OF 13.8. DOSE CONTINUED AT 750 Q 8H. NEXT LEVEL 01/22 @ 1900
[2024-01-22 20:07] VITALS: BP 112/61
[2024-01-23] MEDS: oxyCODONE HCl Immed Release 5 MG TABLET 10 MG PO ×4 (02:14→21:02)
[2024-01-23 03:37] VITALS: BP 108/61; PULSE 81; RESP 14; TEMP 37.3; O2SAT 98
[2024-01-23] MEDS: vancomycin HCL 750 MG in 0.9 % Sodium Chloride 250 ML 265 MG IV ×3 (04:45→21:03)
[2024-01-23] MEDS: ceFAZolin Sodium/Dextrose,Iso 2 GM/50 ML PIGGYBACK IV ×3 (06:15→22:10)
[2024-01-23 06:47] LABS: Creatinine Clr Calc Pharmacy 144.5; Estimated Glomerular Filt Rate > 60
[2024-01-23 06:54] LABS: Hematocrit 33.7 % (42.0-52.0); Hemoglobin 10.3 g/dl (14.0-18.0); Mean Corpuscular HGB Conc 30.6 g/dl (31.0-36.0); Mean Corpuscular Hemoglobin 24.2 pg (27.0-33.0); Mean Corpuscular Volume 79.1 fL (80.0-98.0); Mean Platelet Volume 8.2 fL (9.4-12.4); Platelet Count 444 X10*3/uL (160-400); Red Blood Count 4.26 X10*6/uL (4.60-5.80); Red Cell Distribution Width 17.2 % (11.0-16.0); White Blood Count 16.3 X10*3/uL (4.8-10.8)
[2024-01-23 07:56] VITALS: BP 118/64; PULSE 79; RESP 12; TEMP 36.3; O2SAT 100
[2024-01-23] MEDS: cloNIDine HCL 0.1 MG TABLET PO ×2 (08:03→21:03)
[2024-01-23] MEDS: methADONE HCl 20 MG/2 ML ORAL.CONC 55 MG PO (08:03)
[2024-01-23] MEDS: 0.9 % Sodium Chloride Flush 3 ML SYRINGE IVFLUSH ×3 (08:04→22:11)
--- NOTE | 2024-01-23 10:00 | HO.PM.IMPN ---
Subjective Subjective Date of Service: 01/23/24 Interval History: Complaining of right groin pain, otherwise denies fever, no chills tolerating diet, no bowel movement in last several days, denies abdominal pain, no nausea, no vomiting, no other acute issues. Review of Systems All other system reviewed and are negative. Physical Exam Vital Signs: Vital Signs: Last Vital Signs Temp 97.4 F 01/23/24 07:56 Pulse 79 01/23/24 07:56 Resp 12 01/23/24 07:56 BP 118/64 01/23/24 07:56 Pulse Ox 100 01/23/24 07:56 O2 Del Method Room Air 01/23/24 07:56 BMI result Body Mass Index 22.6 Const: Other: General awake alert x3, in no acute distress. Neck no JVD. CVS regular rate rhythm, Respiratory lungs clear to auscultation, no respiratory distress. Gastrointestinal abdomen soft, bowel sounds audible Tenderness rt. upper mid thigh/groin, no ecchymosis Extremities no LE edema. Both hands multiple cracks, Neuro non focal , speech clear Objective Data Active Medications Acetaminophen (Acetaminophen 325 Mg Tablet) 650 mg PO Q6H PRN PRN Reason: Pain, Mild (Pain Scale 1-3), fever or headache Calcium Carbonate (Calcium Carbonate 750 Mg Tab.Chew) 750 mg PO Q4H PRN PRN Reason: Heartburn Clonidine HCl (Clonidine Hcl 0.1 Mg Tablet) 0.1 mg PO BID [facility]; Protocol Last Admin: 01/23/24 08:03 Dose: 0.1 mg Documented By: JUDAH Heparin Sodium (Porcine) (Heparin Sodium,Porcine 5,000 Unit/Ml Vial) 5,000 unit SUBCUT Q12H [facility] Last Admin: 01/23/24 01:29 Dose: Not Given Documented By: MYLES Non-Admin Reason: Patient Refused Cefazolin Sodium/Dextrose (Ancef) 2 gm in 50 mls @ 100 mls/hr IV Q8H [facility] Last Infusion: 01/23/24 07:04 Dose: Infused Documented By: JUDAH Vancomycin HCl 750 mg/ Sodium (Chloride) 265 mls @ 265 mls/hr IV Q8H [facility] Last Infusion: 01/23/24 06:15 Dose: Infused Documented By: MYLES Magnesium Hydroxide (Milk Of Magnesia 30 Ml Oral.Susp) 30 ml PO DAILY PRN PRN Reason: Constipation Melatonin (Melatonin 3 Mg Tablet) 6 mg PO BEDTIME PRN PRN Reason: Insomnia Methadone HCl (Methadone Hcl 20 Mg/2 Ml Oral.Conc) 10 mg PO DAILY PRN PRN Reason: Opiate Withdrawal Methadone HCl (Methadone Hcl 20 Mg/2 Ml Oral.Conc) 55 mg PO DAILY [facility] Last Admin: 01/23/24 08:03 Dose: 55 mg Documented By: JUDAH Co-signed By: COTEMA Ondansetron HCl (Ondansetron Hcl 4 Mg/2 Ml Vial) 4 mg IVPUSH Q8H PRN PRN Reason: Nausea and Vomiting Oxycodone HCl (Oxycodone Hcl Immed Release 5 Mg Tablet) 10 mg PO Q4H PRN PRN Reason: Pain, Severe (Pain Scale 7-10) Last Admin: 01/23/24 08:03 Dose: 10 mg Documented By: JUDAH Pharmacy Consult (Consult Rx Vancomycin Dosing) 1 each MISCELLANE DAILY PRN PRN Reason: Consult order Polyethylene Glycol (Polyethylene Glycol 3350 17 Gm Powd.Pack) 17 gm PO BID [facility] Last Admin: 01/23/24 07:25 Dose: Not Given Documented By: JUDAH Non-Admin Reason: Patient Refused Senna/Docusate Sodium (Sennosides/Docusate Sodium Tablet) 2 tab PO BEDTIME [facility] Last Admin: 01/22/24 20:29 Dose: Not Given Documented By: MYLES Non-Admin Reason: Patient Refused Sodium Chloride (0.9 % Sodium Chloride Flush 3 Ml Syringe) [address] [facility] [facility] [facility] Last Admin: 01/23/24 08:04 Dose: 3 ml Documented By: JUDAH Labs 01/23/24 05:24 01/23/24 05:24 Labs: Laboratory Results - last 24 hr 01/21/24 01/22/24 01/23/24 14:47 19:13 05:24 MCV 79.1 L MCH 24.2 L MCHC 30.6 L RDW 17.2 H Plt Count 444 H MPV 8.2 L Absolute Nucleated RBC 0.000 Nucleated RBC % (auto) 0.0 Estim Creat Clear Calc 144.5 Estimated GFR > 60 Vancomycin Trough 13.8 Hepatitis C Ab (EIA) Reactive H HIV 1&2 Ab/P24 Ag 4thGn Nonreactive Microbiology Microbiology Results: Microbiology 01/21/24 14:47 Blood Culture - Preliminary Blood - Venous No growth after 24 hours. 01/21/24 14:47 Blood Culture - Preliminary Blood - Venous No growth after 24 hours. Assessment and Plan (1) Pelvic fracture: Status: Acute (2) Staphylococcus aureus bacteremia: Status: Acute Plan 38-year-old male with pertinent history of IV drug use , homelessness, history of MRSA ,hep C,who presents to the emergency department for evaluation of weakness and not feeling well. Sepsis due to ?septic arthritis/osteomyelitis of right pubic symphysis with multiple soft tissue abscesses Blood cultures x2 positive for MRSA, WBC trending down, repeat blood cultures x2 negative times 24 hours on iv vancomycin is started on 01/17 and cefazolin started on 01/19. 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 on 11/12, blood cultures were cleared on November 11 patient was treated with IV cefazolin and vancomycin repeat CT showed near resolution of right iliopsoas abscess and improvement in right gluteal abscess, patient was subsequently discharged [facility] for total 6 weeks of IV vancomycin ending 12/23/2023, patient left rehab on 12/23 Constipation due to narcotics continue current bowel regimen added Colace Generalized weakness in the setting of above PT eval Polysubstance use disorder U tox positive for methadone, fentanyl, opiates, cocaine and bupropion Reports using 3-4 bundles of heroin/fentanyl/cocaine daily , continue Methadone dose increased to 55 mg is being followed closely by Addiction Team,continue clonidine. On oxycodone 10 mg q.4 hours as needed Microcytic anemia iron panel c/w anemia of inflammatory disease, H&H above transfusion threshold. Hypokalemia repleted and normalized DVT prophylaxis mechanical /heparin subq Full code In my clinical judgment patient requires continued inpatient hospitalization for management of bacteremia requiring IV antibiotics and expert consultations Quality Stroke Does the patient have a stroke diagnosis?: No VTE Prior VTE?: No VTE Risk Level:: Medical - moderate - high VTE Device Contraindication: N/A - Device Ordered VTE Drug Contraindication: Treatment Not Indicated
[2024-01-23] MEDS: Docusate Sodium 100 MG CAPSULE 200 MG PO (10:49)
[2024-01-23] MEDS: polyethylene glycoL 3350 17 GM POWD.PACK PO (10:51)
[2024-01-23 16:08] VITALS: BP 115/64; PULSE 83; RESP 12; TEMP 37.3; O2SAT 100
[2024-01-23 19:37] LABS: Vancomycin Random 13.7 mcg/mL (15-20)
[2024-01-23 19:54] VITALS: BP 111/57; PULSE 89; RESP 14; TEMP 37; O2SAT 97
--- NOTE | 2024-01-23 22:40 | PC.NURSE ---
Patient is alert and oriented, per his permission lao speaking staff used to translate what this RN needed to communicate to the patient . Appears that during some days patient is able to speak Danish better than others. Has been refusing Heparin injections, , compression boots, repositioning and scheduled bowel regimen. Is constipated, states that it is to much medication and he will drink water instead.Has 2 IV sites that are working okay but are outdated. Offered to remove them and obtain new sites but patient refused that too. Dr Paz made aware of all that via [employer].
[2024-01-24 03:36] VITALS: BP 120/56; PULSE 78; RESP 14; TEMP 37.7; O2SAT 100
[2024-01-24] MEDS: oxyCODONE HCl Immed Release 5 MG TABLET 10 MG PO ×4 (03:37→20:34)
[2024-01-24] MEDS: vancomycin HCL 750 MG in 0.9 % Sodium Chloride 250 ML 265 MG IV ×3 (04:58→20:26)
[2024-01-24] MEDS: ceFAZolin Sodium/Dextrose,Iso 2 GM/50 ML PIGGYBACK IV ×3 (06:07→22:06)
--- NOTE | 2024-01-24 06:12 | PC.NURSE ---
Patient has a wound to left wrist covered with kerlix. Offered to change it, patient stated not now because he is tired and wants to sleep.
[2024-01-24 07:25] LABS: Creatinine Clr Calc Pharmacy 146.9; Estimated Glomerular Filt Rate > 60
[2024-01-24 08:25] VITALS: BP 111/56; PULSE 85; RESP 12; TEMP 37.2; O2SAT 98
--- NOTE | 2024-01-24 08:35 | P.PNGS_ITS ---
Subjective Subjective Date of Service: 01/24/24 Interval history: Continues to complain of pelvic pain and difficulty sleeping Physical Exam 2 Vital Signs: Vital Signs: Last Vital Signs Temp 98.9 F 01/24/24 08:25 Pulse 85 01/24/24 08:25 Resp 12 01/24/24 08:25 BP 111/56 L 01/24/24 08:25 Pulse Ox 98 01/24/24 08:25 O2 Del Method Room Air 01/24/24 08:25 BMI result Body Mass Index 22.6 Const: General: lethargic Nutritional Appearance: thin O rientation/consciousness: lethargic Resp: Effort & Inspection: normal respiratory effort, no audible wheezes, no cough and no respiratory distress GI: Other: Soft and nondistended, tenderness in the pelvis unchanged. Overlying skin normal appearing without erythema or ecchymosis Skin: Other: Warm, dry, no rash Objective Data Active Medications Acetaminophen (Acetaminophen 325 Mg Tablet) 650 mg PO Q6H PRN PRN Reason: Pain, Mild (Pain Scale 1-3), fever or headache Calcium Carbonate (Calcium Carbonate 750 Mg Tab.Chew) 750 mg PO Q4H PRN PRN Reason: Heartburn Clonidine HCl (Clonidine Hcl 0.1 Mg Tablet) 0.1 mg PO BID [facility]; Protocol Last Admin: 01/23/24 21:03 Dose: 0.1 mg Documented By: VIC Docusate Sodium (Docusate Sodium 100 Mg Capsule) 200 mg PO DAILY [facility] Last Admin: 01/24/24 07:37 Dose: Not Given Documented By: COTJENIFER Non-Admin Reason: Patient Refused Heparin Sodium (Porcine) (Heparin Sodium,Porcine 5,000 Unit/Ml Vial) 5,000 unit SUBCUT Q12H [facility] Last Admin: 01/24/24 00:55 Dose: Not Given Documented By: VIC Non-Admin Reason: Patient Refused Cefazolin Sodium/Dextrose (Ancef) 2 gm in 50 mls @ 100 mls/hr IV Q8H [facility] Last Infusion: 01/24/24 06:38 Dose: Infused Documented By: VIC Vancomycin HCl 750 mg/ Sodium (Chloride) 265 mls @ 265 mls/hr IV Q8H [facility] Last Infusion: 01/24/24 06:06 Dose: Infused Documented By: VIC Magnesium Hydroxide (Milk Of Magnesia 30 Ml Oral.Susp) 30 ml PO DAILY PRN PRN Reason: Constipation Melatonin (Melatonin 3 Mg Tablet) 6 mg PO BEDTIME PRN PRN Reason: Insomnia Methadone HCl (Methadone Hcl 20 Mg/2 Ml Oral.Conc) 10 mg PO DAILY PRN PRN Reason: Opiate Withdrawal Methadone HCl (Methadone Hcl 20 Mg/2 Ml Oral.Conc) 55 mg PO DAILY [facility] Last Admin: 01/23/24 08:03 Dose: 55 mg Documented By: JUDAH Co-signed By: JORDAN Ondansetron HCl (Ondansetron Hcl 4 Mg/2 Ml Vial) 4 mg IVPUSH Q8H PRN PRN Reason: Nausea and Vomiting Oxycodone HCl (Oxycodone Hcl Immed Release 5 Mg Tablet) 10 mg PO Q4H PRN PRN Reason: Pain, Severe (Pain Scale 7-10) Last Admin: 01/24/24 03:37 Dose: 10 mg Documented By: VIC Pharmacy Consult (Consult Rx Vancomycin Dosing) 1 each MISCELLANE DAILY PRN PRN Reason: Consult order Polyethylene Glycol (Polyethylene Glycol 3350 17 Gm Powd.Pack) 17 gm PO BID [facility] Last Admin: 01/24/24 07:37 Dose: Not Given Documented By: JORDAN Non-Admin Reason: Patient Refused Senna/Docusate Sodium (Sennosides/Docusate Sodium Tablet) 2 tab PO BEDTIME [facility] Last Admin: 01/23/24 21:04 Dose: Not Given Documented By: VIC Non-Admin Reason: Patient Refused Sodium Chloride (0.9 % Sodium Chloride Flush 3 Ml Syringe) 3 ml IVFLUSH QSHIFT [facility] Last Admin: 01/23/24 22:11 Dose: 3 ml Documented By: VIC Labs 01/23/24 05:24 01/24/24 06:19 Labs: Laboratory Results - last 24 hr 01/23/24 01/24/24 19:06 06:19 Hold Purple Top SEE NOTE Estim Creat Clear Calc 146.9 Estimated GFR > 60 Random Vancomycin 13.7 L Microbiology Microbiology Results: Microbiology 01/21/24 14:47 Blood Culture - Preliminary Blood - Venous No growth after 48 hours. 01/21/24 14:47 Blood Culture - Preliminary Blood - Venous No growth after 48 hours. Procedures Date of Service Date of Service: 01/24/24 Progress Note: A&P Assessment and plan (1) Pelvic fracture: Status: Acute (2) Staphylococcus aureus bacteremia: Status: Acute Plan Patient with continued pelvic pain. Reviewed the recent ultrasound which is suggestive of an abscess. Previously drained abscess at [facility] with drain noted. Agree with IR evaluation tomorrow. We will continue to monitor. Time Spent With Patient Time: Total time managing care of this patient today ____ minutes. Quality Stroke Does the patient have a stroke diagnosis?: No VTE Prior VTE?: No VTE Risk Level:: Medical - moderate - high VTE Device Contraindication: N/A - Device Ordered VTE Drug Contraindication: Treatment Not Indicated
[2024-01-24] MEDS: methADONE HCl 20 MG/2 ML ORAL.CONC 55 MG PO (09:09)
[2024-01-24] MEDS: cloNIDine HCL 0.1 MG TABLET PO (09:09)
[2024-01-24] MEDS: 0.9 % Sodium Chloride Flush 3 ML SYRINGE IVFLUSH ×2 (09:11→20:27)
[2024-01-24] MEDS: Docusate Sodium 100 MG CAPSULE 200 MG PO (09:20)
[2024-01-24] MEDS: polyethylene glycoL 3350 17 GM POWD.PACK PO (09:23)
--- NOTE | 2024-01-24 10:20 | P.PNIM_ITS ---
Subjective Subjective Date of Service: 01/24/24 Interval History: Seems frustrated due to recurrent infections, feels he never got better after receiving 6 weeks of IV antibiotic ending 12/22, refusing medications at times. Complaining of persistent right groin pain but little better, denies nausea, no vomiting tolerating diet wishing to be out of bed to commode , denies fever, no chills, no abdominal pain, no bowel movement since admission. Review of Systems All other system reviewed and negative. Physical Exam 2 Vital Signs: Vital Signs: Last Vital Signs Temp 98.9 F 01/24/24 08:25 Pulse 85 01/24/24 08:25 Resp 12 01/24/24 08:25 BP 111/56 L 01/24/24 08:25 Pulse Ox 98 01/24/24 08:25 O2 Del Method Room Air 01/24/24 08:25 BMI result Body Mass Index 22.6 Const: Other: General awake alert x3, in no acute distress. Neck no JVD. CVS regular rate rhythm, Respiratory lungs clear to auscultation, no respiratory distress. Gastrointestinal abdomen soft, bowel sounds audible Tenderness rt. upper mid thigh/groin, no fluctuation or induration Extremities no LE edema. Both hands multiple cracks, Neuro non focal , speech clear Objective Data Active Medications Acetaminophen (Acetaminophen 325 Mg Tablet) 650 mg PO Q6H PRN PRN Reason: Pain, Mild (Pain Scale 1-3), fever or headache Calcium Carbonate (Calcium Carbonate 750 Mg Tab.Chew) 750 mg PO Q4H PRN PRN Reason: Heartburn Clonidine HCl (Clonidine Hcl 0.1 Mg Tablet) 0.1 mg PO BID [facility]; Protocol Last Admin: 01/24/24 09:09 Dose: 0.1 mg Documented By: BINDUEMA Docusate Sodium (Docusate Sodium 100 Mg Capsule) 200 mg PO DAILY [facility] Last Admin: 01/24/24 09:20 Dose: 200 mg Documented By: BINDUEMA Heparin Sodium (Porcine) (Heparin Sodium,Porcine 5,000 Unit/Ml Vial) 5,000 unit SUBCUT Q12H [facility] Last Admin: 01/24/24 00:55 Dose: Not Given Documented By: VIC Non-Admin Reason: Patient Refused Cefazolin Sodium/Dextrose (Ancef) 2 gm in 50 mls @ 100 mls/hr IV Q8H [facility] Last Infusion: 01/24/24 06:38 Dose: Infused Documented By: VIC Vancomycin HCl 750 mg/ Sodium (Chloride) 265 mls @ 265 mls/hr IV Q8H [facility] Last Infusion: 01/24/24 06:06 Dose: Infused Documented By: VIC Magnesium Hydroxide (Milk Of Magnesia 30 Ml Oral.Susp) 30 ml PO DAILY PRN PRN Reason: Constipation Melatonin (Melatonin 3 Mg Tablet) 6 mg PO BEDTIME PRN PRN Reason: Insomnia Methadone HCl (Methadone Hcl 20 Mg/2 Ml Oral.Conc) 10 mg PO DAILY PRN PRN Reason: Opiate Withdrawal Methadone HCl (Methadone Hcl 20 Mg/2 Ml Oral.Conc) 55 mg PO DAILY [facility] Last Admin: 01/24/24 09:09 Dose: 55 mg Documented By: JORDAN Co-signed By: MARIAM Ondansetron HCl (Ondansetron Hcl 4 Mg/2 Ml Vial) 4 mg IVPUSH Q8H PRN PRN Reason: Nausea and Vomiting Oxycodone HCl (Oxycodone Hcl Immed Release 5 Mg Tablet) 10 mg PO Q4H PRN PRN Reason: Pain, Severe (Pain Scale 7-10) Last Admin: 01/24/24 09:09 Dose: 10 mg Documented By: JORDAN Pharmacy Consult (Consult Rx Vancomycin Dosing) 1 each MISCELLANE DAILY PRN PRN Reason: Consult order Polyethylene Glycol (Polyethylene Glycol 3350 17 Gm Powd.Pack) 17 gm PO BID [facility] Last Admin: 01/24/24 09:23 Dose: 17 gm Documented By: JORDAN Senna/Docusate Sodium (Sennosides/Docusate Sodium Tablet) 2 tab PO BEDTIME [facility] Last Admin: 01/23/24 21:04 Dose: Not Given Documented By: VIC Non-Admin Reason: Patient Refused Sodium Chloride (0.9 % Sodium Chloride Flush 3 Ml Syringe) 3 ml IVFLUSH QSHIFT [facility] Last Admin: 01/24/24 09:11 Dose: 3 ml Documented By: JORDAN Labs 01/23/24 05:24 01/24/24 06:19 Labs: Laboratory Results - last 24 hr 01/23/24 01/24/24 19:06 06:19 Hold Purple Top SEE NOTE Estim Creat Clear Calc 146.9 Estimated GFR > 60 Random Vancomycin 13.7 L Microbiology Microbiology Results: Microbiology 01/21/24 14:47 Blood Culture - Preliminary Blood - Venous No growth after 48 hours. 01/21/24 14:47 Blood Culture - Preliminary Blood - Venous No growth after 48 hours. Assessment and Plan (1) Pelvic fracture: Status: Acute (2) Staphylococcus aureus bacteremia: Status: Acute Plan 38-year-old male with pertinent history of IV drug use , homelessness, history of MRSA ,hep C,who presents to the emergency department for evaluation of weakness and not feeling well. Sepsis due to ?septic arthritis/osteomyelitis of right pubic symphysis with multiple soft tissue abscesses Blood cultures x2 positive for MRSA, WBC trending down, repeat blood cultures x2 negative times 48 hours on iv vancomycin is started on 01/17 and cefazolin started on 01/19. ESR 94 /CRP >20 echocardiogram showed no valvular pathology ID recommends 6-8 weeks of IV vanco, and on cefazolin 2 g q.8 hours, HIV nonreactive and hepatitis-C antibody reactive IR will reassess patient on Thursday for drainage PICC line Constipation due to narcotics continue current bowel regimen , encouraged to take medications Generalized weakness in the setting of above PT eval Polysubstance use disorder U tox positive for methadone, fentanyl, opiates, cocaine and bupropion Reports using 3-4 bundles of heroin/fentanyl/cocaine daily , continue Methadone 55 mg is being followed closely by Addiction Team,continue clonidine. On oxycodone 10 mg q.4 hours as needed Microcytic anemia iron panel c/w anemia of inflammatory disease, H&H above transfusion threshold. Hypokalemia repleted and normalized DVT prophylaxis mechanical /heparin subq Full code In my clinical judgment patient requires continued inpatient hospitalization for management of bacteremia requiring IV antibiotics ,expert consultations and safe disposition Quality Stroke Does the patient have a stroke diagnosis?: No VTE Prior VTE?: No VTE Risk Level:: Medical - moderate - high VTE Device Contraindication: N/A - Device Ordered VTE Drug Contraindication: Treatment Not Indicated
--- NOTE | 2024-01-24 12:58 | P.PNADD_ITS ---
Subjective Subjective Date of Service: 01/24/24 Reason For Visit: Chills, weakness Interim History: Patient seen in follow up Awake, alert, laying in bed. Reports feeling comfortable on current methadone dose Denies any withdrawal sx Does report poor sleep. Does not attribute it to withdrawal sx--no chills, sweats States that at home melatonin was helpful Has had it ordered here as PRN, but never utilized. Review of Systems Constitutional: Reports as per HPI Mental Status Exam Mental Status Exam Level of Consciousness: Awake, Appropriate and Alert Diagnostics Vital Signs (24Hr): Vital Signs - 24 hr 01/23/24 16:08 01/23/24 19:54 01/24/24 03:36 Temperature 99.2 F 98.6 F 99.8 F Pulse Rate 83 89 78 Respiratory Rate 12 14 14 Blood Pressure 115/64 111/57 L 120/56 L Pulse Oximetry 100 97 100 Oxygen Delivery Method Room Air Room Air Room Air 01/24/24 08:25 Temperature 98.9 F Pulse Rate 85 Respiratory Rate 12 Blood Pressure 111/56 L Pulse Oximetry 98 Oxygen Delivery Method Room Air BMI result Body Mass Index 22.6 Labs 01/23/24 05:24 01/24/24 06:19 Labs: Laboratory Results - last 48 hr 01/22/24 01/23/24 01/23/24 19:13 05:24 19:06 WBC 16.3 H RBC 4.26 L Hgb 10.3 L Hct 33.7 L MCV 79.1 L MCH 24.2 L MCHC 30.6 L RDW 17.2 H Plt Count 444 H MPV 8.2 L Absolute Nucleated RBC 0.000 Nucleated RBC % (auto) 0.0 Hold Purple Top Creatinine 0.61 Estim Creat Clear Calc 144.5 Estimated GFR > 60 Vancomycin Trough 13.8 Random Vancomycin 13.7 L 01/24/24 06:19 WBC RBC Hgb Hct MCV MCH MCHC RDW Plt Count MPV Absolute Nucleated RBC Nucleated RBC % (auto) Hold Purple Top SEE NOTE Creatinine 0.60 Estim Creat Clear Calc 146.9 Estimated GFR > 60 Vancomycin Trough Random Vancomycin Imaging Radiology Impressions: ITS Impressions Chest X-Ray 01/18/24 07:40 IMPRESSION: 1. No acute cardiopulmonary process seen. 2. Old healed right posterior fifth and sixth rib fractures. Electronically signed by: Mike Lora MD 01/18/2024 08:18 AM EDT RP Orbit X-Ray 01/18/24 16:50 Impression: I do not appreciate any radiopaque foreign bodies. Electronically signed by: Archie Rodriguez MD 01/18/2024 05:33 PM EDT RP Head CT 01/18/24 18:34 IMPRESSION: No acute intracranial finding. 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 Unfortunately due to the irregular shape of the abscesses within the adjacent muscles is difficult to measure. The right iliac is abscess measures approximately 3.8 cm in size, the right obturator abscess measures approximately 6.3 cm in size, the right hip adductor intramuscular abscess measures at least 4.3 cm in size with ill-defined collection to the posterior right gluteal muscles. Electronically signed by: Archie Rodriguez MD 01/18/2024 07:57 PM EDT RP Medications Medications Current Medications Acetaminophen (Acetaminophen 325 Mg Tablet) 650 mg PO Q6H PRN PRN Reason: Pain, Mild (Pain Scale 1-3), fever or headache Calcium Carbonate (Calcium Carbonate 750 Mg Tab.Chew) 750 mg PO Q4H PRN PRN Reason: Heartburn Docusate Sodium (Docusate Sodium 100 Mg Capsule) 200 mg PO DAILY [facility] Last Admin: 01/24/24 09:26 Dose: Not Given Heparin Sodium (Porcine) (Heparin Sodium,Porcine 5,000 Unit/Ml Vial) 5,000 unit SUBCUT Q12H [facility] Last Admin: 01/24/24 12:07 Dose: Not Given Cefazolin Sodium/Dextrose (Ancef) 2 gm in 50 mls @ 100 mls/hr IV Q8H [facility] Last Infusion: 01/24/24 06:38 Dose: Infused Vancomycin HCl 750 mg/ Sodium (Chloride) 265 mls @ 265 mls/hr IV Q8H [facility] Last Infusion: 01/24/24 06:06 Dose: Infused Magnesium Hydroxide (Milk Of Magnesia 30 Ml Oral.Susp) 30 ml PO DAILY PRN PRN Reason: Constipation Melatonin (Melatonin 3 Mg Tablet) 6 mg PO BEDTIME [facility] Methadone HCl (Methadone Hcl 20 Mg/2 Ml Oral.Conc) 55 mg PO DAILY [facility] Last Admin: 01/24/24 09:09 Dose: 55 mg Ondansetron HCl (Ondansetron Hcl 4 Mg/2 Ml Vial) 4 mg IVPUSH Q8H PRN PRN Reason: Nausea and Vomiting Oxycodone HCl (Oxycodone Hcl Immed Release 5 Mg Tablet) 10 mg PO Q4H PRN PRN Reason: Pain, Severe (Pain Scale 7-10) Last Admin: 01/24/24 09:09 Dose: 10 mg Pharmacy Consult (Consult Rx Vancomycin Dosing) 1 each MISCELLANE DAILY PRN PRN Reason: Consult order Polyethylene Glycol (Polyethylene Glycol 3350 17 Gm Powd.Pack) 17 gm PO BID [facility] Last Admin: 01/24/24 09:26 Dose: Not Given Senna/Docusate Sodium (Sennosides/Docusate Sodium Tablet) 2 tab PO BEDTIME [facility] Last Admin: 01/23/24 21:04 Dose: Not Given Sodium Chloride (0.9 % Sodium Chloride Flush 3 Ml Syringe) 3 ml IVFLUSH QSHIFT [facility] Last Admin: 01/24/24 09:11 Dose: 3 ml Allergies Allergies Allergy/AdvReac Type Severity Reaction Status Date / Time No Known Allergies Allergy Verified 01/18/24 07:16 Assessment & Plan Assessment & Plan (1) Opioid use disorder: Status: Acute Code(s): F11.90 - Opioid use, unspecified, uncomplicated Assessment and Plan: * continue methadone 55mg daily * scheduled melatonin instead of PRN for sleep * d/c clonidine -- if anxiety or restlessness returns can order as PRN Total time managing care of this patient today ____ minutes.
[2024-01-24 16:00] VITALS: BP 108/61; PULSE 80; RESP 12; TEMP 36.6; O2SAT 98
[2024-01-24 19:04] VITALS: BP 107/54; PULSE 88; RESP 16; TEMP 37.3; O2SAT 95
[2024-01-24 19:43] LABS: Vancomycin Random 15.3 mcg/mL (15-20)
[2024-01-24] MEDS: Melatonin 3 MG TABLET 6 MG PO (20:26)
[2024-01-24] MEDS: Sennosides/Docusate Sodium TABLET 2 TAB PO (20:26)
[2024-01-25] MEDS: oxyCODONE HCl Immed Release 5 MG TABLET 10 MG PO ×5 (01:12→22:23)
[2024-01-25 03:11] VITALS: BP 114/62; PULSE 76; RESP 16; TEMP 36.3; O2SAT 98
[2024-01-25] MEDS: vancomycin HCL 750 MG in 0.9 % Sodium Chloride 250 ML 265 MG IV ×3 (05:27→20:36)
[2024-01-25] MEDS: ceFAZolin Sodium/Dextrose,Iso 2 GM/50 ML PIGGYBACK IV ×3 (06:35→23:33)
[2024-01-25] MEDS: 0.9 % Sodium Chloride Flush 3 ML SYRINGE IVFLUSH ×3 (07:31→23:30)
[2024-01-25 08:01] VITALS: BP 110/56; PULSE 76; RESP 12; TEMP 36.6; O2SAT 95
[2024-01-25] MEDS: methADONE HCl 20 MG/2 ML ORAL.CONC 55 MG PO (09:41)
[2024-01-25] MEDS: Docusate Sodium 100 MG CAPSULE 200 MG PO (09:41)
--- NOTE | 2024-01-25 12:32 | P.PNIM_ITS ---
Subjective Subjective Date of Service: 01/25/24 Interval History: Being followed for sepsis,MRSA, right pelvic abscesses, right pubic symphysis septic arthritis/osteomyelitis. Was scheduled to undergo drainage of multiple soft tissue abscesses this a.m. but Patient ate food all night, he said nobody told him to stay NPO, is agreeable for procedure tomorrow. Complaining of right groin pain that is improving, no fevers, no chills tolerating diet, no bowel movement since admission despite multiple stool softeners and laxatives, denies abdominal pain no nausea no vomiting. Review of Systems All other system reviewed and are negative. Physical Exam 2 Vital Signs: Vital Signs: Last Vital Signs Temp 97.8 F 01/25/24 08:01 Pulse 76 01/25/24 08:01 Resp 12 01/25/24 08:01 BP 110/56 L 01/25/24 08:01 Pulse Ox 95 01/25/24 08:01 O2 Del Method Room Air 01/25/24 08:01 BMI result Body Mass Index 22.6 Const: Other: General awake alert x3, in no acute distress. Neck no JVD. CVS regular rate rhythm, Respiratory lungs clear to auscultation, no respiratory distress. Gastrointestinal abdomen soft, bowel sounds audible Tenderness rt. upper mid thigh/groin, no fluctuation or induration Extremities no LE edema. Both hands multiple cracks, Neuro non focal , speech clear Objective Data Active Medications Acetaminophen (Acetaminophen 325 Mg Tablet) 650 mg PO Q6H PRN PRN Reason: Pain, Mild (Pain Scale 1-3), fever or headache Calcium Carbonate (Calcium Carbonate 750 Mg Tab.Chew) 750 mg PO Q4H PRN PRN Reason: Heartburn Docusate Sodium (Docusate Sodium 100 Mg Capsule) 200 mg PO DAILY [facility] Last Admin: 01/25/24 09:41 Dose: 200 mg Documented By: JULIET Heparin Sodium (Porcine) (Heparin Sodium,Porcine 5,000 Unit/Ml Vial) 5,000 unit SUBCUT Q12H [facility] Last Admin: 01/25/24 02:22 Dose: Not Given Documented By: JENY Non-Admin Reason: Patient Refused Cefazolin Sodium/Dextrose (Ancef) 2 gm in 50 mls @ 100 mls/hr IV Q8H [facility] Last Infusion: 01/25/24 08:22 Dose: Infused Documented By: JULIET Vancomycin HCl 750 mg/ Sodium (Chloride) 265 mls @ 265 mls/hr IV Q8H [facility] Last Infusion: 01/25/24 06:27 Dose: Infused Documented By: JENY Magnesium Hydroxide (Milk Of Magnesia 30 Ml Oral.Susp) 30 ml PO DAILY PRN PRN Reason: Constipation Melatonin (Melatonin 3 Mg Tablet) 6 mg PO BEDTIME [facility] Last Admin: 01/24/24 20:26 Dose: 6 mg Documented By: JENY Methadone HCl (Methadone Hcl 20 Mg/2 Ml Oral.Conc) 55 mg PO DAILY [facility] Last Admin: 01/25/24 09:41 Dose: 55 mg Documented By: JULIET Co-signed By: CHANI Ondansetron HCl (Ondansetron Hcl 4 Mg/2 Ml Vial) 4 mg IVPUSH Q8H PRN PRN Reason: Nausea and Vomiting Oxycodone HCl (Oxycodone Hcl Immed Release 5 Mg Tablet) 10 mg PO Q4H PRN PRN Reason: Pain, Severe (Pain Scale 7-10) Last Admin: 01/25/24 05:34 Dose: 10 mg Documented By: JENY Pharmacy Consult (Consult Rx Vancomycin Dosing) 1 each MISCELLANE DAILY PRN PRN Reason: Consult order Polyethylene Glycol (Polyethylene Glycol 3350 17 Gm Powd.Pack) 17 gm PO BID [facility] Last Admin: 01/25/24 09:45 Dose: Not Given Documented By: JULIET Non-Admin Reason: Patient Refused Senna/Docusate Sodium (Sennosides/Docusate Sodium Tablet) 2 tab PO BEDTIME [facility] Last Admin: 01/24/24 20:26 Dose: 2 tab Documented By: JENY Sodium Chloride (0.9 % Sodium Chloride Flush 3 Ml Syringe) 3 ml IVFLUSH QSHIFT [facility] Last Admin: 01/25/24 07:31 Dose: 3 ml Documented By: JULIET Labs 01/23/24 05:24 01/24/24 06:19 Labs: Laboratory Results - last 24 hr 01/24/24 19:14 Random Vancomycin 15.3 Microbiology Microbiology Results: Microbiology 01/21/24 14:47 Blood Culture - Preliminary Blood - Venous Prelim: GPC Gram Stain only Assessment and Plan (1) Pelvic fracture: Status: Acute (2) Staphylococcus aureus bacteremia: Status: Acute (3) Soft tissue abscess: Status: Acute (4) Septic arthritis: Status: Acute (5) Acute hypokalemia: Status: Acute (6) Substance abuse: Status: Acute Plan 38-year-old male with pertinent history of IV drug use , homelessness, history of MRSA ,hep C,who presents to the emergency department for evaluation of weakness and not feeling well. Sepsis due to ?septic arthritis/osteomyelitis of right pubic symphysis with multiple soft tissue abscesses Blood cultures x2 positive for MRSA, WBC trending down, repeat blood cultures x2 from 01/20 05/19 positive for Gram-positive cocci (were negative up until today) on iv vancomycin is started on 01/17 and cefazolin started on 01/19. ESR 94 /CRP >20 echocardiogram showed no valvular pathology ID recommends 6-8 weeks of IV vanco, and on cefazolin 2 g q.8 hours, HIV nonreactive and hepatitis-C antibody reactive scheduled for IR drainage tomorrow at 13:00 /keep NPO after midnight Repeat blood cultures after abscess drainage. 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 Constipation due to narcotics continue current bowel regimen , MiraLax 17 g b.i.d., Senokot S 2 tablets at bedtime, Colace 200 mg daily,add lactulose 20gm bid Generalized weakness in the setting of above PT eval Polysubstance use disorder U tox positive for methadone, fentanyl, opiates, cocaine and bupropion Reports using 3-4 bundles of heroin/fentanyl/cocaine daily , continue Methadone 55 mg is being followed closely by Addiction Team,continue clonidine. On oxycodone 10 mg q.4 hours as needed Microcytic anemia iron panel c/w anemia of inflammatory disease, H&H above transfusion threshold. Hypokalemia repleted and normalized DVT prophylaxis mechanical /heparin subq Full code In my clinical judgment patient requires continued inpatient hospitalization for management of bacteremia requiring IV antibiotics ,expert consultations and safe disposition Quality Stroke Does the patient have a stroke diagnosis?: No VTE Prior VTE?: No VTE Risk Level:: Medical - moderate - high VTE Device Contraindication: N/A - Device Ordered VTE Drug Contraindication: Treatment Not Indicated
--- NOTE | 2024-01-25 13:51 | MHC.RECOVRN ---
Pts referral faxed to [facility]. CM aware.
--- NOTE | 2024-01-25 14:37 | P.PNID_ITS ---
Subjective Subjective Date of Service: 01/25/24 Critical Care Time (minutes): 15 Comment: He reports having still persistent RLQ discomfort about 7/10,same blood culture 01/20 so far 1/2 gram positive cocci Objective Data Labs 01/23/24 05:24 01/24/24 06:19 Labs: Laboratory Results - last 24 hr 01/24/24 19:14 Random Vancomycin 15.3 Microbiology Microbiology Results: Microbiology 01/21/24 14:47 Blood - Venous Blood Culture - Preliminary Prelim: GPC Gram Stain only 01/21/24 14:47 Blood - Venous Blood Culture - Preliminary No growth after 48 hours. 01/18/24 19:55 Blood - Venous Blood Culture - Final Methicillin Res Staph Aureus 01/18/24 15:12 Blood - Venous Blood Culture - Final Methicillin Res Staph Aureus Physical Exam 2 Vital Signs: Vital Signs: Last Vital Signs Temp 97.8 F 01/25/24 08:01 Pulse 76 01/25/24 08:01 Resp 12 01/25/24 08:01 BP 110/56 L 01/25/24 08:01 Pulse Ox 95 01/25/24 08:01 O2 Del Method Room Air 01/25/24 08:01 BMI result Body Mass Index 22.6 Const: General: cooperative HEENT: Head: Yes normal to inspection Face and sinus: Yes normal facial exam Mouth: Normal oral and palatal mucosa present Teeth and gingiva: d entition normal Eyes: General: appearance normal, both eyes and all related structures P upils: Equal, round and reactive pupils present Resp: Effort & Inspection: normal respiratory effort Cardio: Rate: regular rate Rhythm: regular rhythm GI: Other: pain RLQ Palpation (GI): Soft to palpation and nontender : General: Yes no CVA tenderness Back/Spine/Pelvis: Back: no CVA tenderness Skin: General skin exam: no rashes or lesions noted Neuro: General: moves all extremities Cranial nerves: Yes Equal, round and reactive pupils present Extrem: General: Yes normal to inspection Psych: Appearance: grossly normal Assessment and Plan Assessment and plan (1) Pelvic fracture: Status: Acute Assessment and Plan: MRSA bacteremia Await drainage,especially if still bacteremic of pelvic area Continue Daptomycin 6mg/kg /day with weekly CK and creatinine particularly if persistent bacteremia. No line until proven clear of MRSA bacteremia. (2) Staphylococcus aureus bacteremia: Status: Acute (3) Soft tissue abscess: Status: Acute (4) Osteomyelitis: Status: Acute Time Spent With Patient Time: Total time managing care of this patient today ____ minutes.
[2024-01-25 15:43] VITALS: BP 105/57; PULSE 87; RESP 20; TEMP 37.1; O2SAT 98
[2024-01-25 19:19] VITALS: BP 116/59; PULSE 99; RESP 20; TEMP 37.2; O2SAT 98
[2024-01-25 19:27] LABS: Hematocrit 31.1 % (42.0-52.0); Hemoglobin 9.6 g/dl (14.0-18.0); Mean Corpuscular HGB Conc 30.9 g/dl (31.0-36.0); Mean Corpuscular Hemoglobin 24.6 pg (27.0-33.0); Mean Corpuscular Volume 79.5 fL (80.0-98.0); Mean Platelet Volume 8.2 fL (9.4-12.4); Platelet Count 439 X10*3/uL (160-400); Red Blood Count 3.91 X10*6/uL (4.60-5.80); Red Cell Distribution Width 16.6 % (11.0-16.0); White Blood Count 14.2 X10*3/uL (4.8-10.8)
[2024-01-25 19:41] LABS: Vancomycin Random 15.4 mcg/mL (15-20)
[2024-01-25 19:42] LABS: Anion Gap 12 (12-20); Blood Urea Nitrogen 16 mg/dL (9-16); Calcium 8.4 mg/dL (8.4-10.2); Carbon Dioxide 28 mmol/L (22-29); Chloride 99 mmol/L (96-108); Creatinine Clr Calc Pharmacy 146.9; Estimated Glomerular Filt Rate > 60; Glucose Random 116 mg/dL (60-115); Potassium 4.1 mmol/L (3.3-5.1); Sodium 135 mmol/L (135-145)
[2024-01-25] MEDS: Melatonin 3 MG TABLET 6 MG PO (20:35)
[2024-01-25] MEDS: Sennosides/Docusate Sodium TABLET 2 TAB PO (20:35)
[2024-01-26] VITALS (10 sets, daily range): BP systolic 95–122; BP diastolic 56–77; PULSE 71–91; RESP 12–20; TEMP 36.4–37.6; O2SAT 95–100
[2024-01-26] MEDS: vancomycin HCL 750 MG in 0.9 % Sodium Chloride 250 ML 265 MG IV ×2 (05:12→13:34)
[2024-01-26] MEDS: oxyCODONE HCl Immed Release 5 MG TABLET 10 MG PO ×2 (05:42→19:56)
[2024-01-26] MEDS: ceFAZolin Sodium/Dextrose,Iso 2 GM/50 ML PIGGYBACK IV ×2 (05:44→18:06)
--- NOTE | 2024-01-26 07:12 | PC.NURSE ---
outdated iv site pt refused replacement md cuellar
[2024-01-26] MEDS: 0.9 % Sodium Chloride Flush 3 ML SYRINGE IVFLUSH (08:00)
[2024-01-26] MEDS: methADONE HCl 20 MG/2 ML ORAL.CONC 55 MG PO (09:15)
[2024-01-26] MEDS: Docusate Sodium 100 MG CAPSULE 200 MG PO (09:16)
--- NOTE | 2024-01-26 11:41 | P.PNIM_ITS ---
Subjective Subjective Date of Service: 01/26/24 Interval History: R groin/pelvic pain no fever NPO for IR drainage This history was taken in Bahamian from the patient. Review of Systems Review of Systems: Yes all other systems are reviewed and are negative Physical Exam 2 Vital Signs: Vital Signs: Last Vital Signs Temp 97.8 F 01/26/24 07:41 Pulse 77 01/26/24 07:41 Resp 14 01/26/24 07:41 BP 116/60 01/26/24 07:41 Pulse Ox 99 01/26/24 07:41 O2 Del Method Room Air 01/26/24 07:41 BMI result Body Mass Index 22.6 Gen: in no acute distress HEENT: sclera anicteric, moist mucus membranes Neck: supple Lungs: clear to auscultation bilaterally Heart: regular rate and rhythm, no murmurs Abd: soft, R groin tenderness, non-distended Ext: no edema Skin: warm/well-perfused Neuro: alert and oriented x3, no focal findings Psych: appropriate affect Objective Data Active Medications Acetaminophen (Acetaminophen 325 Mg Tablet) 650 mg PO Q6H PRN PRN Reason: Pain, Mild (Pain Scale 1-3), fever or headache Calcium Carbonate (Calcium Carbonate 750 Mg Tab.Chew) 750 mg PO Q4H PRN PRN Reason: Heartburn Docusate Sodium (Docusate Sodium 100 Mg Capsule) 200 mg PO DAILY [facility] Last Admin: 01/26/24 09:16 Dose: 200 mg Documented By: JULIET Heparin Sodium (Porcine) (Heparin Sodium,Porcine 5,000 Unit/Ml Vial) 5,000 unit SUBCUT Q12H [facility] Last Admin: 01/26/24 02:49 Dose: Not Given Documented By: PEBBLES Non-Admin Reason: Patient Refused Cefazolin Sodium/Dextrose (Ancef) 2 gm in 50 mls @ 100 mls/hr IV Q8H [facility] Last Infusion: 01/26/24 06:40 Dose: Infused Documented By: PEBBLES Vancomycin HCl 750 mg/ Sodium (Chloride) 265 mls @ 265 mls/hr IV Q8H [facility] Last Infusion: 01/26/24 06:39 Dose: Infused Documented By: PEBBLES Lactulose (Lactulose 20 Gm/30 Ml Solution) 20 gm PO BID [facility] Last Admin: 01/26/24 09:24 Dose: Not Given Documented By: JULIET Non-Admin Reason: Patient Condition Contraindication Magnesium Hydroxide (Milk Of Magnesia 30 Ml Oral.Susp) 30 ml PO DAILY PRN PRN Reason: Constipation Melatonin (Melatonin 3 Mg Tablet) 6 mg PO BEDTIME [facility] Last Admin: 01/25/24 20:35 Dose: 6 mg Documented By: JEAN Methadone HCl (Methadone Hcl 20 Mg/2 Ml Oral.Conc) 55 mg PO DAILY [facility] Last Admin: 01/26/24 09:15 Dose: 55 mg Documented By: JULIET Co-signed By: CHANI Ondansetron HCl (Ondansetron Hcl 4 Mg/2 Ml Vial) 4 mg IVPUSH Q8H PRN PRN Reason: Nausea and Vomiting Oxycodone HCl (Oxycodone Hcl Immed Release 5 Mg Tablet) 10 mg PO Q4H PRN PRN Reason: Pain, Severe (Pain Scale 7-10) Last Admin: 01/26/24 05:42 Dose: 10 mg Documented By: PEBBLES Pharmacy Consult (Consult Rx Vancomycin Dosing) 1 each MISCELLANE DAILY PRN PRN Reason: Consult order Polyethylene Glycol (Polyethylene Glycol 3350 17 Gm Powd.Pack) 17 gm PO BID [facility] Last Admin: 01/26/24 09:25 Dose: Not Given Documented By: JULIET Non-Admin Reason: Patient Refused Senna/Docusate Sodium (Sennosides/Docusate Sodium Tablet) 2 tab PO BEDTIME [facility] Last Admin: 01/25/24 20:35 Dose: 2 tab Documented By: JEAN Sodium Chloride (0.9 % Sodium Chloride Flush 3 Ml Syringe) 3 ml IVFLUSH QSHIFT [facility] Last Admin: 01/26/24 08:00 Dose: 3 ml Documented By: JULIET Labs 01/25/24 19:18 01/25/24 19:18 Labs: Laboratory Results - last 24 hr 01/25/24 19:18 MCV 79.5 L MCH 24.6 L MCHC 30.9 L RDW 16.6 H Plt Count 439 H MPV 8.2 L Absolute Nucleated RBC 0.000 Nucleated RBC % (auto) 0.0 Anion Gap 12 Estim Creat Clear Calc 146.9 Estimated GFR > 60 Random Glucose 116 H Calcium 8.4 D Random Vancomycin 15.4 Microbiology Microbiology Results: Microbiology 01/21/24 14:47 Blood Culture - Preliminary Blood - Venous Prelim: GPC Gram Stain only Assessment and Plan (1) Pelvic fracture: Status: Acute (2) Staphylococcus aureus bacteremia: Status: Acute (3) Soft tissue abscess: Status: Acute (4) Septic arthritis: Status: Acute (5) Acute hypokalemia: Status: Acute (6) Substance abuse: Status: Acute Plan d9 38yo M with IDU, homelessness, hx MRSA infection, HCV presenting with weakness and admitted for sepsis due to MRSA bacteremia with septic arthritis + osteomyelitis with pathologic fracture through R pubic symphysis and multiple soft tissue abscesses [R iliac, R obturator, R hip adductor] sepsis due to MRSA bacteremia with septic arthritis + osteomyelitis with pathologic fracture through R pubic symphysis and multiple soft tissue abscesses - IV vancomycin 01/17-, IV cefazolin 01/19- - TTE without valvular pathology - ID consulted, recommending eventual transition to daptomycin x6wk, no line until cultures clear [will recheck 01/26; BCx 01/20 with positive Gram stain] - IR drainage today - [facility] records from October 2023: had MRSA + group A Streptococcus bacteremia complicated by L wrist septic arthritis s/p I+D 11/10/23, R ilipsoaos abscess s/p SIMA drain 11/11/23, R 2nd toe osteomyelitis s/p amputation 11/13/23; BCx cleared 11/12/23 and pt was treated with IV cefazolin + vancomycin. Repeat CT showed near-resolution of R iliopsoas abscess and improvement in R gluteal abscess. Discharged to [facility] for 6 wk of IV vancomycin, completed 12/23/23. IDU polysubstance abuse disorder [Utox positive for methadone, fentanyl, opiates, cocaine, buprenorphine] - continue methadone as recommended by Addiction Medicine; oxycodone 10 mg q4h prn breakthrough pain - HIV negative, HCV Ab+ with viral load pending, HBV pending anemia of chronic inflammation - above transfusion threshold, monitor H+H periodically hypoK - repleted constipation due to opioids - bowel regimen: Miralax, senna/docusate, lactulose VTE ppx - [facility] dispo - will need STR In my clinical judgment, the patient requires continued inpatient hospitalization for the following reasons: IV ABX, IR drainage, discharge planning Total time managing care of this patient today: 40 minutes. Quality Stroke Does the patient have a stroke diagnosis?: No VTE Prior VTE?: No VTE Risk Level:: Medical - moderate - high VTE Device Contraindication: N/A - Device Ordered VTE Drug Contraindication: Treatment Not Indicated
[2024-01-26] MEDS: Lactated Ringers 1,000 ML 50 ML IVCONT (13:37)
--- NOTE | 2024-01-26 13:38 | PC.NURSE ---
IV attempts by pre op staff x 2. Unsuccessful. RN d/w yvonne Garcia to proceed with procedure with existing right AC IV placed on 01/18/24. Flushed x 2 well. LR running ok. Vancomycin ordered for 1pm. Anesthesia requesting no pump for vanco infusion and will monitor rate/drip.
--- NOTE | 2024-01-26 15:11 | PM.PROC ---
Brief Operative Note Date of procedure: 01/26/24 Pre-op diagnosis: Multiple Pelvic and RLE abscesses, Bacteremia, IV substance abuse Post-op diagnosis: same Procedure: 1) CT drainage of right pelvic (obturator muscle) abscess. 10 fr drain placed. 20 cc purulent fluid removed. 2) CT aspiration of right groin (superficial) abscess. 5 cc purulent fluid aspirated. 3) CT aspiration of deep right thigh abscess. 15 cc purulent fluid aspirated. Cultures sent from all sites. Anesthesia: MAC Condition: stable Disposition: PACU
--- NOTE | 2024-01-26 17:40 | PC.NURSE ---
This writer producer came to patient with primary RN Renu and juice mixer. Educated that he can not be rude, disrespectful or threatening to staff. He was educated that he is here for care and does not need to be verbally abusive to nursing staff. Pt states he understands and apologized to staff.
--- NOTE | 2024-01-26 18:47 | PC.NURSE ---
Pt refused assessment post Ct drainage of abcess.
[2024-01-26 19:19] LABS: Hematocrit 31.1 % (42.0-52.0); Hemoglobin 9.6 g/dl (14.0-18.0); Mean Corpuscular HGB Conc 30.9 g/dl (31.0-36.0); Mean Corpuscular Hemoglobin 24.3 pg (27.0-33.0); Mean Corpuscular Volume 78.7 fL (80.0-98.0); Mean Platelet Volume 8.2 fL (9.4-12.4); Platelet Count 535 X10*3/uL (160-400); Red Blood Count 3.95 X10*6/uL (4.60-5.80); Red Cell Distribution Width 16.4 % (11.0-16.0); White Blood Count 13.7 X10*3/uL (4.8-10.8)
[2024-01-26 19:25] LABS: INTERNATIONAL NORM RATIO 1.2 (0.9-1.1); Prothrombin Time 14.6 SEC (11.1-13.3)
[2024-01-26 19:27] LABS: Vancomycin Random 12.6 mcg/mL (15-20)
[2024-01-26 19:29] LABS: Anion Gap 11 (12-20); Carbon Dioxide 27 mmol/L (22-29); Chloride 100 mmol/L (96-108); Creatinine Clr Calc Pharmacy 163.3; Estimated Glomerular Filt Rate > 60; Potassium 3.9 mmol/L (3.3-5.1); Sodium 134 mmol/L (135-145)
--- NOTE | 2024-01-26 19:49 | HE.PHANOTE ---
RE: VANCO DOSING Random came back as 12.6 which is subtherapeutic. Dose is increased to 1250 mg q8h to get pt back to therapeutic level, may need to lower dose after random scheduled for 01/27/24 @1900.
[2024-01-26] MEDS: vancomycin HCL 1,250 MG in 0.9 % Sodium Chloride 250 ML 166.67 MG IV (21:20)
[2024-01-26] MEDS: Acetaminophen 325 MG TABLET 650 MG PO (21:24)
[2024-01-26] MEDS: Sennosides/Docusate Sodium TABLET 2 TAB PO (21:24)
[2024-01-26] MEDS: Melatonin 3 MG TABLET 6 MG PO (21:24)
[2024-01-27] VITALS (7 sets, daily range): BP systolic 109–128; BP diastolic 61–73; PULSE 77–85; RESP 14–18; TEMP 36.3–37.4; O2SAT 96–99
[2024-01-27] MEDS: oxyCODONE HCl Immed Release 5 MG TABLET 10 MG PO ×6 (00:29→19:36)
[2024-01-27] MEDS: ceFAZolin Sodium/Dextrose,Iso 2 GM/50 ML PIGGYBACK IV ×3 (01:42→17:35)
[2024-01-27] MEDS: vancomycin HCL 1,250 MG in 0.9 % Sodium Chloride 250 ML 166.67 MG IV ×2 (05:01→12:07)
--- NOTE | 2024-01-27 07:13 | HO.PM.IMPN ---
Subjective Subjective Date of Service: 01/27/24 Interval History: afebrile underwent IR drainage yesterday, has SIMA draining serosanguinous material c/o pelvic + groin pain This history was taken in Mongolian from the patient. Review of Systems Review of Systems: Yes all other systems are reviewed and are negative Physical Exam Vital Signs: Vital Signs: Last Vital Signs Temp 98.9 F 01/27/24 04:00 Pulse 79 01/27/24 04:00 Resp 18 01/27/24 04:00 BP 109/61 01/27/24 04:00 Pulse Ox 98 01/27/24 04:00 O2 Del Method Room Air 01/27/24 04:00 O2 Flow Rate 6 01/26/24 15:24 BMI result Body Mass Index 22.6 Gen: in no acute distress HEENT: sclera anicteric, moist mucus membranes Neck: supple Lungs: clear to auscultation bilaterally Heart: regular rate and rhythm, no murmurs Abd: soft, R groin tenderness, non-distended Ext: no edema Skin: warm/well-perfused, R pelvis with SIMA drain with serosanguinous liquid Neuro: alert and oriented x3, no focal findings Psych: appropriate affect Objective Data Active Medications Acetaminophen (Acetaminophen 325 Mg Tablet) 650 mg PO Q6H PRN PRN Reason: Pain, Mild (Pain Scale 1-3), fever or headache Last Admin: 01/26/24 21:24 Dose: 650 mg Documented By: VERNON Calcium Carbonate (Calcium Carbonate 750 Mg Tab.Chew) 750 mg PO Q4H PRN PRN Reason: Heartburn Docusate Sodium (Docusate Sodium 100 Mg Capsule) 200 mg PO DAILY [facility] Last Admin: 01/26/24 09:16 Dose: 200 mg Documented By: JULIET Heparin Sodium (Porcine) (Heparin Sodium,Porcine 5,000 Unit/Ml Vial) 5,000 unit SUBCUT Q12H [facility] Last Admin: 01/27/24 01:05 Dose: Not Given Documented By: VERNON Non-Admin Reason: Patient Refused Lactated Ringer's (Lr) 1,000 mls @ 50 mls/hr IVCONT .Q20H [facility] Last Admin: 01/26/24 13:37 Dose: 50 mls/hr Documented By: SIDRA Cefazolin Sodium/Dextrose (Ancef) 2 gm in 50 mls @ 100 mls/hr IV Q8H [facility] Last Infusion: 01/27/24 02:13 Dose: Infused Documented By: VERNON Vancomycin HCl 1,250 mg/ (Sodium Chloride) 250 mls @ 166.667 mls/hr IV Q8H [facility] Last Infusion: 01/27/24 06:33 Dose: Infused Documented By: VERNON Lactulose (Lactulose 20 Gm/30 Ml Solution) 20 gm PO BID [facility] Last Admin: 01/26/24 21:25 Dose: Not Given Documented By: VERNON Non-Admin Reason: Patient Refused Magnesium Hydroxide (Milk Of Magnesia 30 Ml Oral.Susp) 30 ml PO DAILY PRN PRN Reason: Constipation Melatonin (Melatonin 3 Mg Tablet) 6 mg PO BEDTIME [facility] Last Admin: 01/26/24 21:24 Dose: 6 mg Documented By: VERNON Methadone HCl (Methadone Hcl 20 Mg/2 Ml Oral.Conc) 55 mg PO DAILY [facility] Last Admin: 01/26/24 09:15 Dose: 55 mg Documented By: JULIET Co-signed By: CHANI Naloxone HCl (Naloxone Hcl 0.4 Mg/Ml Vial) 0.04 mg IVPUSH Q5M PRN PRN Reason: Excessive sedation or RR < 8 Ondansetron HCl (Ondansetron Hcl 4 Mg/2 Ml Vial) 4 mg IVPUSH Q8H PRN PRN Reason: Nausea and Vomiting Oxycodone HCl (Oxycodone Hcl Immed Release 5 Mg Tablet) 10 mg PO Q4H PRN PRN Reason: Pain, Severe (Pain Scale 7-10) Last Admin: 01/27/24 05:06 Dose: 10 mg Documented By: VERNON Pharmacy Consult (Consult Rx Vancomycin Dosing) 1 each MISCELLANE DAILY PRN PRN Reason: Consult order Polyethylene Glycol (Polyethylene Glycol 3350 17 Gm Powd.Pack) 17 gm PO BID [facility] Last Admin: 01/26/24 21:25 Dose: Not Given Documented By: VERNON Non-Admin Reason: Patient Refused Senna/Docusate Sodium (Sennosides/Docusate Sodium Tablet) 2 tab PO BEDTIME [facility] Last Admin: 01/26/24 21:24 Dose: 2 tab Documented By: VERNON Sodium Chloride (0.9 % Sodium Chloride Flush 3 Ml Syringe) 3 ml IVFLUSH QSHIFT [facility] Last Admin: 01/27/24 01:05 Dose: Not Given Documented By: VERNON Non-Admin Reason: IV Running Labs 01/26/24 19:06 01/26/24 19:06 Labs: Laboratory Results - last 24 hr 01/26/24 19:06 MCV 78.7 L MCH 24.3 L MCHC 30.9 L RDW 16.4 H Plt Count 535 H MPV 8.2 L Absolute Nucleated RBC 0.000 Nucleated RBC % (auto) 0.0 PT 14.6 H INR 1.2 H Anion Gap 11 L Estim Creat Clear Calc 163.3 Estimated GFR > 60 Random Vancomycin 12.6 L Microbiology Microbiology Results: Microbiology 01/21/24 14:47 Blood Culture - Final Blood - Venous No growth after 5 days. 01/21/24 14:47 Blood Culture - Final Blood - Venous Methicillin Res Staph Aureus Assessment and Plan (1) Pelvic fracture: Status: Acute (2) Staphylococcus aureus bacteremia: Status: Acute (3) Soft tissue abscess: Status: Acute (4) Septic arthritis: Status: Acute (5) Acute hypokalemia: Status: Acute (6) Substance abuse: Status: Acute Plan d10 38yo M with IDU, homelessness, hx MRSA infection, HCV presenting with weakness and admitted for sepsis due to MRSA bacteremia with septic arthritis + osteomyelitis with pathologic fracture through R pubic symphysis and multiple soft tissue abscesses [R iliac, R obturator, R hip adductor] sepsis due to MRSA bacteremia with septic arthritis + osteomyelitis with pathologic fracture through R pubic symphysis and multiple soft tissue abscesses - IV vancomycin 01/17-, IV cefazolin 01/19- - TTE without valvular pathology - ID consulted, recommending eventual transition to daptomycin x6wk, no line until cultures clear [will recheck today; BCx 01/20 had one culture positive for MRSA] - IR drainage 01/25: 1) CT drainage of right pelvic (obturator muscle) abscess. 10 fr drain placed. 20 cc purulent fluid removed. 2) CT aspiration of right groin (superficial) abscess. 5 cc purulent fluid aspirated. 3) CT aspiration of deep right thigh abscess. 15 cc purulent fluid aspirated. - [facility] [place]23: had MRSA + group A Streptococcus bacteremia complicated by L wrist septic arthritis s/p I+D 11/10/23, R ilipsoaos abscess s/p SIMA drain 11/11/23, R 2nd toe osteomyelitis s/p amputation 11/13/23; BCx cleared 11/12/23 and pt was treated with IV cefazolin + vancomycin. Repeat CT showed near-resolution of R iliopsoas abscess and improvement in R gluteal abscess. Discharged to [facility] for 6 wk of IV vancomycin, completed 12/23/23. IDU polysubstance abuse disorder [Utox positive for methadone, fentanyl, opiates, cocaine, buprenorphine] - continue methadone as recommended by Addiction Medicine; oxycodone 10 mg q4h prn breakthrough pain - HIV negative, HCV Ab+ with viral load pending, HBV pending anemia of chronic inflammation - above transfusion threshold, monitor H+H periodically hypoK - repleted constipation due to opioids - bowel regimen: Miralax, senna/docusate, lactulose VTE ppx - [facility] dispo - will need STR In my clinical judgment, the patient requires continued inpatient hospitalization for the following reasons: IV ABX, IR drainage, discharge planning Total time managing care of this patient today: 40 minutes. Quality Stroke Does the patient have a stroke diagnosis?: No VTE Prior VTE?: No VTE Risk Level:: Medical - moderate - high VTE Device Contraindication: N/A - Device Ordered VTE Drug Contraindication: Treatment Not Indicated
[2024-01-27] MEDS: methADONE HCl 20 MG/2 ML ORAL.CONC 55 MG PO (07:37)
[2024-01-27] MEDS: Docusate Sodium 100 MG CAPSULE 200 MG PO (07:41)
--- NOTE | 2024-01-27 09:00 | HO.POSTANES ---
Post Anesthesia Evaluation Post Anesthesia Evaluation Date of Service: 01/26/24 Vital Signs: Vital Signs Temp Pulse Resp BP Pulse Ox O2 Del Method 01/27/24 07:34 98.1 F 82 16 112/73 99 Room Air 01/27/24 04:00 98.9 F 79 18 109/61 98 Room Air 01/26/24 23:50 99.6 F 84 16 112/57 L 95 Room Air Anesthesia: General Mental Status: Awake Pain Control: Satisfactory Nausea/Vomiting: None Hydration: Adequate Anesthesia-Related Issues: No Anes. Related Issues
--- NOTE | 2024-01-27 10:30 | PC.NURSE ---
Pt here and requesting to see MD for patient to be transferred to [facility] is closer to [place]. MD notified to speak with and Patient. is not listed under patients contacts.
--- NOTE | 2024-01-27 12:22 | PC.NURSE ---
Call from Registration stating patients wants him to go [place] [facility] because it is closer to [place] because she works in [facility]. Educated and Patient that [facility] will not accept him as a transfer, and Post Acute care will be in [place] r/t patients substance abuse issues. After a long conversation they both state understanding and acceptance of this plan. MD made aware. 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
[2024-01-27 14:00] LABS: Anion Gap 13 (12-20); Blood Urea Nitrogen 12 mg/dL (9-16); Calcium 8.7 mg/dL (8.4-10.2); Carbon Dioxide 30 mmol/L (22-29); Chloride 99 mmol/L (96-108); Creatinine Clr Calc Pharmacy 146.9; Estimated Glomerular Filt Rate > 60; Glucose Random 125 mg/dL (60-115); Potassium 3.8 mmol/L (3.3-5.1); Sodium 138 mmol/L (135-145)
[2024-01-27] MEDS: 0.9 % Sodium Chloride Flush 3 ML SYRINGE IVFLUSH (17:35)
[2024-01-27 19:44] LABS: Vancomycin Random 19.1 mcg/mL (15-20)
--- NOTE | 2024-01-27 19:58 | HE.PHANOTE ---
RE: VANCO DOSING Random came back as 19.1. Dose is decrease to 1000 mg q8h. Next random is scheduled for 01/28/24 @1900.
[2024-01-27] MEDS: vancomycin HCL 1,000 MG in 0.9 % Sodium Chloride 250 ML 270 MG IV (20:47)
[2024-01-27] MEDS: Sennosides/Docusate Sodium TABLET 2 TAB PO (20:47)
[2024-01-27] MEDS: Melatonin 3 MG TABLET 6 MG PO (20:51)
[2024-01-28] MEDS: oxyCODONE HCl Immed Release 5 MG TABLET 10 MG PO ×2 (00:58→05:50)
[2024-01-28] MEDS: ceFAZolin Sodium/Dextrose,Iso 2 GM/50 ML PIGGYBACK IV (01:02)
[2024-01-28] MEDS: 0.9 % Sodium Chloride Flush 3 ML SYRINGE IVFLUSH ×4 (01:03→21:06)
[2024-01-28 03:39] VITALS: BP 113/69; PULSE 75; RESP 16; TEMP 36.2; O2SAT 99
[2024-01-28] MEDS: vancomycin HCL 1,000 MG in 0.9 % Sodium Chloride 250 ML 270 MG IV (04:53)
[2024-01-28 05:10] LABS: HBS Num1 881.24 mIU/mL (0-7.99); HBc Num1 0.84 S/CO (0.00-0.79); HBsAGNum1 0.34 S/CO (0.00-0.99); Hepatitis B Surface Antigen Negative (Negative); ~Hepatitis B Surface Antibody REACTIVE (Nonreactive)
[2024-01-28 06:17] LABS: HBc Num2 0.24 S/CO; HBc Num3 0.17 S/CO; Hepatitis B Core Antibody Nonreactive (Nonreactive)
[2024-01-28 07:22] VITALS: BP 108/66; PULSE 79; RESP 16; TEMP 37.1; O2SAT 97
[2024-01-28] MEDS: DAPTOmycin 500 MG in 0.9 % Sodium Chloride 50 ML 99.72 MG IV (08:53)
[2024-01-28] MEDS: methADONE HCl 20 MG/2 ML ORAL.CONC 55 MG PO (08:53)
[2024-01-28] MEDS: Docusate Sodium 100 MG CAPSULE 200 MG PO (08:54)
[2024-01-28] MEDS: polyethylene glycoL 3350 17 GM POWD.PACK PO (08:56)
--- NOTE | 2024-01-28 09:28 | HO.PM.IMPN ---
Subjective Subjective Date of Service: 01/28/24 Interval History: c/o severe groin/pelvic pain no fever This history was taken in Lithuanian from the patient. Review of Systems Review of Systems: Yes all other systems are reviewed and are negative Physical Exam Vital Signs: Vital Signs: Last Vital Signs Temp 98.8 F 01/28/24 07:22 Pulse 79 01/28/24 07:22 Resp 16 01/28/24 07:22 BP 108/66 01/28/24 07:22 Pulse Ox 97 01/28/24 07:22 O2 Del Method Room Air 01/28/24 07:22 O2 Flow Rate 6 01/26/24 15:24 BMI result Body Mass Index 22.6 Gen: in no acute distress HEENT: sclera anicteric, moist mucus membranes Neck: supple Lungs: clear to auscultation bilaterally Heart: regular rate and rhythm, no murmurs Abd: soft, R groin tenderness, non-distended Ext: no edema Skin: warm/well-perfused, R pelvis with SIMA drain with serosanguinous liquid Neuro: alert and oriented x3, no focal findings Psych: appropriate affect Objective Data Active Medications Acetaminophen (Acetaminophen 325 Mg Tablet) 650 mg PO Q6H PRN PRN Reason: Pain, Mild (Pain Scale 1-3), fever or headache Last Admin: 01/26/24 21:24 Dose: 650 mg Documented By: VERNON Calcium Carbonate (Calcium Carbonate 750 Mg Tab.Chew) 750 mg PO Q4H PRN PRN Reason: Heartburn Docusate Sodium (Docusate Sodium 100 Mg Capsule) 200 mg PO DAILY [facility] Last Admin: 01/28/24 08:54 Dose: 200 mg Documented By: JUDAH Heparin Sodium (Porcine) (Heparin Sodium,Porcine 5,000 Unit/Ml Vial) 5,000 unit SUBCUT Q12H [facility] Last Admin: 01/28/24 00:48 Dose: Not Given Documented By: VERNON Non-Admin Reason: Patient Refused Daptomycin 500 mg/ Sodium (Chloride) 60 mls @ 99.723 mls/hr IV Q24H [facility] Last Admin: 01/28/24 08:53 Dose: 99.72 mls/hr Documented By: JUDAH Lactulose (Lactulose 20 Gm/30 Ml Solution) 20 gm PO BID [facility] Last Admin: 01/28/24 07:30 Dose: Not Given Documented By: JUDAH Non-Admin Reason: Patient Refused Magnesium Hydroxide (Milk Of Magnesia 30 Ml Oral.Susp) 30 ml PO DAILY PRN PRN Reason: Constipation Melatonin (Melatonin 3 Mg Tablet) 6 mg PO BEDTIME [facility] Last Admin: 01/27/24 20:51 Dose: 6 mg Documented By: VERNON Methadone HCl (Methadone Hcl 20 Mg/2 Ml Oral.Conc) 55 mg PO DAILY [facility] Last Admin: 01/28/24 08:53 Dose: 55 mg Documented By: JUDAH Co-signed By: MARIAM Naloxone HCl (Naloxone Hcl 0.4 Mg/Ml Vial) 0.04 mg IVPUSH Q5M PRN PRN Reason: Excessive sedation or RR < 8 Ondansetron HCl (Ondansetron Hcl 4 Mg/2 Ml Vial) 4 mg IVPUSH Q8H PRN PRN Reason: Nausea and Vomiting Oxycodone HCl (Oxycodone Hcl Immed Release 5 Mg Tablet) 10 mg PO Q4H PRN PRN Reason: Pain, Severe (Pain Scale 7-10) Last Admin: 01/28/24 05:50 Dose: 10 mg Documented By: VERNON Polyethylene Glycol (Polyethylene Glycol 3350 17 Gm Powd.Pack) 17 gm PO BID [facility] Last Admin: 01/28/24 08:56 Dose: 17 gm Documented By: JUDAH Senna/Docusate Sodium (Sennosides/Docusate Sodium Tablet) 2 tab PO BEDTIME [facility] Last Admin: 01/27/24 20:47 Dose: 2 tab Documented By: VERNON Sodium Chloride (0.9 % Sodium Chloride Flush 3 Ml Syringe) 3 ml IVFLUSH QSHIFT [facility] Last Admin: 01/28/24 08:54 Dose: 3 ml Documented By: JUDAH Labs 01/26/24 19:06 01/27/24 13:04 Labs: Laboratory Results - last 24 hr 01/27/24 01/27/24 01/27/24 13:04 13:04 13:04 Anion Gap 13 Estim Creat Clear Calc 146.9 Cancelled Estimated GFR > 60 Cancelled Random Glucose 125 H Calcium 8.7 Total Creatine Kinase < 7 L Random Vancomycin Hep Bs Antigen Negative Hep Bs Antibody REACTIVE Hep B Core Total Ab Nonreactive 01/27/24 19:11 Anion Gap Estim Creat Clear Calc Estimated GFR Random Glucose Calcium Total Creatine Kinase Random Vancomycin 19.1 Hep Bs Antigen Hep Bs Antibody Hep B Core Total Ab Microbiology Microbiology Results: Microbiology 01/26/24 14:45 Gram Stain - Final Thigh - Right Routine Culture - Final Methicillin Res Staph Aureus Anaerobic Culture - Preliminary Culture in progress. 01/26/24 14:45 Gram Stain - Final Groin Routine Culture - Preliminary Staphylococcus aureus Anaerobic Culture - Preliminary Culture in progress. 01/26/24 14:45 Gram Stain - Final Groin, Right Routine Culture - Preliminary Staphylococcus aureus Anaerobic Culture - Preliminary Culture in progress. Assessment and Plan (1) Pelvic fracture: Status: Acute (2) Staphylococcus aureus bacteremia: Status: Acute (3) Soft tissue abscess: Status: Acute (4) Septic arthritis: Status: Acute (5) Acute hypokalemia: Status: Acute (6) Substance abuse: Status: Acute Plan d11 38yo M with IDU, homelessness, hx MRSA infection, HCV presenting with weakness and admitted for sepsis due to MRSA bacteremia with septic arthritis + osteomyelitis with pathologic fracture through R pubic symphysis and multiple soft tissue abscesses [R iliac, R obturator, R hip adductor] sepsis due to MRSA bacteremia with septic arthritis + osteomyelitis with pathologic fracture through R pubic symphysis and multiple soft tissue abscesses - IV vancomycin 01/17-, IV cefazolin 01/19- - TTE without valvular pathology - ID consulted, recommending transitioning to daptomycin 8 mg/kg/d x6wk- will change today, no line until cultures clear [prior BCx 01/20 had one culture positive for MRSA, BCx rechecked 01/26 and pending] - IR drainage 01/25; aspirates growing MRSA 1) CT drainage of right pelvic (obturator muscle) abscess. 10 fr drain placed. 20 cc purulent fluid removed. 2) CT aspiration of right groin (superficial) abscess. 5 cc purulent fluid aspirated. 3) CT aspiration of deep right thigh abscess. 15 cc purulent fluid aspirated. - [facility] records from October 2023: had MRSA + group A Streptococcus bacteremia complicated by L wrist septic arthritis s/p I+D 11/10/23, R ilipsoaos abscess s/p SMIA drain 11/11/23, R 2nd toe osteomyelitis s/p amputation 11/13/23; BCx cleared 11/12/23 and pt was treated with IV cefazolin + vancomycin. Repeat CT showed near-resolution of R iliopsoas abscess and improvement in R gluteal abscess. Discharged to [facility] for 6 wk of IV vancomycin, completed 12/23/23. IDU polysubstance abuse disorder [Utox positive for methadone, fentanyl, opiates, cocaine, buprenorphine] - continue methadone as recommended by Addiction Medicine; oxycodone 10->15 mg q4h prn breakthrough pain - HIV negative, HCV Ab+ with viral load pending, HBV immune anemia of chronic inflammation - above transfusion threshold, monitor H+H periodically hypoK - repleted constipation due to opioids - bowel regimen: Miralax, senna/docusate, lactulose VTE ppx - [facility] dispo - will need STR In my clinical judgment, the patient requires continued inpatient hospitalization for the following reasons: IV ABX, IR drainage, discharge planning Total time managing care of this patient today: 40 minutes. Quality Stroke Does the patient have a stroke diagnosis?: No VTE Prior VTE?: No VTE Risk Level:: Medical - moderate - high VTE Device Contraindication: N/A - Device Ordered VTE Drug Contraindication: Treatment Not Indicated
[2024-01-28 11:25] VITALS: BP 108/70; PULSE 84; RESP 16; TEMP 36.9; O2SAT 98
[2024-01-28] MEDS: oxyCODONE HCl Immed Release 15 MG TABLET PO ×2 (14:20→21:01)
[2024-01-28 15:00] VITALS: O2SAT 98
[2024-01-28 15:10] VITALS: BP 101/60; PULSE 85; RESP 16; TEMP 36.7; O2SAT 98
[2024-01-28 18:59] VITALS: BP 107/69; PULSE 87; RESP 17; TEMP 37.2; O2SAT 99
[2024-01-28] MEDS: Sennosides/Docusate Sodium TABLET 2 TAB PO (21:01)
[2024-01-28] MEDS: Melatonin 3 MG TABLET 6 MG PO (21:01)
[2024-01-29] VITALS (7 sets, daily range): BP systolic 106–116; BP diastolic 62–73; PULSE 71–88; RESP 16–18; TEMP 36.4–37.4; O2SAT 95–100
[2024-01-29] MEDS: oxyCODONE HCl Immed Release 15 MG TABLET PO ×5 (01:30→22:32)
[2024-01-29] MEDS: methADONE HCl 20 MG/2 ML ORAL.CONC 55 MG PO (07:44)
[2024-01-29] MEDS: Docusate Sodium 100 MG CAPSULE 200 MG PO (07:45)
[2024-01-29] MEDS: 0.9 % Sodium Chloride Flush 3 ML SYRINGE IVFLUSH ×3 (07:50→22:32)
[2024-01-29] MEDS: DAPTOmycin 500 MG in 0.9 % Sodium Chloride 50 ML 99.72 MG IV (08:30)
--- NOTE | 2024-01-29 09:40 | HO.PM.IMPN ---
Subjective Subjective Date of Service: 01/29/24 Interval History: groin/pelvic pain improved no fever This history was taken in Slovenian from the patient. Review of Systems Review of Systems: Yes all other systems are reviewed and are negative Physical Exam Vital Signs: Vital Signs: Last Vital Signs Temp 98.5 F 01/29/24 07:16 Pulse 71 01/29/24 07:16 Resp 16 01/29/24 07:16 BP 111/67 01/29/24 07:16 Pulse Ox 100 01/29/24 07:16 O2 Del Method Room Air 01/29/24 07:16 O2 Flow Rate 6 01/26/24 15:24 BMI result Body Mass Index 22.6 Gen: in no acute distress HEENT: sclera anicteric, moist mucus membranes Neck: supple Lungs: clear to auscultation bilaterally Heart: regular rate and rhythm, no murmurs Abd: soft, R groin tenderness, non-distended Ext: no edema Skin: warm/well-perfused, R pelvis with SIMA drain with serosanguinous liquid Neuro: alert and oriented x3, no focal findings Psych: appropriate affect Objective Data Active Medications Acetaminophen (Acetaminophen 325 Mg Tablet) 650 mg PO Q6H PRN PRN Reason: Pain, Mild (Pain Scale 1-3), fever or headache Last Admin: 01/26/24 21:24 Dose: 650 mg Documented By: VERNON Calcium Carbonate (Calcium Carbonate 750 Mg Tab.Chew) 750 mg PO Q4H PRN PRN Reason: Heartburn Docusate Sodium (Docusate Sodium 100 Mg Capsule) 200 mg PO DAILY [facility] Last Admin: 01/29/24 07:45 Dose: 100 mg Documented By: ARNULFO Comments: only wants 1 Heparin Sodium (Porcine) (Heparin Sodium,Porcine 5,000 Unit/Ml Vial) 5,000 unit SUBCUT Q12H [facility] Last Admin: 01/29/24 02:40 Dose: Not Given Documented By: MAXIME Non-Admin Reason: Patient Refused Daptomycin 500 mg/ Sodium (Chloride) 60 mls @ 99.723 mls/hr IV Q24H [facility] Last Infusion: 01/29/24 09:26 Dose: Infused Documented By: ARNULFO Lactulose (Lactulose 20 Gm/30 Ml Solution) 20 gm PO BID [facility] Last Admin: 01/29/24 07:51 Dose: Not Given Documented By: ARNULFO Non-Admin Reason: Patient Refused Magnesium Hydroxide (Milk Of Magnesia 30 Ml Oral.Susp) 30 ml PO DAILY PRN PRN Reason: Constipation Melatonin (Melatonin 3 Mg Tablet) 6 mg PO BEDTIME [facility] Last Admin: 01/28/24 21:01 Dose: 6 mg Documented By: MAXIME Methadone HCl (Methadone Hcl 20 Mg/2 Ml Oral.Conc) 55 mg PO DAILY [facility] Last Admin: 01/29/24 07:44 Dose: 55 mg Documented By: ARNULFO Co-signed By: BERNICE Naloxone HCl (Naloxone Hcl 0.4 Mg/Ml Vial) 0.04 mg IVPUSH Q5M PRN PRN Reason: Excessive sedation or RR < 8 Ondansetron HCl (Ondansetron Hcl 4 Mg/2 Ml Vial) 4 mg IVPUSH Q8H PRN PRN Reason: Nausea and Vomiting Oxycodone HCl (Oxycodone Hcl Immed Release 15 Mg Tablet) 15 mg PO Q4H PRN PRN Reason: severe pain Last Admin: 01/29/24 07:43 Dose: 15 mg Documented By: ARNULFO Polyethylene Glycol (Polyethylene Glycol 3350 17 Gm Powd.Pack) 17 gm PO BID [facility] Last Admin: 01/29/24 07:52 Dose: Not Given Documented By: ARNULFO Non-Admin Reason: Patient Refused Senna/Docusate Sodium (Sennosides/Docusate Sodium Tablet) 2 tab PO BEDTIME [facility] Last Admin: 01/28/24 21:01 Dose: 2 tab Documented By: MAXIME Sodium Chloride (0.9 % Sodium Chloride Flush 3 Ml Syringe) 3 ml IVFLUSH QSHIFT [facility] Last Admin: 01/29/24 07:50 Dose: 3 ml Documented By: ARNULFO Labs 01/26/24 19:06 01/27/24 13:04 Microbiology Microbiology Results: Microbiology 01/26/24 14:45 Gram Stain - Final Groin, Right Routine Culture - Final Methicillin Res Staph Aureus Anaerobic Culture - Preliminary Culture in progress. 01/26/24 14:45 Gram Stain - Final Groin Routine Culture - Final Methicillin Res Staph Aureus Anaerobic Culture - Preliminary Culture in progress. 01/26/24 14:45 Gram Stain - Final Thigh - Right Routine Culture - Final Methicillin Res Staph Aureus Anaerobic Culture - Preliminary Culture in progress. 01/27/24 19:11 Blood Culture - Preliminary Blood - Venous No growth after 24 hours. 01/27/24 13:04 Blood Culture - Preliminary Blood - Venous No growth after 24 hours. Assessment and Plan (1) Pelvic fracture: Status: Acute (2) Staphylococcus aureus bacteremia: Status: Acute (3) Soft tissue abscess: Status: Acute (4) Septic arthritis: Status: Acute (5) Acute hypokalemia: Status: Acute (6) Substance abuse: Status: Acute Plan d12 38yo M with IDU, homelessness, hx MRSA infection, HCV presenting with weakness and admitted for sepsis due to MRSA bacteremia with septic arthritis + osteomyelitis with pathologic fracture through R pubic symphysis and multiple soft tissue abscesses [R iliac, R obturator, R hip adductor] sepsis due to MRSA bacteremia with septic arthritis + osteomyelitis with pathologic fracture through R pubic symphysis and multiple soft tissue abscesses - IV vancomycin 01/17-01/27, IV cefazolin 01/19-01/27, ID consulted and changed to daptomycin 8 mg/kg/d on 01/28/24; continue for 6 wk after cultures clear [prior BCx 01/20 positive, BCx from 01/26 thus far clear making end date of antibiotics 03/09] - TTE without valvular pathology - IR drainage 01/25; aspirates growing MRSA 1) CT drainage of right pelvic (obturator muscle) abscess. 10 fr drain placed. 20 cc purulent fluid removed. 2) CT aspiration of right groin (superficial) abscess. 5 cc purulent fluid aspirated. 3) CT aspiration of deep right thigh abscess. 15 cc purulent fluid aspirated. - SIMA drain from R obturator abscess with 60 mL fluid/last 24 hr; monitor daily - [facility] records from October 2023: had MRSA + group A Streptococcus bacteremia complicated by L wrist septic arthritis s/p I+D 11/10/23, R ilipsoaos abscess s/p SIMA drain 11/11/23, R 2nd toe osteomyelitis s/p amputation 11/13/23; BCx cleared 11/12/23 and pt was treated with IV cefazolin + vancomycin. Repeat CT showed near-resolution of R iliopsoas abscess and improvement in R gluteal abscess. Discharged to [facility] for 6 wk of IV vancomycin, completed 12/23/23. IDU polysubstance abuse disorder [Utox positive for methadone, fentanyl, opiates, cocaine, buprenorphine] - continue methadone as recommended by Addiction Medicine; oxycodone 15 mg q4h prn breakthrough pain - HIV negative, HCV Ab+ with viral load pending, HBV immune anemia of chronic inflammation - above transfusion threshold, monitor H+H periodically hypoK - repleted constipation due to opioids - bowel regimen: Miralax, senna/docusate, lactulose VTE ppx - UFH dispo - will need STR after PICC placed; earliest would be 01/31 In my clinical judgment, the patient requires continued inpatient hospitalization for the following reasons: IV ABX, IR drainage, discharge planning Total time managing care of this patient today: 40 minutes. Quality Stroke Does the patient have a stroke diagnosis?: No VTE Prior VTE?: No VTE Risk Level:: Medical - moderate - high VTE Device Contraindication: N/A - Device Ordered VTE Drug Contraindication: Treatment Not Indicated
--- NOTE | 2024-01-29 14:27 | MHC.CM.PN ---
pt to get piucc this weekend expected dc date mon [facility] needs dc summary faxed to them with less than 30 days documented
[2024-01-29] MEDS: Melatonin 3 MG TABLET 6 MG PO (22:32)
[2024-01-30 02:20] VITALS: BP 120/65; PULSE 86; RESP 16; TEMP 37.3; O2SAT 98
[2024-01-30] MEDS: oxyCODONE HCl Immed Release 15 MG TABLET PO ×6 (02:32→23:38)
[2024-01-30 07:05] VITALS: BP 114/69; PULSE 86; RESP 15; TEMP 36.6; O2SAT 100
[2024-01-30] MEDS: methADONE HCl 20 MG/2 ML ORAL.CONC 55 MG PO (08:02)
[2024-01-30] MEDS: 0.9 % Sodium Chloride Flush 3 ML SYRINGE IVFLUSH ×2 (08:05→20:55)
[2024-01-30] MEDS: DAPTOmycin 500 MG in 0.9 % Sodium Chloride 50 ML 99 MG IV (08:09)
[2024-01-30 11:14] VITALS: BP 111/68; PULSE 85; RESP 16; TEMP 36.8; O2SAT 100
[2024-01-30 13:43] LABS: HCV Log PCR <1.18 NOT DETECTED Log IU/mL (NOT DETECTED); HepC Viral Load <15 NOT DETECTED IU/mL (NOT DETECTED)
--- NOTE | 2024-01-30 14:25 | P.PNIM_ITS ---
Subjective Subjective Date of Service: 01/30/24 Interval History: Complains of breakthrough pain. Has been on cooperative with staff and care Review of Systems Denies chest pain Denies shortness of breath Denies fever chills Denies nausea vomiting diarrhea Physical Exam 2 Vital Signs: Vital Signs: Last Vital Signs Temp 98.2 F 01/30/24 11:14 Pulse 85 01/30/24 11:14 Resp 16 01/30/24 11:14 BP 111/68 01/30/24 11:14 Pulse Ox 100 01/30/24 11:14 O2 Del Method Room Air 01/30/24 11:14 O2 Flow Rate 6 01/26/24 15:24 BMI result Body Mass Index 22.6 Const: Other: Awake alert no acute distress Resp: Other: Soft diffusely tender with quiet bowel sounds Cardio: Other: No S4; positive S1-S2; no S3 murmurs rubs or gallops GI: Other: Soft positive bowel sounds Extrem: Other: No edema bilaterally Objective Data Active Medications Acetaminophen (Acetaminophen 325 Mg Tablet) 650 mg PO Q6H PRN PRN Reason: Pain, Mild (Pain Scale 1-3), fever or headache Last Admin: 01/26/24 21:24 Dose: 650 mg Documented By: VERNON Calcium Carbonate (Calcium Carbonate 750 Mg Tab.Chew) 750 mg PO Q4H PRN PRN Reason: Heartburn Docusate Sodium (Docusate Sodium 100 Mg Capsule) 200 mg PO DAILY [facility] Last Admin: 01/30/24 08:12 Dose: Not Given Documented By: STEVE Non-Admin Reason: Patient Refused Heparin Sodium (Porcine) (Heparin Sodium,Porcine 5,000 Unit/Ml Vial) 5,000 unit SUBCUT Q12H [facility] Last Admin: 01/30/24 14:16 Dose: Not Given Documented By: CHANI Non-Admin Reason: Patient Refused Daptomycin 500 mg/ Sodium (Chloride) 60 mls @ 99.723 mls/hr IV Q24H [facility] Last Infusion: 01/30/24 09:09 Dose: Infused Documented By: CHANI Lactulose (Lactulose 20 Gm/30 Ml Solution) 20 gm PO BID [facility] Last Admin: 01/30/24 08:12 Dose: Not Given Documented By: STEVE Non-Admin Reason: Patient Refused Magnesium Hydroxide (Milk Of Magnesia 30 Ml Oral.Susp) 30 ml PO DAILY PRN PRN Reason: Constipation Melatonin (Melatonin 3 Mg Tablet) 6 mg PO BEDTIME [facility] Last Admin: 01/29/24 22:32 Dose: 6 mg Documented By: JENY Methadone HCl (Methadone Hcl 20 Mg/2 Ml Oral.Conc) 55 mg PO DAILY [facility] Last Admin: 01/30/24 08:02 Dose: 55 mg Documented By: STEVE Co-signed By: LUIS Naloxone HCl (Naloxone Hcl 0.4 Mg/Ml Vial) 0.04 mg IVPUSH Q5M PRN PRN Reason: Excessive sedation or RR < 8 Ondansetron HCl (Ondansetron Hcl 4 Mg/2 Ml Vial) 4 mg IVPUSH Q8H PRN PRN Reason: Nausea and Vomiting Oxycodone HCl (Oxycodone Hcl Immed Release 15 Mg Tablet) 15 mg PO Q3H PRN PRN Reason: Pain, Severe (Pain Scale 7-10) Polyethylene Glycol (Polyethylene Glycol 3350 17 Gm Powd.Pack) 17 gm PO BID [facility] Last Admin: 01/30/24 08:13 Dose: Not Given Documented By: STEVE Non-Admin Reason: Patient Refused Senna/Docusate Sodium (Sennosides/Docusate Sodium Tablet) 2 tab PO BEDTIME [facility] Last Admin: 01/29/24 21:58 Dose: Not Given Documented By: JENY Non-Admin Reason: Patient Refused Sodium Chloride (0.9 % Sodium Chloride Flush 3 Ml Syringe) 3 ml IVFLUSH QSHIFT [facility] Last Admin: 01/30/24 08:05 Dose: 3 ml Documented By: STEVE Labs 01/26/24 19:06 01/27/24 13:04 Labs: Laboratory Results - last 24 hr 01/27/24 13:04 Hep C Viral Load <15 NOT DETECTED Hep C Viral Load Log <1.18 NOT DETECTED Microbiology Microbiology Results: Microbiology 01/26/24 14:45 Gram Stain - Final Groin Routine Culture - Final Methicillin Res Staph Aureus Anaerobic Culture - Preliminary Culture in progress. 01/26/24 14:45 Gram Stain - Final Thigh - Right Routine Culture - Final Methicillin Res Staph Aureus Anaerobic Culture - Preliminary Culture in progress. 01/26/24 14:45 Gram Stain - Final Groin, Right Routine Culture - Final Methicillin Res Staph Aureus Anaerobic Culture - Preliminary Culture in progress. 01/27/24 19:11 Blood Culture - Preliminary Blood - Venous No growth after 48 hours. 01/27/24 13:04 Blood Culture - Preliminary Blood - Venous No growth after 48 hours. Assessment and Plan (1) Septic arthritis: Status: Acute (2) Soft tissue abscess: Status: Acute (3) Substance abuse: Status: Acute Plan 38yo M with IDU, homelessness, hx MRSA infection, HCV presenting with weakness and admitted for sepsis due to MRSA bacteremia with septic arthritis + osteomyelitis with pathologic fracture through R pubic symphysis and multiple soft tissue abscesses [R iliac, R obturator, R hip adductor] 1.Sepsis due to MRSA bacteremia with septic arthritis + osteomyelitis with pathologic fracture through R pubic symphysis and multiple soft tissue abscesses -vancomycin 01/17-01/27, IV cefazolin 01/19-01/27, ID consulted and changed to daptomycin 8 mg/kg/d on 01/28/24(3) continue for 6 wk after cultures clear [prior BCx 01/20 positive, BCx from 01/26 thus far clear making end date of antibiotics 03/09] -TTE without valvular pathology -PICC line with documented clearance of blood cultures -increase oxycodone to 15 every 3 hours while in hospital. Patient aware that Oxy will go to every 6 upon discharge 2.IDU -methadone as ordered Full code Heparin Requires ongoing hospitalization for IV daptomycin to treat multiple abdominal abscesses; await finalization of blood cultures prior to PICC insertion Quality Stroke Does the patient have a stroke diagnosis?: No VTE Prior VTE?: No VTE Risk Level:: Medical - moderate - high VTE Device Contraindication: N/A - Device Ordered VTE Drug Contraindication: Treatment Not Indicated
[2024-01-30 16:00] VITALS: BP 106/60; PULSE 86; RESP 16; TEMP 36.9; O2SAT 100
[2024-01-30 20:00] VITALS: BP 113/68; PULSE 89; RESP 16; TEMP 37.2; O2SAT 100
[2024-01-30] MEDS: Melatonin 3 MG TABLET 6 MG PO (20:54)
[2024-01-30 23:34] VITALS: BP 109/59; PULSE 80; RESP 16; TEMP 36.9; O2SAT 99
[2024-01-31 01:48] VITALS: BP 132/65; PULSE 78; RESP 16; TEMP 37; O2SAT 100
[2024-01-31] MEDS: oxyCODONE HCl Immed Release 15 MG TABLET PO ×5 (02:31→22:51)
[2024-01-31 07:58] VITALS: BP 122/75; PULSE 82; RESP 14; TEMP 36.8; O2SAT 100
[2024-01-31] MEDS: methADONE HCl 20 MG/2 ML ORAL.CONC 55 MG PO (08:42)
--- NOTE | 2024-01-31 11:45 | P.PNIM_ITS ---
Subjective Subjective Date of Service: 01/31/24 Interval History: States pain control improved; still complains of pelvic pain Review of Systems Denies chest pain Denies shortness of breath Denies fever chills Denies nausea vomiting diarrhea Physical Exam 2 Vital Signs: Vital Signs: Last Vital Signs Temp 98.2 F 01/31/24 07:58 Pulse 82 01/31/24 07:58 Resp 14 01/31/24 07:58 BP 122/75 01/31/24 07:58 Pulse Ox 100 01/31/24 07:58 O2 Del Method Room Air 01/31/24 07:58 O2 Flow Rate 6 01/26/24 15:24 BMI result Body Mass Index 22.6 Const: Other: Awake alert no acute distress Resp: Other: Soft diffusely tender with quiet bowel sounds Cardio: Other: No S4; positive S1-S2; no S3 murmurs rubs or gallops GI: Other: Soft positive bowel sounds Extrem: Other: No edema bilaterally Objective Data Active Medications Acetaminophen (Acetaminophen 325 Mg Tablet) 650 mg PO Q6H PRN PRN Reason: Pain, Mild (Pain Scale 1-3), fever or headache Last Admin: 01/26/24 21:24 Dose: 650 mg Documented By: VERNON Calcium Carbonate (Calcium Carbonate 750 Mg Tab.Chew) 750 mg PO Q4H PRN PRN Reason: Heartburn Docusate Sodium (Docusate Sodium 100 Mg Capsule) 200 mg PO DAILY [facility] Last Admin: 01/31/24 08:34 Dose: Not Given Documented By: CHANI Non-Admin Reason: pt moving bowels Heparin Sodium (Porcine) (Heparin Sodium,Porcine 5,000 Unit/Ml Vial) 5,000 unit SUBCUT Q12H [facility] Last Admin: 01/31/24 01:38 Dose: Not Given Documented By: JNEY Non-Admin Reason: Patient Refused Daptomycin 500 mg/ Sodium (Chloride) 60 mls @ 99.723 mls/hr IV Q24H [facility] Last Admin: 01/31/24 09:38 Dose: Not Given Documented By: CHANI Non-Admin Reason: Patient Refused Lactulose (Lactulose 20 Gm/30 Ml Solution) 20 gm PO BID [facility] Last Admin: 01/31/24 08:35 Dose: Not Given Documented By: CHANI Non-Admin Reason: pt moving bowels Magnesium Hydroxide (Milk Of Magnesia 30 Ml Oral.Susp) 30 ml PO DAILY PRN PRN Reason: Constipation Melatonin (Melatonin 3 Mg Tablet) 6 mg PO BEDTIME [facility] Last Admin: 01/30/24 20:54 Dose: 6 mg Documented By: JENY Methadone HCl (Methadone Hcl 20 Mg/2 Ml Oral.Conc) 55 mg PO DAILY [facility] Last Admin: 01/31/24 08:42 Dose: 55 mg Documented By: CHANI Co-signed By: CAM Naloxone HCl (Naloxone Hcl 0.4 Mg/Ml Vial) 0.04 mg IVPUSH Q5M PRN PRN Reason: Excessive sedation or RR < 8 Ondansetron HCl (Ondansetron Hcl 4 Mg/2 Ml Vial) 4 mg IVPUSH Q8H PRN PRN Reason: Nausea and Vomiting Oxycodone HCl (Oxycodone Hcl Immed Release 15 Mg Tablet) 15 mg PO Q3H PRN PRN Reason: Pain, Severe (Pain Scale 7-10) Last Admin: 01/31/24 05:34 Dose: 15 mg Documented By: JENY Polyethylene Glycol (Polyethylene Glycol 3350 17 Gm Powd.Pack) 17 gm PO BID [facility] Last Admin: 01/31/24 08:35 Dose: Not Given Documented By: CHANI Non-Admin Reason: pt moving bowels Senna/Docusate Sodium (Sennosides/Docusate Sodium Tablet) 2 tab PO BEDTIME [facility] Last Admin: 01/30/24 20:53 Dose: Not Given Documented By: JENY Non-Admin Reason: Patient Refused Sodium Chloride (0.9 % Sodium Chloride Flush 3 Ml Syringe) 3 ml IVFLUSH QSHIFT [facility] Last Admin: 01/31/24 09:38 Dose: Not Given Documented By: CHANI Non-Admin Reason: Patient Refused Labs 01/26/24 19:06 01/27/24 13:04 Labs: Laboratory Results - last 24 hr 01/27/24 13:04 Hep C Viral Load <15 NOT DETECTED Hep C Viral Load Log <1.18 NOT DETECTED Microbiology Microbiology Results: Microbiology 01/26/24 14:45 Gram Stain - Final Groin, Right Routine Culture - Final Methicillin Res Staph Aureus Anaerobic Culture - Final 01/26/24 14:45 Gram Stain - Final Groin Routine Culture - Final Methicillin Res Staph Aureus Anaerobic Culture - Final 01/26/24 14:45 Gram Stain - Final Thigh - Right Routine Culture - Final Methicillin Res Staph Aureus Anaerobic Culture - Final Assessment and Plan (1) Septic arthritis: Status: Acute (2) MRSA bacteremia: Status: Acute Plan 38yo M with IDU, homelessness, hx MRSA infection, HCV presenting with weakness and admitted for sepsis due to MRSA bacteremia with septic arthritis + osteomyelitis with pathologic fracture through R pubic symphysis and multiple soft tissue abscesses [R iliac, R obturator, R hip adductor] 1.Sepsis due to MRSA bacteremia(septic arthritis/osteomyelitis with pathologic fracture through R pubic symphysis) -vancomycin 01/17-01/27, IV cefazolin 01/19-01/27, ID consulted and changed to daptomycin 8 mg/kg/d on 01/28/24(4) continue for 6 wk after cultures clear(01/27/24 culture negative x 48hrs.)[03/10] -TTE without valvular pathology -PICC line in am 2.IDU -methadone as ordered Full code Heparin Requires ongoing hospitalization for IV daptomycin to treat multiple abdominal abscesses; await finalization of blood cultures prior to PICC insertion Quality Stroke Does the patient have a stroke diagnosis?: No VTE Prior VTE?: No VTE Risk Level:: Medical - moderate - high VTE Device Contraindication: N/A - Device Ordered VTE Drug Contraindication: Treatment Not Indicated
[2024-01-31 12:00] VITALS: BP 108/64; PULSE 82; RESP 14; TEMP 36.7; O2SAT 98
[2024-01-31 15:51] VITALS: BP 101/60; PULSE 75; RESP 12; TEMP 36.4; O2SAT 98
[2024-01-31 19:13] VITALS: BP 117/61; PULSE 93; RESP 20; TEMP 37; O2SAT 100
[2024-01-31] MEDS: Melatonin 3 MG TABLET 6 MG PO (20:38)
[2024-01-31 23:54] VITALS: BP 108/58; PULSE 75; RESP 16; TEMP 36; O2SAT 99
[2024-02-01 02:43] VITALS: BP 99/55; PULSE 70; RESP 16; TEMP 36; O2SAT 99
[2024-02-01] MEDS: oxyCODONE HCl Immed Release 15 MG TABLET PO ×3 (03:07→19:54)
[2024-02-01 07:14] VITALS: BP 127/71; PULSE 88; RESP 14; TEMP 36.6; O2SAT 99
[2024-02-01] MEDS: methADONE HCl 20 MG/2 ML ORAL.CONC 55 MG PO (08:27)
[2024-02-01 12:13] VITALS: BP 133/76; PULSE 90; RESP 16; TEMP 36.1; O2SAT 100
--- NOTE | 2024-02-01 13:22 | P.PNIM_ITS ---
Subjective Subjective Date of Service: 02/01/24 Interval History: No acute issues overnight. Awaiting PICC line for long-term antibiotics Review of Systems Denies chest pain Denies shortness of breath Denies fever chills Denies nausea vomiting diarrhea Physical Exam 2 Vital Signs: Vital Signs: Last Vital Signs Temp 97.0 F 02/01/24 12:13 Pulse 90 02/01/24 12:13 Resp 16 02/01/24 12:13 BP 133/76 02/01/24 12:13 Pulse Ox 100 02/01/24 12:13 O2 Del Method Room Air 02/01/24 12:13 O2 Flow Rate 6 01/26/24 15:24 BMI result Body Mass Index 22.6 Const: Other: Awake alert no acute distress Resp: Other: Soft diffusely tender with quiet bowel sounds Cardio: Other: No S4; positive S1-S2; no S3 murmurs rubs or gallops GI: Other: Soft positive bowel sounds Extrem: Other: No edema bilaterally Objective Data Active Medications Acetaminophen (Acetaminophen 325 Mg Tablet) 650 mg PO Q6H PRN PRN Reason: Pain, Mild (Pain Scale 1-3), fever or headache Last Admin: 01/26/24 21:24 Dose: 650 mg Documented By: VERNON Calcium Carbonate (Calcium Carbonate 750 Mg Tab.Chew) 750 mg PO Q4H PRN PRN Reason: Heartburn Docusate Sodium (Docusate Sodium 100 Mg Capsule) 200 mg PO DAILY [facility] Last Admin: 02/01/24 08:24 Dose: Not Given Documented By: DANG Non-Admin Reason: Patient Refused Heparin Sodium (Porcine) (Heparin Sodium,Porcine 5,000 Unit/Ml Vial) 5,000 unit SUBCUT Q12H [facility] Last Admin: 02/01/24 02:31 Dose: Not Given Documented By: VIC Non-Admin Reason: Patient Refused Daptomycin 500 mg/ Sodium (Chloride) 60 mls @ 99.723 mls/hr IV Q24H [facility] Last Admin: 01/31/24 09:38 Dose: Not Given Documented By: CHANI Non-Admin Reason: Patient Refused Lactulose (Lactulose 20 Gm/30 Ml Solution) 20 gm PO BID [facility] Last Admin: 02/01/24 08:24 Dose: Not Given Documented By: DANG Non-Admin Reason: Patient Refused Magnesium Hydroxide (Milk Of Magnesia 30 Ml Oral.Susp) 30 ml PO DAILY PRN PRN Reason: Constipation Melatonin (Melatonin 3 Mg Tablet) 6 mg PO BEDTIME [facility] Last Admin: 01/31/24 20:38 Dose: 6 mg Documented By: VIC Methadone HCl (Methadone Hcl 20 Mg/2 Ml Oral.Conc) 55 mg PO DAILY [facility] Last Admin: 02/01/24 08:27 Dose: 55 mg Documented By: DANG Co-signed By: ELICIA Naloxone HCl (Naloxone Hcl 0.4 Mg/Ml Vial) 0.04 mg IVPUSH Q5M PRN PRN Reason: Excessive sedation or RR < 8 Ondansetron HCl (Ondansetron Hcl 4 Mg/2 Ml Vial) 4 mg IVPUSH Q8H PRN PRN Reason: Nausea and Vomiting Oxycodone HCl (Oxycodone Hcl Immed Release 15 Mg Tablet) 15 mg PO Q3H PRN PRN Reason: Pain, Severe (Pain Scale 7-10) Last Admin: 02/01/24 08:31 Dose: 15 mg Documented By: DANG Polyethylene Glycol (Polyethylene Glycol 3350 17 Gm Powd.Pack) 17 gm PO BID [facility] Last Admin: 02/01/24 08:24 Dose: Not Given Documented By: DANG Non-Admin Reason: Patient Refused Senna/Docusate Sodium (Sennosides/Docusate Sodium Tablet) 2 tab PO BEDTIME [facility] Last Admin: 01/31/24 20:37 Dose: Not Given Documented By: VIC Non-Admin Reason: Patient Refused Sodium Chloride (0.9 % Sodium Chloride Flush 3 Ml Syringe) 3 ml IVFLUSH QSHIFT [facility] Last Admin: 02/01/24 08:31 Dose: Not Given Documented By: DANG Non-Admin Reason: No Access Labs 01/26/24 19:06 01/27/24 13:04 Microbiology Microbiology Results: Microbiology 01/26/24 14:45 Gram Stain - Final Groin, Right Routine Culture - Final Methicillin Res Staph Aureus Anaerobic Culture - Final 01/26/24 14:45 Gram Stain - Final Groin Routine Culture - Final Methicillin Res Staph Aureus Anaerobic Culture - Final 01/26/24 14:45 Gram Stain - Final Thigh - Right Routine Culture - Final Methicillin Res Staph Aureus Anaerobic Culture - Final Assessment and Plan (1) MRSA bacteremia: Status: Acute Plan 38yo M with IDU, homelessness, hx MRSA infection, HCV presenting with weakness and admitted for sepsis due to MRSA bacteremia with septic arthritis + osteomyelitis with pathologic fracture through R pubic symphysis and multiple soft tissue abscesses [R iliac, R obturator, R hip adductor] 1.Sepsis due to MRSA bacteremia(septic arthritis/osteomyelitis with pathologic fracture through R pubic symphysis) -vancomycin 01/17-01/27, IV cefazolin 01/19-01/27, ID consulted and changed to daptomycin 8 mg/kg/d on 01/28/24(4) continue for 6 wk after cultures clear(01/27/24 culture negative x 48hrs.)[03/10] -TTE without valvular pathology -awaiting PICC line -placement after PICC 2.IDU -methadone as ordered Full code Heparin Requires ongoing hospitalization for IV daptomycin to treat multiple abdominal abscesses; await finalization of blood cultures prior to PICC insertion Quality Stroke Does the patient have a stroke diagnosis?: No VTE Prior VTE?: No VTE Risk Level:: Medical - moderate - high VTE Device Contraindication: N/A - Device Ordered VTE Drug Contraindication: Treatment Not Indicated
[2024-02-01 15:16] VITALS: BP 109/63; PULSE 88; RESP 16; TEMP 36.6; O2SAT 100
--- NOTE | 2024-02-01 15:51 | MHC.CM.PN ---
PT TO GET PICC TODAY T/M LEFT FOR WINDY DAY [phone] WHO WAS COVERING FOR [facility] TO ASK BED STAUS AND UPDATE RE PLANNED PICC PLACEMENT FOR TODAY
[2024-02-01] MEDS: Melatonin 3 MG TABLET 6 MG PO (20:43)
[2024-02-02] VITALS: BP 112/59; PULSE 77; RESP 16; TEMP 36.8; O2SAT 98
[2024-02-02] MEDS: oxyCODONE HCl Immed Release 15 MG TABLET PO ×7 (00:08→22:15)
[2024-02-02 07:41] VITALS: BP 109/55; PULSE 75; RESP 14; TEMP 36.2; O2SAT 96
[2024-02-02] MEDS: methADONE HCl 20 MG/2 ML ORAL.CONC 55 MG PO (08:16)
[2024-02-02] MEDS: 0.9 % Sodium Chloride Flush 3 ML SYRINGE IVFLUSH ×2 (08:17→14:32)
--- NOTE | 2024-02-02 09:49 | HO.PICC ---
PICC Line Insertion NPICC Diagnosis: Osteomyelitis/sepsis Indication: group home ABT Pertinent Labs: Reviewed Technique: Following informed consent including risks, benefits and alternatives and using sterile technique including cap and mask, sterile gown, glove and drape, the right arm was prepped and draped in the usual sterile fashion of full barrier technique with CHG. Following completion of [place] Protocol the skin and soft tissues were anesthetized with 1% Lidocaine plain. Using ultrasound guidance, right brachial vein access was obtained. Over an 0.018 wire through peel-away sheath, a 4FR single lumen PASV PICC line was positioned. Catheter length is 38 cm internal length, 0cm external length, for a total trimmed length of 38cm. The procedure was performed in RM 272. Tip verification was performed by Xena Tolentino with Sherlock 3CG. Tip located in SVC. Ultrasound was used to document vein patency and for needle entry. A formal ultrasound picture and cardiac rhythm strip was recorded. Vascular Screening Tech has released the line for use and it is currently dressed with a StatLock, Tegaderm, and CHG disc. Verification has been performed for blood return and line patency. Arm Circumference: 24cm Equipment: Nanapi PowerPICC SOLO catheter with Sherlock 3CG Tip Catheter Type: 4 FR single lumen PASV catheter Lot #: [id number]
[2024-02-02] MEDS: DAPTOmycin 500 MG in 0.9 % Sodium Chloride 50 ML 99.72 MG IV (10:11)
--- NOTE | 2024-02-02 13:39 | P.PNIM_ITS ---
Subjective Subjective Date of Service: 02/02/24 Interval History: No acute medical issue. PICC line placed today without issue Review of Systems Denies chest pain Denies shortness of breath Denies fever chills Denies nausea vomiting diarrhea Physical Exam 2 Vital Signs: Vital Signs: Last Vital Signs Temp 97.1 F 02/02/24 07:41 Pulse 75 02/02/24 07:41 Resp 14 02/02/24 07:41 BP 109/55 L 02/02/24 07:41 Pulse Ox 96 02/02/24 07:41 O2 Del Method Room Air 02/02/24 07:41 O2 Flow Rate 6 01/26/24 15:24 BMI result Body Mass Index 22.6 Const: Other: Awake alert no acute distress Resp: Other: Soft diffusely tender with quiet bowel sounds Cardio: Other: No S4; positive S1-S2; no S3 murmurs rubs or gallops GI: Other: Soft positive bowel sounds Extrem: Other: No edema bilaterally Objective Data Active Medications Acetaminophen (Acetaminophen 325 Mg Tablet) 650 mg PO Q6H PRN PRN Reason: Pain, Mild (Pain Scale 1-3), fever or headache Last Admin: 01/26/24 21:24 Dose: 650 mg Documented By: VERNON Calcium Carbonate (Calcium Carbonate 750 Mg Tab.Chew) 750 mg PO Q4H PRN PRN Reason: Heartburn Docusate Sodium (Docusate Sodium 100 Mg Capsule) 200 mg PO DAILY [facility] Last Admin: 02/02/24 08:04 Dose: Not Given Documented By: JUDAH Non-Admin Reason: Patient Refused Heparin Sodium (Porcine) (Heparin Sodium,Porcine 5,000 Unit/Ml Vial) 5,000 unit SUBCUT Q12H [facility] Last Admin: 02/02/24 12:38 Dose: Not Given Documented By: JUDAH Non-Admin Reason: Patient Refused Daptomycin 500 mg/ Sodium (Chloride) 60 mls @ 99.723 mls/hr IV Q24H [facility] Last Infusion: 02/02/24 10:53 Dose: Infused Documented By: JUDAH Lactulose (Lactulose 20 Gm/30 Ml Solution) 20 gm PO BID [facility] Last Admin: 02/02/24 08:03 Dose: Not Given Documented By: JUDAH Non-Admin Reason: Patient Refused Magnesium Hydroxide (Milk Of Magnesia 30 Ml Oral.Susp) 30 ml PO DAILY PRN PRN Reason: Constipation Melatonin (Melatonin 3 Mg Tablet) 6 mg PO BEDTIME [facility] Last Admin: 02/01/24 20:43 Dose: 6 mg Documented By: VERNON Methadone HCl (Methadone Hcl 20 Mg/2 Ml Oral.Conc) 55 mg PO DAILY [facility] Last Admin: 02/02/24 08:16 Dose: 55 mg Documented By: JUDAH Co-signed By: COTEMA Naloxone HCl (Naloxone Hcl 0.4 Mg/Ml Vial) 0.04 mg IVPUSH Q5M PRN PRN Reason: Excessive sedation or RR < 8 Ondansetron HCl (Ondansetron Hcl 4 Mg/2 Ml Vial) 4 mg IVPUSH Q8H PRN PRN Reason: Nausea and Vomiting Oxycodone HCl (Oxycodone Hcl Immed Release 15 Mg Tablet) 15 mg PO Q3H PRN PRN Reason: Pain, Severe (Pain Scale 7-10) Last Admin: 02/02/24 10:19 Dose: 15 mg Documented By: JUDAH Polyethylene Glycol (Polyethylene Glycol 3350 17 Gm Powd.Pack) 17 gm PO BID [facility] Last Admin: 02/02/24 08:02 Dose: Not Given Documented By: JUDAH Non-Admin Reason: Patient Refused Senna/Docusate Sodium (Sennosides/Docusate Sodium Tablet) 2 tab PO BEDTIME [facility] Last Admin: 02/01/24 20:40 Dose: Not Given Documented By: VERNON Non-Admin Reason: Patient Refused Sodium Chloride (0.9 % Sodium Chloride Flush 3 Ml Syringe) 3 ml IVFLUSH QSHIFT [facility] Last Admin: 02/02/24 08:17 Dose: 3 ml Documented By: JUDAH Labs 01/26/24 19:06 01/27/24 13:04 Microbiology Microbiology Results: Microbiology 01/27/24 19:11 Blood Culture - Final Blood - Venous No growth after 5 days. 01/27/24 13:04 Blood Culture - Final Blood - Venous No growth after 5 days. Assessment and Plan (1) MRSA bacteremia: Status: Acute Plan 38yo M with IDU, homelessness, hx MRSA infection, HCV presenting with weakness and admitted for sepsis due to MRSA bacteremia with septic arthritis + osteomyelitis with pathologic fracture through R pubic symphysis and multiple soft tissue abscesses [R iliac, R obturator, R hip adductor] 1.Sepsis due to MRSA bacteremia(septic arthritis/osteomyelitis with pathologic fracture through R pubic symphysis) -vancomycin 01/17-01/27, IV cefazolin 01/19-01/27, ID consulted and changed to daptomycin 8 mg/kg/d on 01/28/24(4) continue for 6 wk after cultures clear(01/27/24 culture negative x 48hrs.)[03/10] -TTE without valvular pathology - PICC in.. Await placement 2.IDU -methadone as ordered Full code Heparin Requires ongoing hospitalization for IV daptomycin to treat multiple abdominal abscesses; await finalization of blood cultures prior to PICC insertion Quality Stroke Does the patient have a stroke diagnosis?: No VTE Prior VTE?: No VTE Risk Level:: Medical - moderate - high VTE Device Contraindication: N/A - Device Ordered VTE Drug Contraindication: Treatment Not Indicated
[2024-02-02] MEDS: 0.9 % Sodium Chloride Flush 10 ML SYRINGE 5 ML IVFLUSH ×2 (14:31→22:16)
[2024-02-02 15:05] VITALS: BP 110/64; PULSE 83; RESP 18; TEMP 36.6; O2SAT 100
--- NOTE | 2024-02-02 15:14 | MHC.CM.PN ---
Guest dose info has been sent to [facility]. The MDS was sent to [facility] 01/22/24. The MD has been notified that a <30 days clause is needed on the discharge summary. Discharge is anticipated tomorrow after daily Methadone dose. A Last dose letter was sent today. A 2nd LDL will be sent tomorrow. CED [facility] via [facility] tomorrow.
[2024-02-02] MEDS: Melatonin 3 MG TABLET 6 MG PO (22:15)
[2024-02-02 23:55] VITALS: BP 106/56; PULSE 80; RESP 18; TEMP 37.2; O2SAT 97
[2024-02-03] MEDS: oxyCODONE HCl Immed Release 15 MG TABLET PO ×4 (02:22→14:19)
[2024-02-03] MEDS: 0.9 % Sodium Chloride Flush 3 ML SYRINGE IVFLUSH ×2 (02:23→09:09)
[2024-02-03 07:53] VITALS: BP 115/67; PULSE 80; RESP 12; TEMP 36.1; O2SAT 97
[2024-02-03] MEDS: methADONE HCl 20 MG/2 ML ORAL.CONC 55 MG PO (09:02)
[2024-02-03] MEDS: Docusate Sodium 100 MG CAPSULE 200 MG PO (09:02)
[2024-02-03] MEDS: DAPTOmycin 500 MG in 0.9 % Sodium Chloride 50 ML 99.72 MG IV (09:03)
[2024-02-03] MEDS: polyethylene glycoL 3350 17 GM POWD.PACK PO (09:09)
[2024-02-03] MEDS: 0.9 % Sodium Chloride Flush 10 ML SYRINGE 5 ML IVFLUSH (09:09)
--- NOTE | 2024-02-03 12:24 | PM.DS ---
DS: Providers Provider Date of Service: 02/03/24 Date of admission: 01/18/24 20:13 Primary care physician: None Physician Consults: 01/18/24 20:55 Addiction Medicine Routine Consulting Provider: Addiction Covering Reason for consultation: polysubstance use disorder Consult to General Surgery Routine Consulting Provider: [facility] General Surgeons Reason for consultation: soft tissue abscesses 01/18/24 20:59 Consult to Infectious Diseases Routine Consulting Provider: [facility] Infect[facility] Disease [facility] Reason for consultation: Septic arthritis and osteomyelitis of right symphysis 01/19/24 13:43 Consult to Orthopedics Routine Consulting Provider: [facility] Orthopedic Surgeons Reason for consultation: ? symphysis pubis fracture DS: Diagnosis Discharge Diagnosis (1) MRSA bacteremia: Status: Acute DS: Summary Hospital Course Hospital Course: 38-year-old male with pertinent history of IV drug use disorder, history of MRSA who presents to the emergency department for evaluation of weakness and not feeling well. Patient states his symptoms have been ongoing for the last 3-4 days. Does endorse using IV drugs and history of MRSA skin infection in the past. States he has gotten weak and had difficulty walking on the day of presentation. Also has been having chills. No documented temperature. Does endorse low back pain. No chest discomfort, palpitations, shortness of breath, abdominal pain, changes in urinary or bowel habits. In the emergency department, patient was found to be septic and imaging concerning for septic arthritis/osteomyelitis of right pubic symphysis with multiple soft tissue abscesses. Hospital Course Admitted to general medical floor and started vancomycin/Zosyn. On 01/22/24 patient underwent ultrasound of the pelvis which demonstrated a 6.6 cm collection suggestive of abscess. On 01/26/[address]-guided drainage of right obturator muscle abscess/right superficial groin abscess/right deep thigh abscess. Aspirate consistent with MRSA. Subsequent blood cultures also grew MRSA. On 01/27/2024 blood cultures x2 have remained negative for greater than 5 days. On 02/02/24 patient had PICC line placed on done... length 38 cm. He will be discharged to intermediate facility to complete 6 weeks' course of daptomycin which will complete 03/09/2024. Patient requires less than 30 day stay Time Attestation Discharge Coordination Time (in mins): 35 Quality: Safe Use of Opioids Does Pt have an Active Cancer Diagnosis on the Problem List?: No Quality: Stroke Does the patient have a stroke diagnosis?: No Physical Exam Vital Signs: Vital Signs: Last Vital Signs Temp 96.9 F 02/03/24 07:53 Pulse 80 02/03/24 07:53 Resp 12 02/03/24 07:53 BP 115/67 02/03/24 07:53 Pulse Ox 97 02/03/24 07:53 O2 Del Method Room Air 02/03/24 07:53 O2 Flow Rate 6 01/26/24 15:24 BMI result Body Mass Index 22.6 Const: Other: Awake alert no acute distress Resp: Other: Soft diffusely tender with quiet bowel sounds Cardio: Other: No S4; positive S1-S2; no S3 murmurs rubs or gallops GI: Other: Soft positive bowel sounds Extrem: Other: No edema bilaterally Discharge Plan Discharge Anticipated Discharge Date/Time: 02/03/24 14:34 Patient Disposition: Xfer Inpatient Rehab Fac Discharge Diagnosis: MRSA bacteremia Referrals: [facility] [Other] - 1 Week Physician,None [Primary Care Provider] - 1 Week Discharge Medications: New oxycodone 15 mg Tablet 15 mg PO Q4H PRN (Reason: Pain, Severe (Pain Scale 7-10)) Qty: 60 0RF Rx Instructions: Partial Fill upon patient request. methadone [Methadose] 10 mg/mL Concentrate 55 mg PO DAILY Qty: 30 0RF Rx Instructions: Partial Fill upon patient request. daptomycin 500 mg Recon Soln 500 mg IV Q24H Qty: 35 0RF Discharge Orders: Discharge Order (Routine); Ordered 02/03/24 Ordered By: Jassi Marcelo Diet: Advance to usual diet Activity on Discharge: As tolerated Stand Alone Forms: Patient Portal Discharge page Print Language: Italian Care Plan Goals: Complete 6 weeks' course of daptomycin last dose to be given 03/09/2024 Health Concerns: Continue all other medications as outlined on discharge paperwork Plan of Treatment: As per receiving facility Assessment: See discharge summary
--- NOTE | 2024-02-03 12:55 | P.PNIM_ITS ---
Subjective Subjective Date of Service: 02/03/24 Interval History: No acute issues overnight. Tolerating daptomycin without issues Review of Systems Denies chest pain Denies shortness of breath Denies fever chills Denies nausea vomiting diarrhea Physical Exam 2 Vital Signs: Vital Signs: Last Vital Signs Temp 96.9 F 02/03/24 07:53 Pulse 80 02/03/24 07:53 Resp 12 02/03/24 07:53 BP 115/67 02/03/24 07:53 Pulse Ox 97 02/03/24 07:53 O2 Del Method Room Air 02/03/24 07:53 O2 Flow Rate 6 01/26/24 15:24 BMI result Body Mass Index 22.6 Const: Other: Awake alert no acute distress Resp: Other: Soft diffusely tender with quiet bowel sounds Cardio: Other: No S4; positive S1-S2; no S3 murmurs rubs or gallops GI: Other: Soft positive bowel sounds Extrem: Other: No edema bilaterally Objective Data Active Medications Acetaminophen (Acetaminophen 325 Mg Tablet) 650 mg PO Q6H PRN PRN Reason: Pain, Mild (Pain Scale 1-3), fever or headache Last Admin: 01/26/24 21:24 Dose: 650 mg Documented By: VERNON Calcium Carbonate (Calcium Carbonate 750 Mg Tab.Chew) 750 mg PO Q4H PRN PRN Reason: Heartburn Docusate Sodium (Docusate Sodium 100 Mg Capsule) 200 mg PO DAILY [facility] Last Admin: 02/03/24 09:02 Dose: 200 mg Documented By: JUDAH Heparin Sodium (Porcine) (Heparin Sodium,Porcine 5,000 Unit/Ml Vial) 5,000 unit SUBCUT Q12H [facility] Last Admin: 02/03/24 12:49 Dose: Not Given Documented By: JUDAH Non-Admin Reason: Patient Refused Daptomycin 500 mg/ Sodium (Chloride) 60 mls @ 99.723 mls/hr IV Q24H [facility] Last Infusion: 02/03/24 09:40 Dose: Infused Documented By: JUDAH Lactulose (Lactulose 20 Gm/30 Ml Solution) 20 gm PO BID [facility] Last Admin: 02/03/24 07:48 Dose: Not Given Documented By: JUDAH Non-Admin Reason: Patient Refused Magnesium Hydroxide (Milk Of Magnesia 30 Ml Oral.Susp) 30 ml PO DAILY PRN PRN Reason: Constipation Melatonin (Melatonin 3 Mg Tablet) 6 mg PO BEDTIME [facility] Last Admin: 02/02/24 22:15 Dose: 6 mg Documented By: VERNON Methadone HCl (Methadone Hcl 20 Mg/2 Ml Oral.Conc) 55 mg PO DAILY [facility] Last Admin: 02/03/24 09:02 Dose: 55 mg Documented By: JUDAH Co-signed By: MARIAM Naloxone HCl (Naloxone Hcl 0.4 Mg/Ml Vial) 0.04 mg IVPUSH Q5M PRN PRN Reason: Excessive sedation or RR < 8 Ondansetron HCl (Ondansetron Hcl 4 Mg/2 Ml Vial) 4 mg IVPUSH Q8H PRN PRN Reason: Nausea and Vomiting Oxycodone HCl (Oxycodone Hcl Immed Release 15 Mg Tablet) 15 mg PO Q3H PRN PRN Reason: Pain, Severe (Pain Scale 7-10) Last Admin: 02/03/24 09:38 Dose: 15 mg Documented By: JUDAH Polyethylene Glycol (Polyethylene Glycol 3350 17 Gm Powd.Pack) 17 gm PO BID [facility] Last Admin: 02/03/24 09:09 Dose: 17 gm Documented By: JUDAH Senna/Docusate Sodium (Sennosides/Docusate Sodium Tablet) 2 tab PO BEDTIME [facility] Last Admin: 02/02/24 20:29 Dose: Not Given Documented By: VERNON Non-Admin Reason: Patient Refused Sodium Chloride (0.9 % Sodium Chloride Flush 3 Ml Syringe) 3 ml IVFLUSH QSHIFT [facility] Last Admin: 02/03/24 09:09 Dose: 3 ml Documented By: JUDAH Sodium Chloride (0.9 % Sodium Chloride Flush 10 Ml Syringe) 5 ml IVFLUSH TID [facility] Last Admin: 02/03/24 09:09 Dose: 5 ml Documented By: JUDAH Labs 01/26/24 19:06 01/27/24 13:04 Assessment and Plan (1) MRSA bacteremia: Status: Acute Plan 38yo M with IDU, homelessness, hx MRSA infection, HCV presenting with weakness and admitted for sepsis due to MRSA bacteremia with septic arthritis + osteomyelitis with pathologic fracture through R pubic symphysis and multiple soft tissue abscesses [R iliac, R obturator, R hip adductor] 1.Sepsis due to MRSA bacteremia(septic arthritis/osteomyelitis with pathologic fracture through R pubic symphysis) -vancomycin 01/17-01/27, IV cefazolin 01/19-01/27, ID consulted and changed to daptomycin 8 mg/kg/d on 01/28/24(4) continue for 6 wk after cultures clear(01/27/24 culture negative x 48hrs.)[03/10] -TTE without valvular pathology - PICC in.. Awaiting authorization placement 2.IDU -methadone as ordered Full code Heparin Requires ongoing hospitalization for IV daptomycin to treat multiple abdominal abscesses; await finalization of blood cultures prior to PICC insertion Quality Stroke Does the patient have a stroke diagnosis?: No VTE Prior VTE?: No VTE Risk Level:: Medical - moderate - high VTE Device Contraindication: N/A - Device Ordered VTE Drug Contraindication: Treatment Not Indicated
[2024-02-03 15:30] VITALS: BP 104/56; PULSE 95; RESP 20; TEMP 37.2; O2SAT 98
--- NOTE | 2024-02-08 11:04 | P.CDIM_ITS ---
PROVIDER RESPONSE TEXT: To clarify, the appropriate diagnosis supported by the clinical indicators: Acute QUERY TEXT: PHYSICIAN'S DOCUMENTATION REQUEST Date of Query: 02/08/2024 10:46 AM EDT Patient Name: Michael Baldwin Admit Date: 01/19/2024 Dear Nahed Beard MD, A review of the medical record indicates additional documentation may be needed. Please review below and update the documentation accordingly. Clinical Indicators: Per Hospitalist Progress Note 01/28/24: Septic arthritis + osteomyelitis Clarify which of the following accurately represents the acuity of the (insert diagnosis). Possible options might include: Acute Acute on chronic Compensated Chronic stable condition Remission Other (explain) Clinically unable to determine (explain) Thank you, Katrina Walker RN Use of terms such as suspected, likely, concern for, or probable (associated with a specific diagnosi s that is being evaluated, monitored, or treated as if it exists) are acceptable and can be coded in the inpatient se tting, when documented at the time of discharge. Please use your independent medical judgment in providing your response. THIS QUERY IS PART OF THE PERMANENT MEDICAL RECORD
== END 2024-02-03 18:37 | DRG 720 ==
LOC: HO.ED 20:22 → HO.EDOVER 20:32 → HO.S3 01-19 02:00
PROVIDERS: Emergency Medicine; Family Medicine; Hospitalist; Nurse Practitioner Acute Care; Physician Assistant Surgical; Student in an Organized Health Care Education/Training Program; Admitting Provider Student in an Organized Health Care Education/Training Program; Emergency Provider Emergency Medicine; Visit Provider Hospitalist
PROC: 0K9Q3ZZ Drainage of Right Upper Leg Muscle, Percutaneous Approach (ICD-10-PCS; principal; 2024-01-26 13:00)
DX: A41.02 Sepsis due to Methicillin resistant Staphylococcus aureus (principal); M00.9 Pyogenic arthritis, unspecified; M60.003 Infective myositis, unspecified right leg; M86.18 Other acute osteomyelitis, other site; M84.454A Pathological fracture, pelvis, initial encounter for fracture; L02.214 Cutaneous abscess of groin; F11.10 Opioid abuse, uncomplicated; E87.6 Hypokalemia; F17.210 Nicotine dependence, cigarettes, uncomplicated; D63.8 Anemia in other chronic diseases classified elsewhere; K59.03 Drug induced constipation; T40.605A Adverse effect of unspecified narcotics, initial encounter; F19.90 Other psychoactive substance use, unspecified, uncomplicated; Z71.6 Tobacco abuse counseling; Z59.02 Unsheltered homelessness; Z20.822 Contact with and (suspected) exposure to COVID-19
CPT/HCPCS: 0241U; 10160; 36415; 36573; 70450; 71045; 74018; 74177; 75989; 76857; 80048; 80051; 80076; 80202; 80307; 81001; 82550; 82565; 82947; 83540; 83605; 83690; 84484; 85025; 85027; 85610; 85652; 86141; 86704; 86706; 86803; 87040; 87070; 87073; 87077; 87147; 87186; 87205; 87340; 87389; 87522; 93306; 99285; C1729; C1751; J0690; J0878; J1644; J2250; J2371; J2543; J2704; J3010; J3370; J3371; J3480; J7120; Q9967

== ENCOUNTER 2024-01-18 20:13 | Outpatient (BNV) | payer MEDICAID, SELFPAY | END 2024-01-26 13:54 | PROVIDERS: Admitting Provider Student in an Organized Health Care Education/Training Program; Emergency Provider Emergency Medicine; Visit Provider Student in an Organized Health Care Education/Training Program | DX: R78.81 Bacteremia (principal) | CPT/HCPCS: 10030; 74176 ==

== ENCOUNTER 2024-01-18 20:13 | Outpatient (BNV) | payer MEDICAID, SELFPAY | END 2024-01-21 07:00 | PROVIDERS: Admitting Provider Student in an Organized Health Care Education/Training Program; Emergency Provider Emergency Medicine; Visit Provider Internal Medicine | DX: R78.81 Bacteremia (principal) | CPT/HCPCS: 93306 ==

== ENCOUNTER → 2024-01-18 20:13 | Outpatient (BNV) | payer MEDICAID, SELFPAY | PROVIDERS: Admitting Provider Student in an Organized Health Care Education/Training Program; Emergency Provider Emergency Medicine; Visit Provider Internal Medicine | DX: S32.9XXA Fracture of unspecified parts of lumbosacral spine and pelvis, initial encounter for closed fracture (principal); R78.81 Bacteremia; B95.61 Methicillin susceptible Staphylococcus aureus infection as the cause of diseases classified elsewhere; L02.91 Cutaneous abscess, unspecified; M86.9 Osteomyelitis, unspecified | CPT/HCPCS: 99222; 99232 ==

== ENCOUNTER → 2024-01-18 20:13 | Outpatient (BNV) | payer MEDICAID, SELFPAY | PROVIDERS: Admitting Provider Student in an Organized Health Care Education/Training Program; Emergency Provider Emergency Medicine; Visit Provider Student in an Organized Health Care Education/Training Program | DX: R78.81 Bacteremia (principal); B95.62 Methicillin resistant Staphylococcus aureus infection as the cause of diseases classified elsewhere | CPT/HCPCS: 99223; 99232; 99239; 99499 ==

== ENCOUNTER → 2024-01-18 20:13 | Outpatient (BNV) | payer MEDICAID, SELFPAY | PROVIDERS: Admitting Provider Student in an Organized Health Care Education/Training Program; Emergency Provider Emergency Medicine; Visit Provider Nurse Practitioner Psychiatric/Mental Health | DX: F11.90 Opioid use, unspecified, uncomplicated (principal) | CPT/HCPCS: 99231; 99499 ==

== ENCOUNTER → 2024-01-18 20:13 | Outpatient (BNV) | payer MEDICAID, SELFPAY | PROVIDERS: Admitting Provider Student in an Organized Health Care Education/Training Program; Emergency Provider Emergency Medicine; Visit Provider Surgery | DX: S32.9XXA Fracture of unspecified parts of lumbosacral spine and pelvis, initial encounter for closed fracture (principal); R78.81 Bacteremia; B95.61 Methicillin susceptible Staphylococcus aureus infection as the cause of diseases classified elsewhere | CPT/HCPCS: 99222; 99232 ==

== ENCOUNTER 2024-02-17 14:52 | Outpatient (AMB) | payer MEDICAID, SELFPAY ==
--- NOTE | 2024-02-17 15:05 | A.OFFVIS_ITS ---
Vital Signs 02/17/24 15:11 Pulse 82 Pulse Source Pulse Oximeter Temp 98.5 F Temp Source Oral Pulse Oximetry (%) 98 Oxygen Delivery Method Room Air Intake Visit Reasons: [facility] follow up antibiotics Calculating Machine Mechanic Required: Yes Calculating Machine Mechanic Services: Calculating Machine Mechanic Present Calculating Machine Mechanic Name: Sukhi Henley CMA Information Interpreted: clinical only Director Of Education And Training: Director Of Education And Training Present Allergies No Known Allergies Allergy (Verified 02/17/24 15:12) HPI HPI [facility] follow up antibiotics: Details: HE has MRSA bacteremia. He sees Dr Paul. He has pelvic fluid collection concern. He is on Daptomycin six weeks 03/09 ending. [facility] Medical History Substance abuse Homeless Abscess Amputated toe of right foot Staphylococcus aureus bacteremia Opioid use disorder Drug abuse Social History Household Members: None Housing: Homeless Are you a primary pulmonary care nurse to a significant other at home: No Do you presently have visiting nurse or other home services: No Alcohol intake: current Comment: Pt refusing to get OOB. Patient Tobacco Use Status: Current everyday Tobacco user Tobacco use type: Cigarette Cigarette Packs Per Day: 1 Cigarettes Per Day: 20.0 e-Cigarette/Vaping Use: Never Used Second Hand Smoke Exposure: No Substance Use Type: Crack/Cocaine and Heroin service: No Review of Systems Const All systems reviewed & are unremarkable except as noted in HPI and below Physical Exam Vital Signs: Last Vital Signs Temp 98.5 F 02/17/24 15:11 Pulse 82 02/17/24 15:11 Pulse Ox 98 02/17/24 15:11 Oxygen Delivery Method Room Air 02/17/24 15:11 Const General: cooperative HEENT Head: Yes normal to inspection Face and sinus: Yes normal facial exam Mouth: Normal oral and palatal mucosa present Teeth and gingiva: dentition normal Eyes General: appearance normal, both eyes and all related structures Pupils: Equal, round and reactive pupils present Resp Effort & Inspection: normal respiratory effort Cardio Rate: regular rate Rhythm: regular rhythm GI Palpation (GI): Soft to palpation and nontender General: Yes no CVA tenderness Back/Spine/Pelvis Back: no CVA tenderness Skin General skin exam: no rashes or lesions noted Neuro General: moves all extremities Cranial nerves: Yes Equal, round and reactive pupils present Extrem General: Yes normal to inspection Psych Appearance: grossly normal Assessment & Plan Assessment & Plan (1) MRSA bacteremia: Code(s): R78.81 - Bacteremia; B95.62 - Methicillin resistant Staphylococcus aureus infection as the cause of diseases classified elsewhere Category: Medical Plan: Would continue Daptomycin. Follow Dr Paul. (2) Pelvic fracture: Code(s): S32.9XXA - Fracture of unspecified parts of lumbosacral spine and pelvis, initia l encounter for closed fracture Category: Medical Plan: n/a (3) Osteomyelitis: Code(s): M86.9 - Osteomyelitis, unspecified Category: Medical Plan: n/a Coding Level of Care Code Est Pt Level 3 (24710) Diagnoses MRSA bacteremia R78.81; B95.62 Pelvic fracture S32.9XXA Osteomyelitis M86.9
[2024-02-17 15:11] VITALS: PULSE 82; TEMP 36.9; O2SAT 98
== END 2024-02-17 15:48 | disposition home or self-care (01) ==
LOC: HO.HID 14:52
PROVIDERS: Visit Provider Internal Medicine
DX: R78.81 Bacteremia (principal); B95.62 Methicillin resistant Staphylococcus aureus infection as the cause of diseases classified elsewhere; S32.9XXA Fracture of unspecified parts of lumbosacral spine and pelvis, initial encounter for closed fracture; M86.9 Osteomyelitis, unspecified
CPT/HCPCS: 99213

== ENCOUNTER → 2024-02-17 14:52 | Outpatient (BNVA) | payer MEDICAID, SELFPAY | PROVIDERS: Visit Provider Internal Medicine | DX: R78.81 Bacteremia (principal); B95.62 Methicillin resistant Staphylococcus aureus infection as the cause of diseases classified elsewhere; S32.9XXA Fracture of unspecified parts of lumbosacral spine and pelvis, initial encounter for closed fracture; M86.9 Osteomyelitis, unspecified | CPT/HCPCS: 99212 ==

== ENCOUNTER 2024-03-07 13:03 | Outpatient (AMB) | payer MEDICAID, SELFPAY ==
[2024-03-07 13:15] VITALS: PULSE 68; TEMP 36.9; O2SAT 97
--- NOTE | 2024-03-07 13:15 | MHC.OFFVIS ---
Vital Signs 03/07/24 13:15 Pulse 68 Pulse Source Pulse Oximeter Temp 98.4 F Temp Source Oral Pulse Oximetry (%) 97 Oxygen Delivery Method Room Air Intake Visit Reasons: 3 week f/u/dapto end on 03/09 Bioinformatics Support Specialist Required: Yes Bioinformatics Support Specialist Services: Bioinformatics Support Specialist Present Bioinformatics Support Specialist Name: Sukhi Henley CMA Information Interpreted: clinical only Allergies No Known Allergies Allergy (Verified 03/07/24 13:31) HPI HPI 3 week f/u/dapto end on 03/09: Details: He is following from MRSA bacteremia and pelvic abscess. He has drain still in place for pelvic abscess. [facility] Medical History Substance abuse Homeless Abscess Amputated toe of right foot Staphylococcus aureus bacteremia Opioid use disorder Drug abuse Social History Household Members: None Housing: Homeless Are you a primary healthcare receptionist to a significant other at home: No Do you presently have visiting nurse or other home services: No Alcohol intake: current Comment: Pt refusing to get OOB. Patient Tobacco Use Status: Current everyday Tobacco user Tobacco use type: Cigarette Cigarette Packs Per Day: 1 Cigarettes Per Day: 20.0 e-Cigarette/Vaping Use: Never Used Second Hand Smoke Exposure: No Substance Use Type: Crack/Cocaine and Heroin service: No Review of Systems Const All systems reviewed & are unremarkable except as noted in HPI and below Physical Exam Vital Signs: Last Vital Signs Temp 98.4 F 03/07/24 13:15 Pulse 68 03/07/24 13:15 Pulse Ox 97 03/07/24 13:15 Oxygen Delivery Method Room Air 03/07/24 13:15 Const General: cooperative Orientation/consciousness: patient oriented x3 HEENT Head: Yes normal to inspection Mouth: Normal oral and palatal mucosa present Eyes General: appearance normal, both eyes and all related structures Pupils: Equal, round and reactive pupils present Resp Effort & Inspection: normal respiratory effort Cardio Rate: regular rate Rhythm: regular rhythm GI Other: pelvic drain ,slt brownish fluid Palpation (GI): Soft to palpation and nontender General: Yes no CVA tenderness Back/Spine/Pelvis Back: no CVA tenderness Skin General skin exam: no rashes or lesions noted Neuro General: patient oriented x3 Cranial nerves: Yes CN's II-XII intact bilaterally and Yes Equal, round and reactive pupils present Extrem General: Yes normal to inspection Psych Appearance: grossly normal Assessment & Plan Assessment & Plan (1) MRSA bacteremia: Comment: Pelvic abscess,prior MRSA bacteremia Code(s): R78.81 - Bacteremia; B95.62 - Methicillin resistant Staphylococcus aureus infection as the cause of diseases classified elsewhere Category: Medical Plan: Would stop IV antibiotics Dr Maciel follow and pull drain. PO Bactrim for two weeks. (2) Osteomyelitis: Code(s): M86.9 - Osteomyelitis, unspecified Category: Medical Plan: na (3) Pelvic fracture: Code(s): S32.9XXA - Fracture of unspecified parts of lumbosacral spine and pelvis, initial encounter for closed fracture Category: Medical Plan: na Orders: Orders IR cvc remove any age 1003/07/24 B95.62 - Methicillin resistant Staphylococcus aureus infection as the cause of diseases classified elsewhere, M86.9 - Osteomyelitis, unspecified, R78.81 - Bacteremia, S32.9XXA - Fracture of unspecified parts of lumbosacral spine and pelvis, initial encounter for closed fracture Medications: New sulfamethoxazole-trimethoprim 800-160 mg (Bactrim DS) 1 tab PO BID 28 tabs 0RF 14 days Coding Level of Care Code Est Pt Level 3 (84693) Diagnoses MRSA bacteremia R78.81; B95.62 Osteomyelitis M86.9 Pelvic fracture S32.9XXA
== END 2024-03-07 13:52 | disposition home or self-care (01) ==
LOC: HO.HID 13:03
PROVIDERS: Visit Provider Internal Medicine
DX: R78.81 Bacteremia (principal); B95.62 Methicillin resistant Staphylococcus aureus infection as the cause of diseases classified elsewhere; M86.9 Osteomyelitis, unspecified; S32.9XXA Fracture of unspecified parts of lumbosacral spine and pelvis, initial encounter for closed fracture
CPT/HCPCS: 99213

== ENCOUNTER → 2024-03-07 13:03 | Outpatient (BNVA) | payer MEDICAID, SELFPAY | PROVIDERS: Visit Provider Internal Medicine | DX: R78.81 Bacteremia (principal); B95.62 Methicillin resistant Staphylococcus aureus infection as the cause of diseases classified elsewhere; M86.9 Osteomyelitis, unspecified; S32.9XXD Fracture of unspecified parts of lumbosacral spine and pelvis, subsequent encounter for fracture with routine healing | CPT/HCPCS: 99212 ==

== ENCOUNTER 2024-03-15 13:33 | Outpatient (AMB) | payer MEDICAID, SELFPAY ==
--- NOTE | 2024-03-15 13:31 | MHC.OFFVIS ---
Vital Signs 03/15/24 13:40 Height 5 ft 6 in Weight 134 lb BMI 21.6 BP 128/72 Blood Pressure Location Lt brachial Position Sitting Pulse 120 H Intake Visit Reasons: follow up pelvic drain Intake Note: Patient is seen in office for ER follow up visit, following pelvic drain. Pt c/o: still has the drain in place, recently was discharge from rehab, needs to have drain removed states area is healed ER note: 01/24/24 Package Dyeing Machine Operator Required: No Accompanied by: Self / Same As Patient Allergies No Known Allergies Allergy (Verified 03/15/24 13:32) Medication List - Last Reconciled 03/15/24 by Nino Maciel MD methadone (Methadose) 55 mg (5.5 mL) PO DAILY sulfamethoxazole-trimethoprim 800-160 mg (Bactrim DS) 1 tab PO BID 14 days HPI Comments Details: 38-year-old male patient with history of IVDA, homelessness, presenting with generalized weakness and body pain admitted to the hospitalist service on 01/18/2024. He reports being evaluated at [facility] and was having difficulty walking. He was evaluated in the emergency department on 01/17/2024. Current evaluation with CT abdomen and pelvis reveals a pelvic fluid collection and around the right pubic rami which was thought to be suggestive of septic arthritis with pathologic fracture. Patient has no recall of fall but unfortunately is a poor historian. While he was hospitalized here at [facility], an IR drainage of the fluid collection was performed and a catheter left in place. Cultures subsequently revealed MRSA for which she underwent prolonged parenteral antibiotic treatment. He is being followed by infectious disease. He presents today for removal of the IR drainage catheter. [facility] Medical History Substance abuse Homeless Abscess Amputated toe of right foot Staphylococcus aureus bacteremia Opioid use disorder Drug abuse Surgical History (Updated 03/15/24 @ 13:40 by URIAH Weaver) History of amputation of toe Social History Household Members: None Housing: Homeless Are you a primary live in caregiver to a significant other at home: No Do you presently have visiting nurse or other home services: No Alcohol intake: current Comment: Pt refusing to get OOB. Patient Tobacco Use Status: Current everyday Tobacco user Tobacco use type: Cigarette Cigarette Packs Per Day: 1 Cigarettes Per Day: 20.0 e-Cigarette/Vaping Use: Never Used Second Hand Smoke Exposure: No Substance Use Type: Crack/Cocaine and Heroin service: No Review of Systems Const All systems reviewed & are unremarkable except as noted in HPI and below Physical Exam Const General: no acute distress Nutritional Appearance: well nourished Orientation/consciousness: patient oriented x3 GI Other: IR drain in the right groin site is clean and intact. No discharge noted in the bulb. Drain removed without difficulty and dry sterile dressings applied. Neuro General: patient oriented x3 Extrem Other: No erythema or edema Assessment & Plan Assessment & Plan (1) Pelvic fracture: Code(s): S32.9XXA - Fracture of unspecified parts of lumbosacral spine and pelvis, initial encounter for closed fracture Category: Medical (2) Staphylococcus aureus bacteremia: Code(s): R78.81 - Bacteremia; B95.61 - Methicillin susceptible Staphylococcus aureus infection as the cause of diseases classified elsewhere Category: Medical Plan 38-year-old male patient with a right pelvic abscess status post IR drainage. He has completed his IV antibiotics in his wounds are healing nicely. The IR drain was removed today without difficulty. He should follow up as needed. Coding Level of Care Code Est Pt Level 3 (18443) Diagnoses Pelvic fracture S32.9XXA Staphylococcus aureus bacteremia R78.81; B95.61
[2024-03-15 13:40] VITALS: BP 128/72; PULSE 120; BMI 21.6
== END 2024-03-15 13:45 | disposition home or self-care (01) ==
LOC: HO.HGS 13:33
PROVIDERS: Visit Provider Surgery
DX: S32.9XXA Fracture of unspecified parts of lumbosacral spine and pelvis, initial encounter for closed fracture (principal); R78.81 Bacteremia; B95.61 Methicillin susceptible Staphylococcus aureus infection as the cause of diseases classified elsewhere
CPT/HCPCS: 99213

== ENCOUNTER → 2024-03-15 13:33 | Outpatient (BNVA) | payer MEDICAID, SELFPAY | PROVIDERS: Visit Provider Surgery | DX: S32.9XXA Fracture of unspecified parts of lumbosacral spine and pelvis, initial encounter for closed fracture (principal); X58.XXXA Exposure to other specified factors, initial encounter; Y93.9 Activity, unspecified; Y92.9 Unspecified place or not applicable; Y99.9 Unspecified external cause status; R78.81 Bacteremia; B95.61 Methicillin susceptible Staphylococcus aureus infection as the cause of diseases classified elsewhere; F11.90 Opioid use, unspecified, uncomplicated; Z59.02 Unsheltered homelessness | CPT/HCPCS: 99212 ==

== ENCOUNTER 2024-06-21 22:26 | Emergency (ER) | payer MEDICAID, SELFPAY ==
--- NOTE | ~2024-06-21 | US_ITS ---
CLINICAL HISTORY: Right epididymal abscess?? US Scrotum with Doppler Comparison: None Findings: Right testicle measures 4.1 x 2.9 x 2.0 cm. Left testicle measures 3.6 x 2.8 x 1.7. No definite mass of either imaged testicle. Increase blood flow and mixed echogenicity concerning for right-sided epididymitis. Question hyperemia of the left epididymis raises concern for developing left epididymitis. Small bilateral hydroceles are nonspecific and likely reactive. Mild thickening and/or edema or cellulitis considered in the partially imaged scrotum. Low echogenicity concerning for fluid may represent forming abscess in the tail of the right epididymis measuring 0.7 x 0.7 x 0.6 cm. No definite abscess greater than 1 cm at this time. Doppler: Doppler arterial waveform of right testicle demonstrates peak systolic velocity of 4 centimeters/second and resistive index of 0.4 accounting for aliasing artifacts. Doppler arterial waveform of the left testicle demonstrates peak systolic velocity of the 6 centimeters/second and resistive index of 0.6, accounting for aliasing artifacts. IMPRESSION: 1. Abnormal appearance of the right epididymis concerning for epididymitis. Small focus of the fluid measures up to 0.7 cm in the tail of the right epididymis. Differential considerations include developing microabscess. Recommend attention on follow-up to ensure resolution. 2. Small bilateral hydroceles are likely reactive. 3. No ultrasound findings of testicular torsion This document has been electronically signed by: Andrea Branch MD on 06/22/2024 00:30:19
--- NOTE | 2024-06-21 22:29 | ED_ITS ---
HPI - Overdose General Chief Complaint: Skin/Abscess/Foreign Body Stated Complaint: drug use, arrested by hpd Time Seen by Provider: 06/21/24 22:29 Source: patient and EMS Mode of arrival: EMS Limitations: no limitations History of Present Illness ED Provider: HPI Narrative: Patient is a IVDA user in police custody complaining of pain in the right groin with swelling in the right groin area denies any drug use in that area swelling been there for a while Related Data Previous Rx's ?Medication ?Instructions ?Recorded methadone 10 mg/mL oral 55 mg (5.5 mL) PO DAILY #30 mL 02/03/24 concentrate (Methadose) sulfamethoxazole 800 1 tab PO BID 14 days #28 tabs 03/07/24 mg-trimethoprim 160 mg tablet (Bactrim DS) doxycycline hyclate 100 mg tablet 100 mg PO BID #20 tabs 06/22/24 levofloxacin 500 mg tablet 500 mg PO DAILY 10 days #10 tabs 06/22/24 Allergies Allergy/AdvReac Type Severity Reaction Status Date / Time No Known Allergies Allergy Verified 06/21/24 22:42 Review of Systems Review of Systems: Yes all other systems are reviewed and are negative PMFSH Past Medical History Medical History Substance abuse Homeless Abscess Amputated toe of right foot Staphylococcus aureus bacteremia Opioid use disorder Drug abuse Surgical History History of amputation of toe Social History Social History Household Members: None Housing: Homeless Are you a primary wound care nurse to a significant other at home: No Do you presently have visiting nurse or other home services: No Alcohol intake: current Comment: Pt refusing to get OOB. Patient Tobacco Use Status: Current everyday Tobacco user Tobacco use type: Cigarette Cigarette Packs Per Day: 1 Cigarettes Per Day: 20.0 e-Cigarette/Vaping Use: Never Used Second Hand Smoke Exposure: No Substance Use Type: Crack/Cocaine and Heroin Advance Directives: No Advance Directives Information Provided: No (PT Discharged w/PD before Reg) Do you have a plan to hurt others: No Plan service: No Physical Exam Vital Signs: Vital Signs: Last Vital Signs Temp 98.1 F 06/22/24 00:36 Pulse 85 06/22/24 00:36 Resp 18 06/22/24 00:36 BP 106/59 L 06/22/24 00:36 Pulse Ox 100 06/21/24 22:36 O2 Del Method Room Air 06/22/24 00:36 BMI result Body Mass Index 22.6 Appearance: Alert. Oriented X3. No acute distress. Unkept Eyes: PERRLA, No Nystagmus ENT: Pharynx normal. Oral Mucosa moist Neck: Normal inspection. Neck supple. CVS: Normal heart rate and rhythm. Pulses normal. Respiratory: No respiratory distress. Equal air entry bilateral, no wheezing/rales/rhonchi Abdomen: Soft and nontender. Bowel sounds are present, no mass palpable, no CVA tenderness Skin: Skin warm and dry. Normal skin color. Normal skin turgor. Right inguinal lymph node palpable bedside ultrasound no abscess noticed Extremities: No lower extremity edema. No calf tenderness Neuro: Oriented X 3. No motor deficit. No sensory deficit.No cerebellar signs , cranial nerves II-XII intact Medications Administered Discontinued Medications Generic Name Dose Route Start Last Admin Trade Name Freq PRN Reason Stop Dose Admin Doxycycline Monohydrate 100 mg 06/21/24 22:53 06/21/24 23:05 Doxycycline Monohydrate 100 Mg Capsule PO 06/21/24 22:54 100 mg ONCE ONE Administration Levofloxacin 500 mg 06/21/24 22:53 06/21/24 23:05 Levofloxacin 500 Mg Tablet PO 06/21/24 22:54 500 mg ONCE ONE Administration Lidocaine HCl 5 ml 06/21/24 23:59 06/22/24 00:24 Lidocaine Hcl 1 % Mpf 5 Ml Vial INFILTRATI 06/22/24 00:00 5 ml ONCE ONE Administration Medical Decision Making Medical Decision Making [facility] Narrative: Patient's right inguinal lymphadenopathy with cellulitic area bedside ultrasound done which did not reveal any significant fluid collection but showed possible early epididymitis needle aspiration was negative for pus patient to go with police custody on doxycycline and cephalexin Radiology Impression Discussion of test interpretation with radiology: I have reviewed the radiologist's reading. Radiologist Impression: [address] [address] Ultrasound Report Signed Patient: Michael Jo MR#: [id number] : 1985 Acct:[id number] Age/Sex: 38 / M ADM Date: 06/21/24 Loc: HO.ED Attending Dr: Ordering Physician: Aman Pop MD Date of Service: 06/21/24 Procedure(s): US scrotum Accession Number(s): [id number] cc: Aman Pop MD~ CLINICAL HISTORY: Right epididymal abscess?? US Scrotum with Doppler Comparison: None Findings: Right testicle measures 4.1 x 2.9 x 2.0 cm. Left testicle measures 3.6 x 2.8 x 1.7. No definite mass of either imaged testicle. Increase blood flow and mixed echogenicity concerning for right-sided epididymitis. Question hyperemia of the left epididymis raises concern for developing left epididymitis. Small bilateral hydroceles are nonspecific and likely reactive. Mild thickening and/or edema or cellulitis considered in the partially imaged scrotum. Low echogenicity concerning for fluid may represent forming abscess in the tail of the right epididymis measuring 0.7 x 0.7 x 0.6 cm. No definite abscess greater than 1 cm at this time. Doppler: Doppler arterial waveform of right testicle demonstrates peak systolic velocity of 4 centimeters/second and resistive index of 0.4 accounting for aliasing artifacts. Doppler arterial waveform of the left testicle demonstrates peak systolic velocity of the 6 centimeters/second and resistive index of 0.6, accounting for aliasing artifacts. IMPRESSION: 1. Abnormal appearance of the right epididymis concerning for epididymitis. Small focus of the fluid measures up to 0.7 cm in the tail of the right epididymis. Differential considerations include developing microabscess. Recommend attention on follow-up to ensure resolution. 2. Small bilateral hydroceles are likely reactive. 3. No ultrasound findings of testicular torsion This document has been electronically signed by: Andrea Branch MD on 06/22/2024 00:30:19 Discharge Plan Discharge Clinical Impression: Cellulitis, Acute inguinal lymphadenitis Patient Disposition: Home, Self-Care Instructions: Cellulitis (ED), Lymphadenopathy (ED) Additional Instructions: Take antibiotic as prescribed Follow with the PCP/ED if pain continues swelling gets worse Prescriptions: New doxycycline hyclate 100 mg tablet 100 mg PO BID Qty: 20 0RF levofloxacin 500 mg tablet 500 mg PO DAILY 10 Days Qty: 10 0RF No Action methadone [Methadose] 10 mg/mL Concentrate 55 mg PO DAILY Qty: 30 0RF Rx Instructions: Partial Fill upon patient request. sulfamethoxazole-trimethoprim [Bactrim DS] 800-160 mg tablet 1 tab PO BID 14 Days Qty: 28 0RF Interventions: ED Discharge Assessment Last Done: 06/22/24 00:36 Discharge Date/Time: 06/22/24 00:50 Print Language: New Zealander
[2024-06-21 22:31] VITALS: BP 98/60; PULSE 110
[2024-06-21 22:36] VITALS: BP 106/59; PULSE 85; RESP 16; TEMP 36.5; O2SAT 100
[2024-06-21 22:39] VITALS: BP 106/59; PULSE 85; RESP 18; BMI 22.6
[2024-06-21] MEDS: Doxycycline Monohydrate 100 MG CAPSULE PO (23:05)
[2024-06-21] MEDS: levoFLOXacin 500 MG TABLET PO (23:05)
[2024-06-22] MEDS: Lidocaine HCl 1 % MPF 5 ML VIAL INFILTRATI (00:24)
[2024-06-22 00:36] VITALS: BP 106/59; PULSE 85; RESP 18; TEMP 36.7
--- OUTSIDE RECORDS SUMMARY | 2024-06-22 00:51 | XMS_ITS | Clinical Summary ---
Author Organization [email or web address] [facility] ity Address [address] [place] [address] Care Team Providers Care Science Consultant Name Role Phone Unavailable Primary Care Provider Unavailabl e Social History Tobacco Use Types Packs/Day Years Used Date Smoking Tobacco: Never Assessed Sex and Gender Information Value Date Recorded Sex Assigned at Not on file Gender Identity Not on file Sexual Orientation Not on file Plan of Treatment Health Maintenance Due Date Last Done Comments DTaP,Tdap,and Td Vaccines (1 - Tdap) 07/24/2002 Hepatitis B Vaccines (1 of 3 - 19+ 3-dose series) 07/24/2002 COVID-19 Vaccine (2023-2 5 season) 2024 Influenza Vaccine (#1) 2024 HIB Vaccines Aged Out No longer eligi ble based on patient's age to complete this topic HPV Vaccines Aged Out No longer eligi ble based on patient's age to complete this topic Hepatitis A Vaccines Aged Out No long er eligible based on patient's age to complete this topic IPV Vaccines Aged Out No longer eligi ble based on patient's age to complete this topic MMR Vaccines Aged Out No longer eligi ble based on patient's age to complete this topic Meningococcal ACWY Vaccine Aged Out N o longer eligible based on patient's age to complete this topic Pneumococcal Vaccine: Pediat rics (0 to 5 Years) and At-Risk Patients (6 to 64 Years) Aged Out No longer eligible b ased on patient's age to complete this topic RSV Immunization Patients Un radha 20 months Aged Out No longer eligible b ased on patient's age to complete this topic Varicella Vaccines Aged Out No longer eligible based on patient's age to complete this topic Advance Directives Documents on File Type Date Recorded 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
--- OUTSIDE RECORDS SUMMARY | 2024-06-22 00:51 | XMS_ITS | Encounter Summary ---
Author Organization [facility] Address [address] [place] [address] Care Team Providers Care Telephone Triage Nurse Name Role Phone Pcp, No Primary Care Provider Unavailabl e Pcp, No Unavailable Unavailable Encounter Details Date Type Department Care Team (Late st Contact Info) Description 07/24/2021 Scanned Document [facility] [place] [address] [place] [phone] Nino Haywood MD [address] [place] [address] Social History Tobacco Use Types Packs/Day Years Used Date Smoking Tobacco: Former Cigarettes 0 05/2019 - 05/2020 Smokeless Tobacco: Never Alcohol Use Standard Drinks/Week Comments Not Currently 0 (1 standard drink = 0.6 oz pur e alcohol) Sex and Gender Information Value Date Recorded Sex Assigned at Male 08/31/2022 9:47 AM EDT Gender Identity Male 08/31/2022 9:47 AM EDT Sexual Orientation Choose not to disclose 2022 9:47 AM EDT COVID-19 Exposure Response Date Recorded In the last month, have you been in contact with someone who was confirmed or suspected to have Coronavirus / COVID-19? No / Unsure 07/04/2021 12:58 PM EST documented as of this encounter Plan of Treatment Not on file documented as of this encounter Visit Diagnoses Not on filedocumented in this encounter Care Teams Telephone Triage Nurse Relationship Specialty Start Date End Date Pcp, No PCP - General General Medicine 02/16/21 Pcp, No General Medicine 02/16/21 documented as of this encounter
--- OUTSIDE RECORDS SUMMARY | 2024-06-22 00:51 | XMS_ITS | Encounter Summary ---
Author Organization [facility] Address [address] [place] [address] Care Team Providers Care Web Search Evaluator Name Role Phone Oneal Romo MD Primary Care Provider [phone] Encounter Details Date Type Department Care Team ([facility] st Contact Info) Description 09/10/2023 / TELEPHONE [facility] [address] [place] [phone] Jassi Ng [address] [place] [address] Social History Tobacco Use Types Packs/Day Years Used Date Smoking Tobacco: Never Smokeless Tobacco: Never Alcohol Use Standard Drinks/Week Comments Never 0 (1 standard drink = 0.6 oz pur e alcohol) Social Connections Answer Date Recorded Connectedness 0 09/04/2020 Financial Resource Strain Answer Date R ecorded Financial Resource Strain 0 2020 Stress Answer Date Recorded Stress 0 09/04/2020 Physical Activity Answer Date Recorded Physical Activity 0 09/04/2020 Food Insecurity Answer Date Recorded Food 0 09/04/2020 Transportation Needs Answer Date Record ed Transportation 0 09/04/2020 Housing Stability Answer Date Recorded Housing 0 09/04/2020 Safety and Environment Answer Date Zac rded Safety 0 09/04/2020 Utilities Answer Date Recorded Utilities 0 09/04/2020 Employment Answer Date Recorded Stress 0 09/04/2020 Sex and Gender Information Value Date Recorded Sex Assigned at Male 04/01/2021 12:39 AM PST Legal Sex Male 8:20 AM PDT Gender Identity Male 04/01/2021 12:39 AM PST Sexual Orientation Straight 04/01/2021 12 :39 AM PST COVID-19 Exposure Response Date Recorded In the last 10 days, have yo u been in contact with someone who was confirmed or suspected to have Coronavirus/COVID-19? No / Unsure 09/10/2023 12:58 PM EDT documented as of this encounter Plan of Treatment Not on file documented as of this encounter Visit Diagnoses Not on filedocumented in this encounter Care Teams Web Search Evaluator Relationship Specialty Start Date End Date Oneal Romo MD [facility] [place] [address] PCP - General Family Medicine, Physician 09/14/23 documented as of this encounter
--- OUTSIDE RECORDS SUMMARY | 2024-06-22 00:51 | XMS_ITS | Encounter Summary ---
Author Organization [facility] Address [address] [place] [address] Care Team Providers Care Mechanical Door Repairer Name Role Phone Pcp, No Primary Care Provider Unavailabl e Pcp, No Unavailable Unavailable Encounter Details Date Type Department Care Team (Late st Contact Info) Description 03/03/2021 Prep for Surgery [facility] [address] [facility] [address] [place] [phone] Nino Figueroa PA-C [address] [place] [id number] Preop examination (Primary Dx) Social History Tobacco Use Types Packs/Day Years [...] have Coronavirus / COVID-19? No / Unsure 03/04/2021 10:59 AM EDT documented as of this encounter Plan of Treatment Not on file documented as of this encounter Visit Diagnoses Diagnosis Preop examination- Primary Unspecified pre-operative examination documented in this encounter Care Teams Mechanical Door Repairer Relationship Specialty Start Date End Date Pcp, No PCP - General General Medicine 10/2/21 Pcp, No General Medicine 02/16/21 documented as of this encounter
--- OUTSIDE RECORDS SUMMARY | 2024-06-22 00:51 | XMS_ITS | Clinical Summary ---
Author Organization [facility] Address [address] [place] [address] Care Team Providers Care Human Performance Technologist Name Role Phone Pcp, No Primary Care Provider Unavailabl e Pcp, No Unavailable Unavailable Allergies No known active allergies Medications Medication Sig Dispensed Refills Start Date End Date Status methocarbamol (ROBAXIN) 500 MG tabletIndications:Pneu mothorax on right,Closed fracture of manubrium, initial encounter,Traumatic brain injury, with loss of consciousness of 30 minutes or less, initial encounter (HCC) Take 1 tablet (500 mg total) by mouth 4 (four) times a day. 120 tablet 01/29/2021 Active acetaminophen (TYLENOL) 325 MG tabletIndications:Pneu mothorax on right,Closed fracture of manubrium, initial encounter,Traumatic brain injury, with loss of consciousness of 30 minutes or less, initial encounter (HCC) Take 2 tablets (650 mg total) by mouth every 6 (six) hours around the clock. 240 tablet 04/25/2021 Active gabapentin (NEURONTIN) 600 MG tabletIndications:Pneu mothorax on right,Closed fracture of manubrium, initial encounter,Traumatic brain injury, with loss of consciousness of 30 minutes or less, initial encounter (HCC) Take 1 tablet (600 mg total) by mouth 3 (three) times a day. 90 tablet 04/25/2021 Active amoxicillin (AMOXIL) 500 MG capsule Take 1 capsule (500 mg total) by mouth 3 (three) times a day. 21 capsule 08/31/2022 Active doxycycline (VIBRAMYCIN) 100 MG capsule Take 1 capsule (100 mg total) by mouth 2 (two) times a day. 20 capsule 08/31/2022 Active ibuprofen (MOTRIN) 400 MG tablet Take 1 tablet (400 mg total) by mouth 4 times daily (every 6 hours) as needed for mild pain (pain). 16 tablet 08/31/2022 Active Active Problems Problem Noted Date Diagnosed Date Closed fracture of lower end of right radius wit h malunion 02/28/2021 TBI (traumatic brain injury) 01/24/2021 Cocaine abuse 01/24/2021 Opiate abuse, episodic 01/24/2021 Overview (01/24/2021): Fentanyl in urine Trauma 01/19/2021 Pneumothorax on right 01/19/2021 Subdural hematoma 01/19/2021 Closed nondisplaced fracture of right side of fr ontal bone 01/19/2021 Sphenoid sinus fracture 01/19/2021 Zygomatic fracture, right si de, initial encounter for closed fracture 01/19/2021 Right orbit fracture, closed, initial encounter 01/19/2021 Intraparenchymal hematoma of brain 01/19/2021 Closed fracture of clivus of occipital bone 08/2020 Pneumomediastinum 01/19/2021 Closed fracture of left occipital condyle 2020 Closed fracture of fifth cervical vertebra 01/19 C6 cervical fracture 01/19/2021 Closed stable burst fracture of T5 vertebra 08/2020 Right scapula fracture 01/19/2021 Multiple rib fractures involving first rib 01/19 Sternal fracture 01/19/2021 Left radial fracture 01/19/2021 Fracture of sixth thoracic vertebra 01/19/2021 Fracture of seventh thoracic vertebra 01/19/2021 Transaminitis 01/19/2021 EB (acute kidney injury) 01/19/2021 Rhabdomyolysis 01/19/2021 Leukocytosis 01/19/2021 Immunizations Name Administration Dates Next Due Tdap 01/19/2021 Family History Medical History Relation Name Comments No Known Problems Father No Known Problems Mother Relation Name Status Comments Father Mother Social History Tobacco Use Types Packs/Day Years Used Date Smoking Tobacco: Every Day Cigarettes Started: 05/2019; Last attempted to quit: 05/2020 Smokeless Tobacco: Never Tobacco Cessation:Ready to Q uit: Not Asked; Counseling Given: Not Answered Alcohol Use Standard Drinks/Week Comments Yes 0 (1 standard drink = 0.6 oz pur e alcohol) Sex and Gender Information Value Date Recorded Sex Assigned at Male 08/31/2022 9:47 AM EDT Gender Identity Male 08/31/2022 9:47 AM EDT Sexual Orientation Choose not to disclose 2022 9:47 AM EDT Last Filed Vital Signs Vital Sign Reading Time Taken Comments Blood Pressure 134/80 09/01/2022 10:05 AM EDT Pulse 78 09/01/2022 10:05 AM EDT Temperature 36.6 ??C (97.8 ??F) 09/01/2022 10:05 AM E DT Respiratory Rate 16 09/01/2022 10:05 AM EDT Oxygen Saturation 95% 09/01/2022 10:05 AM EDT Inhaled Oxygen Concentration - - Weight 63.5 kg (140 lb) 08/31/2022 4:38 PM EDT Height 167.6 cm (5' 6 ) 08/31/2022 4:38 PM EDT Body Mass Index 22.6 08/31/2022 4:38 PM EDT Plan of Treatment Health Maintenance Due Date Last Done Comments Hepatitis C Virus Screening 1985 HIV Screening 07/24/1996 Hepatitis B Vaccines (1 of 3 - 19+ 3-dose series) 07/24/2002 Pneumococcal Vaccine: Pediat kirsten (0-5 Years) and At-Risk Patients (6 to 49 Years) (1 of 2 - PCV) 07/24/2002 Influenza Vaccine 12/17/2023 COVID-19 Vaccine (1 - 2023-2 5 season) 2024 DTaP/Tdap/Td Vaccines (2 - T d or Tdap) 01/19/2031 01/19/2021 HPV Vaccines Aged Out No longer eligi ble based on patient's age to complete this topic Advance Directives * Full Code (Latest Code Status on File) Date Activated Date Inactivated Comments 03/05/2021 4:08 PM 08/31/2022 7:36 AM * Full Code Date Activated Date Inactivated Comments 01/19/2021 8:00 AM 03/05/2021 4:08 PM Care Teams Human Performance Technologist Relationship Specialty Start Date End Date Pcp, No PCP - General General Medicine 02/16/21 Pcp, No General Medicine 02/16/21
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
== END 2024-06-22 00:50 | disposition home or self-care (01) ==
LOC: HO.ED 06-22 00:50
PROVIDERS: Emergency Provider Internal Medicine
DX: R59.0 Localized enlarged lymph nodes (principal); L03.314 Cellulitis of groin; R10.30 Lower abdominal pain, unspecified
CPT/HCPCS: 76870; 99282; 99284

== ENCOUNTER → 2024-06-21 22:53 | Outpatient (BNV) | payer MEDICAID, SELFPAY | PROVIDERS: Emergency Provider Internal Medicine; Visit Provider Radiology Neuroradiology | DX: L03.314 Cellulitis of groin (principal) | CPT/HCPCS: 76870 ==

== ENCOUNTER 2024-07-16 17:23 | Emergency (ER) | payer MEDICAID, SELFPAY ==
--- NOTE | ~2024-07-16 | XR_ITS ---
CLINICAL HISTORY: Chest pain 1 view chest x-ray Comparison: CR/SR - XR CHEST 1V - 01/18/24 07:46 EDT Findings: Patient is rotated to the left. The lungs are clear. Heart size is normal. No acute fracture. IMPRESSION: 1. No acute findings. This document has been electronically signed by: Aurora Quach MD on 07/16/2024 18:43:46
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
[2024-07-16 17:35] VITALS: BP 114/79; PULSE 72; RESP 20; TEMP 36.1; O2SAT 99; BMI 24.4
--- NOTE | 2024-07-16 17:38 | ECG_ITS ---
Test Reason : chest pain Blood Pressure : */* mmHG Vent. Rate : 72 BPM Atrial Rate : 72 BPM P-R Int : 134 ms QRS Dur : 82 ms QT Int : 366 ms P-R-T Axes : -86 61 51 degrees QTcB Int : 400 ms Unusual P axis and short [place], probable junctional rhythm Abnormal ECG No previous ECGs available Referred By: Frederick Benites Electronically Signed By: Caleb Rodriguez
[2024-07-16 18:03] LABS: MANUAL DIFF FLAG NO
[2024-07-16 18:05] LABS: Basophils Percent Auto 0.2 % (0-2); Eosinophils Percent Auto 0.1 % (0-4); Hemoglobin 10.6 g/dl (14.0-18.0); Imm Gran Abs Auto 0.04 X10*3/uL (0.00-0.03); Imm Gran Pct Auto 0.5 % (0.0-0.4); Lymphocytes Absolute Auto 1.5 X10*3/uL (1.2-4.9); Lymphocytes Percent Auto 17.2 % (20-40); Mean Corpuscular HGB Conc 31.2 g/dl (31.0-36.0); Mean Corpuscular Hemoglobin 23.9 pg (27.0-33.0); Mean Corpuscular Volume 76.6 fL (80.0-98.0); Mean Platelet Volume 8.6 fL (9.4-12.4); Monocytes Absolute Auto 1.3 X10*3/uL (0.1-1.2); Monocytes Percent Auto 14.8 % (2-11); Neutrophils Absolute Auto 5.8 x10*3/uL (2.0-8.3); Neutrophils Percent Auto 67.2 % (45-73); Platelet Count 318 X10*3/uL (160-400); Red Blood Count 4.44 X10*6/uL (4.60-5.80); Red Cell Distribution Width 16.5 % (11.0-16.0); White Blood Count 8.7 X10*3/uL (4.8-10.8)
--- OUTSIDE RECORDS SUMMARY | 2024-07-16 18:22 | XMS_ITS | Clinical Summary ---
Author Organization [facility] Address [address] [place] [address] Care Team Providers Care Client Manager Large Law Name Role Phone Oneal Romo MD Primary Care Provider [phone] Source Comments PLEASE NOTE, if this patient is a minor, it may be UNLAWFUL to discuss sensitive information that is contained in these records (such as FAMILY PLANNING, MENTAL HEALTH or SUBSTANCE ABUSE) with the minor patient's parent or other person without the patient's specific authorization.[facility] Allergies No known active allergies Medications naloxone (NARCAN) 4 mg/actuation nasal spray Place 1 [place] into the nostril(s) as needed for opioid [...] n early remission, on maintenance therapy, abuse ([facility]) 08/30/2020 Social History Tobacco Use Types Packs/Day [...] 3 - 19 + 3-dose series) 07/24/2002 [id number] ( season) 2024 021, 08/07/2020 Imm-Influenza (#1) [...] HEPATITIS C ANTIBODY REACTIVE( A) NON-REACT [place] [employer] [facility] SIGNAL TO CUT-OFF 23.40(H) <1.[address] [employer] [facility] Comment: Based on this result, the sample will be tested for HCV RNA by a Nucleic Acid Amplification Test (NAAT) to determine if the patient has a current active infection. Blood Blood / Unknown 09/13/2020 1 0:06 AM EDT 09/13/2020 10:07 AM EDT Narrative [facility] - 09/13/2020 9:23 PM EDT SPLIT 09/12/2020 FROM [id number] Merry Farrar APRN LAB - BLOOD DRAW Final Result [facility] [address] [place] [id number], [employer] [address] [address] * LIPID PANEL (09/12/2020 4:07 PM EDT) CHOLESTEROL, TOTAL 160 <200 mg/dL [facility] HDL CHOLESTEROL 53 > OR = 40 mg/dL [facility] TRIGLYCERIDES 107 <150 mg/dL [employer] [facility] LDL-CHOLESTEROL 87 99 mg/dL (calc) [employer] [facility] Comment: Reference range: <100 Desirable range <100 mg/dL for primary prevention; ?? <70 mg/dL for patients with CHD or diabetic patients with > or = 2 CHD risk factors. LDL-C is now calculated using the Carlito calculation, which is a validated novel method providing better accuracy than the Friedewald equation in the estimation of LDL-C. Colin SS et al. JR. 2013;310(19): 5907-0370 (http://education.Suite101/faq/ORX921) CHOL/HDLC RATIO 3.0 <5.0 (calc) [facility] NON-HDL CHOLESTEROL 107 <130 mg/dL (calc) [facility] Comment: For patients with diabetes plus 1 major ASCVD risk factor, treating to a non-HDL-C goal of <100 mg/dL (LDL-C of <70 mg/dL) is considered a therapeutic option. Blood Blood / Unknown 09/12/2020 4 :07 PM EDT 09/12/2020 4:08 PM EDT Narrative [facility] - 09/13/2020 2:55 AM EDT DIFFICULT DRAW. PATIENT ADVISED TO RETURN FOR COLLECTION. Merry Farrar APRN LAB - BLOOD DRAW Final Result [facility] [address] [address], [facility] [address] [address] * COMPRE METAB PANEL (09/12/2020 4:07 PM EDT) GLUCOSE 97 65 - 99 mg/dL [employer] Comment: ?Fasting reference interval UREA NITROGEN (BUN) 15 7 - 25 mg/dL [facility] CREATININE (blood) 0.94 0.60 - 1.35 mg/dL [facility] GFR ESTIMATED 103 > OR = 60 mL/min/1 .73m2 [facility] EGFR 120 > OR = 60 mL/min/1 .73m2 [facility] BUN/CREATININE RATIO NOT APPLICABLE 6 - 22 [facility] SODIUM 138 135 - 146 mmol/L [facility] POTASSIUM 4.2 3.5 - 5.3 mmol/L [facility] CHLORIDE 102 98 - 110 mmol/L [facility] CARBON DIOXIDE 30 20 - 32 mmol/L [facility] CALCIUM 9.7 8.6 - 10.3 mg/dL [facility] PROTEIN, TOTAL 7.6 6.1 - 8.1 g/dL [facility] ALBUMIN 4.5 3.6 - 5.1 g/dL [facility] GLOBULIN 3.1 1.9 - 3.7 g/dL (calc) [facility] ALBUMIN/GLOBUL IN RATIO 1.5 1.0 - 2.5 (calc) [facility] BILIRUBIN, TOTAL 0.4 0.2 - 1.2 mg/dL [facility] ALKALINE PHOSPHATASE 62 36 - 130 U/L [facility] AST 20 10 - 40 U/L [facility] ALT 13 9 - 46 U/L [facility] Blood Blood / Unknown 09/12/2020 4 :07 PM EDT 09/12/2020 4:08 PM EDT Narrative [facility] - 09/13/2020 2:55 AM EDT DIFFICULT DRAW. PATIENT ADVISED TO RETURN FOR COLLECTION. Merry Farrar APRN LAB - BLOOD DRAW Final Result [facility] [address] [address], [facility] [address] [address] from Last 3 Months or Most Recently Relevant to Health Maintenance Insurance [facility] [place] DENTAL [facility] Care Teams Client Manager Large Law Relationship Specialty Start Date End Date Oneal Romo MD [address] [place] [address] PCP - General Family Medicine, Physician 09/14/23
--- OUTSIDE RECORDS SUMMARY | 2024-07-16 18:22 | XMS_ITS | Encounter Summary ---
Author Organization [facility] Address [address] [place] [address] Care Team Providers Care Clinical Sales Consultant Name Role Phone Pcp, No Primary Care Provider Unavailabl e Pcp, No Unavailable Unavailable Encounter Details Date Type Department Care Team (Late st Contact Info) Description 07/24/2021 Scanned Document [facility] [place] [address] [place] [phone] Nino Haywood MD [address] [place] [address] Social History Tobacco Use Types Packs/Day Years [...] on filedocumented in this encounter Care Teams Clinical Sales Consultant Relationship Specialty Start Date End Date Pcp, No PCP - General General Medicine 02/16/21 Pcp, No General Medicine 02/16/21 documented as of this encounter
--- OUTSIDE RECORDS SUMMARY | 2024-07-16 18:22 | XMS_ITS | Clinical Summary ---
Author Organization [facility] it Address [address] [place] [address] Care Team Providers Care Director Of Learning Name Role Phone Unavailable Primary Care Provider Unavailabl e Social History Tobacco Use Types Packs/Day Years Used Date Smoking Tobacco: Never Assessed Sex and Gender Information Value Date Recorded Sex Assigned at Not on file Legal Sex Male 9:51 AM EST Gender Identity Not on file Sexual Orientation [...] patient's age to complete this topic Meningococcal B Vacine Aged Out No lo nger eligible based on patient's age to complete [...] Documents on File Type Date Recorded 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
--- OUTSIDE RECORDS SUMMARY | 2024-07-16 18:22 | XMS_ITS | Encounter Summary ---
Author Organization [facility] Address [address] [place] [address] Care Team Providers Care Drip Box Tender Name Role Phone Pcp, No Primary Care Provider Unavailabl e Pcp, No Unavailable Unavailable Encounter Details Date Type Department Care Team (Late st Contact Info) Description 03/03/2021 Prep for Surgery [facility] [address] [facility] [address] [place] [phone] Nino Figueroa PA-C [address] [place] [id number] Preop examination (Primary Dx) Social History Tobacco [...] examination documented in this encounter Care Teams Drip Box Tender Relationship Specialty Start Date End Date Pcp, No PCP - General General Medicine 10/2/21 Pcp, No General Medicine 02/16/21 documented as of this encounter
--- OUTSIDE RECORDS SUMMARY | 2024-07-16 18:22 | XMS_ITS | Encounter Summary ---
Author Organization [facility] Address [address] [place] [address] Care Team Providers Care Conservation Policy Analyst Name Role Phone Pcp, No Primary Care Provider Unavailabl e Pcp, No Unavailable Unavailable Encounter Details Date Type Department Care Team (Late st Contact Info) Description 04/22/2021 Refill [facility] [place] [address] [place] [phone] Nino Haywood MD [address] [place] [phone] Pneumothorax on right; Closed fracture of manubrium, initial encounter; Traumatic brain injury, with loss of consciousness of 30 minutes or less, initial encounter ([facility]) Social History Tobacco Use Types Packs/Day Years [...] Fernandez RN - 04/22/2021 1:24 PM EST [place] text sent to Dr. Guevara. * Telephone Encounter - Kita Rivera - 04/22/2021 10:41 AM EST Patient called and patient's looking for pain medication; patient was in house February 2021 and going on surgery this Thursday. Looking for Acetaminophen, Gapapentin and Methocarbamol. Please call [phone] (Abigail Avitia-). Please send to [facility]. Thank you. documented in this encounter Plan of Treatment Not on file documented as of this encounter Visit Diagnoses Diagnosis Pneumothorax on right Other spontaneous pneumothorax Closed fracture of manubrium, initial encounter Traumatic brain injury, with loss of consciousness of 30 minutes or less, initial encounter (HCC) documented in this encounter Care Teams Conservation Policy Analyst Relationship Specialty Start Date End Date Pcp, No PCP - General General Medicine 02/16/21 Pcp, No General Medicine 02/16/21 documented as of this encounter
--- OUTSIDE RECORDS SUMMARY | 2024-07-16 18:22 | XMS_ITS | Clinical Summary ---
Author Organization [facility] Address [address] [place] [address] Care Team Providers Care Grape Crusher Name Role Phone Pcp, No Primary Care [...] 8:00 AM 03/05/2021 4:08 PM Care Teams Grape Crusher Relationship Specialty Start Date End Date Pcp, No PCP - General General Medicine 02/16/21 Pcp, No General Medicine 02/16/21
[2024-07-16 18:24] LABS: Alanine Aminotransferase 61 U/L (0-40); Albumin Level 2.9 g/dL (3.5-5.0); Alkaline Phosphatase 190 U/L (39-117); Anion Gap 11 (12-20); Aspartate Amino Transferase 99 U/L (5-37); Bilirubin Total 0.3 mg/dL (0.0-1.0); Blood Urea Nitrogen 13 mg/dL (9-16); Calcium 8.8 mg/dL (8.4-10.2); Carbon Dioxide 21 mmol/L (22-29); Chloride 104 mmol/L (96-108); Estimated Glomerular Filt Rate > 60; Ethanol < 10 mg/dL; Glucose Random 106 mg/dL (60-115); Potassium 3.8 mmol/L (3.3-5.1); Sodium 132 mmol/L (135-145); Total Protein 10.6 g/dL (6.5-8.0)
[2024-07-16] MEDS: Acetaminophen 325 MG TABLET 975 MG PO (18:30)
[2024-07-16] MEDS: Ibuprofen 600 MG TABLET PO (18:30)
[2024-07-16 18:36] LABS: Troponin-I High Sensitivity < 2.7 ng/L (<3.5-35.0)
[2024-07-16 19:15] VITALS: BP 126/82; PULSE 73; RESP 18; TEMP 37.1; O2SAT 97
[2024-07-16 20:12] LABS: Troponin-I High Sensitivity < 2.7 ng/L (<3.5-35.0)
[2024-07-16 20:35] VITALS: BP 111/67; PULSE 76; RESP 16; TEMP 36.6; O2SAT 98
[2024-07-16 20:36] VITALS: BP 111/67; PULSE 76; RESP 16; TEMP 36.6; O2SAT 98
== END 2024-07-16 21:04 | disposition home or self-care (01) ==
PROVIDERS: Emergency Provider Emergency Medicine
DX: R07.9 Chest pain, unspecified (principal); F19.10 Other psychoactive substance abuse, uncomplicated; F11.20 Opioid dependence, uncomplicated; F17.210 Nicotine dependence, cigarettes, uncomplicated
CPT/HCPCS: 36415; 71045; 80053; 80307; 84484; 85025; 93005; 99283; 99285

== ENCOUNTER → 2024-07-16 17:38 | Outpatient (BNV) | payer MEDICAID, SELFPAY | PROVIDERS: Emergency Provider Emergency Medicine; Visit Provider Internal Medicine Cardiovascular Disease | DX: R07.9 Chest pain, unspecified (principal); R94.31 Abnormal electrocardiogram [ECG] [EKG] | CPT/HCPCS: 93010 ==

== ENCOUNTER → 2024-07-16 18:06 | Outpatient (BNV) | payer MEDICAID, SELFPAY | PROVIDERS: Emergency Provider Emergency Medicine; Visit Provider Nuclear Medicine | DX: R07.9 Chest pain, unspecified (principal) | CPT/HCPCS: 71045 ==